=== PATIENT | female | born 1960 | race Caucasian/White ===

== ENCOUNTER 2020-02-17 07:56 | Outpatient (REF) | payer MEDICARE, MEDICAID, SELFPAY | END 2020-02-17 07:57 | disposition home or self-care (01) | LOC: HO.10HDL 07:56 | PROVIDERS: Visit Provider Internal Medicine | DX: Z13.89 Encounter for screening for other disorder (principal) | CPT/HCPCS: 80053; 80061 ==

== ENCOUNTER 2020-02-24 07:48 | Outpatient (REF) | payer MEDICARE, MEDICAID, SELFPAY ==
[2020-02-24 10:48] LABS: Alanine Aminotransferase 18 U/L (0-31); Albumin Level 4.5 g/dL (3.5-5.0); Alkaline Phosphatase 62 U/L (39-117); Anion Gap 16 (12-20); Aspartate Amino Transferase 13 U/L (5-31); Bilirubin Total 0.9 mg/dL (0.0-1.0); Blood Urea Nitrogen 22 mg/dL (9-16); Calcium 9.7 mg/dL (8.4-10.2); Carbon Dioxide 29 mmol/L (22-29); Chloride 93 mmol/L (96-108); Cholesterol 182 mg/dL; Estimated Glomerular Filt Rate > 60; Glucose Fasting 152 mg/dL (60-99); HDL Cholesterol 48 mg/dL; LDL Cholesterol Calculated 90 mg/dl; Potassium 4.7 mmol/l (3.3-5.1); Sodium 133 mmol/L (135-145); Total Protein 7.3 g/dL (6.5-8.0); Triglycerides 224 mg/dL
== END 2020-02-24 07:49 | disposition home or self-care (01) ==
LOC: HO.10HDL 07:48
PROVIDERS: Visit Provider Internal Medicine
DX: E78.00 Pure hypercholesterolemia, unspecified (principal); E11.9 Type 2 diabetes mellitus without complications
CPT/HCPCS: 80053; 80061

== ENCOUNTER 2020-06-10 07:41 | Outpatient (REF) | payer MEDICARE, MEDICAID, SELFPAY ==
[2020-06-10 10:50] LABS: Estimated Average Glucose 217 mg/dL; Hemoglobin A1c % 9.2 %
[2020-06-10 11:14] LABS: Alanine Aminotransferase 19 U/L (0-31); Albumin Level 4.4 g/dL (3.5-5.0); Alkaline Phosphatase 59 U/L (39-117); Anion Gap 16 (12-20); Aspartate Amino Transferase 12 U/L (5-31); Bilirubin Total 0.5 mg/dL (0.0-1.0); Blood Urea Nitrogen 24 mg/dL (9-16); Calcium 9.8 mg/dL (8.4-10.2); Carbon Dioxide 29 mmol/L (22-29); Chloride 98 mmol/L (96-108); Cholesterol 171 mg/dL; Estimated Glomerular Filt Rate > 60; Glucose Fasting 148 mg/dL (60-99); HDL Cholesterol 45 mg/dL; LDL Cholesterol Calculated 85 mg/dl; Potassium 5.1 mmol/L (3.3-5.1); Sodium 138 mmol/L (135-145); Total Protein 7.2 g/dL (6.5-8.0); Triglycerides 207 mg/dL
[2020-06-10 11:17] LABS: Creatinine Urine 99.98 mg/dL
== END 2020-06-10 07:42 | disposition home or self-care (01) ==
LOC: HO.10HDL 07:41
PROVIDERS: Visit Provider Internal Medicine
DX: E11.29 Type 2 diabetes mellitus with other diabetic kidney complication (principal); E78.5 Hyperlipidemia, unspecified; R80.9 Proteinuria, unspecified
CPT/HCPCS: 36415; 80053; 80061; 82043; 83036

== ENCOUNTER 2020-11-23 07:42 | Outpatient (REF) | payer MEDICARE, MEDICAID, SELFPAY ==
[2020-11-23 08:55] LABS: Alanine Aminotransferase 21 U/L (0-31); Albumin Level 4.4 g/dL (3.5-5.0); Alkaline Phosphatase 55 U/L (39-117); Anion Gap 18 (12-20); Aspartate Amino Transferase 21 U/L (5-31); Bilirubin Total 0.4 mg/dL (0.0-1.0); Blood Urea Nitrogen 17 mg/dL (9-16); Carbon Dioxide 23 mmol/L (22-29); Chloride 96 mmol/L (96-108); Cholesterol 192 mg/dL; Estimated Glomerular Filt Rate > 60; Glucose Fasting 237 mg/dL (60-99); HDL Cholesterol 47 mg/dL; LDL Cholesterol Calculated 94 mg/dl; Potassium 5.3 mmol/L (3.3-5.1); Sodium 132 mmol/L (135-145); Total Protein 7.4 g/dL (6.5-8.0); Triglycerides 259 mg/dL
[2020-11-23 08:57] LABS: Valproate 26.9 mcg/mL (50.0-100.0)
[2020-11-23 10:18] LABS: Microalbum/Creatinine Ratio Ur 53.1 ug/mg cr
[2020-11-27 13:36] LABS: Vitamin D 25-OH, D2 16 ng/mL; Vitamin D 25-OH, D3 12 ng/mL; Vitamin D 25-OH, Total 28 ng/mL (30-100)
== END 2020-11-23 07:43 | disposition home or self-care (01) ==
LOC: HO.LAB 07:42
PROVIDERS: PCP Internal Medicine; Visit Provider Internal Medicine
DX: E78.5 Hyperlipidemia, unspecified (principal); F79 Unspecified intellectual disabilities; I10 Essential (primary) hypertension; E11.9 Type 2 diabetes mellitus without complications; E55.9 Vitamin D deficiency, unspecified
CPT/HCPCS: 36415; 80053; 80061; 80164; 82043; 82306

== ENCOUNTER → 2020-11-25 07:48 | Outpatient (BNVA) | payer MEDICARE, MEDICAID, SELFPAY | PROVIDERS: PCP Internal Medicine; Visit Provider Nurse Practitioner Gerontology | DX: E11.65 Type 2 diabetes mellitus with hyperglycemia (principal); E11.29 Type 2 diabetes mellitus with other diabetic kidney complication; R80.9 Proteinuria, unspecified; E78.5 Hyperlipidemia, unspecified; I10 Essential (primary) hypertension | CPT/HCPCS: 82947; 99212 ==

== ENCOUNTER → 2020-12-30 08:50 | Outpatient (BNVA) | payer MEDICARE, MEDICAID, SELFPAY | PROVIDERS: PCP Internal Medicine; Visit Provider Dietitian, Registered | DX: E11.29 Type 2 diabetes mellitus with other diabetic kidney complication (principal) | CPT/HCPCS: 97802 ==

== ENCOUNTER → 2021-02-13 08:41 | Outpatient (BNVA) | payer MEDICARE, MEDICAID, SELFPAY | PROVIDERS: PCP Internal Medicine; Visit Provider Dietitian, Registered | DX: E11.29 Type 2 diabetes mellitus with other diabetic kidney complication (principal) | CPT/HCPCS: 97803 ==

== ENCOUNTER → 2021-04-10 07:31 | Outpatient (BNVA) | payer MEDICARE, MEDICAID, SELFPAY | PROVIDERS: PCP Internal Medicine; Visit Provider Nurse Practitioner Gerontology | DX: E11.65 Type 2 diabetes mellitus with hyperglycemia (principal); E11.29 Type 2 diabetes mellitus with other diabetic kidney complication; E78.5 Hyperlipidemia, unspecified; E66.01 Morbid (severe) obesity due to excess calories; R80.9 Proteinuria, unspecified; I10 Essential (primary) hypertension; Z68.36 Body mass index [BMI] 36.0-36.9, adult | CPT/HCPCS: 82947; 99212 ==

== ENCOUNTER 2021-05-24 07:48 | Outpatient (REF) | payer MEDICARE, MEDICAID, SELFPAY ==
[2021-05-24 10:43] LABS: MANUAL DIFF FLAG NO
[2021-05-24 10:48] LABS: Basophils Absolute Auto 0.1 X10*3/uL (0.0-0.2); Basophils Percent Auto 0.9 % (0-2); Eosinophils Absolute Auto 0.1 X10*3/uL (0.0-0.4); Eosinophils Percent Auto 1.9 % (0-4); Hematocrit 36.2 % (37.0-47.0); Hemoglobin 11.6 g/dl (12.0-16.0); Imm Gran Abs Auto 0.02 X10*3/uL (0.00-0.03); Imm Gran Pct Auto 0.4 % (0.0-0.4); Lymphocytes Absolute Auto 1.4 X10*3/uL (1.2-4.9); Lymphocytes Percent Auto 26.2 % (20-40); Mean Corpuscular Hemoglobin 28.9 pg (27.0-33.0); Mean Corpuscular Volume 90.3 fL (80.0-98.0); Mean Platelet Volume 9.1 fL (9.4-12.3); Monocytes Absolute Auto 0.5 X10*3/uL (0.1-1.2); Monocytes Percent Auto 9.5 % (2-11); Neutrophils Absolute Auto 3.3 x10*3/uL (2.0-8.3); Neutrophils Percent Auto 61.1 % (45-73); Platelet Count 227 X10*3/uL (160-400); Red Blood Count 4.01 X10*6/uL (4.20-5.50); Red Cell Distribution Width 13.1 % (11.0-16.0); White Blood Count 5.4 X10*3/uL (4.8-10.8)
[2021-05-24 11:00] LABS: Estimated Average Glucose 186 mg/dL; Hemoglobin A1c % 8.1 %
[2021-05-24 11:09] LABS: Alanine Aminotransferase 11 U/L (0-31); Albumin Level 4.3 g/dL (3.5-5.0); Alkaline Phosphatase 54 U/L (39-117); Anion Gap 14 (12-20); Aspartate Amino Transferase 10 U/L (5-31); Bilirubin Total 0.4 mg/dL (0.0-1.0); Blood Urea Nitrogen 20 mg/dL (9-16); Calcium 10.4 mg/dL (8.4-10.2); Carbon Dioxide 28 mmol/L (22-29); Chloride 96 mmol/L (96-108); Cholesterol 154 mg/dL; Estimated Glomerular Filt Rate > 60; Glucose Fasting 137 mg/dL (60-99); HDL Cholesterol 45 mg/dL; LDL Cholesterol Calculated 81 mg/dl; Potassium 4.4 mmol/L (3.3-5.1); Sodium 134 mmol/L (135-145); Total Protein 7.1 g/dL (6.5-8.0); Triglycerides 140 mg/dL
[2021-05-24 11:12] LABS: Valproate 37.8 mcg/mL (50.0-100.0)
[2021-05-24 11:30] LABS: Creatinine Urine 66.67 mg/dL; Microalbum/Creatinine Ratio Ur 64.4 ug/mg cr
[2021-05-29 14:22] LABS: Vitamin D 25-OH, D2 13 ng/mL; Vitamin D 25-OH, D3 9 ng/mL; Vitamin D 25-OH, Total 22 ng/mL (30-100)
== END 2021-05-24 07:49 | disposition home or self-care (01) ==
LOC: HO.10HDL 07:48
PROVIDERS: Visit Provider Internal Medicine
DX: E55.9 Vitamin D deficiency, unspecified (principal); E83.52 Hypercalcemia; G30.0 Alzheimer's disease with early onset; F02.81 Dementia in other diseases classified elsewhere, unspecified severity, with behavioral disturbance; E78.5 Hyperlipidemia, unspecified; E11.40 Type 2 diabetes mellitus with diabetic neuropathy, unspecified; E11.29 Type 2 diabetes mellitus with other diabetic kidney complication
CPT/HCPCS: 36415; 80053; 80061; 80164; 82043; 82306; 83036; 85025

== ENCOUNTER → 2021-07-12 07:20 | Outpatient (BNVA) | payer MEDICARE, MEDICAID, SELFPAY | PROVIDERS: PCP Internal Medicine; Visit Provider Nurse Practitioner Gerontology | DX: E11.65 Type 2 diabetes mellitus with hyperglycemia (principal); E11.29 Type 2 diabetes mellitus with other diabetic kidney complication; R80.9 Proteinuria, unspecified; E78.5 Hyperlipidemia, unspecified; E66.01 Morbid (severe) obesity due to excess calories; E55.9 Vitamin D deficiency, unspecified; I10 Essential (primary) hypertension; Z68.37 Body mass index [BMI] 37.0-37.9, adult; Z79.84 Long term (current) use of oral hypoglycemic drugs | CPT/HCPCS: 82947; 99212 ==

== ENCOUNTER → 2021-10-18 08:38 | Outpatient (BNVA) | payer MEDICARE, MEDICAID, SELFPAY | PROVIDERS: PCP Internal Medicine; Visit Provider Nurse Practitioner Gerontology | DX: E11.65 Type 2 diabetes mellitus with hyperglycemia (principal); E11.29 Type 2 diabetes mellitus with other diabetic kidney complication; E78.5 Hyperlipidemia, unspecified; R80.9 Proteinuria, unspecified; I10 Essential (primary) hypertension; E55.9 Vitamin D deficiency, unspecified; E66.01 Morbid (severe) obesity due to excess calories; Z68.37 Body mass index [BMI] 37.0-37.9, adult | CPT/HCPCS: 82947; 99212 ==

== ENCOUNTER 2022-02-12 08:33 | Outpatient (REF) | payer MEDICARE, MEDICAID, SELFPAY ==
[2022-02-12 11:12] LABS: Valproate 18.3 mcg/mL (50.0-100.0)
[2022-02-12 11:14] LABS: Alanine Aminotransferase 12 U/L (0-31); Albumin Level 4.2 g/dL (3.5-5.0); Alkaline Phosphatase 65 U/L (39-117); Anion Gap 18 (12-20); Aspartate Amino Transferase 10 U/L (5-31); Bilirubin Total 0.6 mg/dL (0.0-1.0); Blood Urea Nitrogen 21 mg/dL (9-16); Calcium 10.1 mg/dL (8.4-10.2); Carbon Dioxide 27 mmol/L (22-29); Chloride 97 mmol/L (96-108); Cholesterol 196 mg/dL; Estimated Glomerular Filt Rate > 60; Glucose Random 194 mg/dL (60-115); HDL Cholesterol 52 mg/dL; LDL Cholesterol Calculated 107 mg/dl; Potassium 5.2 mmol/L (3.3-5.1); Sodium 137 mmol/L (135-145); Total Protein 6.9 g/dL (6.5-8.0); Triglycerides 189 mg/dL
[2022-02-12 11:25] LABS: TSH reflex Free T4 2.76 uIU/mL (0.32-4.0); Vitamin D 25-OH Total 32.8 ng/mL (>30)
== END 2022-02-12 08:34 | disposition home or self-care (01) ==
LOC: HO.10HDL 08:33
PROVIDERS: Visit Provider Nurse Practitioner Family
DX: Z13.29 Encounter for screening for other suspected endocrine disorder (principal); E11.29 Type 2 diabetes mellitus with other diabetic kidney complication; E78.5 Hyperlipidemia, unspecified; E55.9 Vitamin D deficiency, unspecified; F39 Unspecified mood [affective] disorder; G30.0 Alzheimer's disease with early onset; Z79.899 Other long term (current) drug therapy
CPT/HCPCS: 36415; 80053; 80061; 80164; 82306; 84443

== ENCOUNTER 2022-09-06 11:06 | Outpatient (REF) | payer MEDICARE, MEDICAID, SELFPAY ==
[2022-09-06 11:27] LABS: MANUAL DIFF FLAG NO
[2022-09-06 12:35] LABS: Basophils Absolute Auto 0.1 X10*3/uL (0.0-0.2); Basophils Percent Auto 0.9 % (0-2); Eosinophils Absolute Auto 0.1 X10*3/uL (0.0-0.4); Eosinophils Percent Auto 1.1 % (0-4); Hematocrit 36.4 % (37.0-47.0); Hemoglobin 11.7 g/dl (12.0-16.0); Imm Gran Abs Auto 0.03 X10*3/uL (0.00-0.03); Imm Gran Pct Auto 0.4 % (0.0-0.4); Lymphocytes Absolute Auto 1.5 X10*3/uL (1.2-4.9); Lymphocytes Percent Auto 21.8 % (20-40); Mean Corpuscular HGB Conc 32.1 g/dl (31.0-35.0); Mean Corpuscular Hemoglobin 28.1 pg (27.0-33.0); Mean Corpuscular Volume 87.3 fL (80.0-98.0); Mean Platelet Volume 9.9 fL (9.4-12.3); Monocytes Absolute Auto 0.5 X10*3/uL (0.1-1.2); Monocytes Percent Auto 6.9 % (2-11); Neutrophils Absolute Auto 4.8 x10*3/uL (2.0-8.3); Neutrophils Percent Auto 68.9 % (45-73); Platelet Count 303 X10*3/uL (160-400); Red Blood Count 4.17 X10*6/uL (4.20-5.50); Red Cell Distribution Width 13.6 % (11.0-16.0)
== END 2022-09-06 11:07 | disposition home or self-care (01) ==
LOC: HO.LAB 11:06
PROVIDERS: Nurse Practitioner Family; PCP Internal Medicine; Visit Provider Internal Medicine
DX: R19.7 Diarrhea, unspecified (principal)
CPT/HCPCS: 36415; 85025

== ENCOUNTER 2022-09-13 11:07 | Outpatient (REF) | payer MEDICARE, MEDICAID, SELFPAY ==
[2022-09-13 13:09] LABS: CDiff Gene PCR NEGATIVE (Negative)
[2022-09-13 14:44] LABS: Leukocytes Stool Qualitative NEGATIVE (NEGATIVE)
== END 2022-09-13 11:08 | disposition home or self-care (01) ==
LOC: HO.LNP 11:07
PROVIDERS: Visit Provider Nurse Practitioner Family
DX: R19.7 Diarrhea, unspecified (principal)
CPT/HCPCS: 87177; 87209; 87493; 89055

== ENCOUNTER 2022-12-05 13:13 | Outpatient (AMB) | payer MEDICARE, MEDICAID, SELFPAY ==
[2022-12-05 13:16] VITALS: BP 102/72; PULSE 80; BMI 33.3
--- NOTE | 2022-12-05 13:16 | A.OFFVIS_ITS ---
Intake Vital Signs 12/05/22 13:16 Height 5 ft 2 in Weight 182 lb BMI 33.3 BP 102/72 Blood Pressure Location Lt brachial Position Sitting Pulse 80 Pulse Source Pulse Oximeter Intake Visit Reasons: DM2 Intake Note: New patient to Dr. Leblanc present today for Type 2 Diabetes Mellitus. 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 Patient was last seen by. Monika Donis NP on 10/18/21 Patient is mentally challenged and declines to have her blood glucose tested therefore moderate blood glucose control without any hypoglycemia is appropriate. She also refuses any injections, eye exams and foot exams. Past medical history: Dm2, HTN, HLD, mentally challenged Micro and macrovascular complications: none known Diabetes medications: pioglitazone 45, metformin 1000mg BID, Rybelus 14 mg Symptoms reported: denies numbness, tingling, cramping in lower extremities Hypoglycemia: unknown Hyperglycemia: + urinary frequency, + nocturia, + polydypsia Blood glucose monitoring: logbook shows checking pOC once in AM and are in mid to high 100s on average Diet: compulsive eater Drinks throughout day: water Exercise: limited Personalization Specialist - CDE education: no Senior Center Manager: no, refuses to go Dental exam: recently Ophthalmology evaluation: needs to make appt Laboratory Tests 05/24/21 05/24/21 05/24/21 06:30 07:55 07:55 Creatinine 0.71 Estimated GFR > 60 Hgb A1c (Clinic) Triglycerides 140 Cholesterol 154 LDL Cholesterol, C alc 81 HDL Cholesterol 45 25-OH Vitamin D To golden 22 L Microalb/Creat Rat io 64.4 09/29/21 09:34 Creatinine Estimated GFR Hgb A1c (Clinic) 7.2 H Triglycerides Cholesterol LDL Cholesterol, C alc HDL Cholesterol 25-OH Vitamin D To golden Microalb/Creat Rat io [facility] Medical History Abnormal behavior Class 2 obesity with body mass index (BMI) of 37.0 to 37.9 in adult Diabetes mellitus Diabetes type 2, uncontrolled Dyslipidemia 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 Essential hypertension GERD (gastroesophageal reflux disease) Hypercalcemia Memory loss Mentally challenged Microalbuminuria Mood disorder Obesity due to excess calories Proteinuria Type 2 diabetes mellitus with other diabetic kidney complication Urinary incontinence Surgical History History of hysterectomy Family History Father CVD (cardiovascular disease) Mother Hypertension Brother Healthy adult Social History Housing: House Alcohol intake: never Patient Tobacco Use Status: Never used Tobacco e-Cigarette/Vaping Use: Never Used Second Hand Smoke Exposure: No service: No Current occupational status: disabled Cognitive needs: Yes Hearing needs: No Vision needs: No Physical Exam Vital Signs: Last Vital Signs Pulse 80 12/05/22 13:16 BP 102/72 12/05/22 13:16 Absence of Cushingoid features. Absence of acromegalic features. Neck exam reveals nl size thyroid about 15 gms. No thyroid nodules palpable. No carotid bruits present. Lungs CTA. Heart S1 S2, Reg R/R. No M/R/ G. Skin exam reveals absence of vitiligo or acanthosis nigricans. Abdominal exam reveals Soft NT/ND with NA BS. No organomegaly present. Neck Other: . Extrem Other: Visual exam of foot performed. No ulcerations or open lesions. No onchomycosis, no callouses.Pulses 2 + distally . sensation of vibration cannot be tested in this patient Results AMB Hemoglobin A1c AMB Hemoglobin A1c 8.1 % Last Edit by Yanelis Cabrera on 12/05/22 13:39 Assessment & Plan Assessment & Plan (1) Diabetes mellitus: Code(s): E11.9 - Type 2 diabetes mellitus without complications Qualifiers: Diabetes mellitus complication detail: with microalbuminuria Diabetes mellitus complication status: with kidney complications Diabetes mellitus intermediate card tender insulin use: without intermediate card tender use Diabetes mellitus type: type 2 Qualified Code(s): E11.29 - Type 2 diabetes mellitus with other diabetic kidney complication; R80.9 - Proteinuria, unspecified Plan: This 62-year-old white female with history of type 2 diabetes being treated with Actos 45 mg, pioglitazone and G LP 1 with poor glycemic control and known microvascular complications namely microalbumin. Plan is to have the facility checked the patient's point care before meals and bedtime. Would also like to initiate Lantus 14 units before bedtime. However, director at facility states she needs to discuss this with patient's family prior to initiation of either increased fingersticks or insulin. If family is not willing to move forward with any other treatment, there is no reason for further endocrine follow ups at this point. We also talked about potential initiation of the sensor which may be particularly difficult in the facility in which she lives. Orders: Orders Basic Metabolic Panel Today E11.9 - Type 2 diabetes mellitus without complications Lipid Panel Today E11.9 - Type 2 diabetes mellitus without complications Microalbumin, Random (w Creat) Today E11.9 - Type 2 diabetes mellitus without complications AMB Hemoglobin A1c Today E11.65 - Type 2 diabetes mellitus with hyperglycemia Referrals Diabetes Education Referral E11.9 - Type 2 diabetes mellitus without complications Nutrition/Dietitian Referral E11.9 - Type 2 diabetes mellitus without complications Quality Reporting (2019) Adult ([facility] 138/06/20/68) Smoking risk assessment performed?: Yes Patient Tobacco Use Status: Never used Tobacco Coding Level of Care Code Est Pt Level 4 (06741) Diagnoses Diabetes mellitus E11.29; R80.9 Diabetes mellitus complication detail: with microalbuminuria Diabetes mellitus complication status: with kidney complications Diabetes mellitus penitentiary insulin use: without intermediate card tender use Diabetes mellitus type: type 2
[2022-12-05 13:36] LABS: Glucose, Whole Blood 263 mg/dL (60-115)
== END 2022-12-05 14:30 | disposition home or self-care (01) ==
PROVIDERS: PCP Internal Medicine; Visit Provider Internal Medicine Endocrinology, Diabetes & Metabolism
DX: E11.29 Type 2 diabetes mellitus with other diabetic kidney complication (principal); R80.9 Proteinuria, unspecified; E11.65 Type 2 diabetes mellitus with hyperglycemia
CPT/HCPCS: 99214

== ENCOUNTER → 2022-12-05 13:13 | Outpatient (BNVA) | payer MEDICARE, MEDICAID, SELFPAY | PROVIDERS: Visit Provider Internal Medicine Endocrinology, Diabetes & Metabolism | DX: E11.29 Type 2 diabetes mellitus with other diabetic kidney complication (principal); R80.9 Proteinuria, unspecified | CPT/HCPCS: 82947; 83036; 99212 ==

== ENCOUNTER 2023-01-01 01:58 | Emergency (ER) | payer MEDICARE, MEDICAID, SELFPAY ==
--- NOTE | ~2023-01-01 | CT_ITS ---
EXAMINATION: CT HEAD WITHOUT CONTRAST CT CERVICAL SPINE WITHOUT CONTRAST CLINICAL INFORMATION: Injury. Fall. Pain. COMPARISON: None available. TECHNIQUE: Contiguous axial imaging was performed through the head and cervical spine without intravenous administration of contrast. Sagittal and coronal reformatted images also obtained This CT examination was performed using dose optimization techniques as appropriate, variously including the following: *Automated exposure control *Adjustment of mA and/or kV according to patient size (this includes techniques or standardized protocols for targeted exams where dose is matched to indication/reason for exam; i.e. extremities or head) *Use of iterative reconstruction technique DLP: 1564 mGy-cm FINDINGS: The lateral, third and the fourth ventricles are normally outlined. The cortical sulci and basal cisterns are normally outlined as well. There is no acute territorial defect, hemorrhage or midline shift. The extra-axial spaces are unremarkable. Calvarium: Intact. Maxillofacial sinuses and mastoids: Clear as visualized. Cervical spine: The alignment is normal. There is [id number] C6-C7 disc degenerative change spine with loss of disc space, endplate change and C6-C7 posterior osteophytes with mild spinal canal narrowing. The remaining disc spaces are maintained. There is no significant neuroforaminal narrowing. There is no fracture. The soft tissues are unremarkable. The visualized upper lung carrasco are clear. CT/CT cervical spine wo IV con IMPRESSION: 1. No acute intracranial abnormality. 2. [id number]-adpbfshk C6-C7 disc degenerative change. 3. No fracture.
--- NOTE | ~2023-01-01 | CT_ITS ---
EXAMINATION: CT HEAD WITHOUT CONTRAST CT CERVICAL SPINE WITHOUT CONTRAST CLINICAL INFORMATION: Injury. Fall. Pain. COMPARISON: None available. TECHNIQUE: Contiguous axial imaging was performed through the head and cervical spine without intravenous administration of contrast. Sagittal and coronal reformatted images also obtained This CT examination was performed using dose optimization techniques as appropriate, variously including the following: *Automated exposure control *Adjustment of mA and/or kV according to patient size (this includes techniques or standardized protocols for targeted exams where dose is matched to indication/reason for exam; i.e. extremities or head) *Use of iterative reconstruction technique DLP: 1564 mGy-cm FINDINGS: The lateral, third and the fourth ventricles are normally outlined. The cortical sulci and basal cisterns are normally outlined as well. There is no acute territorial defect, hemorrhage or midline shift. The extra-axial spaces are unremarkable. Calvarium: Intact. Maxillofacial sinuses and mastoids: Clear as visualized. Cervical spine: The alignment is normal. There is llhf-mi-befpixuj C6-C7 disc degenerative change spine with loss of disc space, endplate change and C6-C7 posterior osteophytes with mild spinal canal narrowing. The remaining disc spaces are maintained. There is no significant neuroforaminal narrowing. There is no fracture. The soft tissues are unremarkable. The visualized upper lung carrasco are clear. CT/CT head/brain wo IV con IMPRESSION: 1. No acute intracranial abnormality. 2. Voij-bv-aemhxcks C6-C7 disc degenerative change. 3. No fracture.
--- NOTE | ~2023-01-01 | XR_ITS ---
EXAMINATION: XR KNEE, LEFT CLINICAL INFORMATION: Fall. Pain. COMPARISON: None available. TECHNIQUE: Four views of the left knee. FINDINGS: The bone mineralization is normal. The joint spaces are maintained. No fracture. There is no joint effusion. The soft tissues are unremarkable. XR/XR knee LT 3V IMPRESSION: No significant abnormality identified.
[2023-01-01 02:10] VITALS: BP 162/80; BP 173/88; PULSE 79; PULSE 80; RESP 13; TEMP 36.9; O2SAT 95; O2SAT 96; BMI 28.4
--- NOTE | 2023-01-01 02:17 | ED.FALL ---
HPI - Fall General Chief Complaint: Fall Stated Complaint: left knee, neck and head pain after fall Time Seen by Provider: 01/01/23 02:04 Source: other Mode of arrival: EMS History of Present Illness HPI Narrative: This is a 62-year-old female with cognitive delays [facility] from [facility] for [facility] fall, not on anticoagulation and has pain to the left knee/back and head. Related Data Home Medications Medication Instructions Recorded Confirmed lorazepam 1 mg tablet (Ativan) 1 mg PO BID PRN 09/06/22 10/18/22 trazodone 50 mg tablet 25 mg PO DAILY 12/05/22 Previous Rx's Medication Instructions Recorded metformin 1,000 mg tablet 1,000 mg PO BID 90 days #180 tabs 02/21/22 omeprazole 20 mg capsule,delayed 20 mg PO DAILY 90 days #90 caps 07/30/22 release fluoxetine 20 mg capsule 20 mg PO DAILY #90 caps 08/09/22 blood-glucose meter (FreeStyle #1 ea 09/06/22 Lite Meter kit) lancets 28 gauge (FreeStyle #100 ea 09/06/22 Lancets) loperamide 2 mg tablet (Imodium 2 mg PO BID PRN loose stool #30 09/06/22 A-D) tabs adult overnight diapers #120 ea 09/13/22 walker #1 ea 09/13/22 aspirin 81 mg tablet,delayed 81 mg PO DAILY #90 tabs 10/05/22 release (Adult Aspirin Regimen) cholecalciferol (vitamin D3) 50 50 mcg PO DAILY #30 caps 10/05/22 mcg (2,000 unit) capsule semaglutide 14 mg tablet (Rybelsus) 14 mg PO DAILY 90 days #90 tabs 10/05/22 blood sugar diagnostic (FreeStyle #100 ea 10/10/22 Lite Strips) blood sugar diagnostic (OneTouch #100 ea 10/11/22 Ultra Test strips) blood-glucose meter (OneTouch #1 ea 10/11/22 Ultra2 Meter) lancets 30 gauge (OneTouch #100 ea 10/11/22 UltraSoft 2 Lancet) blood sugar diagnostic (Prodigy No #50 ea 10/18/22 Coding strips) blood-glucose meter (Prodigy #1 ea 10/18/22 Autocode Meter kit) lancets 28 gauge (Safety Lancets) #100 ea 10/18/22 adult diapers briefs #240 ea 11/13/22 ezetimibe 10 mg tablet 10 mg PO DAILY 90 days #90 tabs 11/28/22 carboxymethylcellulose sodium 1 % 1 drp ophthalmic (eye) BID 10 days 12/03/22 eye drops (Artificial Tears #15 mL (carboxymethylcellulose)) blood sugar diagnostic (SageCloudigy No #100 ea 12/11/22 Coding strips) blood-glucose meter (Prodigy #1 ea 12/11/22 Autocode Blood Glucose Monitoring System) lancets 28 gauge (Orbital Traction Lancets) #100 ea 12/11/22 lancing device (Gland Pharm[employer] Lancing #1 ea 12/11/22 Device) atorvastatin 80 mg tablet 80 mg PO BEDTIME 90 days #90 tabs 12/26/22 lisinopril 10 mg tablet 10 mg PO DAILY 90 days #90 tabs 12/26/22 pioglitazone 45 mg tablet 45 mg PO DAILY 90 days #90 tabs 12/26/22 melatonin 10 mg capsule 20 mg PO BEDTIME sleep 90 days 12/29/22 #180 caps Allergies Allergy/AdvReac Type Severity Reaction Status Date / Time No Known Allergies Allergy Unknown Verified 12/05/22 13:24 Review of Systems Review of Systems: Pertinent positives and negatives as stated in HPI [facility] Past Medical History Source: nursing notes reviewed Medical History Abnormal behavior Class 2 obesity with body mass index (BMI) of 37.0 to 37.9 in adult Diabetes mellitus Diabetes type 2, uncontrolled Dyslipidemia 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 Essential hypertension GERD (gastroesophageal reflux disease) Hypercalcemia Memory loss Mentally challenged Microalbuminuria Mood disorder Obesity due to excess calories Proteinuria Type 2 diabetes mellitus with other diabetic kidney complication Urinary incontinence Surgical History History of hysterectomy Family History Family History Father CVD (cardiovascular disease) Mother Hypertension Brother Healthy adult Social History Social History Housing: House Alcohol intake: never Patient Tobacco Use Status: Never used Tobacco e-Cigarette/Vaping Use: Never Used Second Hand Smoke Exposure: No Advance Directives: No Advance Directives Information Provided: Yes service: No Current occupational status: disabled Cognitive needs: Yes Hearing needs: No Vision needs: No Physical Exam Vital Signs: Vital Signs: Last Vital Signs Temp 98.4 F 01/01/23 02:10 Pulse 79 01/01/23 02:10 Resp 13 01/01/23 02:10 BP 173/88 H 01/01/23 02:10 Pulse Ox 96 01/01/23 02:10 O2 Del Method Room Air 01/01/23 02:10 BMI result Body Mass Index 28.4 VITAL SIGNS: Reviewed. GENERAL: Well developed, well nourished, in no acute distress. HEAD: Normocephalic/atraumatic EYES: PERRLA, EOMI EARS: Ext canals without abnormality NOSE: Nares patent bilateral OROPHARYNX: no oral lesions noted, posterior pharynx clear NECK: C-collar in place, no midline cervical spine tenderness to palpation or step-offs LUNGS: Normal breath sounds. No adventitious sounds or accessory muscle use. SpO2<96> CARDIOVASCULAR: Regular rate and rhythm without noted murmurs ABDOMEN: Soft, non-tender, non-distended with bowel sounds. MUSCULOSKELETAL: No tenderness, deformities, or effusions noted on gross inspection. EXTREMITIES: No cyanosis, clubbing or edema. SKIN: Inspection of the skin reveals no rashes NEUROLOGIC: Alert and oriented x 2. Strength and sensation to light touch were grossly intact x 4. Medications Administered Discontinued Medications Generic Name Dose Route Start Last Admin Trade Name Freq PRN Reason Stop Dose Admin Acetaminophen 975 mg 01/01/23 02:04 01/01/23 02:22 Acetaminophen 325 Mg Tablet PO 01/01/23 02:05 975 mg ONCE ONE Administration Medical Decision Making Medical Decision Making [facility] Narrative: This is a 62-year-old female with history and clinical presentation most consistent with mild mechanical fall and I reviewed the imaging studies which shows a left knee x-ray that does not demonstrate any fracture or dislocation otherwise my interpretation is in agreement with radiology's impression. CT scan of the head negative for intracranial hemorrhage and otherwise my interpretation is in agreement with radiology's impression. CT scan of the cervical spine without evidence of fracture or subluxation and otherwise my interpretation is in agreement with radiology's impression. C-collar was removed. All results and findings discussed with the patient and the group home supervisor at bedside and she is discharged. Lab Data Labs: Lab Results 01/01/23 Range/Units 02:18 POC Glucose 142 H (60-115) mg/dL Independent Interpretation I performed an independent interpretation of an: EKG Interpretation: Normal sinus rhythm, HR-80, RBBB, no STEMI, MD/QTC are within normal limits. Radiology Impression Discussion of test interpretation with radiology: I have reviewed the radiologist's reading. Radiologist Impression: Please see the discussion above Discharge Plan Discharge Clinical Impression: Fall Patient Disposition: Xfer Other Instructions: Fall Prevention for Older Adults (ED) Additional Instructions: 1. Resume all home medications as prescribed. 2. All scans and x-rays are negative. Return to the ER for any worsening symptoms. Prescriptions: No Action omeprazole 20 mg capsule,delayed release(DR/EC) 20 mg PO DAILY 90 Days Qty: 90 3RF fluoxetine 20 mg capsule 20 mg PO DAILY Qty: 90 1RF (DME) adult overnight diapers See Rx Instructions .Route .MEDSUPPLY Qty: 120 0RF Rx Instructions: As directed (DME[place] [facility] [place] .Route Qty: 1 0RF Rx Instructions: As directed Rybelsus 14 mg tablet 14 mg PO DAILY 90 Days Qty: 90 3RF cholecalciferol (vitamin D3) 50 mcg (2,000 unit) capsule 50 mcg PO DAILY Qty: 30 11RF aspirin [Adult Aspirin Regimen] 81 mg tablet,delayed release (DR/EC) 81 mg PO DAILY Qty: 90 1RF (DME) FreeStyle Lite Strips Strip See Rx Instructions .MEDSUPPLY Qty: 100 2RF Rx Instructions: 2 x day (DME) blood-glucose meter [OneTouch Ultra2 Meter] [facility] [place]ructions .Route Qty: 1 0RF Rx Instructions: As directed (DME) OneTouch Ultra Test Strip See Rx Instructions .Route Qty: 100 2RF Rx Instructions: Use 1 test strip once a day (DME) lancets [OneTouch UltraSoft 2 Lancet] 30 gauge [facility] [place] See Rx Instructions .Route Qty: 100 2RF Rx Instructions: Use 1 lancet once a day (DME) adult diapers briefs X-large See Rx Instructions .Route .MEDSUPPLY Qty: 240 11RF Rx Instructions: Use 8 briefs per day ezetimibe 10 mg tablet 10 mg PO DAILY 90 Days Qty: 90 3RF Artificial Tears (cmc) 1 % drops 1 drp ophthalmic (eye) BID 10 Days Qty: 15 1RF (DME) blood-glucose meter [Prodigy Autocode Monitor Syst] Misc See Rx Instructions .Route Qty: 1 0RF Rx Instructions: As directed tests 4 X/day due to poor glycemic control (DME) lancets [Prodigy Lancets] 28 gauge misc See Rx Instructions .Route Qty: 100 4RF Rx Instructions: s directed tests 4 X/day due to poor glycemic control (DME) Prodigy No Coding Strip See Rx Instructions .Route Qty: 100 5RF Rx Instructions: s directed tests 4 X/day due to poor glycemic control (DME) lancing device [Prodigy Lancing Device] Misc See Rx Instructions .Route Qty: 1 5RF Rx Instructions: s directed tests 4 X/day due to poor glycemic control atorvastatin 80 mg tablet 80 mg PO BEDTIME 90 Days Qty: 90 1RF lisinopril 10 mg tablet 10 mg PO DAILY 90 Days Qty: 90 1RF pioglitazone 45 mg tablet 45 mg PO DAILY 90 Days Qty: 90 1RF melatonin 10 mg capsule 20 mg PO BEDTIME 90 Days Qty: 180 1RF metformin 1,000 mg tablet 1,000 mg PO BID 90 Days Qty: 180 3RF lorazepam [Ativan] 1 mg tablet 1 mg PO BID PRN loperamide [Imodium A-D] 2 mg tablet 2 mg PO BID PRN (Reason: loose stool) Qty: 30 0RF (DME) lancets [FreeStyle Lancets] 28 gauge misc See Rx Instructions .MEDSUPPLY Qty: 100 2RF Rx Instructions: 2 x day (DME) blood-glucose meter [FreeStyle Lite Meter] Kit See Rx Instructions .MEDSUPPLY Qty: 1 0RF Rx Instructions: 2 x day (DME) blood-glucose meter [Prodigy Autocode Meter] Kit See Rx Instructions .Route Qty: 1 0RF Rx Instructions: As directed (DME) Prodigy No Coding Strip See Rx Instructions .Route Qty: 50 11RF Rx Instructions: Use 1 test strip once a day (DME) lancets [Safety Lancets] 28 gauge misc See Rx Instructions .Route Qty: 100 6RF Rx Instructions: Use 1 lancet twice a day trazodone 50 mg tablet 25 mg PO DAILY Referrals: Hannah Rowley MD [Primary Care Provider] -
[2023-01-01 02:22] LABS: Glucose, Whole Blood 142 mg/dL (60-115)
[2023-01-01] MEDS: Acetaminophen 325 MG TABLET 975 MG PO (02:22)
--- NOTE | 2023-01-01 09:51 | ECG_ITS ---
Test Reason : FALL Blood Pressure : / mmHG Vent. Rate : 080 BPM Atrial Rate : 080 BPM P-R Int : 158 ms QRS Dur : 152 ms QT Int : 396 ms P-R-T Axes : 033 -39 026 degrees QTc Int : 456 ms Normal sinus rhythm Left axis deviation Right bundle branch block Minimal voltage criteria for LVH, may be normal variant ( R in aVL ) Abnormal ECG No previous ECGs available Referred By: Sade Reyna Electronically Signed By:OC MARIEE
== END 2023-01-01 06:15 | disposition home or self-care (01) ==
PROVIDERS: Emergency Provider Student in an Organized Health Care Education/Training Program; PCP Internal Medicine
DX: S89.92XA Unspecified injury of left lower leg, initial encounter (principal); S16.1XXA Strain of muscle, fascia and tendon at neck level, initial encounter; M54.50 Low back pain, unspecified; R51.9 Headache, unspecified; M54.2 Cervicalgia; M25.562 Pain in left knee; R07.89 Other chest pain; W01.0XXA Fall on same level from slipping, tripping and stumbling without subsequent striking against object, initial encounter; Y93.9 Activity, unspecified; Y92.9 Unspecified place or not applicable; Y99.9 Unspecified external cause status
CPT/HCPCS: 70450; 72125; 73562; 82947; 93005; 99284

== ENCOUNTER 2023-01-08 09:54 | Outpatient (AMB) | payer MEDICARE, MEDICAID, SELFPAY ==
--- NOTE | 2023-01-08 10:34 | A.OFFVIS_ITS ---
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 Grading Required: No Accompanied by: Other Relationship Allergies No Known Allergies Allergy (Unknown, Verified 12/05/22 13:24) HPI Comprehensive Diabetes Asmnt Most Recent Diabetes Results: Cholesterol 196 mg/dL 02/12/22 HDL Cholesterol 52 mg/dL 02/12/22 Triglycerides 189 mg/dL 02/12/22 Creatinine 0.70 mg/dL (0.5-1.4) 02/12/22 Blood Urea Nitrogen 21 mg/dL (9-16) H 02/12/22 Sodium 137 mmol/L (135-145) 02/12/22 Potassium 5.2 mmol/L (3.3-5.1) H 02/12/22 Chloride 97 mmol/L (96-108) 02/12/22 Carbon Dioxide 27 mmol/L (22-29) 02/12/22 Calcium 10.1 mg/dL (8.4-10.2) 02/12/22 AST 10 U/L (5-31) 02/12/22 ALT 12 U/L (0-31) 02/12/22 Total Protein 6.9 g/dL (6.5-8.0) 02/12/22 Albumin 4.2 g/dL (3.5-5.0) 02/12/22 [facility] Medical History Abnormal behavior Class 2 obesity with body mass index (BMI) of 37.0 to 37.9 in adult Diabetes mellitus Diabetes type 2, uncontrolled Dyslipidemia 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 Essential hypertension GERD (gastroesophageal reflux disease) Hypercalcemia Memory loss Mentally challenged Microalbuminuria Mood disorder Obesity due to excess calories Proteinuria Type 2 diabetes mellitus with other diabetic kidney complication Urinary incontinence Surgical History History of hysterectomy Family History Father CVD (cardiovascular disease) Mother Hypertension Brother Healthy adult Social History Housing: House Alcohol intake: never Patient Tobacco Use Status: Never used Tobacco e-Cigarette/Vaping Use: Never Used Second Hand Smoke Exposure: No service: No Current occupational status: disabled Cognitive needs: Yes Hearing needs: No Vision needs: No Assessment & Plan Assessment & Plan (1) Type 2 diabetes mellitus with other diabetic kidney complication: Code(s): E11.29 - Type 2 diabetes mellitus with other diabetic kidney complication Plan: Learning objectives: The patient was provided with verbal and written education on the following topics as outlined below. The patient met all learning objectives and was able to verbalize understanding and provide teach back of education topics discussed . The patient was provided with the opportunity to ask questions and all questions were answered. Patient Assessment Assess patient education level/literacy/barriers Patient questions/concerns, patient's nurse outreach case manager did not bring glucose log to today's visit Patient is currently taking Rebelsus 14 mg Metformin 1000 mg b.i.d. Pioglitazone 45 mg daily pioglitazone pioglitazone Patient lives in correction, where meals are prepared by staff Patient is afraid of needles and staff and family are concerned regarding initiation basal insulin [facility] staff has been testing glucose 4 times daily Patient's family discussed using CGM but is concerned that patient will not tolerate wearing sensor on her arm Brief overview of Diabetes Management Monitoring blood sugar Following a meal plan Regular exercise Maintaining a healthy weight Taking medication as needed Members of the care team (PCP, RN, MA, RD, CDE, teller manager) Blood glucose monitoring When/how often to test Target blood sugar ranges Introduction to Nutrition Importance of healthy diet in managing DM Diet is personalized to individual preference Review patient?s regular diet/food preferences Who prepares meals/does food shopping/ Dining out?/ Barriers? How diet effects glucose Eating 3 balanced meals a day with small, healthy snacks between meals Review food groups Carbohydrates: What is a carbohydrate/Which food/food groups are considered carbohydrates Effect of carbohydrates on blood glucose Portion sizes Reading food labels Basic carb counting (if applicable per nursing assessment) Plate method Meal planning Recommendations: Follow plate method, consistent carbs and read nutritional labels. Educational Materials: The patient was provided with the following written educational materials: Planning Healthy Meals Handout given to nurse outreach case manager Patient Response to instructions: Comprehension of Instructions: Fair Readiness to make changes: Contemplation How confident they feel about making changes: Positive Patient Instructions: Include regular daily activity. ADA recommends 30 minutes of exercise 5 days a week. Weight loss talk to PCP or International Freight Forwarder before starting new plan. Test blood sugar as directed; Fasting and 2hpp largest meal. Watch trends in results. Utilize results and to assess how food, physical activity and medications affect blood sugar results. Bring glucometer or CGM to next visit. Be knowledgeable about diabetes medication, its action, side effects, efficacy, toxicity, prescribed dosage, appropriate timing and frequency of administration, effect of missed and delayed doses and instructions for storage, travel and safety. Coding Level of Care Code Est Pt Level 1 (54542) Diagnoses Type 2 diabetes mellitus with other diabetic kidney complication E11.29
== END 2023-01-08 10:40 | disposition home or self-care (01) ==
PROVIDERS: PCP Internal Medicine; Visit Provider Registered Nurse Diabetes Educator
DX: E11.29 Type 2 diabetes mellitus with other diabetic kidney complication (principal)

== ENCOUNTER → 2023-01-08 09:54 | Outpatient (BNVA) | payer MEDICARE, MEDICAID, SELFPAY | PROVIDERS: PCP Internal Medicine; Visit Provider Registered Nurse Diabetes Educator | DX: E11.29 Type 2 diabetes mellitus with other diabetic kidney complication (principal) | CPT/HCPCS: 99211 ==

== ENCOUNTER 2023-01-09 06:16 | Emergency (ER) | payer MEDICARE, MEDICAID, SELFPAY ==
--- NOTE | ~2023-01-09 | CT_ITS ---
EXAMINATION: CT brain and CT cervical spine without contrast. CLINICAL INDICATIONS: Confusion. COMPARISON: CT brain and CT cervical spine 01/01/2023. TECHNIQUE: 5 mm thin axial and reformatted 3 mm thin sagittal and coronal images of brain were obtained. Subsequently axial 3 mm thin and reformatted 2 mm thin sagittal and coronal images of cervical spine were obtained. DLP [id number]. This CT examination was performed using dose optimization technique as appropriate, variously including the following: Automated exposure control Adjustment of MA and/or KV according to patient size(this includes techniques or standardized protocols for targeted exams where dose is matched to indication/reason for exam; extremities or head. Use of iterative reconstruction techniques. FINDINGS: Brain: There is no acute intra-axial, extra-axial bleed, masses or midline shift. There is no acute infarction in evolution. There is no edema.. The huang to white matter differentiation is maintained. The lateral ventricles are symmetrical in size and configuration without enlargement. Bone windows reveal no calvarial abnormality. There is no scalp soft tissue abnormality. Bilateral paranasal sinuses and mastoid air cells are well-aerated. There is moderate debris in the external auditory canal Cervical spine: There is mild straightening of cervical lordosis. The vertebral heights and alignment is normal. There is loss of C6-C7 disc height with ventral and posterior spondylosis. Rest of the disc heights are normal. The craniovertebral junction and the C1-C2 alignment is normal. The prevertebral and paravertebral soft tissues are normal. The airway appears widely patent. The prevertebral and paravertebral soft tissues are normal. The lung apices are clear CT/CT cervical spine wo IV con IMPRESSION: 1. No acute intracranial process seen. 2. There is no acute fracture, dislocation or subluxation seen in cervical spine. There are degenerative disc changes with ventral and posterior spondylosis C6-C7 disc level. No acute fracture, dislocation or subluxation seen.
--- NOTE | ~2023-01-09 | XR_ITS ---
EXAMINATION: XR CHEST 9:02 AM CLINICAL INFORMATION: Cough COMPARISON: None available. TECHNIQUE: Frontal view of the chest was obtained. FINDINGS: Portable frontal radiograph of the chest shows the lungs are clear. There are no pleural effusions. The cardiomediastinal silhouette is nonenlarged. XR/XR chest 1V IMPRESSION: No acute disease
[2023-01-09 06:33] VITALS: BP 141/78; BP 162/88; PULSE 88; RESP 16; TEMP 37.1; O2SAT 96; BMI 35.8
--- NOTE | 2023-01-09 07:06 | ECG_ITS ---
Test Reason : fall Blood Pressure : / mmHG Vent. Rate : 091 BPM Atrial Rate : 091 BPM P-R Int : 168 ms QRS Dur : 144 ms QT Int : 388 ms P-R-T Axes : 069 -50 054 degrees QTc Int : 477 ms Normal sinus rhythm Right bundle branch block Left anterior fascicular block Bifascicular block Abnormal ECG When compared with ECG of 01-JAN-2023 02:11, No significant change was found Referred By: Fatemeh Fowler Electronically Signed By:OC MARIEE
--- NOTE | 2023-01-09 07:08 | ED_ITS ---
HPI - General Adult General Chief complaint: Fall Stated complaint: fall Time Seen by Provider: 01/09/23 06:34 Source: patient and RN notes reviewed Mode of arrival: ambulatory Limitations: no limitations History of Present Illness HPI narrative: This is a 62-year-old female, with a past medical history of developmental disability, diabetes type 2, hypertension, hyperlipidemia, GERD, constipation, OCD, CVA 2014, bladder incontinence, presenting to the emergency department via EMS, accompanied by residential living staff member, for evaluation of fall which occurred at approximately 5:45 a.m. this morning. Staff member reports that throughout the night last night patient was walking between her room in her bathroom, more than usual. Staff member reports that she heard the patient screaming help and 1-2 minutes later, the staff member found patient on the ground face down. Staff members unsure what caused her to fall. Patient was responsive but required EMS to help her pick her up. Staff member reports that patient was able to ambulate at the scene and was complaining of a headache. Staff member reports that patient has been more lethargic since this fall. Staff member also reports over the last several days patient has had increased urination and a cough. Staff member reports that patient appears to be more confused since the fall. MD complaint: ? Syncope Onset (ago): hour(s) Radiation: non-radiation Relieving factors: none Exacerbating factors: none Associated symptoms: denies other symptoms Treatments prior to arrival: none Related Data Home Medications Medication Instructions Recorded Confirmed lorazepam 1 mg tablet (Ativan) 1 mg PO BID PRN 09/06/22 10/18/22 trazodone 50 mg tablet 25 mg PO DAILY 12/05/22 Previous Rx's Medication Instructions Recorded metformin 1,000 mg tablet 1,000 mg PO BID 90 days #180 tabs 02/21/22 omeprazole 20 mg capsule,delayed 20 mg PO DAILY 90 days #90 caps 07/30/22 release fluoxetine 20 mg capsule 20 mg PO DAILY #90 caps 08/09/22 blood-glucose meter (FreeStyle #1 ea 09/06/22 Lite Meter kit) lancets 28 gauge (FreeStyle #100 ea 09/06/22 Lancets) loperamide 2 mg tablet (Imodium 2 mg PO BID PRN loose stool #30 09/06/22 A-D) tabs adult overnight diapers #120 ea 09/13/22 walker #1 ea 09/13/22 aspirin 81 mg tablet,delayed 81 mg PO DAILY #90 tabs 10/05/22 release (Adult Aspirin Regimen) cholecalciferol (vitamin D3) 50 50 mcg PO DAILY #30 caps 10/05/22 mcg (2,000 unit) capsule semaglutide 14 mg tablet (Rybelsus) 14 mg PO DAILY 90 days #90 tabs 10/05/22 blood sugar diagnostic (FreeStyle #100 ea 10/10/22 Lite Strips) blood sugar diagnostic (OneTouch #100 ea 10/11/22 Ultra Test strips) blood-glucose meter (OneTouch #1 ea 10/11/22 Ultra2 Meter) lancets 30 gauge (OneTouch #100 ea 10/11/22 UltraSoft 2 Lancet) blood sugar diagnostic (Prodigy No #50 ea 10/18/22 Coding strips) blood-glucose meter (Prodigy #1 ea 10/18/22 Autocode Meter kit) lancets 28 gauge (Safety Lancets) #100 ea 10/18/22 adult diapers briefs #240 ea 11/13/22 ezetimibe 10 mg tablet 10 mg PO DAILY 90 days #90 tabs 11/28/22 carboxymethylcellulose sodium 1 % 1 drp ophthalmic (eye) BID 10 days 12/03/22 eye drops (Artificial Tears #15 mL (carboxymethylcellulose)) blood sugar diagnostic (Prodigy No #100 ea 12/11/22 Coding strips) blood-glucose meter (Prodigy #1 ea 12/11/22 Autocode Blood Glucose Monitoring System) lancets 28 gauge (Prodigy Lancets) #100 ea 12/11/22 lancing device (Prodigy Lancing #1 ea 12/11/22 Device) atorvastatin 80 mg tablet 80 mg PO BEDTIME 90 days #90 tabs 12/26/22 lisinopril 10 mg tablet 10 mg PO DAILY 90 days #90 tabs 12/26/22 pioglitazone 45 mg tablet 45 mg PO DAILY 90 days #90 tabs 12/26/22 melatonin 10 mg capsule 20 mg (2 x 10 mg) PO BEDTIME sleep 12/29/22 90 days #180 caps Allergies Allergy/AdvReac Type Severity Reaction Status Date / Time No Known Allergies Allergy Unknown Verified 12/05/22 13:24 Review of Systems 2 Review of Systems: Yes all other systems are reviewed and are negative Constitutional: Constitutional: Reports as per HPI [facility] Past Medical History Medical History Abnormal behavior Class 2 obesity with body mass index (BMI) of 37.0 to 37.9 in adult Diabetes mellitus Diabetes type 2, uncontrolled Dyslipidemia 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 Essential hypertension GERD (gastroesophageal reflux disease) Hypercalcemia Memory loss Mentally challenged Microalbuminuria Mood disorder Obesity due to excess calories Proteinuria Type 2 diabetes mellitus with other diabetic kidney complication Urinary incontinence Surgical History History of hysterectomy Family History Family History Father CVD (cardiovascular disease) Mother Hypertension Brother Healthy adult Social History Social History Housing: House Alcohol intake: never Patient Tobacco Use Status: Never used Tobacco Smoked in Last 30 Days: No e-Cigarette/Vaping Use: Never Used Second Hand Smoke Exposure: No Use of substances other than those prescribed or required for medical reasons: No Advance Directives: No Advance Directives Information Provided: Yes Patient : No service: No Current occupational status: disabled Cognitive needs: Yes Hearing needs: No Vision needs: No Physical Exam ED Vital Signs: Vital Signs - 24 hr 01/09/23 06:33 01/09/23 10:25 01/09/23 12:44 Temperature 98.8 F 98.1 F Pulse Rate 88 73 71 Respiratory Rate 16 16 16 Blood Pressure 141/78 H 172/90 H 156/73 H Pulse Oximetry 96 98 98 Oxygen Delivery Method Room Air Room Air Room Air 01/09/23 14:24 Temperature 98.6 F Pulse Rate 85 Respiratory Rate 18 Blood Pressure 166/75 H Pulse Oximetry 98 Oxygen Delivery Method Room Air BMI result Body Mass Index 35.8 Const General: cooperative and tired appearing Limitations: behavioral limitations HENMT Head: Yes normal to inspection, Yes normocephalic and Yes atraumatic Ears: hearing grossly normal bilaterally General nose exam: Normal external nose present Face and sinus: Yes normal facial exam Mouth: Normal oral and palatal mucosa present, oropharynx normal and moist mucous membranes Throat: Yes posterior oropharynx normal Eyes General: appearance normal, both eyes and all related structures Eyelids: Yes eyelids normal Conjunctivae: conjunctivae normal Sclerae: sclerae normal Pupils: Equal, round and reactive pupils present EOM: EOMs intact bilaterally Neck Neck: Yes normal visual inspection, Yes full ROM and Yes no lymphadenopathy Lymphatic: no lymphadenopathy noted Chest Chest palpation & inspection: normal inspection of the chest Resp Effort & Inspection: normal respiratory effort and able to speak in complete sentences Auscultation: clear to auscultation bilaterally, no crackles, no rales, no rhonchi and no wheezes Cardio Rate: regular rate Rhythm: regular rhythm Heart sounds: S1 normal heart sound present and S2 normal heart sound present GI Inspection: Yes normal to inspection Skin General skin exam: no rashes or lesions noted Trauma: no lacerations or abrasions Wounds: no wounds Neuro General: moves all extremities Cranial nerves: Yes Equal, round and reactive pupils present Extrem General: Yes normal to inspection Right upper extremity: normal to inspection Left upper extremity: normal to inspection Right lower extremity: normal to inspection Left lower extremity: normal to inspection Course Reevaluation(s) Reevaluation #1: CT head revealing no acute findings. CT cervical spine with degenerative changes. Chest x-ray was reviewed without any findings of consolidation or pneumonia. Negative covid. Labs nondiagnostic. Time: 13:33 Reevaluation #2: Second troponin without delta change. Physical therapy came and evaluated patient, recommends walker, does not need additional level of care. Pt appears more alert, responsive, occasionally speaks. Discussed workup with care executive team leader at bedside, patient stable for discharge. Time: 14:18 Medical Decision Making Medical Decision Making MDM Narrative: 62-year-old female, with a past medical history of developmental disability, diabetes type 2, hypertension, hyperlipidemia, GERD, constipation, OCD, CVA 2014, bladder incontinence, presenting to the emergency department via EMS, accompanied by residential living staff member, for evaluation of fall which occurred at approximately 5:45 a.m. this morning. Patient is nonverbal and is unable to report current review systems and what happened during the fall. 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 Also reporting over the last several days patient has had a cough and urinary frequency. On arrival, blood pressure 141/78. Patient is actively coughing during the exam, patient moving upper and lower extremities, unable to follow commands. Plan: Labs, EKG, COVID, UA, CT head and neck, chest x-ray Differential Diagnosis Differential Diagnoses: The differential diagnosis associated with the presentation includes ICH, CVA, arrhythmia, ACS, dehydration, electrolyte abnormality, pneumonia, UTI Admission/Observation Consideration of admission/observation: Escalation of care including admission/observation considered Patient would have been admitted to the hospital had her work up had any findings where hospital admission was appropriate and her clinical presentation warranted hospital admission. Lab Data MDM Lab Attestation statement: I reviewed the patient's lab results. EXAMINATION: CT ABDOMEN AND PELVIS WITHOUT CONTRAST CLINICAL INFORMATION: Left flank pain COMPARISON: None available. TECHNIQUE: Multidetector volumetric imaging was performed from the superior aspect of the liver through the pubic symphysis. Sagittal and coronal reformatted images were obtained on the technologist's workstation. This CT examination was performed using dose optimization techniques as appropriate, variously including the following: *Automated exposure control *Adjustment of mA and/or kV according to patient size (this includes techniques or standardized protocols for targeted exams where dose is matched to indication/reason for exam; i.e. extremities or head) *Use of iterative reconstruction technique DLP: 346 mGy-cm FINDINGS: LUNG BASES: The visualized lung bases are unremarkable. LIVER, GALLBLADDER, AND BILIARY TREE: The liver is normal in size, shape, and attenuation. No focal hepatic lesion or biliary ductal dilatation is present. The gallbladder is unremarkable with no evidence of radiopaque gallstones, gallbladder wall thickening, or obvious pericholecystic inflammatory changes. PANCREAS: Unremarkable. SPLEEN: Unremarkable. ADRENAL GLANDS: Unremarkable. KIDNEYS AND URETERS: The kidneys are normal in size, shape, and attenuation. No hydronephrosis, hydroureter, or calculi seen. No perinephric stranding. BLADDER: Unremarkable. GASTROINTESTINAL TRACT: The small and large bowel are unremarkable. The appendix is unremarkable. ABDOMINAL WALL: No significant hernia is appreciated. LYMPH NODES: Normal. VASCULAR: Unremarkable. PELVIC VISCERA: Unremarkable. A trace amount of fluid in the cul-de-sac is presumably physiologic. OSSEOUS STRUCTURES: Unremarkable. CT/CT abdomen pelvis wo IV con IMPRESSION: Unremarkable noncontrast CT the abdomen and pelvis. Fleischner guidelines were followed. Dictated By: Brice Del Rio MD 01/09/23 07:25 01/09/23 07:25 Labs: Lab Results 01/09/23 01/09/23 01/09/23 Range/Units 07:25 07:25 07:25 WBC 6.4 6.6 (4.8-10.8) X10*3/uL RBC 3.59 L 3.54 L (4.20-5.50) X10*6/uL Hgb 9.9 L (12.0-16.0) g/dl Hct (37.0-47.0) % MCV (80.0-98.0) fL MCH (27.0-33.0) pg MCHC (31.0-35.0) g/dl RDW (11.0-16.0) % Plt Count (160-400) X10*3/uL MPV (9.4-12.3) fL Immature Gran % (Auto) (0.0-0.4) % Neut % (Auto) (45-73) % Lymph % (Auto) (20-40) % [place] % (Auto) (2-11) % Eos % (Auto) (0-4) % Baso % (Auto) (0-2) % Lymph # (Auto) (1.2-4.9) X10*3/uL [place] # (Auto) (0.1-1.2) X10*3/uL Eos # (Auto) (0.0-0.4) X10*3/uL Baso # (Auto) (0.0-0.2) X10*3/uL Abs Immat Gran (auto) (0.00-0.03) X10*3/uL Absolute Neuts (auto) (2.0-8.3) x10*3/uL Absolute Nucleated RBC (0.0-0.012) X10*3/uL Nucleated RBC % (auto) (0.0-0.2) /100WBC Sodium (135-145) mmol/L Potassium (3.3-5.1) mmol/L Chloride (96-108) mmol/L Carbon Dioxide (22-29) mmol/L Anion Gap (12-20) BUN (9-16) mg/dL Creatinine (0.5-1.4) mg/dL Estim Creat Clear Calc Estimated GFR Random Glucose (60-115) mg/dL Lactic Acid (0.5-2.0) mmol/L Calcium (8.4-10.2) mg/dL Magnesium (1.6-2.6) mg/dL Total Bilirubin (0.0-1.0) mg/dL Direct Bilirubin (0.0-0.5) mg/dL AST (5-31) U/L ALT (0-31) U/L Alkaline Phosphatase (39-117) U/L Troponin I High Sens (<3.5-17.0) ng/L Total Protein (6.5-8.0) g/dL Albumin (3.5-5.0) g/dL Urine Color Urine Appearance Urine pH (5.0-9.0) Ur Specific [place] (1.005-1.025) Urine Protein (Neg-Trace) mg/dL Urine Glucose (UA) (Negative) mg/dL Urine Ketones (Negative) mg/dL Urine Blood (Negative) Urine Nitrite (Negative) Ur Leukocyte Esterase (Negative) Influenza Type A (PCR) (Negative) Influenza Type B (PCR) (Negative) RSV RNA Qual (PCR) (Negative) SARS-CoV-2 RNA (RT-PCR) (Negative) 01/09/23 01/09/23 01/09/23 Range/Units 07:25 07:25 07:25 WBC (4.8-10.8) X10*3/uL RBC (4.20-5.50) X10*6/uL Hgb 9.7 L (12.0-16.0) g/dl Hct 30.6 L 30.6 L (37.0-47.0) % MCV 85.2 86.4 (80.0-98.0) fL MCH 27.6 (27.0-33.0) pg MCHC (31.0-35.0) g/dl RDW (11.0-16.0) % Plt Count (160-400) X10*3/uL MPV (9.4-12.3) fL Immature Gran % (Auto) (0.0-0.4) % Neut % (Auto) (45-73) % Lymph % (Auto) (20-40) % [place] % (Auto) (2-11) % Eos % (Auto) (0-4) % Baso % (Auto) (0-2) % Lymph # (Auto) (1.2-4.9) X10*3/uL [place] # (Auto) (0.1-1.2) X10*3/uL Eos # (Auto) (0.0-0.4) X10*3/uL Baso # (Auto) (0.0-0.2) X10*3/uL Abs Immat Gran (auto) (0.00-0.03) X10*3/uL Absolute Neuts (auto) (2.0-8.3) x10*3/uL Absolute Nucleated RBC (0.0-0.012) X10*3/uL Nucleated RBC % (auto) (0.0-0.2) /100WBC Sodium (135-145) mmol/L Potassium (3.3-5.1) mmol/L Chloride (96-108) mmol/L Carbon Dioxide (22-29) mmol/L Anion Gap (12-20) BUN (9-16) mg/dL Creatinine (0.5-1.4) mg/dL Estim Creat Clear Calc Estimated GFR Random Glucose (60-115) mg/dL Lactic Acid (0.5-2.0) mmol/L Calcium (8.4-10.2) mg/dL Magnesium (1.6-2.6) mg/dL Total Bilirubin (0.0-1.0) mg/dL Direct Bilirubin (0.0-0.5) mg/dL AST (5-31) U/L ALT (0-31) U/L Alkaline Phosphatase (39-117) U/L Troponin I High Sens (<3.5-17.0) ng/L Total Protein (6.5-8.0) g/dL Albumin (3.5-5.0) g/dL Urine Color Urine Appearance Urine pH (5.0-9.0) Ur Specific [place] (1.005-1.025) Urine Protein (Neg-Trace) mg/dL Urine Glucose (UA) (Negative) mg/dL Urine Ketones (Negative) mg/dL Urine Blood (Negative) Urine Nitrite (Negative) Ur Leukocyte Esterase (Negative) Influenza Type A (PCR) (Negative) Influenza Type B (PCR) (Negative) RSV RNA Qual (PCR) (Negative) SARS-CoV-2 RNA (RT-PCR) (Negative) 01/09/23 01/09/23 01/09/23 Range/Units 07:25 07:25 07:25 WBC (4.8-10.8) X10*3/uL RBC (4.20-5.50) X10*6/uL Hgb (12.0-16.0) g/dl Hct (37.0-47.0) % MCV (80.0-98.0) fL MCH 27.4 (27.0-33.0) pg MCHC 32.4 31.7 (31.0-35.0) g/dl RDW 14.6 14.6 (11.0-16.0) % Plt Count 193 D (160-400) X10*3/uL MPV (9.4-12.3) fL Immature Gran % (Auto) (0.0-0.4) % Neut % (Auto) (45-73) % Lymph % (Auto) (20-40) % [place] % (Auto) (2-11) % Eos % (Auto) (0-4) % Baso % (Auto) (0-2) % Lymph # (Auto) (1.2-4.9) X10*3/uL [place] # (Auto) (0.1-1.2) X10*3/uL Eos # (Auto) (0.0-0.4) X10*3/uL Baso # (Auto) (0.0-0.2) X10*3/uL Abs Immat Gran (auto) (0.00-0.03) X10*3/uL Absolute Neuts (auto) (2.0-8.3) x10*3/uL Absolute Nucleated RBC (0.0-0.012) X10*3/uL Nucleated RBC % (auto) (0.0-0.2) /100WBC Sodium (135-145) mmol/L Potassium (3.3-5.1) mmol/L Chloride (96-108) mmol/L Carbon Dioxide (22-29) mmol/L Anion Gap (12-20) BUN (9-16) mg/dL Creatinine (0.5-1.4) mg/dL Estim Creat Clear Calc Estimated GFR Random Glucose (60-115) mg/dL Lactic Acid (0.5-2.0) mmol/L Calcium (8.4-10.2) mg/dL Magnesium (1.6-2.6) mg/dL Total Bilirubin (0.0-1.0) mg/dL Direct Bilirubin (0.0-0.5) mg/dL AST (5-31) U/L ALT (0-31) U/L Alkaline Phosphatase (39-117) U/L Troponin I High Sens (<3.5-17.0) ng/L Total Protein (6.5-8.0) g/dL Albumin (3.5-5.0) g/dL Urine Color Urine Appearance Urine pH (5.0-9.0) Ur Specific [place] (1.005-1.025) Urine Protein (Neg-Trace) mg/dL Urine Glucose (UA) (Negative) mg/dL Urine Ketones (Negative) mg/dL Urine Blood (Negative) Urine Nitrite (Negative) Ur Leukocyte Esterase (Negative) Influenza Type A (PCR) (Negative) Influenza Type B (PCR) (Negative) RSV RNA Qual (PCR) (Negative) SARS-CoV-2 RNA (RT-PCR) (Negative) 01/09/23 01/09/23 01/09/23 Range/Units 07:25 07:25 07:25 WBC (4.8-10.8) X10*3/uL RBC (4.20-5.50) X10*6/uL Hgb (12.0-16.0) g/dl Hct (37.0-47.0) % MCV (80.0-98.0) fL MCH (27.0-33.0) pg MCHC (31.0-35.0) g/dl RDW (11.0-16.0) % Plt Count 212 (160-400) X10*3/uL MPV 9.1 L 9.2 L (9.4-12.3) fL Immature Gran % (Auto) 0.3 (0.0-0.4) % Neut % (Auto) 72.7 (45-73) % Lymph % (Auto) 17.5 L (20-40) % [place] % (Auto) 7.8 (2-11) % Eos % (Auto) 1.1 (0-4) % Baso % (Auto) 0.6 (0-2) % Lymph # (Auto) 1.2 (1.2-4.9) X10*3/uL [place] # (Auto) 0.5 (0.1-1.2) X10*3/uL Eos # (Auto) 0.1 (0.0-0.4) X10*3/uL Baso # (Auto) 0.0 (0.0-0.2) X10*3/uL Abs Immat Gran (auto) 0.02 (0.00-0.03) X10*3/uL Absolute Neuts (auto) 4.8 (2.0-8.3) x10*3/uL Absolute Nucleated RBC 0.000 0.000 (0.0-0.012) X10*3/uL Nucleated RBC % (auto) 0.0 (0.0-0.2) /100WBC Sodium (135-145) mmol/L Potassium (3.3-5.1) mmol/L Chloride (96-108) mmol/L Carbon Dioxide (22-29) mmol/L Anion Gap (12-20) BUN (9-16) mg/dL Creatinine (0.5-1.4) mg/dL Estim Creat Clear Calc Estimated GFR Random Glucose (60-115) mg/dL Lactic Acid (0.5-2.0) mmol/L Calcium (8.4-10.2) mg/dL Magnesium (1.6-2.6) mg/dL Total Bilirubin (0.0-1.0) mg/dL Direct Bilirubin (0.0-0.5) mg/dL AST (5-31) U/L ALT (0-31) U/L Alkaline Phosphatase (39-117) U/L Troponin I High Sens (<3.5-17.0) ng/L Total Protein (6.5-8.0) g/dL Albumin (3.5-5.0) g/dL Urine Color Urine Appearance Urine pH (5.0-9.0) Ur Specific [place] (1.005-1.025) Urine Protein (Neg-Trace) mg/dL Urine Glucose (UA) (Negative) mg/dL Urine Ketones (Negative) mg/dL Urine Blood (Negative) Urine Nitrite (Negative) Ur Leukocyte Esterase (Negative) Influenza Type A (PCR) (Negative) Influenza Type B (PCR) (Negative) RSV RNA Qual (PCR) (Negative) SARS-CoV-2 RNA (RT-PCR) (Negative) 01/09/23 01/09/23 01/09/23 Range/Units 07:25 07:25 07:25 WBC (4.8-10.8) X10*3/uL RBC (4.20-5.50) X10*6/uL Hgb (12.0-16.0) g/dl Hct (37.0-47.0) % MCV (80.0-98.0) fL MCH (27.0-33.0) pg MCHC (31.0-35.0) g/dl RDW (11.0-16.0) % Plt Count (160-400) X10*3/uL MPV (9.4-12.3) fL Immature Gran % (Auto) (0.0-0.4) % Neut % (Auto) (45-73) % Lymph % (Auto) (20-40) % [place] % (Auto) (2-11) % Eos % (Auto) (0-4) % Baso % (Auto) (0-2) % Lymph # (Auto) (1.2-4.9) X10*3/uL [place] # (Auto) (0.1-1.2) X10*3/uL Eos # (Auto) (0.0-0.4) X10*3/uL Baso # (Auto) (0.0-0.2) X10*3/uL Abs Immat Gran (auto) (0.00-0.03) X10*3/uL Absolute Neuts (auto) (2.0-8.3) x10*3/uL Absolute Nucleated RBC (0.0-0.012) X10*3/uL Nucleated RBC % (auto) 0.0 (0.0-0.2) /100WBC Sodium 140 140 (135-145) mmol/L Potassium 3.9 D 3.9 (3.3-5.1) mmol/L Chloride 105 (96-108) mmol/L Carbon Dioxide (22-29) mmol/L Anion Gap (12-20) BUN (9-16) mg/dL Creatinine (0.5-1.4) mg/dL Estim Creat Clear Calc Estimated GFR Random Glucose (60-115) mg/dL Lactic Acid (0.5-2.0) mmol/L Calcium (8.4-10.2) mg/dL Magnesium (1.6-2.6) mg/dL Total Bilirubin (0.0-1.0) mg/dL Direct Bilirubin (0.0-0.5) mg/dL AST (5-31) U/L ALT (0-31) U/L Alkaline Phosphatase (39-117) U/L Troponin I High Sens (<3.5-17.0) ng/L Total Protein (6.5-8.0) g/dL Albumin (3.5-5.0) g/dL Urine Color Urine Appearance Urine pH (5.0-9.0) Ur Specific [place] (1.005-1.025) Urine Protein (Neg-Trace) mg/dL Urine Glucose (UA) (Negative) mg/dL Urine Ketones (Negative) mg/dL Urine Blood (Negative) Urine Nitrite (Negative) Ur Leukocyte Esterase (Negative) Influenza Type A (PCR) (Negative) Influenza Type B (PCR) (Negative) RSV RNA Qual (PCR) (Negative) SARS-CoV-2 RNA (RT-PCR) (Negative) 01/09/23 01/09/23 01/09/23 Range/Units 07:25 07:25 07:25 WBC (4.8-10.8) X10*3/uL RBC (4.20-5.50) X10*6/uL Hgb (12.0-16.0) g/dl Hct (37.0-47.0) % MCV (80.0-98.0) fL MCH (27.0-33.0) pg MCHC (31.0-35.0) g/dl RDW (11.0-16.0) % Plt Count (160-400) X10*3/uL MPV (9.4-12.3) fL Immature Gran % (Auto) (0.0-0.4) % Neut % (Auto) (45-73) % Lymph % (Auto) (20-40) % [place] % (Auto) (2-11) % Eos % (Auto) (0-4) % Baso % (Auto) (0-2) % Lymph # (Auto) (1.2-4.9) X10*3/uL [place] # (Auto) (0.1-1.2) X10*3/uL Eos # (Auto) (0.0-0.4) X10*3/uL Baso # (Auto) (0.0-0.2) X10*3/uL Abs Immat Gran (auto) (0.00-0.03) X10*3/uL Absolute Neuts (auto) (2.0-8.3) x10*3/uL Absolute Nucleated RBC (0.0-0.012) X10*3/uL Nucleated RBC % (auto) (0.0-0.2) /100WBC Sodium (135-145) mmol/L Potassium (3.3-5.1) mmol/L Chloride 104 (96-108) mmol/L Carbon Dioxide 28 28 (22-29) mmol/L Anion Gap 11 L 12 (12-20) BUN 17 H (9-16) mg/dL Creatinine (0.5-1.4) mg/dL Estim Creat Clear Calc Estimated GFR Random Glucose (60-115) mg/dL Lactic Acid (0.5-2.0) mmol/L Calcium (8.4-10.2) mg/dL Magnesium (1.6-2.6) mg/dL Total Bilirubin (0.0-1.0) mg/dL Direct Bilirubin (0.0-0.5) mg/dL AST (5-31) U/L ALT (0-31) U/L Alkaline Phosphatase (39-117) U/L Troponin I High Sens (<3.5-17.0) ng/L Total Protein (6.5-8.0) g/dL Albumin (3.5-5.0) g/dL Urine Color Urine Appearance Urine pH (5.0-9.0) Ur Specific [place] (1.005-1.025) Urine Protein (Neg-Trace) mg/dL Urine Glucose (UA) (Negative) mg/dL Urine Ketones (Negative) mg/dL Urine Blood (Negative) Urine Nitrite (Negative) Ur Leukocyte Esterase (Negative) Influenza Type A (PCR) (Negative) Influenza Type B (PCR) (Negative) RSV RNA Qual (PCR) (Negative) SARS-CoV-2 RNA (RT-PCR) (Negative) 01/09/23 01/09/23 01/09/23 Range/Units 07:25 07:25 07:25 WBC (4.8-10.8) X10*3/uL RBC (4.20-5.50) X10*6/uL Hgb (12.0-16.0) g/dl Hct (37.0-47.0) % MCV (80.0-98.0) fL MCH (27.0-33.0) pg MCHC (31.0-35.0) g/dl RDW (11.0-16.0) % Plt Count (160-400) X10*3/uL MPV (9.4-12.3) fL Immature Gran % (Auto) (0.0-0.4) % Neut % (Auto) (45-73) % Lymph % (Auto) (20-40) % [place] % (Auto) (2-11) % Eos % (Auto) (0-4) % Baso % (Auto) (0-2) % Lymph # (Auto) (1.2-4.9) X10*3/uL [place] # (Auto) (0.1-1.2) X10*3/uL Eos # (Auto) (0.0-0.4) X10*3/uL Baso # (Auto) (0.0-0.2) X10*3/uL Abs Immat Gran (auto) (0.00-0.03) X10*3/uL Absolute Neuts (auto) (2.0-8.3) x10*3/uL Absolute Nucleated RBC (0.0-0.012) X10*3/uL Nucleated RBC % (auto) (0.0-0.2) /100WBC Sodium (135-145) mmol/L Potassium (3.3-5.1) mmol/L Chloride (96-108) mmol/L Carbon Dioxide (22-29) mmol/L Anion Gap (12-20) BUN 17 H (9-16) mg/dL Creatinine 0.87 0.88 (0.5-1.4) mg/dL Estim Creat Clear Calc 79.4 78.5 Estimated GFR > 60 Random Glucose (60-115) mg/dL Lactic Acid (0.5-2.0) mmol/L Calcium (8.4-10.2) mg/dL Magnesium (1.6-2.6) mg/dL Total Bilirubin (0.0-1.0) mg/dL Direct Bilirubin (0.0-0.5) mg/dL AST (5-31) U/L ALT (0-31) U/L Alkaline Phosphatase (39-117) U/L Troponin I High Sens (<3.5-17.0) ng/L Total Protein (6.5-8.0) g/dL Albumin (3.5-5.0) g/dL Urine Color Urine Appearance Urine pH (5.0-9.0) Ur Specific [place] (1.005-1.025) Urine Protein (Neg-Trace) mg/dL Urine Glucose (UA) (Negative) mg/dL Urine Ketones (Negative) mg/dL Urine Blood (Negative) Urine Nitrite (Negative) Ur Leukocyte Esterase (Negative) Influenza Type A (PCR) (Negative) Influenza Type B (PCR) (Negative) RSV RNA Qual (PCR) (Negative) SARS-CoV-2 RNA (RT-PCR) (Negative) 01/09/23 01/09/23 01/09/23 Range/Units 07:25 07:25 07:25 WBC (4.8-10.8) X10*3/uL RBC (4.20-5.50) X10*6/uL Hgb (12.0-16.0) g/dl Hct (37.0-47.0) % MCV (80.0-98.0) fL MCH (27.0-33.0) pg MCHC (31.0-35.0) g/dl RDW (11.0-16.0) % Plt Count (160-400) X10*3/uL MPV (9.4-12.3) fL Immature Gran % (Auto) (0.0-0.4) % Neut % (Auto) (45-73) % Lymph % (Auto) (20-40) % [place] % (Auto) (2-11) % Eos % (Auto) (0-4) % Baso % (Auto) (0-2) % Lymph # (Auto) (1.2-4.9) X10*3/uL [place] # (Auto) (0.1-1.2) X10*3/uL Eos # (Auto) (0.0-0.4) X10*3/uL Baso # (Auto) (0.0-0.2) X10*3/uL Abs Immat Gran (auto) (0.00-0.03) X10*3/uL Absolute Neuts (auto) (2.0-8.3) x10*3/uL Absolute Nucleated RBC (0.0-0.012) X10*3/uL Nucleated RBC % (auto) (0.0-0.2) /100WBC Sodium (135-145) mmol/L Potassium (3.3-5.1) mmol/L Chloride (96-108) mmol/L Carbon Dioxide (22-29) mmol/L Anion Gap (12-20) BUN (9-16) mg/dL Creatinine (0.5-1.4) mg/dL Estim Creat Clear Calc Estimated GFR > 60 Random Glucose 158 H 157 H (60-115) mg/dL Lactic Acid 1.1 (0.5-2.0) mmol/L Calcium 10.4 H 10.4 H (8.4-10.2) mg/dL Magnesium 1.5 L (1.6-2.6) mg/dL Total Bilirubin 1.0 (0.0-1.0) mg/dL Direct Bilirubin (0.0-0.5) mg/dL AST (5-31) U/L ALT (0-31) U/L Alkaline Phosphatase (39-117) U/L Troponin I High Sens (<3.5-17.0) ng/L Total Protein (6.5-8.0) g/dL Albumin (3.5-5.0) g/dL Urine Color Urine Appearance Urine pH (5.0-9.0) Ur Specific [place] (1.005-1.025) Urine Protein (Neg-Trace) mg/dL Urine Glucose (UA) (Negative) mg/dL Urine Ketones (Negative) mg/dL Urine Blood (Negative) Urine Nitrite (Negative) Ur Leukocyte Esterase (Negative) Influenza Type A (PCR) (Negative) Influenza Type B (PCR) (Negative) RSV RNA Qual (PCR) (Negative) SARS-CoV-2 RNA (RT-PCR) (Negative) 01/09/23 01/09/23 01/09/23 Range/Units 07:25 07:25 07:25 WBC (4.8-10.8) X10*3/uL RBC (4.20-5.50) X10*6/uL Hgb (12.0-16.0) g/dl Hct (37.0-47.0) % MCV (80.0-98.0) fL MCH (27.0-33.0) pg MCHC (31.0-35.0) g/dl RDW (11.0-16.0) % Plt Count (160-400) X10*3/uL MPV (9.4-12.3) fL Immature Gran % (Auto) (0.0-0.4) % Neut % (Auto) (45-73) % Lymph % (Auto) (20-40) % [place] % (Auto) (2-11) % Eos % (Auto) (0-4) % Baso % (Auto) (0-2) % Lymph # (Auto) (1.2-4.9) X10*3/uL [place] # (Auto) (0.1-1.2) X10*3/uL Eos # (Auto) (0.0-0.4) X10*3/uL Baso # (Auto) (0.0-0.2) X10*3/uL Abs Immat Gran (auto) (0.00-0.03) X10*3/uL Absolute Neuts (auto) (2.0-8.3) x10*3/uL Absolute Nucleated RBC (0.0-0.012) X10*3/uL Nucleated RBC % (auto) (0.0-0.2) /100WBC Sodium (135-145) mmol/L Potassium (3.3-5.1) mmol/L Chloride (96-108) mmol/L Carbon Dioxide (22-29) mmol/L Anion Gap (12-20) BUN (9-16) mg/dL Creatinine (0.5-1.4) mg/dL Estim Creat Clear Calc Estimated GFR Random Glucose (60-115) mg/dL Lactic Acid (0.5-2.0) mmol/L Calcium (8.4-10.2) mg/dL Magnesium (1.6-2.6) mg/dL Total Bilirubin 1.0 (0.0-1.0) mg/dL Direct Bilirubin 0.4 (0.0-0.5) mg/dL AST 14 15 (5-31) U/L ALT 12 13 (0-31) U/L Alkaline Phosphatase 38 L (39-117) U/L Troponin I High Sens (<3.5-17.0) ng/L Total Protein (6.5-8.0) g/dL Albumin (3.5-5.0) g/dL Urine Color Urine Appearance Urine pH (5.0-9.0) Ur Specific [place] (1.005-1.025) Urine Protein (Neg-Trace) mg/dL Urine Glucose (UA) (Negative) mg/dL Urine Ketones (Negative) mg/dL Urine Blood (Negative) Urine Nitrite (Negative) Ur Leukocyte Esterase (Negative) Influenza Type A (PCR) (Negative) Influenza Type B (PCR) (Negative) RSV RNA Qual (PCR) (Negative) SARS-CoV-2 RNA (RT-PCR) (Negative) 01/09/23 01/09/23 01/09/23 Range/Units 07:25 07:25 07:25 WBC (4.8-10.8) X10*3/uL RBC (4.20-5.50) X10*6/uL Hgb (12.0-16.0) g/dl Hct (37.0-47.0) % MCV (80.0-98.0) fL MCH (27.0-33.0) pg MCHC (31.0-35.0) g/dl RDW (11.0-16.0) % Plt Count (160-400) X10*3/uL MPV (9.4-12.3) fL Immature Gran % (Auto) (0.0-0.4) % Neut % (Auto) (45-73) % Lymph % (Auto) (20-40) % [place] % (Auto) (2-11) % Eos % (Auto) (0-4) % Baso % (Auto) (0-2) % Lymph # (Auto) (1.2-4.9) X10*3/uL [place] # (Auto) (0.1-1.2) X10*3/uL Eos # (Auto) (0.0-0.4) X10*3/uL Baso # (Auto) (0.0-0.2) X10*3/uL Abs Immat Gran (auto) (0.00-0.03) X10*3/uL Absolute Neuts (auto) (2.0-8.3) x10*3/uL Absolute Nucleated RBC (0.0-0.012) X10*3/uL Nucleated RBC % (auto) (0.0-0.2) /100WBC Sodium (135-145) mmol/L Potassium (3.3-5.1) mmol/L Chloride (96-108) mmol/L Carbon Dioxide (22-29) mmol/L Anion Gap (12-20) BUN (9-16) mg/dL Creatinine (0.5-1.4) mg/dL Estim Creat Clear Calc Estimated GFR Random Glucose (60-115) mg/dL Lactic Acid (0.5-2.0) mmol/L Calcium (8.4-10.2) mg/dL Magnesium (1.6-2.6) mg/dL Total Bilirubin (0.0-1.0) mg/dL Direct Bilirubin (0.0-0.5) mg/dL AST (5-31) U/L ALT (0-31) U/L Alkaline Phosphatase 40 (39-117) U/L Troponin I High Sens 4.3 (<3.5-17.0) ng/L Total Protein 6.7 6.6 (6.5-8.0) g/dL Albumin 4.1 4.1 (3.5-5.0) g/dL Urine Color Urine Appearance Urine pH (5.0-9.0) Ur Specific [place] (1.005-1.025) Urine Protein (Neg-Trace) mg/dL Urine Glucose (UA) (Negative) mg/dL Urine Ketones (Negative) mg/dL Urine Blood (Negative) Urine Nitrite (Negative) Ur Leukocyte Esterase (Negative) Influenza Type A (PCR) (Negative) Influenza Type B (PCR) (Negative) RSV RNA Qual (PCR) (Negative) SARS-CoV-2 RNA (RT-PCR) (Negative) 01/09/23 01/09/23 Range/Units 07:51 12:44 WBC (4.8-10.8) X10*3/uL RBC (4.20-5.50) X10*6/uL Hgb (12.0-16.0) g/dl Hct (37.0-47.0) % MCV (80.0-98.0) fL MCH (27.0-33.0) pg MCHC (31.0-35.0) g/dl RDW (11.0-16.0) % Plt Count (160-400) X10*3/uL MPV (9.4-12.3) fL Immature Gran % (Auto) (0.0-0.4) % Neut % (Auto) (45-73) % Lymph % (Auto) (20-40) % [place] % (Auto) (2-11) % Eos % (Auto) (0-4) % Baso % (Auto) (0-2) % Lymph # (Auto) (1.2-4.9) X10*3/uL [place] # (Auto) (0.1-1.2) X10*3/uL Eos # (Auto) (0.0-0.4) X10*3/uL Baso # (Auto) (0.0-0.2) X10*3/uL Abs Immat Gran (auto) (0.00-0.03) X10*3/uL Absolute Neuts (auto) (2.0-8.3) x10*3/uL Absolute Nucleated RBC (0.0-0.012) X10*3/uL Nucleated RBC % (auto) (0.0-0.2) /100WBC Sodium (135-145) mmol/L Potassium (3.3-5.1) mmol/L Chloride (96-108) mmol/L Carbon Dioxide (22-29) mmol/L Anion Gap (12-20) BUN (9-16) mg/dL Creatinine (0.5-1.4) mg/dL Estim Creat Clear Calc Estimated GFR Random Glucose (60-115) mg/dL Lactic Acid (0.5-2.0) mmol/L Calcium (8.4-10.2) mg/dL Magnesium (1.6-2.6) mg/dL Total Bilirubin (0.0-1.0) mg/dL Direct Bilirubin (0.0-0.5) mg/dL AST (5-31) U/L ALT (0-31) U/L Alkaline Phosphatase (39-117) U/L Troponin I High Sens 4.0 (<3.5-17.0) ng/L Total Protein (6.5-8.0) g/dL Albumin (3.5-5.0) g/dL Urine Color Yellow Urine Appearance Turbid Urine pH 5.5 (5.0-9.0) Ur Specific [place] 1.015 (1.005-1.025) Urine Protein Negative (Neg-Trace) mg/dL Urine Glucose (UA) Negative (Negative) mg/dL Urine Ketones Negative (Negative) mg/dL Urine Blood Negative (Negative) Urine Nitrite Negative (Negative) Ur Leukocyte Esterase Negative (Negative) Influenza Type A (PCR) NEGATIVE (Negative) Influenza Type B (PCR) NEGATIVE (Negative) RSV RNA Qual (PCR) NEGATIVE (Negative) SARS-CoV-2 RNA (RT-PCR) NEGATIVE (Negative) Independent Interpretation I performed an independent interpretation of an: EKG Interpretation: EKG normal sinus rhythm at a ventricular rate of 91 beats per minute, SC interval 168, QRS duration 144. QTC 477, right bundle branch block present, seen on previous EKG performed January 01, 2023. Radiology Impression Discussion of test interpretation with radiology: I have reviewed the radiologist's reading. External Record Review External record reviewed: Inpatient record, Office record, Outpatient record, Prior outpatient labs, Prior outpatient radiology, Primary care record and Outside ED record Patient was seen last week for fall. Discharge Plan Discharge Clinical Impression: Fall Qualifiers: Encounter type: initial encounter Qualified Code(s): W19.XXXA - Unspecified fall, initial encounter Patient Disposition: er [facility] Instructions: Fall Prevention for Older Adults (ED), Fall Prevention (ED) Additional Instructions: It is unclear what caused patient to fall however her workup today was reassuring. Perla's head CT and neck CT did not show any new findings. She tested negative for COVID, RSV and flu. Her labs are reassuring today. She does not have a urinary tract infection. Please utilize recommendations from physical therapy, they recommend using a walker. Please keep a close eye on patient, and observe for any changes in her behavior, complaints of chest pain or shortness of breath. Any new or worsening symptoms, she can return for re-evaluation. Prescriptions: No Action omeprazole 20 mg capsule,delayed release(DR/EC) 20 mg PO DAILY 90 Days Qty: 90 3RF fluoxetine 20 mg capsule 20 mg PO DAILY Qty: 90 1RF (DME) adult overnight diapers See Rx Instructions .Route .MEDSUPPLY Qty: 120 0RF Rx Instructions: As directed (DME) walker Misc See Rx Instructions .Route Qty: 1 0RF Rx Instructions: As directed Rybelsus 14 mg tablet 14 mg PO DAILY 90 Days Qty: 90 3RF cholecalciferol (vitamin D3) 50 mcg (2,000 unit) capsule 50 mcg PO DAILY Qty: 30 11RF aspirin [Adult Aspirin Regimen] 81 mg tablet,delayed release (DR/EC) 81 mg PO DAILY Qty: 90 1RF (DME) FreeStyle Lite Strips Strip See Rx Instructions .MEDSUPPLY Qty: 100 2RF Rx Instructions: 2 x day (DME) blood-glucose meter [OneTouch Ultra2 Meter] [facility] [place] See Rx Instructions .Route Qty: 1 0RF Rx Instructions: As directed (DME) OneTouch Ultra Test Strip See Rx Instructions .Route Qty: 100 2RF Rx Instructions: Use 1 test strip once a day (DME) lancets [[facility]Touch UltraSoft 2 Lancet] [facility] See Rx Instructions .Route Qty: 100 2RF Rx Instructions: Use 1 lancet once a day (DME) adult diapers briefs X-large See Rx Instructions .Route .MEDSUPPLY Qty: 240 11RF Rx Instructions: Use 8 briefs per day ezetimibe 10 mg tablet 10 mg PO DAILY 90 Days Qty: 90 3RF Artificial Tears (cmc) 1 % drops 1 drp ophthalmic (eye) BID 10 Days Qty: 15 1RF (DME) blood-glucose meter [Prodigy Autocode Monitor Syst] [facility] [place] See Rx Instructions .Route Qty: 1 0RF Rx Instructions: As directed tests 4 X/day due to poor glycemic control (DME) lancets [Prodigy Lancets] 28 gauge misc See Rx Instructions .Route Qty: 100 4RF Rx Instructions: s directed tests 4 X/day due to poor glycemic control (DME) Prodigy No Coding Strip See Rx Instructions .Route Qty: 100 5RF Rx Instructions: s directed tests 4 X/day due to poor glycemic control (DME) lancing device [Prodigy Lancing Device] Misc See Rx Instructions .Route Qty: 1 5RF Rx Instructions: s directed tests 4 X/day due to poor glycemic control atorvastatin 80 mg tablet 80 mg PO BEDTIME 90 Days Qty: 90 1RF lisinopril 10 mg tablet 10 mg PO DAILY 90 Days Qty: 90 1RF pioglitazone 45 mg tablet 45 mg PO DAILY 90 Days Qty: 90 1RF melatonin 10 mg capsule 20 mg PO BEDTIME 90 Days Qty: 180 1RF metformin 1,000 mg tablet 1,000 mg PO BID 90 Days Qty: 180 3RF lorazepam [Ativan] 1 mg tablet 1 mg PO BID PRN loperamide [Imodium A-D] 2 mg tablet 2 mg PO BID PRN (Reason: loose stool) Qty: 30 0RF (DME) lancets [FreeStyle Lancets] 28 gauge misc See Rx Instructions .MEDSUPPLY Qty: 100 2RF Rx Instructions: 2 x day (DME) blood-glucose meter [FreeStyle Lite Meter] Kit See Rx Instructions .MEDSUPPLY Qty: 1 0RF Rx Instructions: 2 x day (DME) blood-glucose meter [Prodigy Autocode Meter] Kit See Rx Instructions .Route Qty: 1 0RF Rx Instructions: As directed (DME) Prodigy No Coding Strip See Rx Instructions .Route Qty: 50 11RF Rx Instructions: Use 1 test strip once a day (DME) lancets [Safety Lancets] 28 gauge misc See Rx Instructions .Route Qty: 100 6RF Rx Instructions: Use 1 lancet twice a day trazodone 50 mg tablet 25 mg PO DAILY Interventions: ED Discharge Assessment Last Done: 01/09/23 14:36 Discharge Date/Time: 01/09/23 14:37
[2023-01-09 07:34] LABS: MANUAL DIFF FLAG NO
[2023-01-09 07:35] LABS: Basophils Percent Auto 0.6 % (0-2); Eosinophils Absolute Auto 0.1 X10*3/uL (0.0-0.4); Eosinophils Percent Auto 1.1 % (0-4); Hematocrit 30.6 % (37.0-47.0); Hemoglobin 9.7 g/dl (12.0-16.0); Hemoglobin 9.9 g/dl (12.0-16.0); Imm Gran Abs Auto 0.02 X10*3/uL (0.00-0.03); Imm Gran Pct Auto 0.3 % (0.0-0.4); Lymphocytes Absolute Auto 1.2 X10*3/uL (1.2-4.9); Lymphocytes Percent Auto 17.5 % (20-40); Mean Corpuscular HGB Conc 31.7 g/dl (31.0-35.0); Mean Corpuscular HGB Conc 32.4 g/dl (31.0-35.0); Mean Corpuscular Hemoglobin 27.4 pg (27.0-33.0); Mean Corpuscular Hemoglobin 27.6 pg (27.0-33.0); Mean Corpuscular Volume 85.2 fL (80.0-98.0); Mean Corpuscular Volume 86.4 fL (80.0-98.0); Mean Platelet Volume 9.1 fL (9.4-12.3); Mean Platelet Volume 9.2 fL (9.4-12.3); Monocytes Absolute Auto 0.5 X10*3/uL (0.1-1.2); Monocytes Percent Auto 7.8 % (2-11); Neutrophils Absolute Auto 4.8 x10*3/uL (2.0-8.3); Neutrophils Percent Auto 72.7 % (45-73); Platelet Count 193 X10*3/uL (160-400); Platelet Count 212 X10*3/uL (160-400); Red Blood Count 3.54 X10*6/uL (4.20-5.50); Red Blood Count 3.59 X10*6/uL (4.20-5.50); Red Cell Distribution Width 14.6 % (11.0-16.0); White Blood Count 6.4 X10*3/uL (4.8-10.8); White Blood Count 6.6 X10*3/uL (4.8-10.8)
[2023-01-09 07:46] LABS: Lactic Acid 1.1 mmol/L (0.5-2.0)
[2023-01-09 07:52] LABS: Alanine Aminotransferase 12 U/L (0-31); Alanine Aminotransferase 13 U/L (0-31); Albumin Level 4.1 g/dL (3.5-5.0); Alkaline Phosphatase 38 U/L (39-117); Alkaline Phosphatase 40 U/L (39-117); Anion Gap 11 (12-20); Anion Gap 12 (12-20); Aspartate Amino Transferase 14 U/L (5-31); Aspartate Amino Transferase 15 U/L (5-31); Bilirubin Direct 0.4 mg/dL (0.0-0.5); Blood Urea Nitrogen 17 mg/dL (9-16); Calcium 10.4 mg/dL (8.4-10.2); Carbon Dioxide 28 mmol/L (22-29); Chloride 104 mmol/L (96-108); Chloride 105 mmol/L (96-108); Creatinine Clr Calc Pharmacy 78.5; Creatinine Clr Calc Pharmacy 79.4; Estimated Glomerular Filt Rate > 60; Glucose Random 157 mg/dL (60-115); Glucose Random 158 mg/dL (60-115); Magnesium 1.5 mg/dL (1.6-2.6); Potassium 3.9 mmol/L (3.3-5.1); Sodium 140 mmol/L (135-145); Total Protein 6.6 g/dL (6.5-8.0); Total Protein 6.7 g/dL (6.5-8.0)
--- NOTE | 2023-01-09 07:53 | PC.NURSE ---
Blood cultures drawn x 2, all labs sent, resp panel sent, UA collected via straight cath.
[2023-01-09 07:59] LABS: Troponin-I High Sensitivity 4.3 ng/L (<3.5-17.0)
[2023-01-09 08:06] LABS: Appearance Urine Turbid; Color Urine Yellow; Glucose Urine UA Negative (Negative); Leukocyte Esterase Urine Negative (Negative); Nitrite Urine Negative (Negative); PH 5.5 (5.0-9.0); Specific Gravity - Urine 1.015 (1.005-1.025); Urine Blood Negative (Negative); Urine Ketones Negative (Negative); Urine Protein Negative (Neg-Trace)
[2023-01-09 09:50] LABS: Influenza A PCR NEGATIVE (Negative); Influenza B PCR NEGATIVE (Negative); Resp Syncy Virus RNA Qual PCR NEGATIVE (Negative); SARS COV2 PCR INHOUSE NEGATIVE (Negative)
[2023-01-09 10:25] VITALS: BP 172/90; PULSE 73; RESP 16; TEMP 36.7; O2SAT 98
--- NOTE | 2023-01-09 11:49 | MHC.EDTECH ---
Per patients caregiver patient refuses having labs drawn. Stacey Minaya
--- NOTE | 2023-01-09 11:54 | PC.NURSE ---
Pt ambulatory around unit with PT with walker
[2023-01-09 12:44] VITALS: BP 156/73; PULSE 71; RESP 16; O2SAT 98
[2023-01-09 14:24] VITALS: BP 166/75; PULSE 85; RESP 18; TEMP 37; O2SAT 98
--- NOTE | 2023-01-09 15:23 | MHC.CM.ED ---
Received case management consult from Fatemeh CERDA. [facility] Physical therapy eval completed. No services are recommended. Patient [facility]'d back to jail before being seen by case management.
== END 2023-01-09 14:37 | disposition skilled nursing facility (03) ==
PROVIDERS: Physician Assistant Medical; Emergency Provider Emergency Medicine Emergency Medical Services; PCP Internal Medicine
DX: S09.90XA Unspecified injury of head, initial encounter (principal); R35.0 Frequency of micturition; R05.9 Cough, unspecified; R26.81 Unsteadiness on feet; M54.2 Cervicalgia; R51.9 Headache, unspecified; R07.89 Other chest pain; W01.10XA Fall on same level from slipping, tripping and stumbling with subsequent striking against unspecified object, initial encounter; Y93.9 Activity, unspecified; Y92.9 Unspecified place or not applicable; Y99.9 Unspecified external cause status; I10 Essential (primary) hypertension; R10.2 Pelvic and perineal pain; Z20.822 Contact with and (suspected) exposure to COVID-19; Z20.828 Contact with and (suspected) exposure to other viral communicable diseases; Z79.899 Other long term (current) drug therapy
CPT/HCPCS: 0241U; 70450; 71045; 72125; 80048; 80053; 80076; 81003; 83605; 83735; 84484; 85025; 85027; 87040; 93005; 97162; 99285

== ENCOUNTER 2023-01-19 11:40 | Outpatient (AMB) | payer MEDICARE, MEDICAID, SELFPAY ==
[2023-01-19 13:09] VITALS: BP 140/80; PULSE 80; TEMP 37.1; O2SAT 96
--- NOTE | 2023-01-19 13:09 | MHC.OFFWIV ---
Intake Vital Signs 01/19/23 13:09 Height 5 ft 5 in BP 140/80 H Blood Pressure Location Rt brachial Position Sitting Pulse 80 Pulse Source Pulse Oximeter Temp 98.8 F Temp Source Temporal Artery Scan Pulse Oximetry (%) 96 Intake Visit Reasons: EST/cough Intake Note: pt is here for c/o cough, congestion, runny nose patient was negative for covid/rv/flu Patient Tobacco Use Status: Never used Tobacco Allergies No Known Allergies Allergy (Unknown, Verified 01/19/23 13:10) Do you need a note to return to daycare/school/sports/work: Yes HPI EST/cough HPI Details Patient is a 62-year-old cognitively challenged female who comes to the walk-in clinic with staff member from her residential home, who reports that the patient has had a persistent cough since she was released from the hospital after an apparent fall. she has history of early-onset dementia, as well as type 2 uncontrolled diabetes, and other comorbidities. She is not able to report symptoms for herself, but a staff member had returned from vacation to find that she was still coughing. She did have a chest x-ray done while she was seen for a fall recently. No apparent fever or chills, no apparent vomiting or diarrhea. History limited. 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 Obesity due to excess calories Class 2 obesity with body mass index (BMI) of 37.0 to 37.9 in adult Mood disorder Memory loss Abnormal behavior Proteinuria Type 2 diabetes mellitus with other diabetic kidney complication Diabetes type 2, uncontrolled Urinary incontinence Microalbuminuria GERD (gastroesophageal reflux disease) Dyslipidemia Essential hypertension Mentally challenged Diabetes mellitus Surgical History History of hysterectomy Family History Father CVD (cardiovascular disease) Mother Hypertension Brother Healthy adult Social History Housing: House Alcohol intake: never Patient Tobacco Use Status: Never used Tobacco e-Cigarette/Vaping Use: Never Used Second Hand Smoke Exposure: No service: No Current occupational status: disabled Cognitive needs: Yes Hearing needs: No Vision needs: No Review of Systems Const Unobtainable due to mental status Physical Exam Vital Signs: Last Vital Signs Temp 98.8 F 01/19/23 13:09 Pulse 80 01/19/23 13:09 BP 140/80 H 01/19/23 13:09 Pulse Ox 96 01/19/23 13:09 Const General: cooperative ( overall, but it was difficult for her), comfortable, no acute distress, alert, awake, Physically active and well groomed; No in distress, diaphoretic, ill appearing, intoxicated appearing, poor hygiene or tired appearing Nutritional Appearance: overweight Orientation/consciousness: Other orientation findings Limitations: altered mental status HEENT Head: Yes normal to inspection, Yes normocephalic and Yes atraumatic Face and sinus: Yes normal facial exam, Yes sinuses nontender and Yes face symmetric Mouth: Normal oral and palatal mucosa present, lip normal and tongue normal Throat: Yes posterior oropharynx normal, No peritonsillar mass, No postnasal drainage, No uvular edema and No cobblestoning Eyes General: appearance normal, both eyes and all related structures Resp Effort & Inspection: normal respiratory effort, able to speak in complete sentences, no audible wheezes, no grunting, not labored, no nasal flaring, no retractions and symmetric chest movement Auscultation: clear to auscultation bilaterally, no crackles, no rales, no rhonchi, no wheezes, lung sounds not diminished and No rub present Cardio Rate: regular rate Rhythm: regular rhythm Skin Other: Good color, warm and dry Psych Appearance: well kempt Mental Status: mental status grossly abnormal Speech and movement: Slurred speech present Affect: Anxious affect present Attitude: Guarded attititude/behavior present Insight: Poor insight present (Psych) Judgement: Poor judgement present (Psych) Assessment & Plan Assessment & Plan (1) Cough: Code(s): R05.9 - Cough, unspecified Plan Patient is a 62-year-old cognitively challenged female who comes to the walk-in clinic with staff member from her residential home, reporting that the patient has had a persistent cough since she was seen at the hospital after an apparent fall. Two view chest x-ray today was difficult to obtain due to patient's partial compliance, however it looked unremarkable for acute cardiopulmonary issues. Due to patient's unreliability reporting symptoms however, and to persistent cough, I did start her on antibiotic regimen along with a trial of Citlaly Caballero. I wrote down the information needed by the staff member, and they will give her her medication and monitor her. They know to report if she develops a fever, or cough worsens, or she develops other symptoms. Orders: Orders XR chest 2V Today R05.9 - Cough, unspecified Medications: New azithromycin take 500 mg today (day 1), then 250 mg for 4 days (days 2-5) PO 6 tabs 0RF benzonatate 200 mg PO BID-TID PRN 20 caps 0RF cough Coding Level of Care Code Est Pt Level 4 (76572) Diagnoses Cough R05.9
== END 2023-01-19 14:54 | disposition home or self-care (01) ==
PROVIDERS: PCP Internal Medicine; Visit Provider Physician Assistant Medical
DX: R05.9 Cough, unspecified (principal)
CPT/HCPCS: 99214

== ENCOUNTER 2023-01-19 14:21 | Outpatient (REF) | payer MEDICARE, MEDICAID, SELFPAY ==
--- NOTE | ~2023-01-19 | XR_ITS ---
EXAMINATION: XR CHEST CLINICAL INFORMATION: Cough COMPARISON: Chest x-ray January 09, 2023 TECHNIQUE: 2 views of the chest were obtained. FINDINGS: Cardiac silhouette is normal in size. Atherosclerotic disease of the aortic arch. Lungs are well aerated. There is no lobar consolidation. No pleural effusion or pneumothorax. Mild degenerative changes of the spine. XR/XR chest 2V IMPRESSION: No acute pulmonary pathology.
== END 2023-01-19 14:22 | disposition home or self-care (01) ==
LOC: HO.HMGCX 14:21
PROVIDERS: PCP Internal Medicine; Visit Provider Physician Assistant Medical
DX: R05.9 Cough, unspecified (principal)
CPT/HCPCS: 71046

== ENCOUNTER 2023-01-23 10:34 | Outpatient (AMB) | payer MEDICARE, MEDICAID, SELFPAY ==
[2023-01-23 10:49] VITALS: BMI 28.3
--- NOTE | 2023-01-23 10:49 | A.OFFVIS_ITS ---
Intake VS Expanded 01/23/23 10:49 01/28/23 09:03 Height 5 ft 5 in 5 ft 5 in Weight 170 lb 3.15 oz 170 lb BMI 28.3 28.3 Intake Visit Reasons: DM/LVM Allergies lactose Adverse Reaction (Severe, Verified 01/28/23 09:10) Diarrhea HPI Nutrition Presentation Details Pt presents for MNT for T2DM. Pt resides in [facility] and presents with staff member Pt does not participate in conversation. Pt has hx of early onset Alzheimer's dementia with behavioral disturbance. Per staff Pt is lactose intolerant. Staff reports Pt has good appetite Typical meal B: Sand (eggs/ham) on wheat bread and coffee or almond milk L: chicken and fries, milk almond and fruit cup D: mashed potato chicken , green beans, juice snack: fruit, crackers with peanut butter beverages: water, juice , diet juices, coffee physical activity: sedentary EOTH/SMOKING denies SMT-Yhrukvq-Ig.Jeor Equation Height 5 ft 5 in Weight 170 lb Resting Metabolic Rate 1346.01 Calculated Activity Level Sedentary Calories Needed to Maintain Weight 1615.21 Diagnosis Nutrition problem #1 food nutri know defi As related to (etiology) #1 diagnosis As evidenced by (sign/symptom) #2 elevated HgbA1c (8.1% on 11/2022) Most Recent Diabetes Results: Microalb/Creat Ratio 21.6 ug/mg cr (<30) 01/24/23 Cholesterol 96 mg/dL (<200) 01/24/23 HDL Cholesterol 45 mg/dL (>40) 01/24/23 Triglycerides 62 mg/dL (<150) 01/24/23 Creatinine 0.78 mg/dL (0.5-1.4) 01/24/23 Blood Urea Nitrogen 13 mg/dL (9-16) 01/24/23 Sodium 141 mmol/L (135-145) 01/24/23 Potassium 3.8 mmol/L (3.3-5.1) 01/24/23 Chloride 105 mmol/L (96-108) 01/24/23 Carbon Dioxide 24 mmol/L (22-29) 01/24/23 Calcium 10.3 mg/dL (8.4-10.2) H 01/24/23 AST 14 U/L (5-31) 01/09/23 ALT 12 U/L (0-31) 01/09/23 Total Protein 6.7 g/dL (6.5-8.0) 01/09/23 Albumin 4.1 g/dL (3.5-5.0) 01/09/23 [facility] Medical History Hypercalcemia 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 Obesity due to excess calories Class 2 obesity with body mass index (BMI) of 37.0 to 37.9 in adult Mood disorder Memory loss Abnormal behavior Proteinuria Type 2 diabetes mellitus with other diabetic kidney complication Diabetes type 2, uncontrolled Urinary incontinence Microalbuminuria GERD (gastroesophageal reflux disease) Dyslipidemia Essential hypertension Mentally challenged Diabetes mellitus Surgical History History of hysterectomy Family History Father CVD (cardiovascular disease) Mother Hypertension Brother Healthy adult Social History Housing: House Alcohol intake: never Patient Tobacco Use Status: Never used Tobacco e-Cigarette/Vaping Use: Never Used Second Hand Smoke Exposure: No service: No Current occupational status: disabled Cognitive needs: Yes Hearing needs: No Vision needs: No Assessment & Plan Assessment & Plan (1) Diabetes type 2, uncontrolled: Code(s): E11.65 - Type 2 diabetes mellitus with hyperglycemia Plan: wt 85 kg Est kcal needs as per MSJ: 1600 (40% carb, 30% protein/fat) Est fluid needs as per 30 ml/d: 2600 Est prot per day as per 1 g/kg bw: 85 Recommend fiber intake : 8-10 g per day and gradually increase to 25-28 g per day for women and 35-38 g for men or as tolerated Recommend sodium intake per day : less than 2000 mg Educated Home staff on the following : ( R = reviewed V = verbalizes understanding N/R = needs review N/A = not applicable * Food sources of carbohydrate, adequate serving sizes and its role in various health conditions: R * Differences between complex carbohydrates a simple carbohydrates, role of fiber in diet: R * Differences between types of fats and role in diet (mono on saturated fat fatty acids, saturated fatty acids, trans fats): R * Food sources of sodium in salt and healthy modifications for heart health in kidney health: R * Vitamins and minerals: R focusing on iron rich foods * Healthy plate method concept: R V * Physical activity: Benefits a precaution: R * Hypoglycemia protocol (rule of 15): NR * Dietary prevention of Hyperglycemia: R Patient Instructions: Recommend adding 1-2 oz of protein at meal time, following healthy plate method Include iron rich foods on a daily basis in your diet example Beef at least twice a week with spinach and vegetables , beans soup 2-3 times a week See list of iron rich foods Coding Level of Care Code Nutr Indiv Intake (49338) Diagnoses Diabetes type 2, uncontrolled E11.65 Time Spent (min) 30
[2023-01-28 09:03] VITALS: BMI 28.3
== END 2023-01-23 11:24 | disposition home or self-care (01) ==
PROVIDERS: PCP Internal Medicine; Visit Provider Dietitian, Registered
DX: E11.65 Type 2 diabetes mellitus with hyperglycemia (principal)

== ENCOUNTER → 2023-01-23 10:34 | Outpatient (BNVA) | payer MEDICARE, MEDICAID, SELFPAY | PROVIDERS: PCP Internal Medicine; Visit Provider Dietitian, Registered | DX: E11.65 Type 2 diabetes mellitus with hyperglycemia (principal) | CPT/HCPCS: 97802 ==

== ENCOUNTER 2023-01-24 08:40 | Outpatient (REF) | payer MEDICARE, MEDICAID, SELFPAY ==
[2023-01-24 11:13] LABS: Creatinine Urine 92.45 mg/dL; Microalbum/Creatinine Ratio Ur 21.6 ug/mg cr (<30)
[2023-01-24 11:28] LABS: Anion Gap 16 (12-20); Blood Urea Nitrogen 13 mg/dL (9-16); Calcium 10.3 mg/dL (8.4-10.2); Carbon Dioxide 24 mmol/L (22-29); Chloride 105 mmol/L (96-108); Cholesterol 96 mg/dL (<200); Estimated Glomerular Filt Rate > 60; Glucose Random 135 mg/dL (60-115); HDL Cholesterol 45 mg/dL (>40); LDL Cholesterol Calculated 39 mg/dL (<100); Potassium 3.8 mmol/L (3.3-5.1); Sodium 141 mmol/L (135-145); Triglycerides 62 mg/dL (<150)
[2023-01-26 22:03] LABS: TS Negative Control Passed; TS Panel A 0; TS Panel B 0; TS Positive Control Passed; TSpotTB Negative (Negative)
== END 2023-01-24 08:41 | disposition home or self-care (01) ==
LOC: HO.LAB 08:40
PROVIDERS: PCP Internal Medicine; Referring Provider Internal Medicine Endocrinology, Diabetes & Metabolism; Visit Provider Internal Medicine
DX: Z11.1 Encounter for screening for respiratory tuberculosis (principal); E11.9 Type 2 diabetes mellitus without complications
CPT/HCPCS: 36415; 80048; 80061; 82043; 82570; 86481

== ENCOUNTER 2023-02-26 16:26 | Outpatient (AMB) | payer MEDICARE, MEDICAID, SELFPAY ==
--- NOTE | 2023-02-26 16:28 | MHC.PC.OV ---
Vital Signs 02/26/23 16:29 Height 5 ft 5 in Weight 168 lb BMI 28.0 BP 130/82 Blood Pressure Location Lt brachial Position Sitting Intake Visit Reasons: PE Intake Note: Patient here for a physical exam Hotel Desk Clerk Required: No Accompanied by: Staff Allergies lactose Adverse Reaction (Severe, Verified 02/26/23 16:42) Diarrhea Medication List - Last Reconciled 02/26/23 by Hannah Stacy MD [adult diapers briefs Use 8 briefs per day] [adult overnight diapers As directed] aspirin (Adult Aspirin Regimen) 81 mg PO DAILY atorvastatin 80 mg PO BEDTIME 90 days blood sugar diagnostic (FreeStyle Lite Strips) 2 x day blood sugar diagnostic (OneTouch Ultra Test strips) Use 1 test strip once a day blood sugar diagnostic (Prodigy No Coding strips) Use 1 test strip once a day blood sugar diagnostic (Prodigy No Coding strips) s directed tests 4 X/day due to poor glycemic control blood-glucose meter (FreeStyle Lite Meter kit) 2 x day blood-glucose meter (OneTouch Ultra2 Meter) As directed blood-glucose meter (Prodigy Autocode Meter kit) As directed blood-glucose meter (Electronic [place]y Autocode Blood Glucose Monitoring System) As directed tests 4 X/day due to poor glycemic control carboxymethylcellulose sodium 1% (Artificial Tears (carboxymethylcellulose)) 1 drp ophthalmic (eye) BID 10 days cholecalciferol (vitamin D3) 50 mcg PO DAILY ezetimibe 10 mg PO DAILY 90 days fluoxetine 20 mg PO DAILY lancets (FreeStyle Lancets) 2 x day lancets (OneTouch UltraSoft 2 Lancet) Use 1 lancet once a day lancets (Safety Lancets) Use 1 lancet twice a day lancets (Prodigy Lancets) s directed tests 4 X/day due to poor glycemic control lancing device (Prodigy Lancing Device) s directed tests 4 X/day due to poor glycemic control lisinopril 10 mg PO DAILY 90 days loperamide (Imodium A-D) 2 mg PO BID PRN lorazepam (Ativan) 1 mg PO BID PRN melatonin 20 mg (2 x 10 mg) PO BEDTIME 90 days metformin 1,000 mg PO BID 90 days omeprazole 20 mg PO DAILY 90 days pioglitazone 45 mg PO DAILY 90 days risperidone 1 mg PO BEDTIME semaglutide (Rybelsus) 14 mg PO DAILY 90 days trazodone 25 mg PO DAILY walker As directed Tobacco use date assessed: 09/06/22 Dental Screening Dental Screen Date: 02/26/23 Did you have a dental visit in the last 12 months?: No Did you have a dental problem in the last 6 months where you did not have access to dental care?: No Was dental information given to patient?: Patient has dentist HPI HPI Comments History of Present Illness Details This is a 62-year-old female with diabetes mellitus type 2 that comes accompanied by staff member and manager statistical of her staff home for her physical exam. A1c within goal. LDL within goal. Last diabetic eye exam was over a year ago. No need for Pap smear due to hysterectomy for benign reasons. Has never had a colonoscopy and has anemia and this is why she will be referred to screen for colon cancer. Declines mammogram. Patient walks with a walker for gait stability. She is not cooperative today and is mentally challenged therefore cannot follow simple commands. 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 Obesity due to excess calories Class 2 obesity with body mass index (BMI) of 37.0 to 37.9 in adult Mood disorder Memory loss Abnormal behavior Proteinuria Type 2 diabetes mellitus with other diabetic kidney complication Diabetes type 2, uncontrolled Urinary incontinence Microalbuminuria GERD (gastroesophageal reflux disease) Dyslipidemia Essential hypertension Mentally challenged Diabetes mellitus Surgical History History of hysterectomy Family History Father CVD (cardiovascular disease) Mother Hypertension Brother Healthy adult Social History Housing: House Alcohol intake: never Patient Tobacco Use Status: Never used Tobacco e-Cigarette/Vaping Use: Never Used Second Hand Smoke Exposure: No service: No Current occupational status: disabled Cognitive needs: Yes Hearing needs: No Vision needs: No Questionnaire Thrive Questionnaire Date Thrive assessed: 10/18/22 TEX-7 AMB Questionnaire TEX-7 Date TEX - 7 assessed: 10/18/22 Source: Developed by Drs. Zaki LPenelope Morelos, Brendan Vasquez and colleagues, with an educational sintia from [employer]. Review of Systems Const All systems reviewed & are unremarkable except as noted in HPI and below Eyes Reports no additional complaints, Denies change in vision and Denies other visual disturbances Card Denies chest pain at rest, Denies chest pain with activity, Denies edema, Denies irregular heart rhythm, Denies claudication, Denies dyspnea, Denies dyspnea on exertion, Denies orthopnea, Denies paroxysmal nocturnal dyspnea and Denies slow heart rate Resp Denies cough, Denies dyspnea and Denies dyspnea on exertion GI Denies abdominal pain, Denies change in bowel habits, Denies excessive flatus, Denies nausea and Denies vomiting Denies urinary incontinence, Denies urinary hesitancy and Denies urinary urgency Musc Denies abnormal gait, Denies atrophy, Denies deformity and Denies limited range of motion Skin/Breast Denies bleeding lesions, Denies changing lesions and Denies rash Neuro Denies abnormal gait and Denies lack of coordination Physical exam (Primary Care) Vital Signs: Last Vital Signs BP 130/82 02/26/23 16:29 BMI result Body Mass Index 28.0 Tobacco/Smoking Status: Tobacco use Status Tobacco use date assessed 09/06/22 02/26/23 16:29 Patient Tobacco Use Status Never used Tobacco 02/26/23 16:29 e-Cigarette/Vaping Use Never Used 02/26/23 16:29 Thrive Assessment: Date of Thrive Assessment Date Thrive assessed 10/18/22 02/26/23 16:29 Const Limitations: ambulation with walker Eyes General: appearance normal, both eyes and all related structures Eyelids: Yes eyelids normal Conjunctivae: conjunctivae normal Neck Neck: Yes normal visual inspection and Yes supple Resp Effort & Inspection: normal respiratory effort Auscultation: clear to auscultation bilaterally Cardio Jugular venous distension: no JVD Rate: regular rate Rhythm: regular rhythm Heart sounds: S1 normal heart sound present and S2 normal heart sound present GI Inspection: Yes normal to inspection Palpation (GI): Soft to palpation and nontender Auscultation: normal bowel sounds Skin General skin exam: no rashes or lesions noted Extrem General: Yes full ROM Office Procedures Flu Questionnaire Does the patient have a severe egg allergy?: No Does the patient have severe life threatening allergies?: No Does the patient have a fever or illness today?: No Has the patient ever had Guillain-Vado Syndrome?: No Has the patient ever had any past reaction to a flu shot?: No Immunizations flu vacc [id number] 6mos up(PF) 60 mcg(15 mcgx4)/0.5 mL IM syringe Performing Provider: Hannah Stacy MD Performing Location: [facility] Administered by: DEAN Coleman on 02/26/23 17:33 Dose Route Admin Location Dispensed Lot Number Expiration Date NDC Recruitment Coordinator 0.5 mL IM Left Deltoid 0.5 mL [id number] 10/27/23 [id number] eMeter VIS Given Date VIS Provided VIS Publication Date 02/26/23 Single Vaccine 20 Eligibility Eligibility Date Funding Source Not [facility] Eligible 02/26/23 Private Assessment and Plan Assessment & Plan (1) Physical exam: Code(s): Z00.00 - Encounter for general adult medical examination without abnormal findings Plan: Repeat in a year. (2) Diabetes mellitus: Code(s): E11.9 - Type 2 diabetes mellitus without complications Qualifiers: Diabetes mellitus complication detail: with microalbuminuria Diabetes mellitus complication status: with kidney complications Diabetes mellitus terminal operations manager insulin use: without terminal operations manager use Diabetes mellitus type: type 2 Qualified Code(s): E11.29 - Type 2 diabetes mellitus with other diabetic kidney complication; R80.9 - Proteinuria, unspecified Plan: Continue rybelsus, metformin and Actos. A1c goal is equal or less than 7%. Orders: Orders Influenza [id number] Immunization Today Z23 - Encounter for immunization Referrals Gastroenterology Referral D64.9 - Anemia, unspecified, Z12.11 - Encounter for screening for malignant neoplasm of colon Ophthalmology Referral E11.9 - Type 2 diabetes mellitus without complications Medications: Discontinued loperamide (Imodium A-D) Discontinued Reason: Patient Completed Course 2 mg PO BID PRN 30 tabs 0RF loose stool R19.7 - Diarrhea, unspecified ezetimibe Discontinued Reason: Patient Completed Course 10 mg PO DAILY 90 days 90 tabs 3RF Coding Level of Care Code Est Pt Prev Care 40-64y(41062) Diagnoses Physical exam Z00.00 Type 2 diabetes mellitus with microalbuminuria, without long-term current use of insulin E11.29; R80.9 Diabetes mellitus complication detail: with microalbuminuria Diabetes mellitus complication status: with kidney complications Diabetes mellitus care home insulin use: without terminal operations manager use Diabetes mellitus type: type 2 Time Spent (min) 33
[2023-02-26 16:29] VITALS: BP 130/82; BMI 28.0
== END 2023-02-26 17:24 | disposition home or self-care (01) ==
PROVIDERS: PCP Internal Medicine; Visit Provider Internal Medicine
DX: Z00.00 Encounter for general adult medical examination without abnormal findings (principal); E11.29 Type 2 diabetes mellitus with other diabetic kidney complication; R80.9 Proteinuria, unspecified; Z23 Encounter for immunization; F79 Unspecified intellectual disabilities
CPT/HCPCS: 90471; 90686; 99396

== ENCOUNTER 2023-03-11 10:09 | Outpatient (AMB) | payer MEDICARE, MEDICAID, SELFPAY ==
--- NOTE | 2023-03-11 10:36 | A.OFFVIS_ITS ---
Intake Intake Visit Reasons: DM-UNABLE TO LV Vice President Regulatory Required: No Accompanied by: Other Relationship Allergies lactose Adverse Reaction (Severe, Verified 02/26/23 16:42) Diarrhea HPI Comprehensive Diabetes Asmnt Most Recent Diabetes Results: Hemoglobin A1c 8.5 % 01/28/18 Microalb/Creat Ratio 21.6 ug/mg cr (<30) 01/24/23 Cholesterol 96 mg/dL (<200) 01/24/23 HDL Cholesterol 45 mg/dL (>40) 01/24/23 Triglycerides 62 mg/dL (<150) 01/24/23 Creatinine 0.78 mg/dL (0.5-1.4) 01/24/23 Blood Urea Nitrogen 13 mg/dL (9-16) 01/24/23 Sodium 141 mmol/L (135-145) 01/24/23 Potassium 3.8 mmol/L (3.3-5.1) 01/24/23 Chloride 105 mmol/L (96-108) 01/24/23 Carbon Dioxide 24 mmol/L (22-29) 01/24/23 Calcium 10.3 mg/dL (8.4-10.2) H 01/24/23 AST 14 U/L (5-31) 01/09/23 ALT 12 U/L (0-31) 01/09/23 Total Protein 6.7 g/dL (6.5-8.0) 01/09/23 Albumin 4.1 g/dL (3.5-5.0) 01/09/23 [facility] Medical History Hypercalcemia 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 Obesity due to excess calories Class 2 obesity with body mass index (BMI) of 37.0 to 37.9 in adult Mood disorder Memory loss Abnormal behavior Proteinuria Type 2 diabetes mellitus with other diabetic kidney complication Diabetes type 2, uncontrolled Urinary incontinence Microalbuminuria GERD (gastroesophageal reflux disease) Dyslipidemia Essential hypertension Mentally challenged Diabetes mellitus Surgical History History of hysterectomy Family History Father CVD (cardiovascular disease) Mother Hypertension Brother Healthy adult Social History Housing: House Alcohol intake: never Patient Tobacco Use Status: Never used Tobacco e-Cigarette/Vaping Use: Never Used Second Hand Smoke Exposure: No service: No Current occupational status: disabled Cognitive needs: Yes Hearing needs: No Vision needs: No Assessment & Plan Assessment & Plan (1) Class 2 obesity with body mass index (BMI) of 37.0 to 37.9 in adult: Code(s): E66.9 - Obesity, unspecified; Z68.37 - Body mass index [BMI] 37.0-37.9, adult Plan: Learning objectives: The patient was provided with verbal and written education on the following topics as outlined below. Assess patient education level/literacy/barriers, patient has significant developmental delays challenges. Lives in group, meals are prepared by staff Staff is currently checking glucose 4 times daily, patient will need appointment with Dr. Leblanc for next A1c Fasting glucose range 142 to 185 mg/dL Before lunch 116 to 155 mg/dL Pre supper 113 tp 183 mg/dL Bedtime 89-233 mg/dL Overall glucose levels are stable No reports of hypoglycemia Patient is currently taking Rebelsus 14 mg Metformin 1000 mg b.i.d. Pioglitazone 45 mg daily Topics covered in today?s session included: Medications (If applicable) ? Name of medication? Dosing/administration instructions? Mechanism of action? Potential side effects? Potential adverse reaction and appropriate treatment? Review onset, peak, duration Hypoglycemia and Hyperglycemia ? Signs and symptoms? Causes? Treatment? Preventing hypoglycemia? When to seek medical attention ?Blood glucose targets and how you feel when your blood glucose is in and out of your target ranges. ?Monitoring and knowing your A1C. ?What can make blood glucose go up and down and preventing high and low blood glucose. ?Review of blood sugar targets in expected goal range and outside of expected goal range. ?Problem solving and preventing hyper/hypoglycemia. ?Sick day management of diabetes. ?Using blood sugar results in decision making process in managing diabetes. ?Patient was receptive to information provided and participated in the discussion. Asked?appropriate questions and demonstrated good understanding of the topics discussed.? ? Patient Instructions: Patient does not need to return to Diabetes Education, unless Dr. Leblanc feels it is necessary Recommended to staff to ask Dr. Leblanc if patient's A1c is stable to reduce blood sugars from 4 fingersticks a day to 2 fingersticks today, due to patient's objections to multiple fingersticks today Coding Level of Care Code Est Pt Level 1 (09063) Diagnoses Class 2 obesity with body mass index (BMI) of 37.0 to 37.9 in adult E66.9; Z68.37
== END 2023-03-11 11:15 | disposition home or self-care (01) ==
PROVIDERS: PCP Internal Medicine; Visit Provider Registered Nurse Diabetes Educator
DX: E66.9 Obesity, unspecified (principal); Z68.37 Body mass index [BMI] 37.0-37.9, adult

== ENCOUNTER → 2023-03-11 10:09 | Outpatient (BNVA) | payer MEDICARE, MEDICAID, SELFPAY | PROVIDERS: PCP Internal Medicine; Visit Provider Registered Nurse Diabetes Educator | DX: E66.9 Obesity, unspecified (principal); Z68.37 Body mass index [BMI] 37.0-37.9, adult | CPT/HCPCS: 99211 ==

== ENCOUNTER 2023-03-13 11:01 | Outpatient (AMB) | payer MEDICARE, MEDICAID, SELFPAY ==
[2023-03-13 11:27] VITALS: BMI 28.0
--- NOTE | 2023-03-13 11:27 | A.OFFVIS_ITS ---
Intake VS Expanded 03/13/23 11:27 Height 5 ft 5 in Weight 168 lb 3.403 oz BMI 28.0 Intake Visit Reasons: DM Allergies lactose Adverse Reaction (Severe, Verified 02/26/23 16:42) Diarrhea HPI Nutrition Presentation Details Pt presents for MNT follow up for T2DM. Pt resides in alf and presents with staff members Pt does not participate in conversation. Pt has hx of early onset Alzheimer's dementia with behavioral disturbance. Per staff Pt is lactose intolerant. Staff reports Pt has good appetite Staff has questions regarding meal planning following healthy plate method. Most Recent Diabetes Results: Microalb/Creat Ratio 21.6 ug/mg cr (<30) 01/24/23 Cholesterol 96 mg/dL (<200) 01/24/23 HDL Cholesterol 45 mg/dL (>40) 01/24/23 Triglycerides 62 mg/dL (<150) 01/24/23 Creatinine 0.78 mg/dL (0.5-1.4) 01/24/23 Blood Urea Nitrogen 13 mg/dL (9-16) 01/24/23 Sodium 141 mmol/L (135-145) 01/24/23 Potassium 3.8 mmol/L (3.3-5.1) 01/24/23 Chloride 105 mmol/L (96-108) 01/24/23 Carbon Dioxide 24 mmol/L (22-29) 01/24/23 Calcium 10.3 mg/dL (8.4-10.2) H 01/24/23 AST 14 U/L (5-31) 01/09/23 ALT 12 U/L (0-31) 01/09/23 Total Protein 6.7 g/dL (6.5-8.0) 01/09/23 Albumin 4.1 g/dL (3.5-5.0) 01/09/23 [facility] Medical History Hypercalcemia 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 Obesity due to excess calories Class 2 obesity with body mass index (BMI) of 37.0 to 37.9 in adult Mood disorder Memory loss Abnormal behavior Proteinuria Type 2 diabetes mellitus with other diabetic kidney complication Diabetes type 2, uncontrolled Urinary incontinence Microalbuminuria GERD (gastroesophageal reflux disease) Dyslipidemia Essential hypertension Mentally challenged Diabetes mellitus Surgical History History of hysterectomy Family History Father CVD (cardiovascular disease) Mother Hypertension Brother Healthy adult Housing: House Alcohol intake: never Patient Tobacco Use Status: Never used Tobacco e-Cigarette/Vaping Use: Never Used Second Hand Smoke Exposure: No service: No Current occupational status: disabled Cognitive needs: Yes Hearing needs: No Vision needs: No Assessment & Plan Assessment & Plan (1) Diabetes type 2, uncontrolled: Code(s): E11.65 - Type 2 diabetes mellitus with hyperglycemia Plan: wt: 76 kg (02/2023) Est kcal needs as per MSJ: 1600 (40% carb, 30% protein/fat) Est fluid needs as per 30 ml/d: 2600 Est prot per day as per 1 g/kg bw: 85 Recommend fiber intake : 8-10 g per day and gradually increase to 25-28 g per day for women and 35-38 g for men or as tolerated Recommend sodium intake per day : less than 2000 mg Educated Home staff on the following : ( R = reviewed V = verbalizes understanding N/R = needs review N/A = not applicable * Food sources of carbohydrate, adequate serving sizes and its role in various health conditions: R,V * Differences between complex carbohydrates a simple carbohydrates, role of fiber in diet: R * Differences between types of fats and role in diet (mono on saturated fat fatty acids, saturated fatty acids, trans fats): R * Food sources of sodium in salt and healthy modifications for heart health in kidney health: R * Vitamins and minerals: R , V * Healthy plate method concept: R V * Physical activity: Benefits a precaution: R * Dietary prevention of Hyperglycemia: R,V Patient Instructions: Continue following healthy plate method, include a variety of vegetables in the diet Coding Level of Care Code Nutr Indiv Subseq (89305) Diagnoses Diabetes type 2, uncontrolled E11.65 Time Spent (min) 30
== END 2023-03-13 12:19 | disposition home or self-care (01) ==
PROVIDERS: PCP Internal Medicine; Visit Provider Dietitian, Registered
DX: E11.65 Type 2 diabetes mellitus with hyperglycemia (principal)

== ENCOUNTER → 2023-03-13 11:01 | Outpatient (BNVA) | payer MEDICARE, MEDICAID, SELFPAY | PROVIDERS: PCP Internal Medicine; Visit Provider Dietitian, Registered | DX: E11.65 Type 2 diabetes mellitus with hyperglycemia (principal) | CPT/HCPCS: 97803 ==

== ENCOUNTER 2023-04-25 11:53 | Emergency (ER) | payer MEDICARE, MEDICAID, SELFPAY ==
--- NOTE | ~2023-04-25 | CT_ITS ---
EXAMINATION: CT HEAD WITHOUT CONTRAST CT CERVICAL SPINE WITHOUT CONTRAST CLINICAL INFORMATION: Head and neck trauma. COMPARISON: CT head and cervical spine from 01/09/2023. TECHNIQUE: Contiguous axial imaging was performed from the skull base to vertex without intravenous administration of contrast. Contiguous axial imaging was performed from the upper chest through the skull base without intravenous administration of contrast. Coronal and sagittal reformats were obtained at the acquisition workstation. This CT examination was performed using dose optimization techniques as appropriate, variously including the following: *Automated exposure control. *Adjustment of mA and/or kV according to patient size (this includes techniques or standardized protocols for targeted exams where dose is matched to indication/reason for exam; i.e. extremities or head). *Use of iterative reconstruction technique. DLP: 1881 mGy-cm FINDINGS: Head: There is no evidence of acute intracranial hemorrhage or edematous territorial infarction. [place]-white matter differentiation is preserved. A few foci of hypoattenuation in the periventricular and deep white matter are consistent with mild microangiopathy. Persistent cavum septum pellucidum. Proportional prominence of the ventricles and sulcal spaces without evidence of obstructive hydrocephalus. No abnormal mass effect or midline shift. No extra-axial fluid collections. Calcific atherosclerotic disease of the intracranial internal carotid and vertebral arteries. No hyperdense vessel sign. No acute soft tissue or osseous abnormalities. Mild mucosal thickening of the paranasal sinuses. Mild rightward nasal septal deviation. The mastoid air cells and middle ear cavities are clear. Cervical Spine: The atlantooccipital and atlantoaxial articulations remain well aligned. Straightening of the normal cervical lordosis. Otherwise, there is anatomic alignment of the vertebral bodies and posterior elements. No evidence of acute fracture or subluxation. The vertebral body heights are maintained. Moderate degenerative disc disease at C6-C7. Mild degenerative disc disease at all additional levels. Facet and uncovertebral joint arthropathy leads to mild osseous encroachment on the neural foramina at C6-C7. There is no prevertebral soft tissue swelling. The thyroid gland and remaining cervical soft tissues are within normal limits. The lung apices demonstrate no abnormalities. CT/CT cervical spine wo IV con IMPRESSION: 1. No evidence of acute intracranial hemorrhage or edematous territorial infarction. Mild underlying microangiopathy and generalized cerebral volume loss. 2. No evidence of acute fracture or traumatic subluxation of the cervical spine. Mild to moderate multilevel degenerative spondyloarthropathy of the cervical spine.
--- NOTE | ~2023-04-25 | XR_ITS ---
EXAMINATION: XR CHEST CLINICAL INFORMATION: Weakness COMPARISON: Chest x-ray December 2022 TECHNIQUE: Frontal view of the chest was obtained. FINDINGS: Calcification of the dorsal aorta unchanged. No acute significant abnormality is noted involving the heart, lungs, mediastinum, bony thorax or soft tissues. some calcification the region of the left superior rotator cuff unchanged compatible with calcific tendinosis or calcific tendinitis. XR/XR chest 1V IMPRESSION: No acute disease.
--- NOTE | 2023-04-25 12:00 | ECG_ITS ---
Test Reason : WEAKNESS Blood Pressure : / mmHG Vent. Rate : 065 BPM Atrial Rate : 065 BPM P-R Int : 166 ms QRS Dur : 158 ms QT Int : 424 ms P-R-T Axes : 042 -19 016 degrees QTc Int : 440 ms Normal sinus rhythm Right bundle branch block Abnormal ECG When compared with ECG of 09-JAN-2023 08:07, T wave inversion now evident in Inferior leads Referred By: Leanne Vivas Electronically Signed By:VICTORINA SOTOMAYOR
[2023-04-25 12:04] VITALS: BP 145/71; BP 153/81; PULSE 72; PULSE 82; RESP 16; TEMP 36.6; O2SAT 95; O2SAT 96; BMI 29.5
--- NOTE | 2023-04-25 12:11 | ED.FALL ---
HPI - Fall General Chief Complaint: Fall Stated Complaint: UNWIT FALL,-LOC,-OBV INJURY FROM ADULT DAY CARE Time Seen by Provider: 04/25/23 11:57 Source: patient Mode of arrival: EMS Limitations: other (dementia) History of Present Illness HPI Narrative: 63 yo female with PMH of dementia, mood disorder, anemia, DM, GERD, HTN, HLD, developmentally delayed, not on blood thinners here with c/o not seeming herself today but got up and was unwitnessed fall at day program. Reportedly staff turned their heads and patient was on the floor it was brief. No LOC. She has no complaints has no pain in extremities at this time. She states nothing much other than no blood draws. MD complaint: fall Onset (ago): minute(s) Fall from: standing Fall witnessed: no Place fall occurred: other (day program) Loss of consciousness: none Prolonged down time: no Symptoms prior to fall: none Context: other (EMS is not sure if she was using her walker) Location of injury: other (denies) Associated symptoms (after fall): denies Related Data Home Medications Medication Instructions Recorded Confirmed lorazepam 1 mg tablet (Ativan) 1 mg PO BID PRN 09/06/22 02/26/23 trazodone 50 mg tablet 25 mg PO DAILY 12/05/22 02/26/23 risperidone 1 mg tablet 1 mg PO BEDTIME 01/19/23 02/26/23 Previous Rx's Medication Instructions Recorded omeprazole 20 mg capsule,delayed 20 mg PO DAILY 90 days #90 caps 07/30/22 release fluoxetine 20 mg capsule 20 mg PO DAILY #90 caps 08/09/22 blood-glucose meter (FreeStyle #1 ea 09/06/22 Lite Meter kit) lancets 28 gauge (FreeStyle #100 ea 09/06/22 Lancets) adult overnight diapers #120 ea 09/13/22 cholecalciferol (vitamin D3) 50 50 mcg PO DAILY #30 caps 10/05/22 mcg (2,000 unit) capsule semaglutide 14 mg tablet (Rybelsus) 14 mg PO DAILY 90 days #90 tabs 10/05/22 blood sugar diagnostic (FreeStyle #100 ea 10/10/22 Lite Strips) blood sugar diagnostic (OneTouch #100 ea 10/11/22 Ultra Test strips) blood-glucose meter (OneTouch #1 ea 10/11/22 Ultra2 Meter) lancets 30 gauge (OneTouch #100 ea 10/11/22 UltraSoft 2 Lancet) blood sugar diagnostic (Prodigy No #50 ea 10/18/22 Coding strips) blood-glucose meter (Prodigy #1 ea 10/18/22 Autocode Meter kit) lancets 28 gauge (Safety Lancets) #100 ea 10/18/22 carboxymethylcellulose sodium 1 % 1 drp ophthalmic (eye) BID 10 days 12/03/22 eye drops (Artificial Tears #15 mL (carboxymethylcellulose)) blood sugar diagnostic (Prodigy No #100 ea 12/11/22 Coding strips) blood-glucose meter (Prodigy #1 ea 12/11/22 Autocode Blood Glucose Monitoring System) lancets 28 gauge (Prodigy Lancets) #100 ea 12/11/22 lancing device (Prodigy Lancing #1 ea 12/11/22 Device) atorvastatin 80 mg tablet 80 mg PO BEDTIME 90 days #90 tabs 12/26/22 lisinopril 10 mg tablet 10 mg PO DAILY 90 days #90 tabs 12/26/22 pioglitazone 45 mg tablet 45 mg PO DAILY 90 days #90 tabs 12/26/22 melatonin 10 mg capsule 20 mg (2 x 10 mg) PO BEDTIME sleep 12/29/22 90 days #180 caps aspirin 81 mg tablet,delayed 81 mg PO DAILY #90 tabs 02/20/23 release (Adult Aspirin Regimen) metformin 1,000 mg tablet 1,000 mg PO BID 90 days #180 tabs 02/20/23 walker #1 ea 03/12/23 adult diapers briefs #240 ea 04/10/23 cefuroxime axetil 250 mg tablet 250 mg PO BID 7 days #13 tabs 04/25/23 Allergies Allergy/AdvReac Type Severity Reaction Status Date / Time lactose AdvReac Severe Diarrhea Verified 02/26/23 16:42 Review of Systems Review of Systems: ROS unable to be obtained due to dementia PMFSH Past Medical History Attestation statement: The following information was validated with the patient. 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 Obesity due to excess calories Class 2 obesity with body mass index (BMI) of 37.0 to 37.9 in adult Mood disorder Memory loss Abnormal behavior Proteinuria Type 2 diabetes mellitus with other diabetic kidney complication Diabetes type 2, uncontrolled Urinary incontinence Microalbuminuria GERD (gastroesophageal reflux disease) Dyslipidemia Essential hypertension Mentally challenged Diabetes mellitus Surgical History History of hysterectomy Family History Family History Father CVD (cardiovascular disease) Mother Hypertension Brother Healthy adult Social History Social History Housing: House Alcohol intake: never Patient Tobacco Use Status: Never used Tobacco e-Cigarette/Vaping Use: Never Used Second Hand Smoke Exposure: No Advance Directives: No Advance Directives Information Provided: Yes service: No Current occupational status: disabled Cognitive needs: Yes Hearing needs: No Vision needs: No Physical Exam Vital Signs: Vital Signs: Last Vital Signs Temp 97.7 F 04/25/23 13:40 Pulse 68 04/25/23 13:40 Resp 16 04/25/23 13:40 BP 149/69 H 04/25/23 13:40 Pulse Ox 97 04/25/23 13:40 O2 Del Method Room Air 04/25/23 13:40 BMI result Body Mass Index 29.5 Appearance: Alert. mostly non verbal states no blood draws and she is upset we might be taking her shoes. No acute distress. Eyes: Pupils equal, round and reactive to light. ENT: Pharynx normal. atraumatic Neck: Normal inspection. Neck supple. CVS: Normal heart rate and rhythm. Pulses normal. Respiratory: No respiratory distress. Breath sounds normal. Abdomen: Soft and nontender. Skin: Skin warm and dry. pale skin color. Normal skin turgor. Extremities: No lower extremity edema. No calf ttp Neuro: some words, follows commands. no focal deficits. No motor deficit. No sensory deficit. Medications Administered Discontinued Medications Generic Name Dose Route Start Last Admin Trade Name Freq PRN Reason Stop Dose Admin Magnesium Sulfate 2 gm in 50 mls @ 25 mls/hr 04/25/23 13:18 04/25/23 15:11 Magnesium Sulfate/H2o IV 04/25/23 15:17 25 mls/hr ONCE ONE Administration Medical Decision Making Medical Decision Making MDM Narrative: 63 yo female with PMH of dementia, mood disorder, anemia, DM, GERD, HTN, HLD, developmentally delayed, not on blood thinners here with fall after standing up no LOC no reported trauma will obtain basic labs, EKG, CT head and cspine cannot clear - staff is here states does have a history of falls in the past she is at her baseline currently Differential Diagnosis Differential Diagnoses: The differential diagnosis associated with the presentation includes trauma, anemia, dehydration Admission/Observation Consideration of admission/observation: Escalation of care including admission/observation considered + acute UTI but no signs of sepsis at baseline start on abx repleted magnesium can be managed as outpatient Lab Data [facility] Lab Attestation statement: I reviewed the patient's lab results. 04/25/23 12:58 04/25/23 12:58 Labs: Lab Results 04/25/23 04/25/23 Range/Units 12:58 15:03 WBC 5.5 (4.8-10.8) X10*3/uL RBC 3.50 L (4.20-5.50) X10*6/uL Hgb 9.7 L (12.0-16.0) g/dl Hct 30.6 L (37.0-47.0) % MCV 87.4 (80.0-98.0) fL MCH 27.7 (27.0-33.0) pg MCHC 31.7 (31.0-35.0) g/dl RDW 15.8 (11.0-16.0) % Plt Count 181 (160-400) X10*3/uL MPV 9.1 L (9.4-12.3) fL Immature Gran % (Auto) 0.4 (0.0-0.4) % Neut % (Auto) 67.4 (45-73) % Lymph % (Auto) 21.6 (20-40) % [place] % (Auto) 9.6 (2-11) % Eos % (Auto) 0.5 (0-4) % Baso % (Auto) 0.5 (0-2) % Lymph # (Auto) 1.2 (1.2-4.9) X10*3/uL [place] # (Auto) 0.5 (0.1-1.2) X10*3/uL Eos # (Auto) 0.0 (0.0-0.4) X10*3/uL Baso # (Auto) 0.0 (0.0-0.2) X10*3/uL Abs Immat Gran (auto) 0.02 (0.00-0.03) X10*3/uL Absolute Neuts (auto) 3.7 (2.0-8.3) x10*3/uL Absolute Nucleated RBC 0.000 (0.0-0.012) X10*3/uL Nucleated RBC % (auto) 0.0 (0.0-0.2) /100WBC Sodium 140 (135-145) mmol/L Potassium 3.8 (3.3-5.1) mmol/L Chloride 103 (96-108) mmol/L Carbon Dioxide 28 (22-29) mmol/L Anion Gap 13 (12-20) BUN 17 H (9-16) mg/dL Creatinine 0.78 (0.5-1.4) mg/dL Estim Creat Clear Calc 70.9 Estimated GFR > 60 Random Glucose 103 (60-115) mg/dL Calcium 9.6 D (8.4-10.2) mg/dL Magnesium 1.3 L* (1.6-2.6) mg/dL Total Bilirubin 0.9 (0.0-1.0) mg/dL Direct Bilirubin 0.3 (0.0-0.5) mg/dL AST 10 (5-31) U/L ALT 8 (0-31) U/L Alkaline Phosphatase 40 (39-117) U/L Troponin I High Sens 4.4 (<3.5-17.0) ng/L Total Protein 6.3 L (6.5-8.0) g/dL Albumin 3.7 (3.5-5.0) g/dL Urine Color Yellow Urine Appearance Turbid Urine pH 6.5 (5.0-9.0) Ur Specific [place] 1.020 (1.005-1.025) Urine Protein 100 (2+) H (Neg-Trace) mg/dL Urine Glucose (UA) Negative (Negative) mg/dL Urine Ketones Negative (Negative) mg/dL Urine Blood Negative (Negative) Urine Nitrite Negative (Negative) Ur Leukocyte Esterase Large (3+) H (Negative) Urine RBC 3-5 H (0-2) /HPF Urine WBC >50 H (0-5) /HPF Ur Squamous Epith Cells 0-2 (0-2) /HPF Urine Bacteria 4+ (None Seen) Hyaline Casts 0-2 (0-2) /LPF Independent Interpretation I performed an independent interpretation of an: EKG and CT Scan Interpretation: Rate: 65 Rhythm: NSR [place]: left Normal P waves. Normal KACI. RBBB ST T wave : no BRETT, inverted t wave III, qTC: normal prior studies: unchanged from priors The study has been interpreted contemporaneously by me. . Radiology Impression Discussion of test interpretation with radiology: I have reviewed the radiologist's reading. Independent Historian Clinical information obtained from an independent historian. History obtained from or confirmed by: EMS and Other External Record Review External record reviewed: Inpatient record Prescription Management I considered prescription management with: Antibiotic Discharge Plan Discharge Clinical Impression: Hypomagnesemia, Acute UTI Fall Qualifiers: Encounter type: initial encounter Qualified Code(s): W19.XXXA - Unspecified fall, initial encounter Patient Disposition: Home, Self-Care Instructions: Urinary Tract Infection in Women (ED), Hypomagnesemia (ED), Fall Prevention (ED) Additional Instructions: normal CT scan of head and neck, repleted magnesium, otherwise labs at baseline, return for worsening confusion, pain, fevers, vomiting or any other concerns. On a cephalosporin?antibiotic, softer bowel movements are to be expected. Call your provider if you move your bowels more than 4 times a day, your bowel movements are almost all liquid, or you get a rash.?? Prescriptions: New cefuroxime axetil 250 mg tablet 250 mg PO BID 7 Days Qty: 13 0RF No Action omeprazole 20 mg capsule,delayed release(DR/EC) 20 mg PO DAILY 90 Days Qty: 90 3RF fluoxetine 20 mg capsule 20 mg PO DAILY Qty: 90 1RF (DME) adult overnight diapers See Rx Instructions .Route .MEDSUPPLY Qty: 120 0RF Rx Instructions: As directed Rybelsus 14 mg tablet 14 mg PO DAILY 90 Days Qty: 90 3RF cholecalciferol (vitamin D3) 50 mcg (2,000 unit) capsule 50 mcg PO DAILY Qty: 30 11RF (DME) FreeStyle Lite Strips Strip See Rx Instructions .MEDSUPPLY Qty: 100 2RF Rx Instructions: 2 x day (DME) blood-glucose meter [OneTouch Ultra2 Meter] Misc See Rx Instructions .Route Qty: 1 0RF Rx Instructions: As directed (DME) OneTouch Ultra Test Strip See Rx Instructions .Route Qty: 100 2RF Rx Instructions: Use 1 test strip once a day (DME) lancets [OneTouch UltraSoft 2 Lancet] 30 gauge misc See Rx Instructions .Route Qty: 100 2RF Rx Instructions: Use 1 lancet once a day Artificial Tears (cmc) 1 % drops 1 drp ophthalmic (eye) BID 10 Days Qty: 15 1RF (DME) blood-glucose meter [Prodigy Autocode Monitor Syst] Misc See Rx Instructions .Route Qty: 1 0RF Rx Instructions: As directed tests 4 X/day due to poor glycemic control (DME) lancets [Prodigy Lancets] 28 gauge misc See Rx Instructions .Route Qty: 100 4RF Rx Instructions: s directed tests 4 X/day due to poor glycemic control (DME) Prodigy No Coding Strip See Rx Instructions .Route Qty: 100 5RF Rx Instructions: s directed tests 4 X/day due to poor glycemic control (DME) lancing device [Prodigy Lancing Device] Misc See Rx Instructions .Route Qty: 1 5RF Rx Instructions: s directed tests 4 X/day due to poor glycemic control atorvastatin 80 mg tablet 80 mg PO BEDTIME 90 Days Qty: 90 1RF lisinopril 10 mg tablet 10 mg PO DAILY 90 Days Qty: 90 1RF pioglitazone 45 mg tablet 45 mg PO DAILY 90 Days Qty: 90 1RF melatonin 10 mg capsule 20 mg PO BEDTIME 90 Days Qty: 180 1RF aspirin [Adult Aspirin Regimen] 81 mg tablet,delayed release (DR/EC) 81 mg PO DAILY Qty: 90 1RF metformin 1,000 mg tablet 1,000 mg PO BID 90 Days Qty: 180 3RF (DME) walker Misc See Rx Instructions .Route Qty: 1 0RF Rx Instructions: As directed (DME) adult diapers briefs X-large See Rx Instructions .Route .MEDSUPPLY Qty: 240 11RF Rx Instructions: Use 8 briefs per day lorazepam [Ativan] 1 mg tablet 1 mg PO BID PRN (DME) lancets [FreeStyle Lancets] 28 gauge misc See Rx Instructions .MEDSUPPLY Qty: 100 2RF Rx Instructions: 2 x day (DME) blood-glucose meter [FreeStyle Lite Meter] Kit See Rx Instructions .MEDSUPPLY Qty: 1 0RF Rx Instructions: 2 x day (DME) blood-glucose meter [Prodigy Autocode Meter] Kit See Rx Instructions .Route Qty: 1 0RF Rx Instructions: As directed (DME) Prodigy No Coding Strip See Rx Instructions .Route Qty: 50 11RF Rx Instructions: Use 1 test strip once a day (DME) lancets [Safety Lancets] 28 gauge misc See Rx Instructions .Route Qty: 100 6RF Rx Instructions: Use 1 lancet twice a day risperidone 1 mg tablet 1 mg PO BEDTIME trazodone 50 mg tablet 25 mg PO DAILY
--- NOTE | 2023-04-25 12:12 | PC.NURSE ---
pt comes from adult day care for unwitnessed fall while trying to get out of wheelchair. pt not on thinners, ASA only. no head strike. no loc. no injuries. pt is not complaining of pain. per EMS, pt is at baseline mentation. pt able to follow some commands, appears slightly lethargic. pt did not arrive in c-collar as pt refused. per EMS, pt will scream with interventions. pt does not respond to verbal stimuli. stated to t/w no blood . MD Leanne aware.
[2023-04-25 13:02] LABS: MANUAL DIFF FLAG NO
[2023-04-25 13:04] LABS: Basophils Percent Auto 0.5 % (0-2); Eosinophils Percent Auto 0.5 % (0-4); Hematocrit 30.6 % (37.0-47.0); Hemoglobin 9.7 g/dl (12.0-16.0); Imm Gran Abs Auto 0.02 X10*3/uL (0.00-0.03); Imm Gran Pct Auto 0.4 % (0.0-0.4); Lymphocytes Absolute Auto 1.2 X10*3/uL (1.2-4.9); Lymphocytes Percent Auto 21.6 % (20-40); Mean Corpuscular HGB Conc 31.7 g/dl (31.0-35.0); Mean Corpuscular Hemoglobin 27.7 pg (27.0-33.0); Mean Corpuscular Volume 87.4 fL (80.0-98.0); Mean Platelet Volume 9.1 fL (9.4-12.3); Monocytes Absolute Auto 0.5 X10*3/uL (0.1-1.2); Monocytes Percent Auto 9.6 % (2-11); Neutrophils Absolute Auto 3.7 x10*3/uL (2.0-8.3); Neutrophils Percent Auto 67.4 % (45-73); Platelet Count 181 X10*3/uL (160-400); Red Cell Distribution Width 15.8 % (11.0-16.0); White Blood Count 5.5 X10*3/uL (4.8-10.8)
[2023-04-25 13:19] LABS: Alanine Aminotransferase 8 U/L (0-31); Albumin Level 3.7 g/dL (3.5-5.0); Alkaline Phosphatase 40 U/L (39-117); Anion Gap 13 (12-20); Aspartate Amino Transferase 10 U/L (5-31); Bilirubin Direct 0.3 mg/dL (0.0-0.5); Bilirubin Total 0.9 mg/dL (0.0-1.0); Blood Urea Nitrogen 17 mg/dL (9-16); Calcium 9.6 mg/dL (8.4-10.2); Carbon Dioxide 28 mmol/L (22-29); Chloride 103 mmol/L (96-108); Creatinine Clr Calc Pharmacy 70.9; Estimated Glomerular Filt Rate > 60; Glucose Random 103 mg/dL (60-115); Magnesium 1.3 mg/dL (1.6-2.6); Potassium 3.8 mmol/L (3.3-5.1); Sodium 140 mmol/L (135-145); Total Protein 6.3 g/dL (6.5-8.0)
[2023-04-25 13:24] LABS: Troponin-I High Sensitivity 4.4 ng/L (<3.5-17.0)
[2023-04-25 13:40] VITALS: BP 149/69; PULSE 68; RESP 16; TEMP 36.5; O2SAT 97
--- NOTE | 2023-04-25 15:05 | PC.NURSE ---
22G IV placed to RAC. pt ambulated to bathroom with 1 assist and the walker. UA collected and sent to lab. pt back to bed watching move with director of group sales.
[2023-04-25] MEDS: Magnesium Sulfate/H2O 2 GM/50 ML PIGGYBACK IV (15:11)
[2023-04-25 15:15] LABS: Appearance Urine Turbid; Color Urine Yellow; Glucose Urine UA Negative (Negative); Leukocyte Esterase Urine Large (3+) (Negative); Nitrite Urine Negative (Negative); PH 6.5 (5.0-9.0); UMIC TRIGGER UACC YES; Urine Blood Negative (Negative); Urine Ketones Negative (Negative); Urine Protein 100 (2+) mg/dL (Neg-Trace)
[2023-04-25 15:19] LABS: Bacteria Urine 4+ (None Seen); Hyaline Casts Urine 0-2 /LPF (0-2); Squamous Epithelial Cell Urine 0-2 /HPF (0-2); UACC Culture Trigger YES; WBC Urine >50 /HPF (0-5)
[2023-04-25] MEDS: cefuroxime axetiL 250 MG TABLET PO (16:08)
== END 2023-04-25 16:16 | disposition home or self-care (01) ==
PROVIDERS: Emergency Provider Emergency Medicine; PCP Internal Medicine
DX: S09.90XA Unspecified injury of head, initial encounter (principal); N39.0 Urinary tract infection, site not specified; E83.42 Hypomagnesemia; R51.9 Headache, unspecified; R07.89 Other chest pain; M54.2 Cervicalgia; W01.10XA Fall on same level from slipping, tripping and stumbling with subsequent striking against unspecified object, initial encounter; Y93.9 Activity, unspecified; Y92.9 Unspecified place or not applicable; Y99.9 Unspecified external cause status; Z79.899 Other long term (current) drug therapy
CPT/HCPCS: 36415; 70450; 71045; 72125; 80048; 80076; 81001; 83735; 84484; 85025; 87086; 87088; 87186; 93005; 96374; 99284; J3475

== ENCOUNTER → 2023-04-25 12:00 | Outpatient (BNV) | payer MEDICARE, MEDICAID, SELFPAY | PROVIDERS: Emergency Provider Emergency Medicine; PCP Internal Medicine; Visit Provider Internal Medicine | DX: R94.31 Abnormal electrocardiogram [ECG] [EKG] (principal) | CPT/HCPCS: 93010 ==

== ENCOUNTER 2023-06-26 16:22 | Outpatient (AMB) | payer MEDICARE, MEDICAID, SELFPAY ==
[2023-06-26 16:29] VITALS: BMI 27.1
--- NOTE | 2023-06-26 16:29 | A.OFFPC_ITS ---
Vital Signs 06/26/23 16:29 Height 5 ft 2 in Weight 148 lb BMI 27.1 Comment unable to get BP due to patient yelling Intake Visit Reasons: dm Intake Note: Patient here for a follow up DM, declined in ambulation, weakness, trouble walking ? 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 Accompanied by: staff Allergies lactose Adverse Reaction (Severe, Verified 06/26/23 16:57) Diarrhea Medication List - Last Reconciled 06/26/23 by Hannah Stacy MD [adult diapers briefs Use 8 briefs per day] [adult overnight diapers As directed] aspirin (Adult Aspirin Regimen) 81 mg PO DAILY atorvastatin 80 mg PO BEDTIME 90 days blood sugar diagnostic (FreeStyle Lite Strips) 2 x day blood sugar diagnostic (OneTouch Ultra Test strips) Use 1 test strip once a day blood sugar diagnostic (Prodigy No Coding strips) Use 1 test strip once a day blood sugar diagnostic (FreeStyle Lite Strips) As directed test once day blood sugar diagnostic (Prodigy No Coding strips) s directed tests 4 X/day due to poor glycemic control blood-glucose meter (OneTouch Ultra2 Meter) As directed blood-glucose meter (Prodigy Autocode Meter kit) As directed blood-glucose meter (ProdLumiatay Autocode Blood Glucose Monitoring System) As directed tests 4 X/day due to poor glycemic control blood-glucose meter (FreeStyle Lite Meter kit) 2 x day cholecalciferol (vitamin D3) 50 mcg PO DAILY clonazepam 1 mg PO DAILY PRN cream base no.228 (bulk) (Atrevis Hydrogel cream) 1 appl miscellaneous .once a day 30 days fluoxetine 20 mg PO DAILY lancets (FreeStyle Lancets) 2 x day lancets (OneTouch UltraSoft 2 Lancet) Use 1 lancet once a day lancets (Safety Lancets) Use 1 lancet twice a day lancets (Prodigy Lancets) s directed tests 4 X/day due to poor glycemic control lancing device (Prodigy Lancing Device) s directed tests 4 X/day due to poor glycemic control lisinopril 10 mg PO DAILY 90 days metformin 1,000 mg PO BID 90 days omeprazole 20 mg PO DAILY 90 days pioglitazone 45 mg PO DAILY 90 days risperidone 0.5 mg PO BID semaglutide (Rybelsus) 14 mg PO DAILY 90 days trazodone 25 mg PO DAILY walker As directed white petrolatum 41% (Aquaphor Healing) 1 appl topical DAILY PRN 2 weeks Tobacco use date assessed: 09/06/22 HPI HPI Comments History of Present Illness Details This is a 63-year-old female with diabetes mellitus type 2, hypertension, dyslipidemia and Alzheimer's disease with behavioral disturbance that comes today accompanied by 2 staff members were she lives for follow-up on her conditions. Walks with a walker for gait stability and now is forgetting how to walk and will benefit from a wheelchair. They do have a gait belt to hold her and avoid falling. Her A1cs within goal. Blood pressure stable. Lipid panel will be order and her LDL goal should be less than 70. Her dementia has progressively getting worse for the last 2 months and she has been yelling and forgetting how to eat and walk. She is completely incontinent now and needs diaper. She does have developmental delay since childhood. Will be referred to Neurology again. Psychiatry does see her for mood disorder. Due dysphagia barium swallow will be ordered by the alf. Also pills need to be crush. Staff members wanted Ensure due to decrease in appetite but I told her that she is on rybelsus which decreased appetite intentionally to control blood sugar and decrease weight. She is still overweight with a BMI of 27.1. [facility] Medical History (Updated 06/26/23 @ 19:13 by Hannah Stacy MD) Hypercalcemia 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 Obesity due to excess calories Class 2 obesity with body mass index (BMI) of 37.0 to 37.9 in adult Mood disorder Memory loss Abnormal behavior Proteinuria Type 2 diabetes mellitus with other diabetic kidney complication Diabetes type 2, uncontrolled Urinary incontinence Microalbuminuria GERD (gastroesophageal reflux disease) Dyslipidemia Essential hypertension Mentally challenged Diabetes mellitus Surgical History History of hysterectomy Family History Father CVD (cardiovascular disease) Mother Hypertension Brother Healthy adult Social History Housing: House Alcohol intake: never Patient Tobacco Use Status: Never used Tobacco e-Cigarette/Vaping Use: Never Used Second Hand Smoke Exposure: No service: No Current occupational status: disabled Cognitive needs: Yes Hearing needs: No Vision needs: No Questionnaire PHQ-9 Over the last 2 weeks, how often have you been bothered by any of the following problems? 1. Little interest or pleasure in doing things: not at all 2. Feeling down, depressed, or hopeless: not at all 3. Trouble falling or staying asleep, or sleeping too much: not at all 4. Feeling tired or having little energy: nearly every day 5. Poor appetite or overeating: nearly every day 6. Feeling bad about yourself - or that you are a failure or have let yourself or your family down: not at all 7. Trouble concentrating on things, such as reading the newspaper or watching television: not at all 8. Moving or speaking so slowly that other people could have noticed. Or the opposite - being so fidgety or restless that you have been moving around a lot more than usual: not at all 9. Thoughts that you would be better off or of hurting yourself in some way: not at all Total score: 6 Depression Screening Interpretation: Positive Depression Screening Follow-up: Existing condition, In treatment and Community Mental Health Worker F/U Depression Screening Done: Yes 43387 - PHQ-9 Billing: Yes Source: Developed by Drs. Zaki Saucedo, Penelope Vegas, Brendan Vasquez and colleagues, with an educational sintia from [employer]. Thrive Questionnaire Date Thrive assessed: 06/26/23 I am a: Parent/Caregiver What is your living situation today?: I have a steady place to live Within the past 12 months, did the food you bought not last and you didn't have the money to get more?: Never true Within the past 12 months, did you worry whether your food would run out before you got money to buy more?: Never true Do you have trouble paying for medicines?: No Do you have trouble getting transportation to medical appointments?: No Do you have trouble paying your heating and electricity bill?: No Do you have trouble taking care of your child, family member or friend?: No Do you have trouble with day-to-day activities such as bathing, preparing meals, shopping, managing finances, etc.?: No Are you currently unemployed and looking for a job?: No Are you interested in more education?: No Please select the resources that you would like help with: None Currently or been in a relationship where the following occur: no concerns reported THRIVE Score: 0 AUDIT C Alcohol Use Questionnaire (AUDIT-C) 1. How often do you have a drink containing alcohol?: Never Total Score: 0 TEX-7 AMB Questionnaire TEX-7 Date TEX - 7 assessed: 06/26/23 Feeling nervous, anxious, or on edge: 0 = Not at all Not being able to stop or control worryin = Not at all Worrying too much about different things: 0 = Not at all Trouble relaxin = Not at all Being so restless that it is hard to sit still: 0 = Not at all Becoming easily annoyed or irritable: 0 = Not at all Feeling afraid as if something awful might happen: 0 = Not at all Total TEX-7 score (0-4 normal; 5-9 mild; 10-14 moderate; 15-21 severe): 0 Source: Developed by Drs. Zaki Saucedo, Penelope Vegas, Brendan Vasquez and colleagues, with an educational sintia from [employer]. TEX-7 Assessment Billing TEX-7 Assessment Tool: TEX-7 Assessment 40523 Review of Systems Const All systems reviewed & are unremarkable except as noted in HPI and below Eyes Reports no additional complaints, Denies change in vision and Denies other visual disturbances Card Denies chest pain at rest, Denies chest pain with activity, Denies edema, Denies irregular heart rhythm, Denies claudication, Denies dyspnea, Denies dyspnea on exertion, Denies orthopnea, Denies paroxysmal nocturnal dyspnea and Denies slow heart rate Resp Denies cough, Denies dyspnea and Denies dyspnea on exertion GI Denies abdominal pain, Denies change in bowel habits, Denies excessive flatus, Denies nausea and Denies vomiting Denies urinary incontinence, Denies urinary hesitancy and Denies urinary urgency Musc Reports abnormal gait, Denies atrophy, Denies deformity and Denies limited range of motion Skin/Breast Denies bleeding lesions, Denies changing lesions and Denies rash Neuro Reports abnormal gait, Denies behavioral changes and Denies lack of coordination Psych Denies behavioral changes Physical exam (Primary Care) BMI result Body Mass Index 27.1 Tobacco/Smoking Status: Tobacco use Status Tobacco use date assessed 09/06/22 06/26/23 16:40 Patient Tobacco Use Status Never used Tobacco 06/26/23 16:40 e-Cigarette/Vaping Use Never Used 06/26/23 16:40 Depression Screening Interpretation: Positive Depression Screening Follow-up: Existing condition, In treatment and Community Mental Health Worker F/U Thrive Assessment: Date of Thrive Assessment Date Thrive assessed 06/26/23 06/26/23 16:45 Currently or been in a relationship where the following occur: no concerns reported Const Limitations: ambulation with walker Eyes General: appearance normal, both eyes and all related structures Eyelids: Yes eyelids normal Conjunctivae: conjunctivae normal Neck Neck: Yes normal visual inspection and Yes supple Resp Effort & Inspection: normal respiratory effort Auscultation: clear to auscultation bilaterally Extrem General: Yes full ROM Results AMB Hemoglobin A1c AMB Hemoglobin A1c 6.3 % Last Edit by DEAN Coleman on 06/26/23 16:5 0 Results Reviewed Results Reviewed: Laboratory Last Values Hgb A1c (Clinic) 6.3 % (4.0-6.0) H 06/26/23 16:46 Assessment and Plan Assessment & Plan (1) Diabetes mellitus: Code(s): E11.9 - Type 2 diabetes mellitus without complications Qualifiers: Diabetes mellitus type: type 2 Diabetes mellitus senior care insulin use: without moth exterminator use Diabetes mellitus complication status: with kidney complications Diabetes mellitus complication detail: with microalbuminuria Qualified Code(s): E11.29 - Type 2 diabetes mellitus with other diabetic kidney complication; R80.9 - Proteinuria, unspecified Plan: Continue metformin, Actos and refill so. A1c goal is equal or less than 7%. (2) Essential hypertension: Code(s): I10 - Essential (primary) hypertension Plan: Continue lisinopril. Blood pressure goal is equal or less than 130/80. (3) Dyslipidemia: Code(s): E78.5 - Hyperlipidemia, unspecified Plan: Continue statins. LDL goal is less than 70. (4) 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: Code(s): G30.0 - Alzheimer's disease with early onset; F02.81 - Dementia in other diseases classified elsewhere, unspecified severity, with behavioral disturbance Plan: Referred to neurology. Continue social support. Orders: Orders Lipid Panel 4 Months E78.5 - Hyperlipidemia, unspecified Microalbumin, Random (w Creat) 4 Months E11.9 - Type 2 diabetes mellitus without complications Complete Blood Count Auto Diff 4 Months D64.9 - Anemia, unspecified AMB Hemoglobin A1c Today E11.65 - Type 2 diabetes mellitus with hyperglycemia IRON PROFILE 4 Months D64.9 - Anemia, unspecified Comprehensive [place]. Panel Fast 4 Months E11.9 - Type 2 diabetes mellitus without complications Referrals Neurology Referral F02.81 - Dementia in other diseases classified elsewhere, unspecified severity, with behavioral disturbance, G30.0 - Alzheimer's disease with early onset Medications: New [wheelchair] As directed 1 ea 0RF F02.81 - Dementia in other diseases classified elsewhere, unspecified severity, with behavioral disturbance, G30.0 - Alzheimer's disease with early onset, R26.89 - Other abnormalities of gait and mobility Changed From aspirin (Adult Aspirin Regimen) 81 mg PO DAILY 90 tabs 1RF To aspirin (Adult Aspirin Regimen) crushed mixed with food 81 mg PO DAILY 90 days 90 tabs 1RF From semaglutide (Rybelsus) 14 mg PO DAILY 90 days 90 tabs 3RF E11.29 - Type 2 diabetes mellitus with other diabetic kidney complication To semaglutide (Rybelsus) crush and mix with food 14 mg PO DAILY 90 days 90 tabs 3RF E11.29 - Type 2 diabetes mellitus with other diabetic kidney complication From atorvastatin 80 mg PO BEDTIME 90 days 90 tabs 1RF E78.5 - Hyperlipidemia, unspecified To atorvastatin crushed and mix with food 80 mg PO BEDTIME 90 days 90 tabs 1RF E78.5 - Hyperlipidemia, unspecified From lisinopril 10 mg PO DAILY 90 days 90 tabs 1RF I10 - Essential (primary) hypertension To lisinopril crush and mix with food 10 mg PO DAILY 90 days 90 tabs 1RF I10 - Essential (primary) hypertension From metformin 1,000 mg PO BID 90 days 180 tabs 3RF E11.29 - Type 2 diabetes mellitus with other diabetic kidney complication, R80.9 - Proteinuria, unspecified To metformin crush and mix with food 1,000 mg PO BID 90 days 180 tabs 3RF E11.29 - Type 2 diabetes mellitus with other diabetic kidney complication, R80.9 - Proteinuria, unspecified From pioglitazone 45 mg PO DAILY 90 days 90 tabs 1RF E11.29 - Type 2 diabetes mellitus with other diabetic kidney complication, R80.9 - Proteinuria, unspecified To pioglitazone crush and mix with food 45 mg PO DAILY 90 days 90 tabs 1RF E11.29 - Type 2 diabetes mellitus with other diabetic kidney complication, R80.9 - Proteinuria, unspecified Discontinued cholecalciferol (vitamin D3) Discontinued Reason: No Longer Medically Relevant 50 mcg PO DAILY 30 caps 11RF omeprazole Discontinued Reason: Patient Completed Course 20 mg PO DAILY 90 days 90 caps 3RF Coding Level of Care Code Est Pt Level 4 (02496) Diagnoses Type 2 diabetes mellitus with microalbuminuria, without long-term current use of insulin E11.29; R80.9 Diabetes mellitus type: type 2 Diabetes mellitus moth exterminator insulin use: without senior care use Diabetes mellitus complication status: with kidney complications Diabetes mellitus complication detail: with microalbuminuria Essential hypertension I10 Dyslipidemia E78.5 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 G30.0; F02.81 Additional Codes TEX-7 Assessment Billing - TEX-7 Assessment Tool: TEX-7 Assessment 50351 ([id number]) Time Spent (min) 23
== END 2023-06-26 17:22 | disposition home or self-care (01) ==
PROVIDERS: PCP Internal Medicine; Visit Provider Internal Medicine
DX: E11.29 Type 2 diabetes mellitus with other diabetic kidney complication (principal); G30.0 Alzheimer's disease with early onset; F02.818 Dementia in other diseases classified elsewhere, unspecified severity, with other behavioral disturbance; E11.65 Type 2 diabetes mellitus with hyperglycemia; R80.9 Proteinuria, unspecified; I10 Essential (primary) hypertension; E78.5 Hyperlipidemia, unspecified
CPT/HCPCS: 83036; 99214

== ENCOUNTER 2023-06-27 12:38 | Emergency (ER) | payer MEDICARE, MEDICAID, SELFPAY ==
--- NOTE | ~2023-06-27 | XR_ITS ---
EXAMINATION: XR CHEST CLINICAL INFORMATION: Influenza positive. Low oxygenation saturation. COMPARISON: Chest radiograph dated 04/25/2023. TECHNIQUE: Frontal view of the chest was obtained. FINDINGS: The trachea is in normal anatomic position. Heart size is normal. There are dense calcifications of the aortic arch. There is no consolidation within either lung. There is no pleural effusion or pneumothorax. There is no acute osseous abnormality. There is left-sided calcific tendinosis or calcific tendinitis. XR/XR chest 1V IMPRESSION: No acute cardiopulmonary disease. Stable appearance of the heart and lungs.
[2023-06-27 12:57] VITALS: BP 154/68; BP 162/90; PULSE 70; PULSE 72; RESP 22; TEMP 36.7; O2SAT 99; BMI 24.4
--- NOTE | 2023-06-27 13:03 | PC.NURSE ---
patient awake/alert, nonverbal at baseline, c-collar intact-however not well fitting and pt continues to move causing it to displace, staff from residential at bedside, call gregoria sotelo, will continue to monitor
--- NOTE | 2023-06-27 13:41 | PC.NURSE ---
xr performed, provider in room
--- NOTE | 2023-06-27 13:46 | ED.GENADULT ---
HPI - General Adult General Chief complaint: Fall Stated complaint: UNWIT FALL FROM [facility] PER EMS Time Seen by Provider: 06/27/23 13:05 History of Present Illness HPI narrative: The patient is a 63-year-old woman with a history of significant dementia who lives at a intermediate because of her dementia. Apparently she has been at the intermediate for about 2 or 3 months. Prior to that she had been living with her family. I think with her mother. According to staff member who is with her the patient is chronically unable to express herself in any meaningful way. Apparently the patient chronically screams and cries and is nonverbal at baseline. Apparently the patient fell at the intermediate today. The staff member with the patient describes the patient falling gradually to the floor. The patient did not hit her head. It was not clear if the patient was injured. Nevertheless the patient was sent to the emergency room for evaluation of this fall. There is no report of any antecedent illness such as fever or vomiting or other new symptoms. The staff member does note that the patient was recently found to have hemorrhoid. Related Data Home Medications Medication Instructions Recorded Confirmed trazodone 50 mg tablet 25 mg PO DAILY 12/05/22 06/26/23 clonazepam 1 mg tablet 1 mg PO DAILY PRN 06/26/23 06/26/23 risperidone 1 mg tablet 0.5 mg PO BID 06/26/23 06/26/23 Previous Rx's Medication Instructions Recorded fluoxetine 20 mg capsule 20 mg PO DAILY #90 caps 08/09/22 lancets 28 gauge (FreeStyle #100 ea 09/06/22 Lancets) adult overnight diapers #120 ea 09/13/22 blood sugar diagnostic (FreeStyle #100 ea 10/10/22 Lite Strips) blood sugar diagnostic (OneTouch #100 ea 10/11/22 Ultra Test strips) blood-glucose meter (OneTouch #1 ea 10/11/22 Ultra2 Meter) lancets 30 gauge (OneTouch #100 ea 10/11/22 UltraSoft 2 Lancet) blood sugar diagnostic (Prodigy No #50 ea 10/18/22 Coding strips) blood-glucose meter (Prodigy #1 ea 10/18/22 Autocode Meter kit) lancets 28 gauge (Safety Lancets) #100 ea 10/18/22 lancing device (Prodigy Lancing #1 ea 12/11/22 Device) walker #1 ea 03/12/23 lancets 28 gauge (Prodigy Lancets) #100 ea 05/22/23 blood sugar diagnostic (FreeStyle #50 ea 05/30/23 Lite Strips) blood-glucose meter (FreeStyle #1 ea 05/30/23 Lite Meter kit) blood-glucose meter (Prodigy #1 ea 06/07/23 Autocode Blood Glucose Monitoring System) adult diapers briefs #240 ea 06/11/23 blood sugar diagnostic (Prodigy No #100 ea 06/14/23 Coding strips) cream base no.228 (bulk) (Atrevis 1 appl miscellaneous .once a day 06/21/23 Hydrogel cream) 30 days #1 g white petrolatum 41 % topical 1 appl topical DAILY PRN dry skin 06/25/23 ointment (Aquaphor Healing) 2 weeks #20 grams aspirin 81 mg tablet,delayed 81 mg PO DAILY 90 days #90 tabs 06/26/23 release (Adult Aspirin Regimen) atorvastatin 80 mg tablet 80 mg PO BEDTIME 90 days #90 tabs 06/26/23 lisinopril 10 mg tablet 10 mg PO DAILY 90 days #90 tabs 06/26/23 metformin 1,000 mg tablet 1,000 mg PO BID 90 days #180 tabs 06/26/23 pioglitazone 45 mg tablet 45 mg PO DAILY 90 days #90 tabs 06/26/23 semaglutide 14 mg tablet (Rybelsus) 14 mg PO DAILY 90 days #90 tabs 06/26/23 wheelchair #1 ea 06/26/23 Allergies Allergy/AdvReac Type Severity Reaction Status Date / Time lactose AdvReac Severe Diarrhea Verified 06/26/23 16:57 Review of Systems Review of Systems: Yes Unobtainable due to mental status PMFSH Past Medical History Medical History Hypercalcemia 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 Obesity due to excess calories Class 2 obesity with body mass index (BMI) of 37.0 to 37.9 in adult Mood disorder Memory loss Abnormal behavior Proteinuria Type 2 diabetes mellitus with other diabetic kidney complication Diabetes type 2, uncontrolled Urinary incontinence Microalbuminuria GERD (gastroesophageal reflux disease) Dyslipidemia Essential hypertension Mentally challenged Diabetes mellitus Surgical History History of hysterectomy Family History Family History Father CVD (cardiovascular disease) Mother Hypertension Brother Healthy adult Social History Social History Housing: House Alcohol intake: never Patient Tobacco Use Status: Never used Tobacco e-Cigarette/Vaping Use: Never Used Second Hand Smoke Exposure: No Advance Directives: No Advance Directives Information Provided: No Patient : No service: No Current occupational status: disabled Cognitive needs: Yes Hearing needs: No Vision needs: No Physical Exam ED Vital Signs: Vital Signs - 24 hr 06/27/23 12:57 Temperature 98.1 F Pulse Rate 72 Respiratory Rate 22 H Blood Pressure 154/68 H Pulse Oximetry 99 Oxygen Delivery Method Room Air BMI result Body Mass Index 24.4 Const Other: The patient is a chronically ill-appearing 63-year-old. She had a cervical collar applied in the pre-hospital setting. Despite this she was moving her head a lot and did not seem to have any discomfort when moving her head. Her heart rate was in the 60s. She intermittently screams but did not seem in distress. No obvious signs of injury. HENMT Other: No signs of trauma to the head or the face. Mucous membranes are moist. Eyes Other: Pupils are round equal, extraocular movements seem intact, no signs of injury to the eyes. The eyes are unremarkable. Neck Other: No appreciable C-spine tenderness although the patient's the dementia complicates her exam. She is moving her head easily without apparent discomfort. Chest Other: No chest wall tenderness, crepitus, or signs of injury. Resp Other: Lungs are clear bilaterally. Cardio Other: The patient has a regular rate and rhythm. There is a 3/6 systolic murmur. GI Other: The abdomen is soft and not apparently tender. Other: The patient has a small hemorrhoid on the right side of indeterminate age. Back/Spine/Pelvis Other: No obvious focal vertebral tenderness in the back. Skin Other: No lacerations or obvious acute bruising. Neuro Other: The patient is awake but nonverbal. She intermittently screams apropos of nothing. Her face seems symmetrical. Eye movements seem intact. pupils are equal. The patient seems to have symmetrical tone in her extremities. She was able to walk with a walker although she did so quite stiffly. Extrem Other: No obvious deformities. No obvious signs of injury. The patients extremity exam is difficult because she frequently scream and it was difficult to say whether this was because of pain with limb motion or simply because she was screaming. However ultimately she was able to move both of her legs and her arms well enough to get out of the stretcher with the assistance and then use a walker with what her staff member describes as her baseline gait. Medical Decision Making Medical Decision Making [facility] Narrative: The patient is a 63-year-old woman with a history of dementia lives at a intermediate who had a fall at the intermediate today. The staff member indicates that the fall was slow and did not seem to be associated with any obvious injury at that time. There was no head injury. The patient was sent here for evaluation of the fall. The patient's exam is complicated by her dementia and her frequent screaming. However I do not feel there is any obvious sign of injury. I was also asked to examine the patient's rectum as the intermediate was concerned that she had recently been found to have a hemorrhoid. She may have a very small hemorrhoid but no actionable hemorrhoid. I think she may return to her intermediate with her normal regimen. Discharge Plan Discharge Clinical Impression: Fall, Dementia Patient Disposition: er [facility] Transfer Details: Returning to intermediate Additional Instructions: There does not seem to be any evidence of any significant injury. Vital signs are stable. Heart rate is normal. There was no indication for x-rays or other studies. She may have a mild hemorrhoid but there is no indication for any intervention. Please have her follow up with her regular provider. Return to the emergency room if worse. Prescriptions: No Action fluoxetine 20 mg capsule 20 mg PO DAILY Qty: 90 1RF (DME) adult overnight diapers See Rx Instructions .Route .MEDSUPPLY Qty: 120 0RF Rx Instructions: As directed (DME) FreeStyle Lite Strips Strip See Rx Instructions .MEDSUPPLY Qty: 100 2RF Rx Instructions: 2 x day (DME) blood-glucose meter [OneTouch Ultra2 Meter] [facility] [place] See Rx Instructions .Route Qty: 1 0RF Rx Instructions: As directed (DME) OneTouch Ultra Test Strip See Rx Instructions .Route Qty: 100 2RF Rx Instructions: Use 1 test strip once a day (DME) lancets [OneTouch UltraSoft 2 Lancet] 30 gauge misc See Rx Instructions .Route Qty: 100 2RF Rx Instructions: Use 1 lancet once a day (DME) lancing device [Prodigy Lancing Device] Misc See Rx Instructions .Route Qty: 1 5RF Rx Instructions: s directed tests 4 X/day due to poor glycemic control (DME) walker Misc See Rx Instructions .Route Qty: 1 0RF Rx Instructions: As directed (DME) lancets [Prodigy Lancets] 28 gauge misc See Rx Instructions .Route Qty: 100 4RF Rx Instructions: s directed tests 4 X/day due to poor glycemic control (DME) FreeStyle Lite Strips Strip See Rx Instructions .Route Qty: 50 4RF Rx Instructions: As directed test once day (DME) blood-glucose meter [FreeStyle Lite Meter] Kit See Rx Instructions .MEDSUPPLY Qty: 1 0RF Rx Instructions: 2 x day (DME) blood-glucose meter [Prodigy Autocode Monitor Syst] Mis See Rx Instructions .Route Qty: 1 0RF Rx Instructions: As directed tests 4 X/day due to poor glycemic control (DME) adult diapers briefs X-large See Rx Instructions .Route .MEDSUPPLY Qty: 240 11RF Rx Instructions: Use 8 briefs per day (DME) Prodigy No Coding Strip See Rx Instructions .Route Qty: 100 5RF Rx Instructions: s directed tests 4 X/day due to poor glycemic control Atrevis Hydrogel Cream 1 appl miscellaneous .once a day 30 Days Qty: 1 1RF Aquaphor Healing 41 % ointment 1 appl topical DAILY PRN (Reason: dry skin) 14 Days Qty: 20 2RF clonazepam 1 mg tablet 1 mg PO DAILY PRN (DME) wheelchair See Rx Instructions .Route .MEDSUPPLY Qty: 1 0RF Rx Instructions: As directed aspirin [Adult Aspirin Regimen] 81 mg tablet,delayed release (DR/EC) 81 mg PO DAILY 90 Days Qty: 90 1RF Rx Instructions: crushed mixed with food atorvastatin 80 mg tablet 80 mg PO BEDTIME 90 Days Qty: 90 1RF Rx Instructions: crushed and mix with food lisinopril 10 mg tablet 10 mg PO DAILY 90 Days Qty: 90 1RF Rx Instructions: crush and mix with food metformin 1,000 mg tablet 1,000 mg PO BID 90 Days Qty: 180 3RF Rx Instructions: crush and mix with food pioglitazone 45 mg tablet 45 mg PO DAILY 90 Days Qty: 90 1RF Rx Instructions: crush and mix with food Rybelsus 14 mg tablet 14 mg PO DAILY 90 Days Qty: 90 3RF Rx Instructions: crush and mix with food (DME) lancets [FreeStyle Lancets] 28 gauge misc See Rx Instructions .MEDSUPPLY Qty: 100 2RF Rx Instructions: 2 x day (DME) blood-glucose meter [Prodigy Autocode Meter] Kit See Rx Instructions .Route Qty: 1 0RF Rx Instructions: As directed (DME) Prodigy No Coding Strip See Rx Instructions .Route Qty: 50 11RF Rx Instructions: Use 1 test strip once a day (DME) lancets [Safety Lancets] 28 gauge misc See Rx Instructions .Route Qty: 100 6RF Rx Instructions: Use 1 lancet twice a day risperidone 1 mg tablet 0.5 mg PO BID trazodone 50 mg tablet 25 mg PO DAILY Referrals: Hannah Rowley MD [Primary Care Provider] - (Fall, dementia) Interventions: ED Discharge Assessment Last Done: 06/27/23 14:43 Discharge Date/Time: 06/27/23 14:44
== END 2023-06-27 14:44 ==
PROVIDERS: Emergency Provider Emergency Medicine; PCP Internal Medicine
DX: S09.90XA Unspecified injury of head, initial encounter (principal); S29.9XXA Unspecified injury of thorax, initial encounter; R06.02 Shortness of breath; W01.10XA Fall on same level from slipping, tripping and stumbling with subsequent striking against unspecified object, initial encounter; Y93.9 Activity, unspecified; Y92.9 Unspecified place or not applicable; Y99.8 Other external cause status; Z79.899 Other long term (current) drug therapy
CPT/HCPCS: 71045; 99283

== ENCOUNTER 2023-07-04 13:12 | Outpatient (AMB) | payer MEDICARE, MEDICAID, SELFPAY ==
--- NOTE | 2023-07-04 13:13 | A.OFFVIS_ITS ---
Intake Vital Signs 07/04/23 13:39 Height 5 ft 5 in BP 102/68 Blood Pressure Location Lt brachial Position Sitting Pulse 102 H Pulse Source Pulse Oximeter Intake Visit Reasons: DM-lvm Intake Note: Patient presents today to follow up on D2MT. Last Diabetic Eye exam: unknown Last Podiatry Visit:06/2023 Random Glucose: 141 mg/dl HgA1c: 6.3% 06/26/23 Telecommunications Line Mechanic Required: No Accompanied by: care home staff Allergies lactose Adverse Reaction (Severe, Verified 07/04/23 13:48) Diarrhea Medication List - Last Reconciled 07/04/23 by Zaki Leblanc MD [adult diapers briefs Use 8 briefs per day] [adult overnight diapers As directed] aspirin (Adult Aspirin Regimen) 81 mg PO DAILY 90 days atorvastatin 80 mg PO BEDTIME 90 days blood sugar diagnostic (FreeStyle Lite Strips) 2 x day blood sugar diagnostic (OneTouch Ultra Test strips) Use 1 test strip once a day blood sugar diagnostic (Prodigy No Coding strips) Use 1 test strip once a day blood sugar diagnostic (FreeStyle Lite Strips) As directed test once day blood sugar diagnostic (Prodigy No Coding strips) s directed tests 4 X/day due to poor glycemic control blood-glucose meter (OneTouch Ultra2 Meter) As directed blood-glucose meter ([employer]y Autocode Meter kit) As directed blood-glucose meter ([employer] Autocode Blood Glucose Monitoring System) As directed tests 4 X/day due to poor glycemic control blood-glucose meter (FreeStyle Lite Meter kit) 2 x day clonazepam 1 mg PO DAILY PRN clonazepam (Klonopin) 1 mg PO DAILY cream base no.228 (bulk) (Atrevis Hydrogel cream) 1 appl miscellaneous .once a day 30 days fluoxetine 20 mg PO DAILY lancets (FreeStyle Lancets) 2 x day lancets (OneTouch UltraSoft 2 Lancet) Use 1 lancet once a day lancets (Safety Lancets) Use 1 lancet twice a day lancets (Prodigy Lancets) s directed tests 4 X/day due to poor glycemic control lancing device (Prodigy Lancing Device) s directed tests 4 X/day due to poor glycemic control lisinopril 10 mg PO DAILY 90 days metformin 1,000 mg PO BID 90 days pioglitazone 45 mg PO DAILY 90 days risperidone 0.5 mg PO BID semaglutide (Rybelsus) 14 mg PO DAILY 90 days trazodone 25 mg PO DAILY walker As directed [wheelchair As directed] white petrolatum 41% (Aquaphor Healing) 1 appl topical DAILY PRN 2 weeks HPI HPI Comments History of Present Illness Details Patient is 63-year-old female with DM type 2 diagnosed in 2013 who presents for management of diabetes. Patient is mentally challenged and declines to have her blood glucose tested therefore moderate blood glucose control without any hypoglycemia is appropriate. She also refuses any injections, eye exams and foot exams. 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 And Training Specialist - CDE education: no Mammography Technician: no, refuses to go Dental exam: recently Ophthalmology evaluation: needs to make appt Laboratory Tests 05/24/21 05/24/21 05/24/21 06:30 07:55 07:55 Creatinine 0.71 Estimated GFR > 60 Hgb A1c (Clinic) Triglycerides 140 Cholesterol 154 LDL Cholesterol, C alc 81 HDL Cholesterol 45 25-OH Vitamin D To golden 22 L Microalb/Creat Rat io 64.4 09/29/21 09:34 Creatinine Estimated GFR Hgb A1c (Clinic) 7.2 H Triglycerides Cholesterol LDL Cholesterol, C alc HDL Cholesterol 25-OH Vitamin D To golden Microalb/Creat Rat io PFSH Medical History Hypercalcemia 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 Obesity due to excess calories Class 2 obesity with body mass index (BMI) of 37.0 to 37.9 in adult Mood disorder Memory loss Abnormal behavior Proteinuria Type 2 diabetes mellitus with other diabetic kidney complication Diabetes type 2, uncontrolled Urinary incontinence Microalbuminuria GERD (gastroesophageal reflux disease) Dyslipidemia Essential hypertension Mentally challenged Diabetes mellitus Surgical History History of hysterectomy Family History Father CVD (cardiovascular disease) Mother Hypertension Brother Healthy adult Social History Housing: House Alcohol intake: never Patient Tobacco Use Status: Never used Tobacco e-Cigarette/Vaping Use: Never Used Second Hand Smoke Exposure: No service: No Current occupational status: disabled Cognitive needs: Yes Hearing needs: No Vision needs: No Physical Exam Absence of Cushingoid features. Absence of acromegalic features. Neck exam reveals nl size thyroid about 15 gms. No thyroid nodules palpable. No carotid bruits present. Lungs CTA. Heart S1 S2, Reg R/R. No M/R/ G. Skin exam reveals absence of vitiligo or acanthosis nigricans. Abdominal exam reveals Soft NT/ND with NA BS. No organomegaly present. Neck Other: . Extrem Other: Visual exam of foot performed. No ulcerations or open lesions. No onchomycosis, no callouses.Pulses 2 + distally . sensation of vibration cannot be tested in this patient Assessment & Plan Assessment & Plan (1) Diabetes mellitus: Code(s): E11.9 - Type 2 diabetes mellitus without complications Qualifiers: Diabetes mellitus type: type 2 Diabetes mellitus senior care insulin use: without senior care use Diabetes mellitus complication status: with kidney complications Diabetes mellitus complication detail: with microalbuminuria Qualified Code(s): E11.29 - Type 2 diabetes mellitus with other diabetic kidney complication; R80.9 - Proteinuria, unspecified Plan: This 62-year-old white female with history of type 2 diabetes being treated with Actos 45 mg, pioglitazone and oral G LP 1 with excellent improved glycemic control and known microvascular complications namely microalbumin. Plan is to continue the current management. This point, patient returned to the care of her primary care provider and returned back to endocrinology should her HbA1c deteriorate Quality Reporting (2019) Adult ([facility] 138/06/20/68) Smoking risk assessment performed?: Yes Patient Tobacco Use Status: Never used Tobacco Coding Level of Care Code Est Pt Level 4 (56080) Diagnoses Type 2 diabetes mellitus with microalbuminuria, without long-term current use of insulin E11.29; R80.9 Diabetes mellitus type: type 2 Diabetes mellitus senior care insulin use: without joint terminal attack controller use Diabetes mellitus complication status: with kidney complications Diabetes mellitus complication detail: with microalbuminuria
[2023-07-04 13:39] VITALS: BP 102/68; PULSE 102
[2023-07-04 13:49] LABS: Glucose, Whole Blood 141 mg/dL (60-115)
== END 2023-07-04 13:55 | disposition home or self-care (01) ==
PROVIDERS: PCP Internal Medicine; Visit Provider Internal Medicine Endocrinology, Diabetes & Metabolism
DX: E11.29 Type 2 diabetes mellitus with other diabetic kidney complication (principal); R80.9 Proteinuria, unspecified
CPT/HCPCS: 99214

== ENCOUNTER → 2023-07-04 13:12 | Outpatient (BNVA) | payer MEDICARE, MEDICAID, SELFPAY | PROVIDERS: PCP Internal Medicine; Visit Provider Internal Medicine Endocrinology, Diabetes & Metabolism | DX: E11.29 Type 2 diabetes mellitus with other diabetic kidney complication (principal); R80.9 Proteinuria, unspecified; Z79.84 Long term (current) use of oral hypoglycemic drugs | CPT/HCPCS: 82947; 99212 ==

== ENCOUNTER 2023-10-08 11:11 | Outpatient (AMB) | payer MEDICARE, MEDICAID, SELFPAY ==
--- NOTE | 2023-10-08 11:17 | MHC.OFFVIS ---
Vital Signs 10/08/23 11:18 Height 5 ft 5 in BP 150/90 H Blood Pressure Location Lt brachial Position Sitting Respiration 17 Pulse 70 Pulse Source Pulse Oximeter Pulse Oximetry (%) 97 Oxygen Delivery Method Room Air Intake Visit Reasons: INP: Alzheimers disease/Dementia - Confirmed Intake Note: Pt presents tot he office for new pt evaluation for dementia. Materials Inspector Required: No Allergies lactose Adverse Reaction (Severe, Verified 10/08/23 11:18) Diarrhea Medication List - Last Reconciled 10/08/23 by Alexa Leblanc MD [adult diapers briefs Use 8 briefs per day] [adult overnight diapers As directed] aspirin (Adult Aspirin Regimen) 81 mg PO DAILY 90 days atorvastatin 80 mg PO BEDTIME 90 days blood sugar diagnostic (FreeStyle Lite Strips) 2 x day blood sugar diagnostic (OneTouch Ultra Test strips) Use 1 test strip once a day blood sugar diagnostic (Prodigy No Coding strips) Use 1 test strip once a day blood sugar diagnostic (FreeStyle Lite Strips) As directed test once day blood sugar diagnostic (Prodigy No Coding strips) s directed tests 4 X/day due to poor glycemic control blood-glucose meter (OneTouch Ultra2 Meter) As directed blood-glucose meter (ProdChina-8y Autocode Meter kit) As directed blood-glucose meter (Safend Autocode Blood Glucose Monitoring System) As directed tests 4 X/day due to poor glycemic control blood-glucose meter (FreeStyle Lite Meter kit) 2 x day brexpiprazole (Rexulti) 0.5 mg PO BID clonazepam 1 mg PO DAILY PRN clonazepam (Klonopin) 1 mg PO DAILY cream base no.228 (bulk) (Atrevis Hydrogel cream) 1 appl miscellaneous .once a day 30 days donepezil 5 mg PO DAILY fluoxetine 20 mg PO DAILY lancets (FreeStyle Lancets) 2 x day lancets (OneTouch UltraSoft 2 Lancet) Use 1 lancet once a day lancets (Safety Lancets) Use 1 lancet twice a day lancets (Prodigy Lancets) s directed tests 4 X/day due to poor glycemic control lancing device (Prodigy Lancing Device) s directed tests 4 X/day due to poor glycemic control lisinopril 10 mg PO DAILY 90 days metformin 1,000 mg PO BID 90 days pioglitazone 45 mg PO DAILY 90 days semaglutide (Rybelsus) 14 mg PO DAILY 90 days trazodone 25 mg PO DAILY walker As directed [wheelchair As directed] white petrolatum 41% (Aquaphor Healing) 1 appl topical DAILY PRN 2 weeks HPI Comments Details: 63y/o female with advanced dementia, developmental delay comes for management of behavior issues. she is currently at [facility] - a residential Home . Her multimedia programmer David accompanied her today . She came to residential home form her own house - she was taken care by her mother but when her mother fell sick she was transferred . she can follow simple commands sometimes, she needs help with all her ADLs. she can walk but sometimes refuses to walk. she can speak normally when she wants to. she also becomes anxious to get out of the house and does not like appointments. Her main concerns today are her screaming . she is also physically aggressive towards staff, throws stuff at the staff etc. Her sleep is erratic and she can be awake all night Her mother and brother have a combined guardianship . Mariah - was d/savanna recently - as the family complained that she was drooling she is still drooling [facility] Medical History Hypercalcemia 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 Obesity due to excess calories Class 2 obesity with body mass index (BMI) of 37.0 to 37.9 in adult Mood disorder Memory loss Abnormal behavior Proteinuria Type 2 diabetes mellitus with other diabetic kidney complication Diabetes type 2, uncontrolled Urinary incontinence Microalbuminuria GERD (gastroesophageal reflux disease) Dyslipidemia Essential hypertension Mentally challenged Diabetes mellitus Surgical History History of hysterectomy Family History Father CVD (cardiovascular disease) Mother Hypertension Brother Healthy adult Social History Housing: House Alcohol intake: never Patient Tobacco Use Status: Never used Tobacco e-Cigarette/Vaping Use: Never Used Second Hand Smoke Exposure: No service: No Current occupational status: disabled Cognitive needs: Yes Hearing needs: No Vision needs: No Physical Exam Const General: anxious Nutritional Appearance: average body habitus Limitations: wheelchair Neuro Other: Makes eye contact Moves all extremities follows simple commands Unable to do reflexes patient screams and yells and wants to leave the exam room Quality Reporting (2019) Adult ([facility] 13806/20/68) Smoking risk assessment performed?: Yes Patient Tobacco Use Status: Never used Tobacco Assessment & Plan Assessment & Plan (1) 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: Code(s): G30.0 - Alzheimer's disease with early onset; F02.81 - Dementia in other diseases classified elsewhere, unspecified severity, with behavioral disturbance Category: Medical (2) Abnormal behavior: Comment: screaming . aggressive behavior towards staff Code(s): R46.89 - Other symptoms and signs involving appearance and behavior Category: Medical Plan Suggested to increase donepezil 10mg qd Increase clonazepam 0.5mg bid to tid - can increase to increase to 1mg at bedtime to promote sleep F/u psychiatry for further management Start melatonin 5-10 mg qhs Coding Level of Care Code New Pt Level 4 (95180) Diagnoses 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 G30.0; F02.81 Abnormal behavior R46.89
[2023-10-08 11:18] VITALS: BP 150/90; PULSE 70; RESP 17; O2SAT 97
== END 2023-10-08 11:54 | disposition home or self-care (01) ==
PROVIDERS: PCP Internal Medicine; Visit Provider Psychiatry & Neurology Neurology
DX: G30.0 Alzheimer's disease with early onset (principal); F02.C11 Dementia in other diseases classified elsewhere, severe, with agitation
CPT/HCPCS: 99204

== ENCOUNTER → 2023-10-08 11:11 | Outpatient (BNVA) | payer MEDICARE, MEDICAID, SELFPAY | PROVIDERS: PCP Internal Medicine; Visit Provider Psychiatry & Neurology Neurology | DX: G30.0 Alzheimer's disease with early onset (principal); F02.818 Dementia in other diseases classified elsewhere, unspecified severity, with other behavioral disturbance | CPT/HCPCS: 99202 ==

== ENCOUNTER 2023-10-21 10:43 | Emergency (ER) | payer MEDICARE, MEDICAID, SELFPAY ==
--- NOTE | ~2023-10-21 | XR_ITS ---
EXAMINATION: XR RIBS, BILATERAL CLINICAL INFORMATION: Chocked on food. COMPARISON: Most recent chest radiographs dated 06/27/2023. TECHNIQUE: PA view the chest as well as 3 views of the bilateral ribs. FINDINGS: Lungs are clear. No consolidation, pneumothorax, or pleural effusion. The cardiomediastinal silhouette and pulmonary vasculature are normal. No radiopaque foreign body. Osseous structures are unremarkable. Ribs are intact. No fractures are identified. XR/XR ribs BI min 4V w CXR1V IMPRESSION: 1. No radiopaque foreign body. 2. No acute cardiopulmonary findings.
[2023-10-21 10:52] VITALS: BP 138/67; PULSE 101; RESP 20; TEMP 36.7; O2SAT 100; BMI 35.8
--- NOTE | 2023-10-21 11:35 | ED_ITS ---
HPI - General Adult General Chief complaint: General Medical Stated complaint: Choked this morning needs check up Time Seen by Provider: 10/21/23 11:27 Source: patient, family and old records reviewed Mode of arrival: wheelchair Limitations: other (developmental delay) History of Present Illness ED Provider: CECIL HPI narrative: 63 yo female with developmental delay, DM, HTN, HLD, GERD, constipation, OCD, CVA lives in adult home was being fed pancakes this AM and choked no cyanosis this AM but her slater apprentice notes 2 weeks ago similar episode on cookie and she did turn blue that time. She has had swallow study that was normal. She was brought in today as protocol post heimleich maneuver. complaint: choking episode Onset (ago): hour(s) (1) Location: mouth Radiation: non-radiation Severity: moderate Relieving factors: other (heimleich) Exacerbating factors: none Associated symptoms: denies other symptoms Treatments prior to arrival: other Related Data Home Medications ?Medication ?Instructions ?Recorded ?Confirmed trazodone 50 mg tablet 25 mg PO DAILY 12/05/22 10/08/23 clonazepam 1 mg tablet 1 mg PO DAILY PRN 06/26/23 10/08/23 clonazepam 1 mg tablet (Klonopin) 1 mg PO DAILY 07/04/23 10/08/23 brexpiprazole 0.5 mg tablet 0.5 mg PO BID 10/08/23 10/08/23 (Rexulti) donepezil 5 mg tablet 5 mg PO DAILY 10/08/23 10/08/23 Previous Rx's ?Medication ?Instructions ?Recorded fluoxetine 20 mg capsule 20 mg PO DAILY #90 caps 08/09/22 lancets 28 gauge (FreeStyle #100 ea 09/06/22 Lancets) adult overnight diapers #120 ea 09/13/22 blood sugar diagnostic (FreeStyle #100 ea 10/10/22 Lite Strips) blood sugar diagnostic (OneTouch #100 ea 10/11/22 Ultra Test strips) blood-glucose meter (OneTouch #1 ea 10/11/22 Ultra2 Meter) lancets 30 gauge (OneTouch #100 ea 10/11/22 UltraSoft 2 Lancet) blood sugar diagnostic (Prodigy No #50 ea 10/18/22 Coding strips) blood-glucose meter (Prodigy #1 ea 10/18/22 Autocode Meter kit) lancets 28 gauge (Safety Lancets) #100 ea 10/18/22 lancing device (Prodigy Lancing #1 ea 12/11/22 Device) walker #1 ea 03/12/23 lancets 28 gauge (Prodigy Lancets) #100 ea 05/22/23 blood sugar diagnostic (FreeStyle #50 ea 05/30/23 Lite Strips) blood-glucose meter (FreeStyle #1 ea 05/30/23 Lite Meter kit) blood-glucose meter (Prodigy #1 ea 06/07/23 Autocode Blood Glucose Monitoring System) adult diapers briefs #240 ea 06/11/23 blood sugar diagnostic (Prodigy No #100 ea 06/14/23 Coding strips) cream base no.228 (bulk) (Atrevis 1 appl miscellaneous .once a day 06/21/23 Hydrogel cream) 30 days #1 g atorvastatin 80 mg tablet 80 mg PO BEDTIME 90 days #90 tabs 06/26/23 lisinopril 10 mg tablet 10 mg PO DAILY 90 days #90 tabs 06/26/23 metformin 1,000 mg tablet 1,000 mg PO BID 90 days #180 tabs 06/26/23 pioglitazone 45 mg tablet 45 mg PO DAILY 90 days #90 tabs 06/26/23 semaglutide 14 mg tablet (Rybelsus) 14 mg PO DAILY 90 days #90 tabs 06/26/23 wheelchair #1 ea 06/26/23 white petrolatum 41 % topical 1 appl topical DAILY PRN DRY SKIN 07/02/23 ointment (Aquaphor Healing) TO LUMBAR SPINE 2 weeks #20 grams aspirin 81 mg tablet,delayed 81 mg PO DAILY 90 days #90 tabs 09/30/23 release (Adult Aspirin Regimen) Allergies Allergy/AdvReac Type Severity Reaction Status Date / Time lactose AdvReac Severe Diarrhea Verified 10/21/23 10:57 Review of Systems Review of Systems: ROS unable to be obtained due to developmental delay PMFSH Past Medical History Attestation statement: The following information was validated with the patient. 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 Obesity due to excess calories Class 2 obesity with body mass index (BMI) of 37.0 to 37.9 in adult Mood disorder Memory loss Abnormal behavior Proteinuria Type 2 diabetes mellitus with other diabetic kidney complication Diabetes type 2, uncontrolled Urinary incontinence Microalbuminuria GERD (gastroesophageal reflux disease) Dyslipidemia Essential hypertension Mentally challenged Diabetes mellitus Surgical History History of hysterectomy Family History Family History Father CVD (cardiovascular disease) Mother Hypertension Brother Healthy adult Social History Social History Housing: House Alcohol intake: never Patient Tobacco Use Status: Never used Tobacco e-Cigarette/Vaping Use: Never Used Second Hand Smoke Exposure: No Advance Directives: No Advance Directives Information Provided: Yes Do you have a plan to hurt others: No Plan service: No Current occupational status: disabled Cognitive needs: Yes Hearing needs: No Vision needs: No Physical Exam ED Vital Signs: Vital Signs - 24 hr 10/21/23 10:52 Temperature 98.1 F Pulse Rate 101 H Respiratory Rate 20 Blood Pressure 138/67 Pulse Oximetry 100 Oxygen Delivery Method Room Air BMI result Body Mass Index 35.8 Appearance: Alert. Oriented X3. No acute distress. Eyes: Pupils equal, round and reactive to light. ENT: Pharynx normal. Neck: Normal inspection. Neck supple. CVS: Normal heart rate and rhythm. Pulses normal. Respiratory: No respiratory distress. Breath sounds normal. Chest: no contusion no deformity noted Abdomen: Soft and nontender. Skin: Skin warm and dry. Normal skin color. Normal skin turgor. Extremities: No lower extremity edema. No calf ttp Neuro: Oriented X 3. No motor deficit. No sensory deficit. Medical Decision Making Medical Decision Making MDM Narrative: 63 yo female with developmental delay, DM, HTN, HLD, GERD, constipation, OCD, CVA lives in adult home s/p choking episode and received heimleich maneuver at this time sent in for protocol by adult home - no hypoxia no obvious trauma will obtain CXR. Differential Diagnosis Differential Diagnoses: The differential diagnosis associated with the presentation includes dysphagia, choking episode Independent Interpretation I performed an independent interpretation of an: Plain X-Ray (normal ) Radiology Impression Discussion of test interpretation with radiology: I have reviewed the radiologist's reading. Independent Historian Clinical information obtained from an independent historian. History obtained from or confirmed by: Other External Record Review External record reviewed: Outpatient record Discharge Plan Discharge Clinical Impression: Choking episode Patient Disposition: Home, Self-Care Instructions: Performing the Heimlich Maneuver (ED) Additional Instructions: follow up with her doctor for outpatient swallowing study and dysphagia work up offer small chopped up foods return for fevers, difficulty breathing or any other concerns. COMPARISON: Most recent chest radiographs dated 06/27/2023. TECHNIQUE: PA view the chest as well as 3 views of the bilateral ribs. FINDINGS: Lungs are clear. No consolidation, pneumothorax, or pleural effusion. The cardiomediastinal silhouette and pulmonary vasculature are normal. No radiopaque foreign body. Osseous structures are unremarkable. Ribs are intact. No fractures are identified. XR/XR ribs BI min 4V w CXR1V IMPRESSION: 1. No radiopaque foreign body. 2. No acute cardiopulmonary findings. Prescriptions: No Action fluoxetine 20 mg capsule 20 mg PO DAILY Qty: 90 1RF (DME) adult overnight diapers See Rx Instructions .Route .MEDSUPPLY Qty: 120 0RF Rx Instructions: As directed (DME) FreeStyle Lite Strips Strip See Rx Instructions .MEDSUPPLY Qty: 100 2RF Rx Instructions: 2 x day (DME) blood-glucose meter [OneTouch Ultra2 Meter] Mis See Rx Instructions .Route Qty: 1 0RF Rx Instructions: As directed (DME) OneTouch Ultra Test Strip See Rx Instructions .Route Qty: 100 2RF Rx Instructions: Use 1 test strip once a day (DME) lancets [OneTouch UltraSoft 2 Lancet] 30 gauge misc See Rx Instructions .Route Qty: 100 2RF Rx Instructions: Use 1 lancet once a day (DME) lancing device [Prodigy Lancing Device] Misc See Rx Instructions .Route Qty: 1 5RF Rx Instructions: s directed tests 4 X/day due to poor glycemic control (DME) walker Misc See Rx Instructions .Route Qty: 1 0RF Rx Instructions: As directed (DME) lancets [Prodigy Lancets] 28 gauge misc See Rx Instructions .Route Qty: 100 4RF Rx Instructions: s directed tests 4 X/day due to poor glycemic control (DME) FreeStyle Lite Strips Strip See Rx Instructions .Route Qty: 50 4RF Rx Instructions: As directed test once day (DME) blood-glucose meter [FreeStyle Lite Meter] Kit See Rx Instructions .MEDSUPPLY Qty: 1 0RF Rx Instructions: 2 x day (DME) blood-glucose meter [Prodigy Autocode Monitor Syst] Misc See Rx Instructions .Route Qty: 1 0RF Rx Instructions: As directed tests 4 X/day due to poor glycemic control (DME) adult diapers briefs X-large See Rx Instructions .Route .MEDSUPPLY Qty: 240 11RF Rx Instructions: Use 8 briefs per day (DME) Prodigy No Coding Strip See Rx Instructions .Route Qty: 100 5RF Rx Instructions: s directed tests 4 X/day due to poor glycemic control Atrevis Hydrogel Cream 1 appl miscellaneous .once a day 30 Days Qty: 1 1RF Aquaphor Healing 41 % ointment 1 appl topical DAILY PRN (Reason: DRY SKIN TO LUMBAR SPINE) 14 Days Qty: 20 2RF aspirin [Adult Aspirin Regimen] 81 mg tablet,delayed release (DR/EC) 81 mg PO DAILY 90 Days Qty: 90 1RF Rx Instructions: crushed mixed with food clonazepam 1 mg tablet 1 mg PO DAILY PRN (DME) wheelchair See Rx Instructions .Route .MEDSUPPLY Qty: 1 0RF Rx Instructions: As directed atorvastatin 80 mg tablet 80 mg PO BEDTIME 90 Days Qty: 90 1RF Rx Instructions: crushed and mix with food lisinopril 10 mg tablet 10 mg PO DAILY 90 Days Qty: 90 1RF Rx Instructions: crush and mix with food metformin 1,000 mg tablet 1,000 mg PO BID 90 Days Qty: 180 3RF Rx Instructions: crush and mix with food pioglitazone 45 mg tablet 45 mg PO DAILY 90 Days Qty: 90 1RF Rx Instructions: crush and mix with food Rybelsus 14 mg tablet 14 mg PO DAILY 90 Days Qty: 90 3RF Rx Instructions: crush and mix with food (DME) lancets [FreeStyle Lancets] 28 gauge misc See Rx Instructions .MEDSUPPLY Qty: 100 2RF Rx Instructions: 2 x day (DME) blood-glucose meter [Prodigy Autocode Meter] Kit See Rx Instructions .Route Qty: 1 0RF Rx Instructions: As directed (DME) Prodigy No Coding Strip See Rx Instructions .Route Qty: 50 11RF Rx Instructions: Use 1 test strip once a day (DME) lancets [Safety Lancets] 28 gauge misc See Rx Instructions .Route Qty: 100 6RF Rx Instructions: Use 1 lancet twice a day trazodone 50 mg tablet 25 mg PO DAILY clonazepam [Klonopin] 1 mg tablet 1 mg PO DAILY Rexulti 0.5 mg tablet 0.5 mg PO BID donepezil 5 mg tablet 5 mg PO DAILY Print Language: Estonian
[2023-10-21 12:44] VITALS: BP 138/67; PULSE 101; RESP 20; TEMP 36.7; O2SAT 100
--- NOTE | 2023-10-21 12:44 | PC.NURSE ---
cxr performed, pt developmentally delayed and is at her baseline per [facility] staff member
== END 2023-10-21 12:48 | disposition home or self-care (01) ==
PROVIDERS: Emergency Provider Emergency Medicine; PCP Internal Medicine
DX: R07.81 Pleurodynia (principal); R09.89 Other specified symptoms and signs involving the circulatory and respiratory systems; Z79.899 Other long term (current) drug therapy
CPT/HCPCS: 71111; 99283

== ENCOUNTER 2023-10-24 16:25 | Outpatient (AMB) | payer MEDICARE, MEDICAID, SELFPAY ==
[2023-10-24 16:34] VITALS: BP 136/72; BMI 22.7
--- NOTE | 2023-10-24 16:34 | A.OFFPC_ITS ---
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 Accompanied by: staff Allergies lactose Adverse Reaction (Severe, Verified 10/24/23 16:48) Diarrhea Medication List - Last Reconciled 10/24/23 by Hannah Stacy MD [adult diapers briefs Use 8 briefs per day] [adult overnight diapers As directed] aspirin (Adult Aspirin Regimen) 81 mg PO DAILY 90 days atorvastatin 80 mg PO BEDTIME 90 days blood sugar diagnostic (FreeStyle Lite Strips) 2 x day blood sugar diagnostic (OneTouch Ultra Test strips) Use 1 test strip once a day blood sugar diagnostic (Prodigy No Coding strips) Use 1 test strip once a day blood sugar diagnostic (FreeStyle Lite Strips) As directed test once day blood sugar diagnostic (Prodigy No Coding strips) s directed tests 4 X/day due to poor glycemic control blood-glucose meter (OneTouch Ultra2 Meter) As directed blood-glucose meter (Prodigy Autocode Meter kit) As directed blood-glucose meter (ProdLulu*s Fashion Loungey Autocode Blood Glucose Monitoring System) As directed tests 4 X/day due to poor glycemic control blood-glucose meter (FreeStyle Lite Meter kit) 2 x day brexpiprazole (Rexulti) 0.5 mg PO BID clonazepam 1 mg PO TID PRN cream base no.228 (bulk) (Atrevis Hydrogel cream) 1 appl miscellaneous .once a day 30 days donepezil 23 mg PO BEDTIME fluoxetine 20 mg PO DAILY lancets (FreeStyle Lancets) 2 x day lancets (OneTouch UltraSoft 2 Lancet) Use 1 lancet once a day lancets (Safety Lancets) Use 1 lancet twice a day lancets (Prodigy Lancets) s directed tests 4 X/day due to poor glycemic control lancing device (Prodigy Lancing Device) s directed tests 4 X/day due to poor glycemic control lisinopril 10 mg PO DAILY 90 days metformin 1,000 mg PO BID 90 days pioglitazone 45 mg PO DAILY 90 days semaglutide (Rybelsus) 14 mg PO DAILY 90 days trazodone 75 mg PO BEDTIME walker As directed [wheelchair As directed] white petrolatum 41% (Aquaphor Healing) 1 appl topical DAILY PRN 2 weeks Tobacco use date assessed: 10/24/23 Dental Screening Dental Screen Date: 10/24/23 Did you have a dental visit in the last 12 months?: Yes Did you have a dental problem in the last 6 months where you did not have access to dental care?: No Was dental information given to patient?: Patient has dentist HPI HPI Comments History of Present Illness Details This is a 63-year-old female with diabetes mellitus type 2, hypertension, hyperlipidemia, Alzheimer's dementia and mood disorder that comes today accompanied by staff member from her half-way for follow-up on her conditions. She is mentally challenged. A1c within goal. Blood pressure stable. Lipid panel will be order and her LDL goal should be less than 70. Has Alzheimer's dementia follow by Neurology which recently increase donepezil to 23 mg. Has a mood disorder follow by Psychiatry which has been well controlled with benzodiazepines 3 times a day as needed. Walks with a walker for gait stability. She had an episode of choking requiring Heimlich maneuver and this is why I will order a barium swallow. [facility], LAT[facility] Medical History (Updated 10/24/23 @ 16:46 by Hannah Stacy MD) Hypercalcemia 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 Obesity due to excess calories Class 2 obesity with body mass index (BMI) of 37.0 to 37.9 in adult Mood disorder Memory loss Abnormal behavior Proteinuria Type 2 diabetes mellitus with other diabetic kidney complication Diabetes type 2, uncontrolled Urinary incontinence Microalbuminuria GERD (gastroesophageal reflux disease) Dyslipidemia Essential hypertension Mentally challenged Diabetes mellitus Surgical History History of hysterectomy Family History Father CVD (cardiovascular disease) Mother Hypertension Brother Healthy adult Social History Housing: House Alcohol intake: never Patient Tobacco Use Status: Never used Tobacco e-Cigarette/Vaping Use: Never Used Second Hand Smoke Exposure: No service: No Current occupational status: disabled Cognitive needs: Yes Hearing needs: No Vision needs: No Questionnaire Thrive Questionnaire Date Thrive assessed: 06/26/23 TEX-7 AMB Questionnaire TEX-7 Date TEX - 7 assessed: 06/26/23 Source: Developed by Drs. Zaki Saucedo, Penelope Vegas, Brendan Vasquez and colleagues, with an educational sintia from [employer]. Review of Systems Const All systems reviewed & are unremarkable except as noted in HPI and below Card Denies chest pain at rest, Denies chest pain with activity, Denies edema, Denies irregular heart rhythm, Denies claudication, Denies dyspnea, Denies dyspnea on exertion, Denies orthopnea, Denies paroxysmal nocturnal dyspnea and Denies slow heart rate Resp Denies cough, Denies dyspnea and Denies dyspnea on exertion Physical exam (Primary Care) Vital Signs: Last Vital Signs BP 136/72 10/24/23 16:34 BMI result Body Mass Index 22.7 Tobacco/Smoking Status: Tobacco use Status Tobacco use date assessed 10/24/23 10/24/23 16:45 Patient Tobacco Use Status Never used Tobacco 10/24/23 16:45 e-Cigarette/Vaping Use Never Used 10/24/23 16:45 Thrive Assessment: Date of Thrive Assessment Date Thrive assessed 06/26/23 10/24/23 16:45 Const Limitations: ambulation with walker Resp Effort & Inspection: normal respiratory effort Auscultation: clear to auscultation bilaterally Cardio Jugular venous distension: no JVD Rate: regular rate Rhythm: regular rhythm Heart sounds: S1 normal heart sound present and S2 normal heart sound present Results AMB Hemoglobin A1c AMB Hemoglobin A1c 6.3 % Last Edit by DEAN Coleman on 10/24/23 18:0 3 Results Reviewed Results Reviewed: Laboratory Last Values Hgb A1c (Clinic) 6.3 % (4.0-6.0) H 10/24/23 16:33 Assessment and Plan Assessment & Plan (1) 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: Code(s): G30.0 - Alzheimer's disease with early onset; F02.81 - Dementia in other diseases classified elsewhere, unspecified severity, with behavioral disturbance Plan: Continue donepezil. Follow-up with Neurology. (2) Mood disorder: Code(s): F39 - Unspecified mood [affective] disorder Plan: Follow-up with psychiatry. (3) Type 2 diabetes mellitus with other diabetic kidney complication: Code(s): E11.29 - Type 2 diabetes mellitus with other diabetic kidney complication Plan: Continue metformin, Actos and reveals. A1c goal is equal or less than 7%. (4) Essential hypertension: Code(s): I10 - Essential (primary) hypertension Plan: Continue lisinopril. Blood pressure goal is equal or less than 130/80. (5) Dyslipidemia: Code(s): E78.5 - Hyperlipidemia, unspecified Plan: Continue statins. Repeat lipid panel. LDL goal is less than 70. (6) Difficulty swallowing: Code(s): R13.10 - Dysphagia, unspecified Plan: Barium swallow ordered. Orders: Orders AMB Hemoglobin A1c 10/24/23 E11.65 - Type 2 diabetes mellitus with hyperglycemia [place] barium swallow 10/24/23 R13.10 - Dysphagia, unspecified Lipid Panel 10/24/23 E78.5 - Hyperlipidemia, unspecified Complete Blood Count Auto Diff 10/24/23 D64.9 - Anemia, unspecified IRON PROFILE 10/24/23 D64.9 - Anemia, unspecified Comprehensive [place]. Panel Fast 10/24/23 E11.29 - Type 2 diabetes mellitus with other diabetic kidney complication Magnesium 10/24/23 E83.42 - Hypomagnesemia Coding Level of Care Code Est Pt Level 4 (75574) Complex EM visit Add On G2211 Diagnoses 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 G30.0; F02.81 Mood disorder F39 Type 2 diabetes mellitus with other diabetic kidney complication E11.29 Essential hypertension I10 Dyslipidemia E78.5 Difficulty swallowing R13.10 Time Spent (min) 25
== END 2023-10-24 17:02 | disposition home or self-care (01) ==
PROVIDERS: PCP Internal Medicine; Visit Provider Internal Medicine
DX: E11.65 Type 2 diabetes mellitus with hyperglycemia (principal)
CPT/HCPCS: 83036; 99214; G2211

== ENCOUNTER 2023-11-24 10:33 | Emergency (ER) | payer MEDICARE, MEDICAID, SELFPAY ==
--- NOTE | ~2023-11-24 | CT_ITS ---
EXAM: Noncontrast CT scan of the head and cervical spine. INDICATION: Head and neck trauma COMPARISON: CT head/cervical spine April 25, 2023 TECHNIQUE: Axial slices were obtained from skull base to vertex and displayed. This was followed by helical, multislice, multidetector axial images from the occiput to the upper thorax. Coronal and sagittal reformats of the cervical spine in addition to coronal reformats of the head were obtained at the technologist workstation. Today's examination is significantly limited secondary to motion artifact. DLP: 1300 mGy-cm FINDINGS: HEAD: There is no evidence of acute intracranial hemorrhage or territorial infarction. No abnormal mass effect or midline shift is appreciated. Keenan-white differentiation is well preserved. No extra-axial fluid collections. The ventricular system and cortical sulci are prominent, consistent with volume loss. There are areas of low density in the periventricular and subcortical white matter, most consistent with sequelae of microvascular ischemic change. The osseous structures and soft tissues are normal. There are calcifications of the cavernous internal carotid arteries. The visualized paranasal sinuses and mastoid air cells are well aerated. SPINE: The cervical spine is visualized in its entirety. Alignment is within normal limits. Normal C1/2 articulation. Cervical vertebral body heights are maintained. There is moderate narrowing of the C6/7 disc space height. Small osteophytes are scattered throughout the mid and lower cervical spine. Visualized lung apices are well aerated. CT/CT cervical spine wo IV con IMPRESSION: 1. Today's examination is significantly limited secondary to motion artifact. 2. No acute intracranial pathology. 3. No fractures or dislocations of the cervical spine. 4. Mild degenerative changes of the cervical spine, most prominent at C6/7.
[2023-11-24 10:37] VITALS: BP 111/79; BP 126/72; PULSE 50; PULSE 66; RESP 18; TEMP 36; O2SAT 100; O2SAT 98; BMI 23.9
--- NOTE | 2023-11-24 10:49 | PC.NURSE ---
placed FATEMEH camera on pt for fall risk status
[2023-11-24 11:15] VITALS: BP 157/63; PULSE 50; RESP 16; O2SAT 100
--- NOTE | 2023-11-24 11:22 | ED_ITS ---
HPI - Fall General Chief Complaint: Fall Stated Complaint: FALL +HS +CCOLLAR LONG TERM Time Seen by Provider: 11/24/23 11:04 Source: patient and old records reviewed Mode of arrival: ambulatory Limitations: other (intellectual disability) History of Present Illness ED Provider: CECIL AGGARWAL Narrative: 63 yo female with PMH of anemia, hypothyroidism, dementia, mood disorder, DM, GERD, HTN, HLD, intellectually disability here with c/o slipping forward and falling out of her chair while hitting head on electric baseboard at intermediate. Patient did not have LOC. Staff saw it it was mechanical in nature. She was helped right up and is at baseline currently. complaint: fall Onset (ago): hour(s) (1) Fall from: chair Fall witnessed: yes, by living facility staff Place fall occurred: home Loss of consciousness: none Prolonged down time: no Symptoms prior to fall: none Context: tripped/slipped Location of injury: head Severity: mild Associated symptoms (after fall): denies Related Data Home Medications ?Medication ?Instructions ?Recorded ?Confirmed brexpiprazole 0.5 mg tablet 0.5 mg PO BID 10/08/23 10/24/23 (Rexulti) clonazepam 1 mg tablet 1 mg PO TID PRN 10/24/23 10/24/23 donepezil 23 mg tablet 23 mg PO BEDTIME 10/24/23 10/24/23 trazodone 150 mg tablet 75 mg PO BEDTIME 10/24/23 10/24/23 Previous Rx's ?Medication ?Instructions ?Recorded fluoxetine 20 mg capsule 20 mg PO DAILY #90 caps 08/09/22 lancets 28 gauge (FreeStyle #100 ea 09/06/22 Lancets) adult overnight diapers #120 ea 09/13/22 blood sugar diagnostic (FreeStyle #100 ea 10/10/22 Lite Strips) blood sugar diagnostic (OneTouch #100 ea 10/11/22 Ultra Test strips) blood-glucose meter (OneTouch #1 ea 10/11/22 Ultra2 Meter) lancets 30 gauge (OneTouch #100 ea 10/11/22 UltraSoft 2 Lancet) blood sugar diagnostic (Prodigy No #50 ea 10/18/22 Coding strips) blood-glucose meter (Prodigy #1 ea 10/18/22 Autocode Meter kit) lancets 28 gauge (Safety Lancets) #100 ea 10/18/22 lancing device (Prodigy Lancing #1 ea 12/11/22 Device) walker #1 ea 03/12/23 blood sugar diagnostic (FreeStyle #50 ea 05/30/23 Lite Strips) blood-glucose meter (FreeStyle #1 ea 05/30/23 Lite Meter kit) blood-glucose meter (Prodigy #1 ea 06/07/23 Autocode Blood Glucose Monitoring System) adult diapers briefs #240 ea 06/11/23 cream base no.228 (bulk) (Atrevis 1 appl miscellaneous .once a day 06/21/23 Hydrogel cream) 30 days #1 g atorvastatin 80 mg tablet 80 mg PO BEDTIME 90 days #90 tabs 06/26/23 lisinopril 10 mg tablet 10 mg PO DAILY 90 days #90 tabs 06/26/23 metformin 1,000 mg tablet 1,000 mg PO BID 90 days #180 tabs 06/26/23 pioglitazone 45 mg tablet 45 mg PO DAILY 90 days #90 tabs 06/26/23 semaglutide 14 mg tablet (Rybelsus) 14 mg PO DAILY 90 days #90 tabs 06/26/23 wheelchair #1 ea 06/26/23 white petrolatum 41 % topical 1 appl topical DAILY PRN DRY SKIN 07/02/23 ointment (Aquaphor Healing) TO LUMBAR SPINE 2 weeks #20 grams aspirin 81 mg tablet,delayed 81 mg PO DAILY 90 days #90 tabs 09/30/23 release (Adult Aspirin Regimen) blood sugar diagnostic (Prodigy No #100 ea 10/30/23 Coding strips) lancets 28 gauge (Prodigy Lancets) #100 ea 11/15/23 Allergies Allergy/AdvReac Type Severity Reaction Status Date / Time lactose AdvReac Severe Diarrhea Verified 11/24/23 10:40 Review of Systems Review of Systems: ROS unable to be obtained due to cognitive disability PMFSH Past Medical History Attestation statement: The following information was validated with the patient. 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 Obesity due to excess calories Class 2 obesity with body mass index (BMI) of 37.0 to 37.9 in adult Mood disorder Memory loss Abnormal behavior Proteinuria Type 2 diabetes mellitus with other diabetic kidney complication Diabetes type 2, uncontrolled Urinary incontinence Microalbuminuria GERD (gastroesophageal reflux disease) Dyslipidemia Essential hypertension Mentally challenged Diabetes mellitus Surgical History History of hysterectomy Family History Family History Father CVD (cardiovascular disease) Mother Hypertension Brother Healthy adult Social History Social History Housing: House Unable to assess alcohol history related to: Unknown Alcohol intake: never Patient Tobacco Use Status: Never used Tobacco Smoked in Last 30 Days: No e-Cigarette/Vaping Use: Never Used Second Hand Smoke Exposure: No Use of substances other than those prescribed or required for medical reasons: Unknown Advance Directives: No Do you have a plan to hurt others: No Plan Patient : No service: No Current occupational status: disabled Cognitive needs: Yes Hearing needs: No Vision needs: No Physical Exam Vital Signs: Vital Signs: Last Vital Signs Temp 96.8 F 11/24/23 10:37 Pulse 56 11/24/23 13:43 Resp 16 11/24/23 13:43 BP 150/77 H 11/24/23 13:43 Pulse Ox 99 11/24/23 13:43 O2 Del Method Room Air 11/24/23 13:43 BMI result Body Mass Index 23.9 Appearance: Alert. at baseline intermittently yells out. No acute distress. Eyes: Pupils equal, round and reactive to light. ENT: Pharynx normal. atraumatic old bruise to forehead Neck: Normal inspection. Neck supple. CVS: Normal heart rate and rhythm. Pulses normal. Respiratory: No respiratory distress. Breath sounds normal. Abdomen: Soft and nontender. Skin: Skin warm and dry. Normal skin color. Normal skin turgor. Extremities: No lower extremity edema. does not yell out or grimace with movements of her upper or lower ext Neuro: Oriented X 3. No motor deficit. No sensory deficit. Course Course Course Narrative: negative workup stable for DC Medications Administered Discontinued Medications Generic Name Dose Route Start Last Admin Trade Name Freq PRN Reason Stop Dose Admin Clonazepam 1 mg 11/24/23 11:05 11/24/23 11:25 Clonazepam 1 Mg Tablet PO 11/24/23 11:06 1 mg ONCE ONE Administration Medical Decision Making Medical Decision Making MDM Narrative: 63 yo female with PMH of anemia, hypothyroidism, dementia, mood disorder, DM, GERD, HTN, HLD, intellectually disability here with c/o mechanical fall and slip out of chair at this time will give her usual clonazepam and CT head/cspine - no other injuries noted Differential Diagnosis Differential Diagnoses: The differential diagnosis associated with the presentation includes fall, injury to head or neck Admission/Observation Consideration of admission/observation: Escalation of care including admission/observation considered at baseline can be managed at intermediate Independent Interpretation I performed an independent interpretation of an: CT Scan (no trauma) Radiology Impression Discussion of test interpretation with radiology: I have reviewed the radiologist's reading. Independent Historian Clinical information obtained from an independent historian. History obtained from or confirmed by: EMS External Record Review External record reviewed: Inpatient record Discharge Plan Discharge Clinical Impression: Head trauma Patient Disposition: Home, Self-Care Instructions: Head Injury (ED) Additional Instructions: return for worsening symptoms, confusion, vomiting, difficulty waking up or any other concerns. continue all home medications. resume all home medications CT/CT cervical spine wo IV con IMPRESSION: 1. Today's examination is significantly limited secondary to motion artifact. 2. No acute intracranial pathology. 3. No fractures or dislocations of the cervical spine. 4. Mild degenerative changes of the cervical spine, most prominent at C6/7. Prescriptions: No Action fluoxetine 20 mg capsule 20 mg PO DAILY Qty: 90 1RF (DME) adult overnight diapers See Rx Instructions .Route .MEDSUPPLY Qty: 120 0RF Rx Instructions: As directed (DME) FreeStyle Lite Strips Strip See Rx Instructions .MEDSUPPLY Qty: 100 2RF Rx Instructions: 2 x day (DME) blood-glucose meter [OneTouch Ultra2 Meter] Misc See Rx Instructions .Route Qty: 1 0RF Rx Instructions: As directed (DME) OneTouch Ultra Test Strip See Rx Instructions .Route Qty: 100 2RF Rx Instructions: Use 1 test strip once a day (DME) lancets [OneTouch UltraSoft 2 Lancet] 30 gauge misc See Rx Instructions .Route Qty: 100 2RF Rx Instructions: Use 1 lancet once a day (DME) lancing device [Prodigy Lancing Device] [facility] [place]ructions .Route Qty: 1 5RF Rx Instructions: s directed tests 4 X/day due to poor glycemic control (DME) walker Misc See Rx Instructions .Route Qty: 1 0RF Rx Instructions: As directed (DME) FreeStyle Lite Strips Strip See Rx Instructions .Route Qty: 50 4RF Rx Instructions: As directed test once day (DME) blood-glucose meter [FreeStyle Lite Meter] Kit See Rx Instructions .MEDSUPPLY Qty: 1 0RF Rx Instructions: 2 x day (DME) blood-glucose meter [Prodigy Autocode Monitor Syst] Mis See Rx Instructions .Route Qty: 1 0RF Rx Instructions: As directed tests 4 X/day due to poor glycemic control (DME) adult diapers briefs X-large See Rx Instructions .Route .MEDSUPPLY Qty: 240 11RF Rx Instructions: Use 8 briefs per day Atrevis Hydrogel Cream 1 appl miscellaneous .once a day 30 Days Qty: 1 1RF Aquaphor Healing 41 % ointment 1 appl topical DAILY PRN (Reason: DRY SKIN TO LUMBAR SPINE) 14 Days Qty: 20 2RF aspirin [Adult Aspirin Regimen] 81 mg tablet,delayed release (DR/EC) 81 mg PO DAILY 90 Days Qty: 90 1RF Rx Instructions: crushed mixed with food (DME) Prodigy No Coding Strip See Rx Instructions .Route Qty: 100 5RF Rx Instructions: s directed tests 4 X/day due to poor glycemic control (DME) lancets [Prodigy Lancets] [address] [facility] See Rx Instructions .Route Qty: 100 4RF Rx Instructions: s directed tests 4 X/day due to poor glycemic control (DME) wheelchair See Rx Instructions .Route .MEDSUPPLY Qty: 1 0RF Rx Instructions: As directed atorvastatin 80 mg tablet 80 mg PO BEDTIME 90 Days Qty: 90 1RF Rx Instructions: crushed and mix with food lisinopril 10 mg tablet 10 mg PO DAILY 90 Days Qty: 90 1RF Rx Instructions: crush and mix with food metformin 1,000 mg tablet 1,000 mg PO BID 90 Days Qty: 180 3RF Rx Instructions: crush and mix with food pioglitazone 45 mg tablet 45 mg PO DAILY 90 Days Qty: 90 1RF Rx Instructions: crush and mix with food Rybelsus 14 mg tablet 14 mg PO DAILY 90 Days Qty: 90 3RF Rx Instructions: crush and mix with food clonazepam 1 mg tablet 1 mg PO TID PRN (DME) lancets [FreeStyle Lancets] 28 gauge misc See Rx Instructions .MEDSUPPLY Qty: 100 2RF Rx Instructions: 2 x day (DME) blood-glucose meter [Prodigy Autocode Meter] Kit See Rx Instructions .Route Qty: 1 0RF Rx Instructions: As directed (DME) Prodigy No Coding Strip See Rx Instructions .Route Qty: 50 11RF Rx Instructions: Use 1 test strip once a day (DME) lancets [Safety Lancets] 28 gauge misc See Rx Instructions .Route Qty: 100 6RF Rx Instructions: Use 1 lancet twice a day donepezil 23 mg tablet 23 mg PO BEDTIME trazodone 150 mg tablet 75 mg PO BEDTIME Rexulti 0.5 mg tablet 0.5 mg PO BID Print Language: Estonian
[2023-11-24] MEDS: clonazePAM 1 MG TABLET PO (11:25)
[2023-11-24 13:43] VITALS: BP 150/77; PULSE 56; RESP 16; O2SAT 99
[2023-11-24 14:26] VITALS: BP 150/77; PULSE 56; RESP 16; TEMP 36; O2SAT 99
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
== END 2023-11-24 15:49 | disposition home or self-care (01) ==
PROVIDERS: Emergency Provider Emergency Medicine; PCP Internal Medicine
DX: S09.90XA Unspecified injury of head, initial encounter (principal); R51.9 Headache, unspecified; M54.2 Cervicalgia; X58.XXXA Exposure to other specified factors, initial encounter; W07.XXXA Fall from chair, initial encounter; Y93.89 Activity, other specified; Y92.098 Other place in other non-institutional residence as the place of occurrence of the external cause; Y99.8 Other external cause status; Z79.899 Other long term (current) drug therapy
CPT/HCPCS: 70450; 72125; 99284

== ENCOUNTER 2024-01-16 10:28 | Outpatient (REF) | payer MEDICARE, MEDICAID, SELFPAY | END 2024-01-16 10:29 | disposition home or self-care (01) | LOC: HO.SH 10:28 | PROVIDERS: Visit Provider Internal Medicine | DX: Z01.118 Encounter for examination of ears and hearing with other abnormal findings (principal); H93.293 Other abnormal auditory perceptions, bilateral | CPT/HCPCS: 92579 ==

== ENCOUNTER 2024-01-28 09:53 | Outpatient (AMB) | payer MEDICARE, MEDICAID, SELFPAY ==
--- NOTE | 2024-01-28 10:11 | AM.OFFVISNUR ---
Intake Visit Reasons: flu shot Allergies lactose Adverse Reaction (Severe, Verified 11/24/23 10:40) Diarrhea Office Procedures Flu Questionnaire Does the patient have a severe egg allergy?: No Does the patient have severe life threatening allergies?: No Does the patient have a fever or illness today?: No Has the patient ever had Guillain-Rosewood Syndrome?: No Has the patient ever had any past reaction to a flu shot?: No Assessment & Plan Assessment & Plan Orders: Orders Influenza [id number] Immunization Today Z23 - Encounter for immunization Medications: New Fluarix Triv [id number] (PF) (flu vacc md2519-35 6mos up(PF)) 0.5 mL IM ONCE 0.5 mL 0RF NS Z23 - Encounter for immunization
== END 2024-01-28 10:13 | disposition home or self-care (01) ==
PROVIDERS: PCP Internal Medicine; Visit Provider Internal Medicine
DX: Z23 Encounter for immunization (principal)

== ENCOUNTER → 2024-01-28 09:53 | Outpatient (BNVA) | payer MEDICARE, MEDICAID, SELFPAY | PROVIDERS: PCP Internal Medicine; Visit Provider Internal Medicine | DX: Z23 Encounter for immunization (principal) | CPT/HCPCS: 90471; 90656 ==

== ENCOUNTER 2024-03-17 13:32 | Emergency (ER) | payer MEDICARE, MEDICAID, SELFPAY ==
--- NOTE | ~2024-03-17 | XR_ITS ---
EXAMINATION: XR CHEST CLINICAL INFORMATION: fall COMPARISON: Chest radiograph dated June 27, 2023. TECHNIQUE: Frontal view of the chest was obtained. FINDINGS: The heart is normal in size. There is calcific atherosclerotic disease of the aorta. The lungs are clear. The pleural spaces appear clear. No pneumothorax. No acute osseous abnormality. XR/XR chest 1V IMPRESSION: No acute cardiopulmonary disease. Electronically signed by: Abraham Whitt DO 03/17/2024 06:47 PM EST
--- NOTE | ~2024-03-17 | XR_ITS ---
EXAMINATION: XR PELVIS CLINICAL INFORMATION: fall COMPARISON: None available. TECHNIQUE: AP view of the pelvis. FINDINGS: There is no displaced pelvic fracture. The sacroiliac joints are intact. The symphysis pubis is intact. Both hip joints are maintained. There are degenerative changes of the visualized lower lumbar spine. There is abundant stool throughout the colon and rectum. XR/XR pelvis 1-2V IMPRESSION: No fracture or dislocation. Electronically signed by: Abraham Whitt DO 03/17/2024 06:43 PM EST
--- NOTE | ~2024-03-17 | CT_ITS ---
EXAMINATION: CT CERVICAL SPINE WITHOUT CONTRAST CLINICAL INFORMATION: Neck pain COMPARISON: Prior CT cervical spine 11/16/2023 TECHNIQUE: Thin section axial imaging with sagittal and coronal reformats. This CT examination was performed using dose optimization techniques as appropriate, variously including the following: *Automated exposure control *Adjustment of mA and/or kV according to patient size (this includes techniques or standardized protocols for targeted exams where dose is matched to indication/reason for exam; i.e. extremities or head) *Use of iterative reconstruction technique DLP: 266 mGy-cm FINDINGS: There is degenerative change observed at C6-7 with posterior spurring noted but no significant encroachment on the spinal canal. Coarse anterior osteophytes are seen at this level. No fracture or destructive lesion. The prevertebral soft tissues are normal. CT/CT cervical spine wo IV con IMPRESSION: Degenerative change noted. No acute findings. No fracture. Fleischner guidelines were followed. Electronically signed by: Romeo Harris MD 03/17/2024 05:17 PM KEN[facility]
--- NOTE | ~2024-03-17 | CT_ITS ---
EXAMINATION: CT HEAD WITHOUT CONTRAST CLINICAL INFORMATION: Head trauma. COMPARISON: CT head dated November 24, 2023. TECHNIQUE: Contiguous axial imaging was performed from the skull base to vertex without intravenous administration of contrast. This CT examination was performed using dose optimization techniques as appropriate, variously including the following: *Automated exposure control *Adjustment of mA and/or kV according to patient size (this includes techniques or standardized protocols for targeted exams where dose is matched to indication/reason for exam; i.e. extremities or head) *Use of iterative reconstruction technique DLP: 729 mGy-cm FINDINGS: There is no acute intracranial hemorrhage. There is no evidence of acute/subacute cerebral or cerebellar infarction. There is no mass effect or midline shift. No extra-axial fluid collection. The ventricles are normal in size. The orbits are symmetric and within normal limits. The calvarium is intact. The visualized paranasal sinuses are clear. Mastoid air cells are clear. CT/CT head/brain wo IV con IMPRESSION: No acute intracranial pathology. Electronically signed by: Abraham Whitt DO 03/17/2024 05:27 PM EST
[2024-03-17 14:29] VITALS: BP 95/40; BP 97/41; PULSE 56; PULSE 68; RESP 14; TEMP 36.6; O2SAT 100; O2SAT 99; BMI 24.1
--- NOTE | 2024-03-17 14:52 | ECG_ITS ---
Test Reason : FALL Blood Pressure : / mmHG Vent. Rate : 056 BPM Atrial Rate : 056 BPM P-R Int : 166 ms QRS Dur : 158 ms QT Int : 430 ms P-R-T Axes : 054 -28 023 degrees QTc Int : 414 ms Sinus bradycardia with Premature atrial complexes Right bundle branch block Abnormal ECG When compared with ECG of 25-APR-2023 12:34, Premature atrial complexes are now Present Referred By: Leanne Vivas Electronically Signed By:FIOR PATTERSON MD
--- NOTE | 2024-03-17 14:59 | ED_ITS ---
HPI - Fall General Chief Complaint: Fall Stated Complaint: FALL,UNWIT,?LOC,FACIAL BRUISING Time Seen by Provider: 03/17/24 14:21 Source: EMS and other (caregiver) Mode of arrival: EMS Limitations: altered mental status History of Present Illness ED Provider: CECIL AGGARWAL Narrative: 64 yo female with PMH of falls, hypothyroidism, anemia, mood disorder, GERD, HTN, HLD, developmentally delayed here with c/o fall out of shower chair it was tipped to the side and she was yelling out. Staff heard it and got to her quick she was awake no LOC and was at her baseline. She has abrasion to R face. No other obvious injuries she is not on thinners MD complaint: fall Onset (ago): minute(s) ([employer]) Fall from: chair Fall witnessed: no Place fall occurred: home Loss of consciousness: none Prolonged down time: no Symptoms prior to fall: none Context: tripped/slipped Location of injury: head and face Severity: mild Associated symptoms (after fall): denies Related Data Home Medications ?Medication ?Instructions ?Recorded ?Confirmed brexpiprazole 0.5 mg tablet 0.5 mg PO BID 10/08/23 10/24/23 (Rexulti) clonazepam 1 mg tablet 1 mg PO TID PRN 10/24/23 10/24/23 donepezil 23 mg tablet 23 mg PO BEDTIME 10/24/23 10/24/23 trazodone 150 mg tablet 75 mg PO BEDTIME 10/24/23 10/24/23 Previous Rx's ?Medication ?Instructions ?Recorded fluoxetine 20 mg capsule 20 mg PO DAILY #90 caps 08/09/22 lancets 28 gauge (FreeStyle #100 ea 09/06/22 Lancets) adult overnight diapers #120 ea 09/13/22 blood sugar diagnostic (FreeStyle #100 ea 10/10/22 Lite Strips) blood sugar diagnostic (OneTouch #100 ea 10/11/22 Ultra Test strips) blood-glucose meter (OneTouch #1 ea 10/11/22 Ultra2 Meter) lancets 30 gauge (OneTouch #100 ea 10/11/22 UltraSoft 2 Lancet) blood sugar diagnostic (Prodigy No #50 ea 10/18/22 Coding strips) blood-glucose meter (Prodigy #1 ea 10/18/22 Autocode Meter kit) lancets 28 gauge (Safety Lancets) #100 ea 10/18/22 lancing device (Prodigy Lancing #1 ea 12/11/22 Device) walker #1 ea 03/12/23 blood sugar diagnostic (FreeStyle #50 ea 05/30/23 Lite Strips) blood-glucose meter (FreeStyle #1 ea 05/30/23 Lite Meter kit) blood-glucose meter (Prodigy #1 ea 06/07/23 Autocode Blood Glucose Monitoring System) adult diapers briefs #240 ea 06/11/23 cream base no.228 (bulk) (Atrevis 1 appl miscellaneous .once a day 06/21/23 Hydrogel cream) 30 days #1 g metformin 1,000 mg tablet 1,000 mg PO BID 90 days #180 tabs 06/26/23 semaglutide 14 mg tablet (Rybelsus) 14 mg PO DAILY 90 days #90 tabs 06/26/23 wheelchair #1 ea 06/26/23 white petrolatum 41 % topical 1 appl topical DAILY PRN DRY SKIN 07/02/23 ointment (Aquaphor Healing) TO LUMBAR SPINE 2 weeks #20 grams melatonin ER 10 mg-pyridoxine HCl 2 tab PO BEDTIME 28 days #56 tabs 12/05/23 (B6) 10 mg tab, immed-extend release Shower Chair #1 12/19/23 hospital bed #1 12/19/23 recliner lift chair #1 ea 12/19/23 wipes #300 ea 12/19/23 atorvastatin 80 mg tablet 80 mg PO BEDTIME 90 days #90 tabs 12/25/23 lisinopril 10 mg tablet 10 mg PO DAILY 90 days #90 tabs 12/25/23 pioglitazone 45 mg tablet 45 mg PO DAILY 90 days #90 tabs 12/25/23 blood sugar diagnostic (Prodigy No #100 ea 01/01/24 Coding strips) lancets 28 gauge (Prodigy Lancets) #100 ea 01/01/24 dextromethorphan-guaifenesin 5 10 ml PO Q6H cough 15 days #500 mL 01/28/24 mg-100 mg/5 mL oral liquid (Robitussin Cough-Chest Congestion DM) aspirin 81 mg tablet,delayed 81 mg PO DAILY 90 days #90 tabs 02/19/24 release (Adult Aspirin Regimen) acetaminophen 500 mg/15 mL oral 500 mg (15 mL) PO BID pain 30 days 03/04/24 liquid #474 mL Allergies Allergy/AdvReac Type Severity Reaction Status Date / Time risperidone [From Risperdal] Allergy Agitated Verified 03/17/24 14:33 lactose AdvReac Severe Diarrhea Verified 11/24/23 10:40 Review of Systems 2 Review of Systems: ROS unable to be obtained due to developmental delay [facility] Past Medical History Attestation statement: The following information was validated with the patient. 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 Obesity due to excess calories Class 2 obesity with body mass index (BMI) of 37.0 to 37.9 in adult Mood disorder Memory loss Abnormal behavior Proteinuria Type 2 diabetes mellitus with other diabetic kidney complication Diabetes type 2, uncontrolled Urinary incontinence Microalbuminuria GERD (gastroesophageal reflux disease) Dyslipidemia Essential hypertension Mentally challenged Diabetes mellitus Surgical History History of hysterectomy Family History Family History Father CVD (cardiovascular disease) Mother Hypertension Brother Healthy adult Social History Social History Housing: House Unable to assess alcohol history related to: Unknown Alcohol intake: never Patient Tobacco Use Status: Never used Tobacco Smoked in Last 30 Days: No e-Cigarette/Vaping Use: Never Used Second Hand Smoke Exposure: No Use of substances other than those prescribed or required for medical reasons: No Advance Directives: No Advance Directives Information Provided: Yes Do you have a plan to hurt others: No Plan Patient : No service: No Current occupational status: disabled Cognitive needs: Yes Hearing needs: No Vision needs: No Physical Exam 2 Vital Signs: Vital Signs: Last Vital Signs Temp 97.8 F 03/17/24 14:29 Pulse 68 03/17/24 14:29 Resp 14 03/17/24 14:29 BP 97/41 L 03/17/24 14:29 Pulse Ox 99 03/17/24 14:29 O2 Del Method Room Air 03/17/24 14:29 BMI result Body Mass Index 24.1 Appearance: Alert. at baseline No acute distress. Eyes: Pupils equal, round and reactive to light. ENT: Pharynx normal. abrasion to R zygoma no crepitus felt mild swelling Neck: Normal inspection. Neck supple. collar in place CVS: Normal heart rate and rhythm. Pulses normal. Chest: no obvious deformity Respiratory: No respiratory distress. Breath sounds normal. Abdomen: Soft and nontender. Skin: Skin warm and dry. Normal skin color. Normal skin turgor. Extremities: No lower extremity edema. does not yell or grimace with ROM of UE or LE Neuro: not speaking which is baseline per staff will intermittently yell out. No motor deficit. No sensory deficit. Course Course Course Narrative: signed out to Dr. Pires pending workup Medical Decision Making Medical Decision Making MDM Narrative: 64 yo female with PMH of falls, hypothyroidism, anemia, mood disorder, GERD, HTN, HLD, developmentally delayed not on thinners here with c/o fall out of shower chair it was unwitnessed but staff heard - no LOC and helped right away at this time she has no complaints but is not a good historian - labs, CXR, pelv xray, EKG, CT head/cpsine gentle fluids. Suspect slip and fall has hx of same Differential Diagnosis Differential Diagnoses: The differential diagnosis associated with the presentation includes injury, fall, anemia, dehydration Admission/Observation Consideration of admission/observation: Escalation of care including admission/observation considered Lab Data [facility] Lab Attestation statement: I reviewed the patient's lab results. 03/17/24 15:32 03/17/24 15:32 Labs: Lab Results 03/17/24 Range/Units 15:32 WBC 5.4 (4.8-10.8) X10*3/uL RBC 2.92 L (4.20-5.50) X10*6/uL Hgb 8.6 L (12.0-16.0) g/dl Hct 26.4 L (37.0-47.0) % MCV 90.4 (80.0-98.0) fL MCH 29.5 (27.0-33.0) pg MCHC 32.6 (31.0-35.0) g/dl RDW 17.7 H (11.0-16.0) % Plt Count 187 (160-400) X10*3/uL MPV 8.6 L (9.4-12.3) fL Immature Gran % (Auto) 0.2 (0.0-0.4) % Neut % (Auto) 72.3 (45-73) % Lymph % (Auto) 17.4 L (20-40) % Crosby % (Auto) 8.8 (2-11) % Eos % (Auto) 0.7 (0-4) % Baso % (Auto) 0.6 (0-2) % Lymph # (Auto) 0.9 L (1.2-4.9) X10*3/uL Crosby # (Auto) 0.5 (0.1-1.2) X10*3/uL Eos # (Auto) 0.0 (0.0-0.4) X10*3/uL Baso # (Auto) 0.0 (0.0-0.2) X10*3/uL Abs Immat Gran (auto) 0.01 (0.00-0.03) X10*3/uL Absolute Neuts (auto) 3.9 (2.0-8.3) x10*3/uL Absolute Nucleated RBC 0.000 (0.0-0.012) X10*3/uL Nucleated RBC % (auto) 0.0 (0.0-0.2) /100WBC Independent Interpretation I performed an independent interpretation of an: EKG, Plain X-Ray and CT Scan Interpretation: Rate: 56 Rhythm: sinus bradycardia [place]: left Normal P waves. Normal KACI. RBBB ST T wave : inverted t wave V1, no BRETT qTC: 414 prior studies: no acute ischemia The study has been interpreted contemporaneously by me. . Independent Historian Clinical information obtained from an independent historian. History obtained from or confirmed by: EMS and Other External Record Review External record reviewed: Outpatient record Discharge Plan Discharge Clinical Impression: Contusion of face Qualifiers: Encounter type: initial encounter Qualified Code(s): S00.83XA - Contusion of other part of head, initial encounter Patient Disposition: Still a Patient Prescriptions: No Action fluoxetine 20 mg capsule 20 mg PO DAILY Qty: 90 1RF (DME) adult overnight diapers See Rx Instructions .Route .MEDSUPPLY Qty: 120 0RF Rx Instructions: As directed (DME) FreeStyle Lite Strips Strip See Rx Instructions .MEDSUPPLY Qty: 100 2RF Rx Instructions: 2 x day (DME) blood-glucose meter [OneTouch Ultra2 Meter] Misc See Rx Instructions .Route Qty: 1 0RF Rx Instructions: As directed (DME) OneTouch Ultra Test Strip See Rx Instructions .Route Qty: 100 2RF Rx Instructions: Use 1 test strip once a day (DME) lancets [OneTouch UltraSoft 2 Lancet] 30 gauge misc See Rx Instructions .Route Qty: 100 2RF Rx Instructions: Use 1 lancet once a day (DME) lancing device [Prodigy Lancing Device] Misc See Rx Instructions .Route Qty: 1 5RF Rx Instructions: s directed tests 4 X/day due to poor glycemic control (DME) walker Misc See Rx Instructions .Route Qty: 1 0RF Rx Instructions: As directed (DME) FreeStyle Lite Strips Strip See Rx Instructions .Route Qty: 50 4RF Rx Instructions: As directed test once day (DME) blood-glucose meter [FreeStyle Lite Meter] Kit See Rx Instructions .MEDSUPPLY Qty: 1 0RF Rx Instructions: 2 x day (DME) blood-glucose meter [Prodigy Autocode Monitor Syst] Mis See Rx Instructions .Route Qty: 1 0RF Rx Instructions: As directed tests 4 X/day due to poor glycemic control (DME) adult diapers briefs X-large See Rx Instructions .Route .MEDSUPPLY Qty: 240 11RF Rx Instructions: Use 8 briefs per day Atrevis Hydrogel Cream 1 appl miscellaneous .once a day 30 Days Qty: 1 1RF Aquaphor Healing 41 % ointment 1 appl topical DAILY PRN (Reason: DRY SKIN TO LUMBAR SPINE) 14 Days Qty: 20 2RF melatonin-pyridoxine HCl (B6) 10-10 mg tablet, IR and ER, biphasic 2 tab PO BEDTIME 28 Days Qty: 56 11RF (DME) wipes See Rx Instructions .Route .MEDSUPPLY Qty: 300 11RF Rx Instructions: As directed (DME) hospital bed Kit See Rx Instructions .Route Qty: 1 0RF Rx Instructions: As directed (DME) recliner lift chair See Rx Instructions .Route .MEDSUPPLY Qty: 1 0RF Rx Instructions: As directed (DME) Shower Chair Misc See Rx Instructions .Route Qty: 1 0RF Rx Instructions: As directed lisinopril 10 mg tablet 10 mg PO DAILY 90 Days Qty: 90 0RF Rx Instructions: crush and mix with food atorvastatin 80 mg tablet 80 mg PO BEDTIME 90 Days Qty: 90 0RF Rx Instructions: crushed and mix with food pioglitazone 45 mg tablet 45 mg PO DAILY 90 Days Qty: 90 0RF Rx Instructions: crush and mix with food (DME) Prodigy No Coding Strip See Rx Instructions .Route Qty: 100 5RF Rx Instructions: s directed tests 4 X/day due to poor glycemic control (DME) lancets [Prodigy Lancets] 28 gauge misc See Rx Instructions .Route Qty: 100 4RF Rx Instructions: s directed tests 4 X/day due to poor glycemic control aspirin [Adult Aspirin Regimen] 81 mg tablet,delayed release (DR/EC) 81 mg PO DAILY 90 Days Qty: 90 0RF Rx Instructions: crushed mixed with food acetaminophen 500 mg/15 mL liquid 500 mg PO BID 30 Days Qty: 474 1RF Rx Instructions: 500 mg of acetaminophen twice daily for body aches or pains. (DME) wheelchair See Rx Instructions .Route .MEDSUPPLY Qty: 1 0RF Rx Instructions: As directed metformin 1,000 mg tablet 1,000 mg PO BID 90 Days Qty: 180 3RF Rx Instructions: crush and mix with food Rybelsus 14 mg tablet 14 mg PO DAILY 90 Days Qty: 90 3RF Rx Instructions: crush and mix with food clonazepam 1 mg tablet 1 mg PO TID PRN (DME) lancets [FreeStyle Lancets] 28 gauge misc See Rx Instructions .MEDSUPPLY Qty: 100 2RF Rx Instructions: 2 x day (DME) blood-glucose meter [Prodigy Autocode Meter] Kit See Rx Instructions .Route Qty: 1 0RF Rx Instructions: As directed (DME) Prodigy No Coding Strip See Rx Instructions .Route Qty: 50 11RF Rx Instructions: Use 1 test strip once a day (DME) lancets [Safety Lancets] 28 gauge misc See Rx Instructions .Route Qty: 100 6RF Rx Instructions: Use 1 lancet twice a day donepezil 23 mg tablet 23 mg PO BEDTIME trazodone 150 mg tablet 75 mg PO BEDTIME Rexulti 0.5 mg tablet 0.5 mg PO BID dextromethorphan-guaifenesin [Robitussin Cough-Chest Andre DM] 5-100 mg/5 mL liquid 10 ml PO Q6H 15 Days Qty: 500 0RF Rx Instructions: Not to exceed 4 doses/24 hrs. Call PCP if symptoms last for more than 3 days. Print Language: Luxembourgish
[2024-03-17 15:39] LABS: MANUAL DIFF FLAG NO
[2024-03-17 15:42] LABS: Basophils Percent Auto 0.6 % (0-2); Eosinophils Percent Auto 0.7 % (0-4); Hematocrit 26.4 % (37.0-47.0); Hemoglobin 8.6 g/dl (12.0-16.0); Imm Gran Abs Auto 0.01 X10*3/uL (0.00-0.03); Imm Gran Pct Auto 0.2 % (0.0-0.4); Lymphocytes Absolute Auto 0.9 X10*3/uL (1.2-4.9); Lymphocytes Percent Auto 17.4 % (20-40); Mean Corpuscular HGB Conc 32.6 g/dl (31.0-35.0); Mean Corpuscular Hemoglobin 29.5 pg (27.0-33.0); Mean Corpuscular Volume 90.4 fL (80.0-98.0); Mean Platelet Volume 8.6 fL (9.4-12.3); Monocytes Absolute Auto 0.5 X10*3/uL (0.1-1.2); Monocytes Percent Auto 8.8 % (2-11); Neutrophils Absolute Auto 3.9 x10*3/uL (2.0-8.3); Neutrophils Percent Auto 72.3 % (45-73); Platelet Count 187 X10*3/uL (160-400); Red Blood Count 2.92 X10*6/uL (4.20-5.50); Red Cell Distribution Width 17.7 % (11.0-16.0); White Blood Count 5.4 X10*3/uL (4.8-10.8)
[2024-03-17 16:00] VITALS: BP 141/82; PULSE 56; RESP 11; TEMP 36.7; O2SAT 98
[2024-03-17 16:04] LABS: Lactic Acid 1.4 mmol/L (0.5-2.0)
[2024-03-17 16:06] LABS: Alanine Aminotransferase 17 U/L (0-31); Albumin Level 3.3 g/dL (3.5-5.0); Anion Gap 10 (12-20); Aspartate Amino Transferase 19 U/L (5-31); Bilirubin Direct 0.3 mg/dL (0.0-0.5); Bilirubin Total 0.8 mg/dL (0.0-1.0); Blood Urea Nitrogen 11 mg/dL (9-16); Calcium 9.9 mg/dL (8.4-10.2); Carbon Dioxide 27 mmol/L (22-29); Chloride 105 mmol/L (96-108); Creatinine Clr Calc Pharmacy 75.1; Estimated Glomerular Filt Rate > 60; Glucose Random 125 mg/dL (60-115); Magnesium 1.6 mg/dL (1.6-2.6); Potassium 4.2 mmol/L (3.3-5.1); Sodium 138 mmol/L (135-145); Total Protein 5.9 g/dL (6.5-8.0)
[2024-03-17 16:07] LABS: Lipase 22 U/L (8-78)
[2024-03-17 16:12] LABS: Troponin-I High Sensitivity 2.7 ng/L (<3.5-17.0)
[2024-03-17 16:16] LABS: Glucose, Whole Blood 96 mg/dL (60-115)
[2024-03-17 16:32] LABS: Hematocrit 26.9 % (37.0-47.0); Hemoglobin 8.7 g/dl (12.0-16.0); Mean Corpuscular HGB Conc 32.3 g/dl (31.0-35.0); Mean Corpuscular Hemoglobin 28.9 pg (27.0-33.0); Mean Corpuscular Volume 89.4 fL (80.0-98.0); Mean Platelet Volume 8.7 fL (9.4-12.3); Platelet Count 194 X10*3/uL (160-400); Red Blood Count 3.01 X10*6/uL (4.20-5.50); Red Cell Distribution Width 17.7 % (11.0-16.0); White Blood Count 5.8 X10*3/uL (4.8-10.8)
[2024-03-17 16:33] LABS: Influenza A PCR NEGATIVE (Negative); Influenza B PCR NEGATIVE (Negative); Resp Syncy Virus RNA Qual PCR NEGATIVE (Negative); SARS COV2 PCR INHOUSE NEGATIVE (Negative)
[2024-03-17] MEDS: 0.9 % Sodium Chloride 1,000 ML 999 ML IV (16:33)
[2024-03-17 16:42] LABS: Appearance Urine Clear; Color Urine Yellow; Glucose Urine UA Negative (Negative); Leukocyte Esterase Urine Negative (Negative); Nitrite Urine Negative (Negative); PH 5.5 (5.0-9.0); Specific Gravity - Urine 1.015 (1.005-1.025); Urine Blood Negative (Negative); Urine Ketones Trace mg/dL (Negative); Urine Protein Negative (Neg-Trace)
[2024-03-17 16:57] LABS: Alkaline Phosphatase 62 U/L (39-117)
[2024-03-17 18:09] VITALS: BP 165/74; PULSE 54; RESP 14; TEMP 36.9; O2SAT 96
[2024-03-17 19:32] LABS: Glucose, Whole Blood 96 mg/dL (60-115)
[2024-03-17 19:49] VITALS: BP 165/60; PULSE 57; RESP 12; TEMP 36.8; O2SAT 99
[2024-03-18 03:10] VITALS: BP 165/60; PULSE 57; RESP 12; TEMP 36.8; O2SAT 99
== END 2024-03-17 21:45 | disposition home or self-care (01) ==
PROVIDERS: Emergency Provider Emergency Medicine; PCP Internal Medicine
DX: S00.83XA Contusion of other part of head, initial encounter (principal); S00.81XA Abrasion of other part of head, initial encounter; W07.XXXA Fall from chair, initial encounter; Z91.81 History of falling; Y93.E1 Activity, personal bathing and showering; Y92.012 Bathroom of single-family (private) house as the place of occurrence of the external cause; Y99.9 Unspecified external cause status
CPT/HCPCS: 0241U; 36415; 70450; 71045; 72125; 72170; 80048; 80076; 81003; 82550; 82947; 83605; 83690; 83735; 84484; 85025; 85027; 93005; 99285

== ENCOUNTER → 2024-03-17 14:52 | Outpatient (BNV) | payer MEDICARE, MEDICAID, SELFPAY | PROVIDERS: Emergency Provider Emergency Medicine; PCP Internal Medicine; Visit Provider Internal Medicine Cardiovascular Disease | DX: I49.1 Atrial premature depolarization (principal) | CPT/HCPCS: 93010 ==

== ENCOUNTER 2024-03-18 21:20 | Inpatient (IN) | payer MEDICARE, MEDICAID, SELFPAY ==
--- NOTE | ~2024-03-18 | MR_ITS ---
EXAMINATION: MR BRAIN WITHOUT CONTRAST CLINICAL INFORMATION: ? CVA COMPARISON: None available. TECHNIQUE: MRI of the brain was obtained using routine sequences without contrast. FINDINGS: No acute intracranial hemorrhage or infarct. Scattered and confluent periventricular and deep white matter T2/FLAIR hyperintensities, nonspecific however commonly seen with small vessel ischemic disease. Diffuse prominence of the sulci with associated mild ex vacuo dilation of the ventricles compatible with global cerebral atrophy. No midline shift or hydrocephalus. No acute extra-axial fluid collections. The osseous structures are unremarkable. The pituitary gland, pineal gland and remaining midline structures are unremarkable. No orbital pathology. Mild mucosal thickening of the ethmoid sinuses. Left mastoid effusion. MR/MR head/brain wo con IMPRESSION: 1. No acute intracranial abnormalities. 2. Chronic microangiopathy and global cerebral atrophy. Electronically signed by: Nancy Sumner MD 03/19/2024 03:26 PM [facility]
--- NOTE | ~2024-03-18 | CT_ITS ---
EXAMINATION: CT HEAD WITHOUT CONTRAST CLINICAL INFORMATION: Unresponsive. [Case paralysis. COMPARISON: CT head from 03/17/2024. TECHNIQUE: Contiguous axial imaging was performed from the skull base to vertex without intravenous administration of contrast. This CT examination was performed using dose optimization techniques as appropriate, variously including the following: *Automated exposure control. *Adjustment of mA and/or kV according to patient size (this includes techniques or standardized protocols for targeted exams where dose is matched to indication/reason for exam; i.e. extremities or head). *Use of iterative reconstruction technique. DLP: 657 mGy-cm FINDINGS: There is no evidence of acute intracranial hemorrhage or edematous territorial infarction. Keenan-white matter differentiation is preserved. A few foci of hypoattenuation in the periventricular and deep white matter are consistent with mild microangiopathy. The ventricles are normal in morphology and size. No evidence for obstructive hydrocephalus. No abnormal mass effect or midline shift. No extra-axial fluid collections. No acute soft tissue or osseous abnormalities. Mild mucosal thickening of the paranasal sinuses. The mastoid air cells and middle ear cavities are clear. Moderate degenerative arthropathy of the left temporomandibular joint. CT/CT head for STROKE IMPRESSION: 1. No evidence of acute intracranial hemorrhage or edematous territorial infarction. 2. Mild underlying microangiopathy. Electronically signed by: Abel Werner DO 03/18/2024 09:55 PM EST
--- NOTE | ~2024-03-18 | CT_ITS ---
EXAMINATION: CT ANGIOGRAM HEAD CT ANGIOGRAM NECK CLINICAL INFORMATION: Unresponsive. Left gaze paralysis. COMPARISON: CT head from 03/18/2024. TECHNIQUE: Initial noncontrast marketing copywriter imaging of the head and neck was performed. Comparison is made with noncontrast head CT from earlier today. Test bolus sequences followed by intravenous administration 70 mL of Omnipaque 350. Helical imaging was performed in the axial plane from the aortic arch to the skull vertex. Delayed postcontrast imaging of the head was also performed. The data was processed at the molecular technologist's workstation for generation of MIP sequences. Angled MIPs and volume rendered reformatted images were also generated at an offline 3D workstation. Stenoses are assessed in accordance with NASCET criteria unless otherwise indicated. This CT examination was performed using dose optimization techniques as appropriate, variously including the following: *Automated exposure control. *Adjustment of mA and/or kV according to patient size (this includes techniques or standardized protocols for targeted exams where dose is matched to indication/reason for exam; i.e. extremities or head). *Use of iterative reconstruction technique. DLP: 1404 mGy-cm FINDINGS: CT Head: There is no evidence of acute intracranial hemorrhage or edematous territorial infarction. Chronic lacunar infarct of the right lentiform nucleus. No new loss of huang-white matter differentiation. A few foci of hypoattenuation in the periventricular and deep white matter are consistent with mild microangiopathy. Proportional prominence of the ventricles and sulcal spaces without evidence of obstructive hydrocephalus. No abnormal mass effect or midline shift. No extra-axial fluid collections. No pathologic intra-axial enhancement or regional oligemia. No acute soft tissue or osseous abnormalities. Mild mucosal thickening of the paranasal sinuses. The mastoid air cells and middle ear cavities are clear. Mild degenerative arthropathy of the temporomandibular joints. CT Neck: The thyroid gland and remaining cervical soft tissues are within normal limits. Advanced degenerative disc disease at C6-C7. Mild to moderate degenerative disc disease at all additional levels. Moderate degenerative arthropathy of the atlantodental articulation. CT Upper Chest: The visualized lung apices and upper mediastinum are within normal limits. Neck CTA: Aortic Arch: Normal contour and caliber with moderate calcific atherosclerotic disease. Classic 3 vessel branching pattern of the aortic arch. Great Vessel Origins: Irregular calcific atherosclerotic disease causes high-grade stenosis of the proximal left subclavian artery. No significant stenosis of the branch origins. Right Common Carotid Artery: No focal stenosis or occlusion. Cervical Right Internal Carotid Artery: Calcific atherosclerotic disease of the carotid bulb and proximal internal carotid artery causing less than 50% stenosis. Left Common Carotid Artery: No focal stenosis or occlusion. Cervical Left Internal Carotid Artery: Calcific atherosclerotic disease of the carotid bulb and proximal internal carotid artery causing less than 50% stenosis. Cervical Right Vertebral Artery: Co-dominant. No focal stenosis or occlusion. Cervical Left Vertebral Artery: Co-dominant. No focal stenosis or occlusion. Brain CTA: Intracranial Internal Carotid Arteries: Calcific atherosclerotic disease of the intracranial internal carotid arteries without occlusion. Moderate stenosis of the paraophthalmic segment of the right ICA. Right Anterior Cerebral Artery: Normal A1 segment. Normal opacification of the distal ANTHONY segments. Left Anterior Cerebral Artery: Normal A1 segment. Normal opacification of the distal ANTHONY segments. Anterior Communicating Artery: Normal. Right Middle Cerebral Artery: Irregular stenosis of the entire M1 segment without occlusion. Maintained but decreased opacification M2 and distal branches appear diminished compared to the contralateral side. Left Middle Cerebral Artery: Focal severe stenosis of the distal M1 segment without occlusion. Normal arborization of the distal segments. Right Vertebral Artery: Normal V4 segment. Normal opacification of the proximal segments of the posterior inferior cerebellar artery. Left Vertebral Artery: Occlusion of the mid V4 segment. Normal opacification of the proximal segments of the posterior inferior cerebellar artery. Basilar Artery: The vertebrobasilar system is hypoplastic in the setting of origins of the bilateral posterior cerebral arteries. Otherwise, normal without focal stenosis or occlusion. Normal appearance of the proximal superior cerebellar arteries. Right Posterior Cerebral Artery: The P1 segment is diminutive. origin of the SENIOR TECHNICAL SUPPORT ENGINEER with robust opacification of the posterior communicating artery. Normal opacification of the distal SENIOR TECHNICAL SUPPORT ENGINEER segments. Left Posterior Cerebral Artery: The P1 segment is diminutive. origin of the SENIOR TECHNICAL SUPPORT ENGINEER with robust opacification of the posterior communicating artery. Moderate irregular narrowing of the posterior commuting artery. Normal opacification of the distal SENIOR TECHNICAL SUPPORT ENGINEER segments. Normal opacification of the superior sagittal, straight, transverse, and sigmoid sinuses. CT/CT angio head neck STROKE IMPRESSION: 1. No evidence of acute intracranial hemorrhage or edematous territorial infarction. Mild underlying microangiopathy and generalized cerebral volume loss. Chronic lacunar infarct of the right lentiform nucleus. 2. CTA of the head and neck without proximal occlusion. 3. High-grade atherosclerotic stenosis of the proximal left subclavian artery. 4. High-grade irregular stenosis of the entire M1 segment of the right MCA. Focal severe stenosis of the distal M1 segment of the left MCA. Maintained but decreased opacification of the M2 and distal branches of the right MCA compared to the contralateral side. 5. 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 This critical result was discussed with Dr. Spain at 23:15 on 03/18/2024 and it was ascertained that the content and urgency of the report was understood at the time of direct communication. Electronically signed by: Abel Werner DO 03/18/2024 11:25 PM [facility]
--- NOTE | 2024-03-18 21:24 | ECG_ITS ---
Test Reason : STROKE PROTOCOL Blood Pressure : / mmHG Vent. Rate : 055 BPM Atrial Rate : 055 BPM P-R Int : 178 ms QRS Dur : 158 ms QT Int : 436 ms P-R-T Axes : 059 -16 026 degrees QTc Int : 417 ms Sinus bradycardia Right bundle branch block Abnormal ECG When compared with ECG of 17-MAR-2024 15:12, Premature atrial complexes are no longer Present Referred By: Rohit Spain Electronically Signed By:FIOR PATTERSON MD
[2024-03-18 21:29] LABS: Prothrombin Time Whole Bld POC 13.3 sec (11.1-13.5); ~PT, ~INR - Anti Coag Clinic 1.1 (0.9-1.1)
--- NOTE | 2024-03-18 21:33 | ED.SEIZURE ---
HPI - Seizure General Chief Complaint: Stroke Stated Complaint: Stroke alert, favoring L side, fall w/ HS Time Seen by Provider: 03/18/24 21:23 Source: EMS Mode of arrival: EMS Limitations: altered mental status History of Present Illness ED Provider: Dr. Rohit Spain HPI Narrative: 63 yo female with past medical history of anemia, hypothyroidism, dementia, mood disorder, DM, GERD, HTN, HLD, intellectually disability who was brought to emergency department by ambulance for evaluation of seizure, altered mental status, right gaze paralysis and 1 episode of vomiting in the ambulance EN route to the hospital. Paramedics were told that the patient had a seizure episode. When the paramedics arrived the nursing home was doing CPR and the patient but the patient did have a pulse. Paramedics noted that the patient has right gaze paralysis and was unresponsive. EN route to the hospitalist she had 1 episode emesis. I evaluated the patient for possible acute stroke. Patient was unresponsive to verbal or painful stimuli. She does have a right gaze paralysis and does not withdraw to pain. Patient's clothes were covered with a large amount of pink vomit. Patient was seen in the emergency department yesterday in the emergency department for evaluation of a fall out of her shower chair that tipped over on its side. This was unwitnessed but the staff did hear her yelling out and were quick to respond. She had no loss of consciousness. Patient had a CT scan of her head and cervical spine which was negative. She also had an x-ray of her pelvis which revealed no acute fracture. She had laboratory evaluation yesterday which did reveal a normocytic anemia with an H&H of 8.7 and 26.9 compared to an H&H of 9.7 and 30.6 on 04/25/2023. CMP was unremarkable. Urinalysis was negative. COVID-19, RSV and flu were negative. The program director group work came to the emergency department and gave me more information. The patient was in her reclining chair that she usually sleeps in. Staff noted that her legs were shaking and that she became unresponsive. They state that she turned purple. She was taken out of the chair and placed on the floor and they did do CPR until paramedics arrived. Related Data Home Medications ?Medication ?Instructions ?Recorded ?Confirmed donepezil 23 mg tablet 23 mg PO BEDTIME 10/24/23 03/19/24 trazodone 150 mg tablet 75 mg PO BEDTIME 10/24/23 03/19/24 aspirin 81 mg chewable tablet 1 tab PO DAILY 03/19/24 03/19/24 brexpiprazole 0.5 mg tablet 0.5 mg PO DAILY 03/19/24 03/19/24 (Rexulti) brexpiprazole 1 mg tablet (Rexulti) 1 mg PO DAILY 03/19/24 03/19/24 clonazepam 0.5 mg tablet 0.5 mg PO BID 03/19/24 03/19/24 clonazepam 1 mg tablet (Klonopin) 1 mg PO DAILY PRN anxiety 03/19/24 03/19/24 guaifenesin 100 mg/5 mL oral liquid 200 mg PO DAILY PRN Cough 03/19/24 03/19/24 semaglutide 14 mg tablet (Rybelsus) 14 mg PO DAILY 03/19/24 03/19/24 Previous Rx's ?Medication ?Instructions ?Recorded fluoxetine 20 mg capsule 20 mg PO DAILY #90 caps 08/09/22 adult overnight diapers #120 ea 09/13/22 blood sugar diagnostic (FreeStyle #100 ea 10/10/22 Lite Strips) lancets 30 gauge (OneTouch #100 ea 10/11/22 UltraSoft 2 Lancet) blood-glucose meter (Gongpingjiaigy #1 ea 10/18/22 Autocode Meter kit) lancets 28 gauge (Safety Lancets) #100 ea 10/18/22 lancing device (Keepcony Lancing #1 ea 12/11/22 Device) walker #1 ea 03/12/23 adult diapers briefs #240 ea 06/11/23 metformin 1,000 mg tablet 1,000 mg PO BID 90 days #180 tabs 06/26/23 wheelchair #1 ea 06/26/23 Shower Chair #1 ea 12/19/23 hospital bed #1 ea 12/19/23 recliner lift chair #1 ea 12/19/23 wipes #300 ea 12/19/23 acetaminophen 500 mg/15 mL oral 500 mg (15 mL) PO BID pain 30 days 03/04/24 liquid #474 mL atorvastatin 80 mg tablet 80 mg PO BEDTIME 90 days #90 tabs 03/18/24 lisinopril 10 mg tablet 10 mg PO DAILY 90 days #90 tabs 03/18/24 pioglitazone 45 mg tablet 45 mg PO DAILY 90 days #90 tabs 03/18/24 Allergies Allergy/AdvReac Type Severity Reaction Status Date / Time risperidone [From Risperdal] Allergy Agitated Verified 03/18/24 22:23 lactose AdvReac Severe Diarrhea Verified 03/18/24 22:23 Review of Systems Review of Systems: Yes unobtainable due to endotracheal tube PMFSH Past Medical History Medical History Hypercalcemia 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 Obesity due to excess calories Class 2 obesity with body mass index (BMI) of 37.0 to 37.9 in adult Mood disorder Memory loss Abnormal behavior Proteinuria Type 2 diabetes mellitus with other diabetic kidney complication Diabetes type 2, uncontrolled Urinary incontinence Microalbuminuria GERD (gastroesophageal reflux disease) Dyslipidemia Essential hypertension Mentally challenged Diabetes mellitus Surgical History History of hysterectomy Family History Family History Father CVD (cardiovascular disease) Mother Hypertension Brother Healthy adult Social History Social History Housing: House Unable to assess alcohol history related to: Unknown Alcohol intake: never Patient Tobacco Use Status: Never used Tobacco Smoked in Last 30 Days: No e-Cigarette/Vaping Use: Never Used Second Hand Smoke Exposure: No Use of substances other than those prescribed or required for medical reasons: No Advance Directives: No Advance Directives Information Provided: No service: No Current occupational status: disabled Cognitive needs: Yes Hearing needs: No Vision needs: No Physical Exam Vital Signs: Vital Signs: Last Vital Signs Temp 98.5 F 03/19/24 11:11 Pulse 45 L 03/19/24 11:11 Resp 13 03/19/24 11:11 BP 181/69 H 03/19/24 11:11 Pulse Ox 98 03/19/24 11:11 O2 Del Method Room Air 03/19/24 11:11 BMI result Body Mass Index 23.4 Vital signs revealed an elevated blood pressure of 174/42 and a low heart rate of 54 otherwise unremarkable Exam: General: Patient was altered but appears awake, the patient has a fixed right gaze paralysis, she does not respond to painful stimuli Head: Normocephalic, abrasion to the right side of her face EENT: PERRL, sclera and conjunctiva were normal Neck no adenopathy Lung: breath sounds symmetric, no wheezing, rales or rhonchi Chest: symmetric movement, nontender Heart: regular rate and rhythm, normal S1, S2 no murmurs or rubs Abdomen: soft, non-tender, nondistended, normal bowel sounds Extremities: no deformities, patient has ecchymosis to her left hip but does not seem to have any pain with log rolling of the hip Neuro: Initially the patient was altered with a right gaze paralysis, she was now awake, blinking her eyes, gaze paralysis has resolved, she was nonverbal at her baseline but he was not following commands NIH stroke scale is difficult to perform since she is nonverbal and does not follow commands at baseline Medications Administered Generic Name Dose Route Start Last Admin Trade Name Freq PRN Reason Stop Dose Admin Enoxaparin Sodium 40 mg 03/19/24 09:00 03/19/24 08:03 Enoxaparin Sodium 40 Mg/0.4 Ml Syringe SUBCUT 40 mg Q24H ANA Administration Levetiracetam 500 mg in 100 mls @ 400 mls/hr 03/19/24 09:00 03/19/24 08:17 Keppra IV Infused Q12H ANA Infusion Dextrose/Sodium Chloride 1,000 mls @ 50 mls/hr 03/19/24 07:30 03/19/24 08:04 D5ns IVCONT 50 mls/hr .Q20H ANA Administration Insulin Human Lispro 0 unit 03/19/24 00:00 03/19/24 11:55 Insulin Lispro 100 Unit/Ml 3 Ml Vial SUBCUT Not Given Q6H ANA Protocol Sodium Chloride 3 ml 03/19/24 08:00 03/19/24 08:02 0.9 % Sodium Chloride Flush 3 Ml Syringe IVFLUSH 3 ml QSHIFT ANA Administration Discontinued Medications Generic Name Dose Route Start Last Admin Trade Name Freq PRN Reason Stop Dose Admin Sodium Chloride 1,000 mls @ 999 mls/hr 03/18/24 21:30 03/19/24 00:07 Ns IV 03/18/24 22:30 Infused .Q1H1M ANA Infusion Levetiracetam 500 mg in 100 mls @ 400 mls/hr 03/18/24 23:56 03/19/24 00:23 Keppra IV 03/19/24 00:10 Infused ONCE ONE Infusion Iohexol 70 ml 03/18/24 21:52 03/18/24 21:53 Iohexol 350 Mg/Ml 100 Ml Infus..Btl IV 03/18/24 21:53 70 ml ONCE ONE Administration Medical Decision Making Medical Decision Making MDM Narrative: 63 yo female with past medical history of anemia, hypothyroidism, dementia, mood disorder, DM, GERD, HTN, HLD, intellectually disability who was brought to emergency department by ambulance for evaluation of seizure, altered mental status, right gaze paralysis and 1 episode of vomiting in the ambulance EN route to the hospital. Patient was in her reclining chair for the night when staff noted that her legs began to shake and she had a purplish discoloration to her face. They took her out of the chair and started CPR when paramedics arrived the patient had a pulse and CPR was stopped. I examined her on the bottle assembler stretcher and the patient did have a right gaze paralysis, she was nonverbal, did not respond to painful stimuli. Vital signs revealed an elevated blood pressure and a low heart rate. Patient is now more awake and according to family and nursing home staff, she was at her nonverbal baseline. Differential diagnosis: ?Includes but is not limited to seizure, stroke, intracranial bleed, electrolyte abnormalities, anemia Course: 23:50 My interpretation patient's laboratory evaluation as follows: WBC was 4600. Normocytic anemia with an H&H of 8.4 and 26.2 which is chronic. Glucose was elevated 158 otherwise CMP was normal. High sensitive troponin I was detectable but not elevated at 4.4. CT scan of the brain revealed no acute process. CT angiogram did reveal several areas of high-grade stenosis in the cerebral arteries. I did discuss this with the radiologist and the radiologist felt that this made the patient susceptible to ischemic events if she had any period of hypotension. the radiologist's opinion was that there were no retrieval clots or IR intervention required. When the patient arrived in the emergency department she was made a stroke activation and I did discuss the patient's presentation with Dr. Glass. He did not think that the patient was a thrombolytics candidate since there was possibility of a seizure and CPR performed. He felth that the presentation was more consistent with seizure. Patient was given Keppra 500 mg IV. I did discuss admission with the covering hospitalist, Dr. Connelly Admission/Observation Consideration of admission/observation: Escalation of care including admission/observation considered (Yes) Consult Healthcare Provider Management of the patient was discussed with: Hospitalist (Dr. Connelly) and Assault Amphibious Vehicle Officer (Neurologist, Dr. Glass) Lab Data MDM Lab Attestation statement: I reviewed the patient's lab results. 03/19/24 05:34 03/19/24 05:34 Labs: Lab Results 03/18/24 03/18/24 03/18/24 Range/Units 21:26 22:07 22:34 WBC 4.6 L (4.8-10.8) X10*3/uL RBC 2.93 L (4.20-5.50) X10*6/uL Hgb 8.4 L (12.0-16.0) g/dl Hct 26.2 L (37.0-47.0) % MCV 89.4 (80.0-98.0) fL MCH 28.7 (27.0-33.0) pg MCHC 32.1 (31.0-35.0) g/dl RDW 17.8 H (11.0-16.0) % Plt Count 164 (160-400) X10*3/uL MPV 8.3 L (9.4-12.3) fL Immature Gran % (Auto) 0.4 (0.0-0.4) % Neut % (Auto) 66.9 (45-73) % Lymph % (Auto) 22.3 (20-40) % [place] % (Auto) 8.8 (2-11) % Eos % (Auto) 0.7 (0-4) % Baso % (Auto) 0.9 (0-2) % Lymph # (Auto) 1.0 L (1.2-4.9) X10*3/uL [place] # (Auto) 0.4 (0.1-1.2) X10*3/uL Eos # (Auto) 0.0 (0.0-0.4) X10*3/uL Baso # (Auto) 0.0 (0.0-0.2) X10*3/uL Abs Immat Gran (auto) 0.02 (0.00-0.03) X10*3/uL Absolute Neuts (auto) 3.1 (2.0-8.3) x10*3/uL Absolute Nucleated RBC 0.000 (0.0-0.012) X10*3/uL Nucleated RBC % (auto) 0.0 (0.0-0.2) /100WBC PT 14.0 H (10.9-12.4) SEC Whole Blood PT 13.3 (11.1-13.5) sec INR 1.2 H (0.9-1.1) Whole Blood INR 1.1 (0.9-1.1) APTT 35.1 (26.0-36.8) SEC Sodium 138 (135-145) mmol/L Potassium 3.9 (3.3-5.1) mmol/L Chloride 103 (96-108) mmol/L Carbon Dioxide 25 (22-29) mmol/L Anion Gap 14 (12-20) BUN 13 (9-16) mg/dL Creatinine 0.63 (0.5-1.4) mg/dL Estim Creat Clear Calc 83.3 Estimated GFR > 60 POC Glucose 147 H (60-115) mg/dL Random Glucose 158 H (60-115) mg/dL Calcium 8.7 D (8.4-10.2) mg/dL Total Bilirubin 0.7 (0.0-1.0) mg/dL Direct Bilirubin 0.2 (0.0-0.5) mg/dL AST 17 (5-31) U/L ALT 16 (0-31) U/L Alkaline Phosphatase 59 (39-117) U/L Troponin I High Sens 4.4 D (<3.5-17.0) ng/L Total Protein 5.7 L (6.5-8.0) g/dL Albumin 3.3 L (3.5-5.0) g/dL Triglycerides 37 (<150) mg/dL Cholesterol 108 (<200) mg/dL LDL Cholesterol, Calc 54 (<100) mg/dL HDL Cholesterol 47 (>40) mg/dL 03/19/24 03/19/24 03/19/24 Range/Units 00:31 05:34 07:09 WBC 4.7 L (4.8-10.8) X10*3/uL RBC 2.84 L (4.20-5.50) X10*6/uL Hgb 8.2 L (12.0-16.0) g/dl Hct 25.1 L (37.0-47.0) % MCV 88.4 (80.0-98.0) fL MCH 28.9 (27.0-33.0) pg MCHC 32.7 (31.0-35.0) g/dl RDW 17.9 H (11.0-16.0) % Plt Count 165 (160-400) X10*3/uL MPV 8.5 L (9.4-12.3) fL Immature Gran % (Auto) 0.4 (0.0-0.4) % Neut % (Auto) 61.9 (45-73) % Lymph % (Auto) 27.4 (20-40) % [place] % (Auto) 9.0 (2-11) % Eos % (Auto) 0.4 (0-4) % Baso % (Auto) 0.9 (0-2) % Lymph # (Auto) 1.3 (1.2-4.9) X10*3/uL [place] # (Auto) 0.4 (0.1-1.2) X10*3/uL Eos # (Auto) 0.0 (0.0-0.4) X10*3/uL Baso # (Auto) 0.0 (0.0-0.2) X10*3/uL Abs Immat Gran (auto) 0.02 (0.00-0.03) X10*3/uL Absolute Neuts (auto) 2.9 (2.0-8.3) x10*3/uL Absolute Nucleated RBC 0.000 (0.0-0.012) X10*3/uL Nucleated RBC % (auto) 0.0 (0.0-0.2) /100WBC PT (10.9-12.4) SEC Whole Blood PT (11.1-13.5) sec INR (0.9-1.1) Whole Blood INR (0.9-1.1) APTT (26.0-36.8) SEC Sodium 139 (135-145) mmol/L Potassium 4.0 (3.3-5.1) mmol/L Chloride 107 (96-108) mmol/L Carbon Dioxide 24 (22-29) mmol/L Anion Gap 12 (12-20) BUN 9 (9-16) mg/dL Creatinine 0.61 (0.5-1.4) mg/dL Estim Creat Clear Calc 86.0 Estimated GFR > 60 POC Glucose 139 H 102 (60-115) mg/dL Random Glucose 123 H (60-115) mg/dL Calcium 9.7 D (8.4-10.2) mg/dL Total Bilirubin (0.0-1.0) mg/dL Direct Bilirubin (0.0-0.5) mg/dL AST (5-31) U/L ALT (0-31) U/L Alkaline Phosphatase (39-117) U/L Troponin I High Sens (<3.5-17.0) ng/L Total Protein (6.5-8.0) g/dL Albumin (3.5-5.0) g/dL Triglycerides (<150) mg/dL Cholesterol (<200) mg/dL LDL Cholesterol, Calc (<100) mg/dL HDL Cholesterol (>40) mg/dL Independent Interpretation I performed an independent interpretation of an: EKG Interpretation: My independent interpretation patient's 12 EKG done at 22 11 hours is as follows: Sinus bradycardia rate 55, normal MI interval, QRS duration was prolonged 158 milliseconds, normal QTC interval, right bundle-branch block, no ST segment elevation, no ST segment depression, no significant T-wave abnormalities, no PACs, no PVCs Radiology Impression Discussion of test interpretation with radiology: I discussed test interpretation with the radiologist and I have reviewed the radiologist's reading. Radiologist Impression: CT head for STROKE IMPRESSION: 1. No evidence of acute intracranial hemorrhage or edematous territorial infarction. 2. Mild underlying microangiopathy. Electronically signed by: Abel Werner DO 03/18/2024 09:55 PM [facility] Dictated By: Martín Werner DO CT angio head neck STROKE IMPRESSION: 1. No evidence of acute intracranial hemorrhage or edematous territorial infarction. Mild underlying microangiopathy and generalized cerebral volume loss. Chronic lacunar infarct of the right lentiform nucleus. 2. CTA of the head and neck without proximal occlusion. 3. High-grade atherosclerotic stenosis of the proximal left subclavian artery. 4. High-grade irregular stenosis of the entire M1 segment of the right MCA. Focal severe stenosis of the distal M1 segment of the left MCA. Maintained but decreased opacification of the M2 and distal branches of the right MCA compared to the contralateral side. 5. 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 This critical result was discussed with Dr. Spain at 23:15 on 03/18/2024 and it was ascertained that the content and urgency of the report was understood at the time of direct communication. Electronically signed by: Abel Werner DO 03/18/2024 11:25 PM Independent Historian Clinical information obtained from an independent historian. History obtained from or confirmed by: Other (Brother, group rooms coordinator) Chronic Conditions Patient?s care impacted by: Diabetes Critical Care Time Critical Care Time Critical Care Time: Yes Total Critical Care Time: 45 Attestation: Critical Care: The patient was critically ill with a high probability of imminent or life threatening deterioration. I spent greater than 30 minutes of discontinuous time evaluating the patient,delivering critical care at the bedside, discussing and evaluating pertinent data with consultants. Critical care time does not include time spent performing separately billable procedures or teaching. Total time spent performing critical care was minutes. Discharge Plan Discharge Clinical Impression: Seizure, Altered mental status Patient Disposition: Admitted As Inpatient
[2024-03-18 21:38] VITALS: BP 181/95; PULSE 67; O2SAT 96
[2024-03-18] MEDS: iohexoL 350 MG/ML 100 ML INFUS..BTL 70 ML IV (21:53)
[2024-03-18 22:10] LABS: MANUAL DIFF FLAG NO
[2024-03-18 22:12] LABS: Basophils Percent Auto 0.9 % (0-2); Eosinophils Percent Auto 0.7 % (0-4); Hematocrit 26.2 % (37.0-47.0); Hemoglobin 8.4 g/dl (12.0-16.0); Imm Gran Abs Auto 0.02 X10*3/uL (0.00-0.03); Imm Gran Pct Auto 0.4 % (0.0-0.4); Lymphocytes Percent Auto 22.3 % (20-40); Mean Corpuscular HGB Conc 32.1 g/dl (31.0-35.0); Mean Corpuscular Hemoglobin 28.7 pg (27.0-33.0); Mean Corpuscular Volume 89.4 fL (80.0-98.0); Mean Platelet Volume 8.3 fL (9.4-12.3); Monocytes Absolute Auto 0.4 X10*3/uL (0.1-1.2); Monocytes Percent Auto 8.8 % (2-11); Neutrophils Absolute Auto 3.1 x10*3/uL (2.0-8.3); Neutrophils Percent Auto 66.9 % (45-73); Platelet Count 164 X10*3/uL (160-400); Red Blood Count 2.93 X10*6/uL (4.20-5.50); Red Cell Distribution Width 17.8 % (11.0-16.0); White Blood Count 4.6 X10*3/uL (4.8-10.8)
[2024-03-18] MEDS: 0.9 % Sodium Chloride 1,000 ML 999 ML IV (22:20)
[2024-03-18 22:21] VITALS: BP 168/69; PULSE 60; RESP 10; TEMP 37; O2SAT 94; BMI 23.4
[2024-03-18 22:25] LABS: INTERNATIONAL NORM RATIO 1.2 (0.9-1.1)
[2024-03-18 22:26] LABS: Alanine Aminotransferase 16 U/L (0-31); Albumin Level 3.3 g/dL (3.5-5.0); Alkaline Phosphatase 59 U/L (39-117); Anion Gap 14 (12-20); Aspartate Amino Transferase 17 U/L (5-31); Bilirubin Direct 0.2 mg/dL (0.0-0.5); Bilirubin Total 0.7 mg/dL (0.0-1.0); Blood Urea Nitrogen 13 mg/dL (9-16); Calcium 8.7 mg/dL (8.4-10.2); Carbon Dioxide 25 mmol/L (22-29); Chloride 103 mmol/L (96-108); Cholesterol 108 mg/dL (<200); Creatinine Clr Calc Pharmacy 83.3; Estimated Glomerular Filt Rate > 60; Glucose Random 158 mg/dL (60-115); HDL Cholesterol 47 mg/dL (>40); LDL Cholesterol Calculated 54 mg/dL (<100); Potassium 3.9 mmol/L (3.3-5.1); Sodium 138 mmol/L (135-145); Total Protein 5.7 g/dL (6.5-8.0); Triglycerides 37 mg/dL (<150)
[2024-03-18 22:28] LABS: Partial Thromboplastin Time 35.1 SEC (26.0-36.8)
[2024-03-18 22:29] LABS: Stroke Lab Use COMPLETE
[2024-03-18 22:33] LABS: Troponin-I High Sensitivity 4.4 ng/L (<3.5-17.0)
--- NOTE | 2024-03-18 22:42 | MHC.EDTECH ---
allevyn patch placed on coccyx bone d/t visible bed sore with open skin. rn made aware
[2024-03-18 22:43] LABS: Glucose, Whole Blood 147 mg/dL (60-115)
[2024-03-18 22:45] VITALS: BP 174/72; PULSE 54; RESP 10; O2SAT 97
--- NOTE | 2024-03-18 23:10 | PC.NURSE ---
PT unable to manage saliva and cough and clear throat. Notified provider and order bedside swallow screen. Background information: Brother and Prison cnc programmer bedside reports that pt had a stroke in 2013. She has been total care for some time, staff feed pt due to her eating too fast. Though she had right sided deficits post stroke, pt had begun to use both arms and even favored her right more as of late. She was also able to speak in small sentences but in the past year they report she has deteriorated and progress more so over the last 4 months in which she only hollers to communicate. PT would call out brothers name or simple worse. Within the past week she stopped saying simple name. Pt also reportedly lost signifcant amount of weight- from 3x to present weight in the last couple of years
[2024-03-19] VITALS (10 sets, daily range): BP systolic 151–183; BP diastolic 60–80; PULSE 45–53; RESP 11–18; TEMP 36.1–37.1; O2SAT 93–99
--- NOTE | 2024-03-19 | EEG_ITS ---
This is a 16-channel EEG with an EKG lead. The patient is reported awake during the tracing. Background EEG rhythm is low to medium amplitude, mixed theta, beta with no obvious asymmetry or paroxysmal tendency. Photic stimulation does not produce any significant abnormality. Hyperventilation is not performed. Cardiac lead does not reveal any significant abnormality. No sharp wave spikes or paroxysmal tendency noted. IMPRESSION: No significant abnormality noted on this EEG. MD SHONNA Fernandes/PER / [id number]
[2024-03-19] MEDS: levETIRAcetam in NaCl (iso-os) 500 MG/100 ML PIGGYBACK 400 MG IV ×3 (00:08→21:11)
--- NOTE | 2024-03-19 00:09 | PM.IMHP ---
History of Present Illness Date of Service: 03/19/24 Chief Complaint: Seizure This is a 64-year-old female with pertinent history of early-onset Alzheimer's dementia with behavioral disturbance, cbf-islkqxd-rggmhnnil diabetes mellitus, mood disorder, intellectual disability, hypertension, mixed hyperlipidemia who was brought to the emergency department for evaluation of a possible seizure and right gaze paralysis. Unable to obtain history from the patient. Patient is minimally verbal at baseline and occasionally answers with 1 word responses. Intermittently follows command. At the time of my evaluation, patient is awake but not responding to verbal stimulus and not following commands. As per EMS, upon arrival halfway was doing CPR but patient had a pulse. Patient was sitting in chair when she was noticed to have jerking movement of extremities. Staff also noted that her face changed color and they began CPR. Right gaze paralysis was noted by EMS and ER provider which was transient. Patient was initially drowsy after the episode. Unable to obtain review of systems. Patient was seen in the ER 1 day prior to presentation when she had a fall in the shower which was unwitnessed. Review of Systems Review of Systems: Yes Unobtainable due to mental condition and Unobtainable due to mental status COUNT INCLUDES THE [facility] Medical History Hypercalcemia 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 Obesity due to excess calories Class 2 obesity with body mass index (BMI) of 37.0 to 37.9 in adult Mood disorder Memory loss Abnormal behavior Proteinuria Type 2 diabetes mellitus with other diabetic kidney complication Diabetes type 2, uncontrolled Urinary incontinence Microalbuminuria GERD (gastroesophageal reflux disease) Dyslipidemia Essential hypertension Mentally challenged Diabetes mellitus Family History Father CVD (cardiovascular disease) Mother Hypertension Brother Healthy adult Surgical History History of hysterectomy Social History Housing: House Unable to assess alcohol history related to: Unknown Alcohol intake: never Patient Tobacco Use Status: Never used Tobacco Smoked in Last 30 Days: No e-Cigarette/Vaping Use: Never Used Second Hand Smoke Exposure: No Use of substances other than those prescribed or required for medical reasons: No Advance Directives: No Advance Directives Information Provided: No service: No Current occupational status: disabled Cognitive needs: Yes Hearing needs: No Vision needs: No Meds Allergies Allergy/AdvReac Type Severity Reaction Status Date / Time risperidone [From Risperdal] Allergy Agitated Verified 03/18/24 22:23 lactose AdvReac Severe Diarrhea Verified 03/18/24 22:23 Active Medications: Current Medications Levetiracetam (Keppra) 500 mg in 100 mls @ 400 mls/hr IV ONCE ONE Stop: 03/19/24 00:10 Last Admin: 03/19/24 00:08 Dose: 400 mls/hr Home Medications ?Medication ?Instructions ?Recorded ?Confirmed ?Last Taken ?Type brexpiprazole 0.5 mg tablet 0.5 mg PO BID 10/08/23 10/24/23 Unknown History (Rexulti) clonazepam 1 mg tablet 1 mg PO TID PRN 10/24/23 10/24/23 Unknown History donepezil 23 mg tablet 23 mg PO BEDTIME 10/24/23 10/24/23 Unknown History trazodone 150 mg tablet 75 mg PO BEDTIME 10/24/23 10/24/23 Unknown History Physical Exam Vital Signs and Narrative: Vital Signs: Last Vital Signs Temp 98.7 F 03/19/24 00:01 Pulse 53 03/19/24 00:01 Resp 16 03/19/24 00:01 BP 166/80 H 03/19/24 00:01 Pulse Ox 95 03/19/24 00:01 O2 Del Method Room Air 03/19/24 00:01 BMI result Body Mass Index 23.4 Middle-aged female lying in bed in no distress Neck supple, no JVD Regular rate and rhythm, S1-S2 heard Regular breath sounds bilaterally, no wheezing or crackles appreciated Abdomen soft nontender, no guarding, no rigidity Patient is awake, but not interactive, non conversational, not following commands, unable to assess orientation Psych: Normal mood No pedal edema Results Labs 03/18/24 22:07 03/18/24 22:07 Labs: Laboratory Results - last 24 hr 03/18/24 03/18/24 03/18/24 21:26 22:07 22:34 MCV 89.4 MCH 28.7 MCHC 32.1 RDW 17.8 H Plt Count 164 MPV 8.3 L Immature Gran % (Auto) 0.4 Neut % (Auto) 66.9 Lymph % (Auto) 22.3 [place] % (Auto) 8.8 Eos % (Auto) 0.7 Baso % (Auto) 0.9 Lymph # (Auto) 1.0 L [place] # (Auto) 0.4 Eos # (Auto) 0.0 Baso # (Auto) 0.0 Abs Immat Gran (auto) 0.02 Absolute Neuts (auto) 3.1 Absolute Nucleated RBC 0.000 Nucleated RBC % (auto) 0.0 PT 14.0 H Whole Blood PT 13.3 INR 1.2 H Whole Blood INR 1.1 APTT 35.1 Anion Gap 14 Estim Creat Clear Calc 83.3 Estimated GFR > 60 POC Glucose 147 H Random Glucose 158 H Calcium 8.7 D Total Bilirubin 0.7 Direct Bilirubin 0.2 AST 17 ALT 16 Alkaline Phosphatase 59 Troponin I High Sens 4.4 D Total Protein 5.7 L Albumin 3.3 L Triglycerides 37 Cholesterol 108 LDL Cholesterol, Calc 54 HDL Cholesterol 47 Imaging Radiologist's Impressions: Impressions Head CT 03/18/24 21:25 IMPRESSION: 1. No evidence of acute intracranial hemorrhage or edematous territorial infarction. 2. Mild underlying microangiopathy. Electronically signed by: Abel Werner DO 03/18/2024 09:55 PM EST Head/Neck CTA 03/18/24 21:34 IMPRESSION: 1. No evidence of acute intracranial hemorrhage or edematous territorial infarction. Mild underlying microangiopathy and generalized cerebral volume loss. Chronic lacunar infarct of the right lentiform nucleus. 2. CTA of the head and neck without proximal occlusion. 3. High-grade atherosclerotic stenosis of the proximal left subclavian artery. 4. High-grade irregular stenosis of the entire M1 segment of the right MCA. Focal severe stenosis of the distal M1 segment of the left MCA. Maintained but decreased opacification of the M2 and distal branches of the right MCA compared to the contralateral side. 5. 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 This critical result was discussed with Dr. Spain at 23:15 on 03/18/2024 and it was ascertained that the content and urgency of the report was understood at the time of direct communication. Electronically signed by: Abel Werner DO 03/18/2024 11:25 PM [facility] Assessment and Plan (1) Seizure: Status: Acute Plan This is a 64-year-old female with pertinent history of early-onset Alzheimer's dementia with behavioral disturbance, koz-unvrbvt-ikmywzdrh diabetes mellitus, mood disorder, intellectual disability, hypertension, mixed hyperlipidemia who was brought to the emergency department for evaluation of a possible seizure and right gaze paralysis. #. Seizure: Will admit patient with seizure precautions. Initiating Keppra. Obtaining EEG and consulting Neurology. #. Right gaze paralysis, transient: Obtaining MRI to rule out acute CVA. Appreciate neurology. Patient is on aspirin and high-intensity statin #. Alzheimer's dementia: Maintain sleep-wake cycle #. Daq-zejjepv-wqapizdxw diabetes mellitus: Initiating Accu-Cheks with sliding scale insulin every 6 hours #. Hypertension/mixed hyperlipidemia: Continue home medications once able to take p.o. Med rec pending DVT prophylaxis: Lovenox Full code. Discussed with brother and group work program director at bedside Quality Stroke Does the patient have a stroke diagnosis?: No VTE Prior VTE?: No VTE Risk Level:: Medical - moderate - high VTE Device Contraindication: Treatment Not Indicated VTE Drug Contraindication: N/A - Med Ordered
[2024-03-19 00:35] LABS: Glucose, Whole Blood 139 mg/dL (60-115)
--- NOTE | 2024-03-19 04:47 | PC.NURSE ---
MD made aware of bp and heart rate, pt is sinus sharon/nsr on monitor. per MD no new orders/interventions at this time. pt is more at baseline per [facility] who is at bedside. pt follows most commands appropriately. at baseline pt is more verbal and hollering per staff d/t not being able to communicate needs, however at this time pt is resting in stretcher not verbal.
[2024-03-19 05:37] LABS: MANUAL DIFF FLAG NO
[2024-03-19 05:38] LABS: Basophils Percent Auto 0.9 % (0-2); Eosinophils Percent Auto 0.4 % (0-4); Hematocrit 25.1 % (37.0-47.0); Hemoglobin 8.2 g/dl (12.0-16.0); Imm Gran Abs Auto 0.02 X10*3/uL (0.00-0.03); Imm Gran Pct Auto 0.4 % (0.0-0.4); Lymphocytes Absolute Auto 1.3 X10*3/uL (1.2-4.9); Lymphocytes Percent Auto 27.4 % (20-40); Mean Corpuscular HGB Conc 32.7 g/dl (31.0-35.0); Mean Corpuscular Hemoglobin 28.9 pg (27.0-33.0); Mean Corpuscular Volume 88.4 fL (80.0-98.0); Mean Platelet Volume 8.5 fL (9.4-12.3); Monocytes Absolute Auto 0.4 X10*3/uL (0.1-1.2); Neutrophils Absolute Auto 2.9 x10*3/uL (2.0-8.3); Neutrophils Percent Auto 61.9 % (45-73); Platelet Count 165 X10*3/uL (160-400); Red Blood Count 2.84 X10*6/uL (4.20-5.50); Red Cell Distribution Width 17.9 % (11.0-16.0); White Blood Count 4.7 X10*3/uL (4.8-10.8)
--- NOTE | 2024-03-19 05:48 | PC.NURSE ---
pt found to be incontinent of urine, bed linen changed and antonella care provided. purewick provided for incontinence. pt now more verbal and staff at bedside said shes at baseline. stage 1 pressure wound noted to coccyx previous dressing removed, cleaned and new pressure foam dressing placed. bp improved. pt repositioned. L. hip looks deformed, staff stated she was seen here for this and hip appeared the same at that time, +pulses, skin wpd. MD made aware. pt appears comfortable at this time. call kinney within reach of staff and pt.
[2024-03-19 05:56] LABS: Anion Gap 12 (12-20); Blood Urea Nitrogen 9 mg/dL (9-16); Calcium 9.7 mg/dL (8.4-10.2); Carbon Dioxide 24 mmol/L (22-29); Chloride 107 mmol/L (96-108); Estimated Glomerular Filt Rate > 60; Glucose Random 123 mg/dL (60-115); Sodium 139 mmol/L (135-145)
[2024-03-19 07:14] LABS: Glucose, Whole Blood 102 mg/dL (60-115)
[2024-03-19] MEDS: 0.9 % Sodium Chloride Flush 3 ML SYRINGE IVFLUSH (08:02)
[2024-03-19] MEDS: Enoxaparin Sodium 40 MG/0.4 ML SYRINGE SUBCUT (08:03)
[2024-03-19] MEDS: Dextrose 5 % and 0.9 % NaCl 1,000 ML 50 ML IVCONT (08:04)
--- NOTE | 2024-03-19 08:12 | PC.NURSE ---
pt sleeping, wakes to verbal stimulus, plater helper intact-sunus sharon, seizure precautions intact/fall precautions intact, rr equal/non labored- lungs clear, upon assessment pts pupils are pinpoint non dilating, staff and brother at bedside states pt is not moving her arms, this nurse attempted to get patient to move arms with mild painful stimulus to get her to withdrawal which pt did not move either arm, she also did not grasp hand of brother when he was at bedside which is not her normal per brother. pts blood sugar has been decreasing due to NPO status, Dr. Swift was notified and pt started on D5NS at 50 ml/hr, keppra started per order as well. pt to have EEG at 930 and MRI form has been completed by staff from the facility. Per Dr. Swift its ok for patient to go for EEG and MRI without the cardiac monitoring. pure wick is intact and draining clear yellow urine, call kinney is within reach/will continue to monitor.
--- NOTE | 2024-03-19 09:48 | PC.NURSE ---
pt to EEG
--- NOTE | 2024-03-19 09:54 | PHA.MEDREC ---
Addendum entered by Marko Claros RPh 03/19/24 10:14: Reviewed by [facility] Original Note: Pharmacy Consult ? Medication Reconciliation Pharmacy has completed the medication reconciliation. Utilized list from [facility] to confirm med list.
--- NOTE | 2024-03-19 11:09 | MHC.SL.SWA ---
Speech Pathologist Impression: Moderate Oral Phase Dysphagia/behavioral issues related to eating/drinking Risk of Aspiration Due to: Reduced Cognition Dysphasia Diet Status: Liquid Consistency and Strategies for Safe Swallow: Liquid Intake Recommendation: Thin Liquid Intake Strategies: Small Sips Solid Food Consistency: Dietary Recommendations: Grnd/Mech Altered (NDD2) Additional Modifications to Solid Foods: Patient can drink with straw but requires close supervision to slow rate. Remove or pinch straw after 1-2 sips, and then return after a pause for swallow. Monitor that patient has swallowed before presenting more food, check for pocketed food. Alternate liquids and solids. Oral Medication Intake: Crushed with Puree Please contact the pharmacy regarding appropriate crushable or liquid drug formulations that are available whenever modified delivery is recommended. Compensatory Strategies and Precautions to be Taken for Safe Swallow: Sitting Upright (90 deg) Liquids from Cup Liquids from Straw Small Bites and Sips Alternate Liquids/Solids Rate of Ingestion Change Oral Check Supervision While Eating and Drinking for Safe Swallow: Total Assistance (1:1) Foods to Avoid: Larger pieces of food, difficult to chew textures. Patient is lactose intolerant. Swallowing Recommended Treatments: Compens. Strategy Educat. Recommendation for Speech: Inpatient Speech Therapy Comment: Patient presents with risk of aspiration or choking secondary to behavioral issues related to eating: Patient if not assisted/directly supervised will eat and drink too rapidly; Patient does not initiate chewing and attempts to swallow bolus whole; Patient is known to pocket food in cheeks. Recommend reported baseline diet of Ground/Mechanical (NDD2, equivalent to minced and moist ), thin liquids, pills crushed in apple sauce. Patient requires one to one feeding and close supervision during meals due to behavioral concerns. Alternate liquids and solids. DEANGELO SY notified of recommendation by secure delia, RN in person. NATURAL REMEDY CONSULTANT will follow up 1-2 X to assure diet texture is tolerated. Frequency/Duration: Date Range for Service Req: Timeline to reassess: Padder Clinican/Clinical Fellow: No Supervisory Statement: I have reviewed and agree with the student/clinical fellow's documentation: N/A Speech Language Pathologist: Karina Cardenas M.A., [facility]-NATURAL REMEDY CONSULTANT
--- NOTE | 2024-03-19 11:23 | P.PNIM_ITS ---
Subjective Subjective Date of Service: 03/19/24 Review of Systems Review of Systems: Yes Unobtainable due to mental status Physical Exam 2 Vital Signs: Vital Signs: Last Vital Signs Temp 98.5 F 03/19/24 11:11 Pulse 45 L 03/19/24 11:11 Resp 13 03/19/24 11:11 BP 181/69 H 03/19/24 11:11 Pulse Ox 98 03/19/24 11:11 O2 Del Method Room Air 03/19/24 11:11 BMI result Body Mass Index 23.4 nonverbal, funcitonal paraplegia, lungs clear Objective Data Active Medications Acetaminophen (Acetaminophen 325 Mg Tablet) 650 mg PO Q6H PRN PRN Reason: Pain, Mild (Pain Scale 1-3), fever or headache Calcium Carbonate (Calcium Carbonate 750 Mg Tab.Chew) 750 mg PO Q4H PRN PRN Reason: Heartburn Enoxaparin Sodium (Enoxaparin Sodium 40 Mg/0.4 Ml Syringe) 40 mg SUBCUT Q24H [facility] Last Admin: 03/19/24 08:03 Dose: 40 mg Documented By: ALICIA Glucose (Glucose Gel 15 Gm Gel..Gram.) 15 gm PO Q15M PRN; Protocol PRN Reason: per Hypoglycemia Standing Ord. Levetiracetam (Keppra) 500 mg in 100 mls @ 400 mls/hr IV Q12H [facility] Last Infusion: 03/19/24 08:17 Dose: Infused Documented By: ALICIA Dextrose (D10) 250 mls @ 750 mls/hr IV Q15M PRN; Protocol PRN Reason: per Hypoglycemia Standing Ord. Dextrose/Sodium Chloride (D5ns) 1,000 mls @ 50 mls/hr IVCONT .Q20H [facility] Last Admin: 03/19/24 08:04 Dose: 50 mls/hr Documented By: ALICIA Insulin Human Lispro (Insulin Lispro 100 Unit/Ml 3 Ml Vial) 0 unit SUBCUT Q6H [facility]; Protocol Last Admin: 03/19/24 05:59 Dose: Not Given Documented By: PRUDENCE Non-Admin Reason: No Insulin Coverage Lorazepam (Lorazepam 2 Mg/Ml Vial) 1 mg IVPUSH ONCE PRN PRN Reason: mri Magnesium Hydroxide (Milk Of Magnesia 30 Ml Oral.Susp) 30 ml PO DAILY PRN PRN Reason: Constipation Melatonin (Melatonin 3 Mg Tablet) 6 mg PO BEDTIME PRN PRN Reason: Insomnia Ondansetron HCl (Ondansetron Hcl 4 Mg/2 Ml Vial) 4 mg IVPUSH Q8H PRN PRN Reason: Nausea and Vomiting Sodium Chloride (0.9 % Sodium Chloride Flush 3 Ml Syringe) 3 ml IVFLUSH QSHIFT [facility] Last Admin: 03/19/24 08:02 Dose: 3 ml Documented By: ALICIA Labs 03/19/24 05:34 03/19/24 05:34 Labs: Laboratory Results - last 24 hr 03/18/24 03/18/24 03/18/24 21:26 22:07 22:34 MCV 89.4 MCH 28.7 MCHC 32.1 RDW 17.8 H Plt Count 164 MPV 8.3 L Immature Gran % (Auto) 0.4 Neut % (Auto) 66.9 Lymph % (Auto) 22.3 [place] % (Auto) 8.8 Eos % (Auto) 0.7 Baso % (Auto) 0.9 Lymph # (Auto) 1.0 L [place] # (Auto) 0.4 Eos # (Auto) 0.0 Baso # (Auto) 0.0 Abs Immat Gran (auto) 0.02 Absolute Neuts (auto) 3.1 Absolute Nucleated RBC 0.000 Nucleated RBC % (auto) 0.0 PT 14.0 H Whole Blood PT 13.3 INR 1.2 H Whole Blood INR 1.1 APTT 35.1 Anion Gap 14 Estim Creat Clear Calc 83.3 Estimated GFR > 60 POC Glucose 147 H Random Glucose 158 H Calcium 8.7 D Total Bilirubin 0.7 Direct Bilirubin 0.2 AST 17 ALT 16 Alkaline Phosphatase 59 Troponin I High Sens 4.4 D Total Protein 5.7 L Albumin 3.3 L Triglycerides 37 Cholesterol 108 LDL Cholesterol, Calc 54 HDL Cholesterol 47 03/19/24 03/19/24 03/19/24 00:31 05:34 07:09 MCV 88.4 MCH 28.9 MCHC 32.7 RDW 17.9 H Plt Count 165 MPV 8.5 L Immature Gran % (Auto) 0.4 Neut % (Auto) 61.9 Lymph % (Auto) 27.4 [place] % (Auto) 9.0 Eos % (Auto) 0.4 Baso % (Auto) 0.9 Lymph # (Auto) 1.3 [place] # (Auto) 0.4 Eos # (Auto) 0.0 Baso # (Auto) 0.0 Abs Immat Gran (auto) 0.02 Absolute Neuts (auto) 2.9 Absolute Nucleated RBC 0.000 Nucleated RBC % (auto) 0.0 PT Whole Blood PT INR Whole Blood INR APTT Anion Gap 12 Estim Creat Clear Calc 86.0 Estimated GFR > 60 POC Glucose 139 H 102 Random Glucose 123 H Calcium 9.7 D Total Bilirubin Direct Bilirubin AST ALT Alkaline Phosphatase Troponin I High Sens Total Protein Albumin Triglycerides Cholesterol LDL Cholesterol, Calc HDL Cholesterol Assessment and Plan (1) Abnormal behavior: Status: Acute Plan 64F PMH advance early onset alzheimers dementia, dm, mood disorder, intellectual delay, htn, hld presented with ams Acute metabolic encephalopathy Rule out seizure, check EEG, continue Keppra, follow up Neurology Rule out CVA, check MRI continue aspirin statin Alzheimer's dementia Continue Aricept Diabetes Insulin sliding scale DVT prophylaxis with Lovenox Full Code reason for continued hospitalization: Working up encephalopathy Quality Stroke Does the patient have a stroke diagnosis?: No VTE Prior VTE?: No VTE Risk Level:: Medical - moderate - high VTE Device Contraindication: Treatment Not Indicated VTE Drug Contraindication: N/A - Med Ordered
[2024-03-19 11:54] LABS: Glucose, Whole Blood 129 mg/dL (60-115)
--- NOTE | 2024-03-19 12:55 | PC.NURSE ---
patients HR decreased to 36 while sleeping, Dr. Swift notifed via tiger text. pt family at bedside, pt is to go to MRI at 1430- family aware, pt has no pain/discomfort. call kinney within reach, will continue to monitor
--- NOTE | 2024-03-19 13:34 | PM.NEUROCN ---
History of Present Illness Data of Consult Service Date: 03/19/24 Primary Care Provider: Hannah Stacy MD HPI Reason for consult: Encephalopathy 64 years old woman with underlying chronic static encephalopathy of unknown etiology but probably related to congenital or etiologies with significant physical and cognitive disability resulting in problem with communication and behavioral symptomatology. 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 This time she was brought to hospital after she was found to be the unresponsive or had fallen of her chair while she was in a restroom. In emergency room there was suggestion of gaze deviation and then she had another episode resulting in gaze deviation and blue discoloration. She did not communicate much in was not communicating when she was in emergency room more than saying 1 word. No obvious convulsion was noted. Head CT did not reveal any obvious acute abnormality an EEG did not reveal any obvious ongoing seizure. Her blood pressure was not low. Review of Systems Review of Systems: Could not be done with her [facility] Past Medical History Medical History Hypercalcemia 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 Obesity due to excess calories Class 2 obesity with body mass index (BMI) of 37.0 to 37.9 in adult Mood disorder Memory loss Abnormal behavior Proteinuria Type 2 diabetes mellitus with other diabetic kidney complication Diabetes type 2, uncontrolled Urinary incontinence Microalbuminuria GERD (gastroesophageal reflux disease) Dyslipidemia Essential hypertension Mentally challenged Diabetes mellitus Family History Family History Father CVD (cardiovascular disease) Mother Hypertension Brother Healthy adult Surgical History Surgical History History of hysterectomy Social History Social History Housing: House Unable to assess alcohol history related to: Unknown Alcohol intake: never Patient Tobacco Use Status: Never used Tobacco Smoked in Last 30 Days: No e-Cigarette/Vaping Use: Never Used Second Hand Smoke Exposure: No Use of substances other than those prescribed or required for medical reasons: No Advance Directives: No Advance Directives Information Provided: No service: No Current occupational status: disabled Cognitive needs: Yes Hearing needs: No Vision needs: No Meds Allergies Allergy/AdvReac Type Severity Reaction Status Date / Time risperidone [From Risperdal] Allergy Agitated Verified 03/18/24 22:23 lactose AdvReac Severe Diarrhea Verified 03/18/24 22:23 Active Medications: Current Medications Acetaminophen (Acetaminophen 325 Mg Tablet) 650 mg PO Q6H PRN PRN Reason: Pain, Mild (Pain Scale 1-3), fever or headache Aspirin (Aspirin 81 Mg Tab.Chew) 81 mg PO DAILY [facility] Atorvastatin Calcium (Atorvastatin Calcium 80 Mg Tablet) 80 mg PO BEDTIME ANA Brexpiprazole (Brexpiprazole 1 Mg Tablet) 1 mg PO DAILY ANA Calcium Carbonate (Calcium Carbonate 750 Mg Tab.Chew) 750 mg PO Q4H PRN PRN Reason: Heartburn Clonazepam (Clonazepam 1 Mg Tablet) 1 mg PO DAILY PRN PRN Reason: anxiety Clonazepam (Clonazepam 0.5 Mg Tablet) 0.5 mg PO BID ANA Donepezil HCl (Donepezil Hcl 10 Mg Tablet) 20 mg PO BEDTIME ANA Donepezil HCl (Donepezil Hcl 5 Mg Tablet) 2.5 mg PO BEDTIME ANA Enoxaparin Sodium (Enoxaparin Sodium 40 Mg/0.4 Ml Syringe) 40 mg SUBCUT Q24H [facility] Last Admin: 03/19/24 08:03 Dose: 40 mg Fluoxetine HCl (Fluoxetine Hcl 20 Mg Capsule) 20 mg PO DAILY [facility] Glucose (Glucose Gel 15 Gm Gel..Gram.) 15 gm PO Q15M PRN; Protocol PRN Reason: per Hypoglycemia Standing Ord. Guaifenesin (Guaifenesin 200 Mg/10 Ml 10 Ml Liquid) 10 ml PO DAILY PRN PRN Reason: Cough Levetiracetam (Keppra) 500 mg in 100 mls @ 400 mls/hr IV Q12H [facility] Last Infusion: 03/19/24 08:17 Dose: Infused Dextrose (D10) 250 mls @ 750 mls/hr IV Q15M PRN; Protocol PRN Reason: per Hypoglycemia Standing Ord. Dextrose/Sodium Chloride (D5ns) 1,000 mls @ 50 mls/hr IVCONT .Q20H [facility] Last Admin: 03/19/24 08:04 Dose: 50 mls/hr Insulin Human Lispro (Insulin Lispro 100 Unit/Ml 3 Ml Vial) 0 unit SUBCUT Q6H [facility]; Protocol Last Admin: 03/19/24 11:55 Dose: Not Given Lisinopril (Lisinopril 10 Mg Tablet) 10 mg PO DAILY ANA; Protocol Lorazepam (Lorazepam 2 Mg/Ml Vial) 1 mg IVPUSH ONCE PRN PRN Reason: mri Magnesium Hydroxide (Milk Of Magnesia 30 Ml Oral.Susp) 30 ml PO DAILY PRN PRN Reason: Constipation Melatonin (Melatonin 3 Mg Tablet) 6 mg PO BEDTIME PRN PRN Reason: Insomnia Ondansetron HCl (Ondansetron Hcl 4 Mg/2 Ml Vial) 4 mg IVPUSH Q8H PRN PRN Reason: Nausea and Vomiting Sodium Chloride (0.9 % Sodium Chloride Flush 3 Ml Syringe) [facility] Last Admin: 03/19/24 08:02 Dose: 3 ml Trazodone HCl (Trazodone Hcl 25 Mg Halftab) 75 mg PO BEDTIME [facility] Home Medications ?Medication ?Instructions ?Recorded ?Confirmed ?Last Taken ?Type donepezil 23 mg tablet 23 mg PO BEDTIME 10/24/23 03/19/24 Unknown History trazodone 150 mg tablet 75 mg PO BEDTIME 10/24/23 03/19/24 Unknown History aspirin 81 mg chewable tablet 1 tab PO DAILY 03/19/24 03/19/24 Unknown History brexpiprazole 0.5 mg tablet 0.5 mg PO DAILY 03/19/24 03/19/24 Unknown History (Rexulti) brexpiprazole 1 mg tablet (Rexulti) 1 mg PO DAILY 03/19/24 03/19/24 Unknown History clonazepam 0.5 mg tablet 0.5 mg PO BID 03/19/24 03/19/24 Unknown History clonazepam 1 mg tablet (Klonopin) 1 mg PO DAILY PRN anxiety 03/19/24 03/19/24 Unknown History guaifenesin 100 mg/5 mL oral liquid 200 mg PO DAILY PRN Cough 03/19/24 03/19/24 Unknown History semaglutide 14 mg tablet (Rybelsus) 14 mg PO DAILY 03/19/24 03/19/24 Unknown History Physical Exam Vital Signs: Vital Signs: Last Vital Signs Temp 98.5 F 03/19/24 11:11 Pulse 45 L 03/19/24 11:11 Resp 13 03/19/24 11:11 BP 181/69 H 03/19/24 11:11 Pulse Ox 98 03/19/24 11:11 O2 Del Method Room Air 03/19/24 11:11 BMI result Body Mass Index 23.4 Neuro: Other: Alert and awake looking around but did not make eye contact like she staring in space. There was no gaze deviation or jerking. Left hemiparesis was noted. Deep tendon reflexes were absent with flexor plantars. Exam was limited. Results Labs 03/19/24 05:34 03/19/24 05:34 Labs: Short CBC 03/18/24 03/19/24 Range/Units 22:07 05:34 WBC 4.6 L 4.7 L (4.8-10.8) X10*3/uL Hgb 8.4 L 8.2 L (12.0-16.0) g/dl Hct 26.2 L 25.1 L (37.0-47.0) % Plt Count 164 165 (160-400) X10*3/uL BMP 03/18/24 03/19/24 22:07 05:34 Sodium 138 139 Potassium 3.9 4.0 Chloride 103 107 Carbon Dioxide 25 24 BUN 13 9 Creatinine 0.63 0.61 Calcium 8.7 D 9.7 D Liver Function 03/18/24 Range/Units 22:07 Total Bilirubin 0.7 (0.0-1.0) mg/dL Direct Bilirubin 0.2 (0.0-0.5) mg/dL AST 17 (5-31) U/L ALT 16 (0-31) U/L Alkaline Phosphatase 59 (39-117) U/L Albumin 3.3 L (3.5-5.0) g/dL Head CT revealed mild microvascular ischemic changes while CTA revealed bilateral M1 stenosis and diminutive vertebrobasilar system. Assessment and Plan (1) Altered mental status: Qualifiers: Altered mental status type: unspecified Qualified Code(s): R41.82 - Altered mental status, unspecified Status: Acute 64 years old woman with significant cognitive and physical disability due to underlying chronic static encephalopathy from congenital/perianal etiologies, had right subcortical infarct resulting in left hemiparesis few years ago, was brought to hospital with sudden change in mental status falling and then had another episode in emergency room apparently both involving gaze deviation. Exam at this time was limited and she did not communicate. Blood pressure was not low and she was not febrile. EEG did not reveal any active epileptic discharges. Seizure disorder is still a possibility but I recommend obtaining an MRI of brain without contrast for better definition. She has significant intracranial atherosclerotic disease putting her at risk for stroke. Treatment with anti-platelet agent, statin and blood pressure control is recommended. Procedures Date of Service Date of Service: 03/19/24
--- NOTE | 2024-03-19 16:01 | MHC.CM.PN ---
IMM 03/19/24 DELIVERED TO PT'S CO-GUARDIAN/BROTHER STEFANI AT BEDSIDE IN ED, STEFANI AND STAFF ARE PRESENT, PT LIVES IN [facility] STAFF REPORTS PT IS FULLY DEPENDENT W/ALL CARE/TRANSFERS, PT DOES TRANSFER TO AT , [facility] REPORTS SHE HAS BEEN DECLINING FOR MONTHS AND HAS LOST HER SPEECH SO MAINLY JUST YELLS OUT A LOT HOWEVER HAS BEEN QUIET ALL DAY AND DID NOT NEED TO BE PRE-MEDICATED FOR MRI. STEFANI REQUESTS REMOVE PT'S MOM/CO-GUARDIAN EMERGENCY CONTACT SHE IS 89YO AND HAS A LOT OF ISSUES HERSELF AND DEFERS TO HIM, STEFANI DOES REPORT THAT HE/PT'S MOM LILO AND HIS BROTHER DEB MAKE ALL DECISIONS TOGETHER AND THEY ARE ALL IN AGREEMENT PT SHOULD BE DNR/DNI HOWEVER HE IS WAITING FOR REYNA TO GIVE HIM THE OKAY TO CHANGE PT'S CODE STATUS. PT'S NAIL WELTER LINDA IS OUT ON LEAVE AND DC SHOULD BE ARRANGED THROUGH NURSE REYNA [phone]/ [phone] PT'S BROTHER DEB PRONOVOST [phone]. HAD RECEIVED CALL FROM CHERELLE DELGADO RN REGARDING PT AND CONCERNED ABOUT CODE STATUS BEING CHANGED PRIOR TO PROPER PROCEDURE, CHERELLE DID EMAIL COPY OF GUARDIANSHIP W/MED TX PLAN ATTACHED WHICH HAS BEEN UPLOADED TO [employer], TASK TO REGISTRATION TO UPDATE CONTACTS. PER CM DIRECTOR PT SHOUDL NOT NEED FORMAL DEFERMENT OF GUARDIANSHIP AND THAT IF BOTH CO-GUARDIANS AGREE CODE STATUS CAN BE CHANGED, P'T BROTHER STEFANI STILL REPORTS HE WILL WAIT FOR REYNA'S OKAY. ANTIC PT WILL LIKELY RETURN TO ONCE MEDICALLY CLEARED.
[2024-03-19 18:04] LABS: Glucose, Whole Blood 130 mg/dL (60-115)
[2024-03-19] MEDS: Donepezil HCl 10 MG TABLET 20 MG PO (22:10)
[2024-03-19] MEDS: Atorvastatin Calcium 80 MG TABLET PO (22:10)
[2024-03-19] MEDS: Donepezil HCl 5 MG TABLET 2.5 MG PO (22:24)
[2024-03-20 00:02] LABS: Glucose, Whole Blood 116 mg/dL (60-115)
[2024-03-20 03:29] VITALS: BP 164/67; PULSE 46; RESP 16; TEMP 36.1; O2SAT 96
[2024-03-20] MEDS: Dextrose 5 % and 0.9 % NaCl 1,000 ML 50 ML IVCONT (06:28)
[2024-03-20 06:33] LABS: Glucose, Whole Blood 136 mg/dL (60-115)
[2024-03-20 07:00] LABS: Anion Gap 10 (12-20); Blood Urea Nitrogen 9 mg/dL (9-16); Calcium 9.6 mg/dL (8.4-10.2); Carbon Dioxide 26 mmol/L (22-29); Chloride 105 mmol/L (96-108); Creatinine Clr Calc Pharmacy 80.8; Estimated Glomerular Filt Rate > 60; Glucose Fasting 137 mg/dL (60-99); Potassium 4.1 mmol/L (3.3-5.1); Sodium 137 mmol/L (135-145)
[2024-03-20 07:07] LABS: Hematocrit 26.2 % (37.0-47.0); Hemoglobin 8.5 g/dl (12.0-16.0); Mean Corpuscular HGB Conc 32.4 g/dl (31.0-35.0); Mean Corpuscular Hemoglobin 28.7 pg (27.0-33.0); Mean Corpuscular Volume 88.5 fL (80.0-98.0); Mean Platelet Volume 8.7 fL (9.4-12.3); Platelet Count 192 X10*3/uL (160-400); Red Blood Count 2.96 X10*6/uL (4.20-5.50); Red Cell Distribution Width 17.9 % (11.0-16.0)
[2024-03-20 07:51] VITALS: BP 150/68; PULSE 54; RESP 18; TEMP 36.4; O2SAT 97
[2024-03-20] MEDS: levETIRAcetam in NaCl (iso-os) 500 MG/100 ML PIGGYBACK 400 MG IV ×2 (09:25→21:30)
[2024-03-20] MEDS: 0.9 % Sodium Chloride Flush 3 ML SYRINGE IVFLUSH ×2 (09:26→17:30)
[2024-03-20] MEDS: Enoxaparin Sodium 40 MG/0.4 ML SYRINGE SUBCUT (09:26)
[2024-03-20] MEDS: lisinopriL 10 MG TABLET PO (09:27)
[2024-03-20] MEDS: Brexpiprazole 1 MG TABLET PO (09:27)
[2024-03-20] MEDS: clonazePAM 0.5 MG TABLET PO ×2 (09:27→21:30)
[2024-03-20] MEDS: FLUoxetine HCl 20 MG CAPSULE PO (09:27)
[2024-03-20] MEDS: Aspirin 81 MG TAB.CHEW PO (09:27)
--- NOTE | 2024-03-20 10:29 | P.PNIM_ITS ---
Subjective Subjective Date of Service: 03/20/24 Review of Systems Review of Systems: Yes Unobtainable due to mental condition Physical Exam 2 Vital Signs: Vital Signs: Last Vital Signs Temp 97.6 F 03/20/24 07:51 Pulse 54 03/20/24 07:51 Resp 18 03/20/24 07:51 BP 150/68 H 03/20/24 07:51 Pulse Ox 97 03/20/24 07:51 O2 Del Method Room Air 03/20/24 07:51 BMI result Body Mass Index 23.4 Much more alert, following simple commands, however not back to baseline normally able to vocalize and answer simple questions with 1 word Objective Data Active Medications Acetaminophen (Acetaminophen 325 Mg Tablet) 650 mg PO Q6H PRN PRN Reason: Pain, Mild (Pain Scale 1-3), fever or headache Aspirin (Aspirin 81 Mg Tab.Chew) 81 mg PO DAILY [facility] Last Admin: 03/20/24 09:27 Dose: 81 mg Documented By: STEPHANIE Atorvastatin Calcium (Atorvastatin Calcium 80 Mg Tablet) 80 mg PO BEDTIME [facility] Last Admin: 03/19/24 22:10 Dose: 80 mg Documented By: DAVID Brexpiprazole (Brexpiprazole 1 Mg Tablet) 1 mg PO DAILY [facility] Last Admin: 03/20/24 09:27 Dose: 1 mg Documented By: STEPHANIE Calcium Carbonate (Calcium Carbonate 750 Mg Tab.Chew) 750 mg PO Q4H PRN PRN Reason: Heartburn Clonazepam (Clonazepam 1 Mg Tablet) 1 mg PO DAILY PRN PRN Reason: anxiety Clonazepam (Clonazepam 0.5 Mg Tablet) 0.5 mg PO BID [facility] Last Admin: 03/20/24 09:27 Dose: 0.5 mg Documented By: STEPHANIE Enoxaparin Sodium (Enoxaparin Sodium 40 Mg/0.4 Ml Syringe) 40 mg SUBCUT Q24H [facility] Last Admin: 03/20/24 09:26 Dose: 40 mg Documented By: STEPHANIE Fluoxetine HCl (Fluoxetine Hcl 20 Mg Capsule) 20 mg PO DAILY [facility] Last Admin: 03/20/24 09:27 Dose: 20 mg Documented By: STEPHANIE Glucose (Glucose Gel 15 Gm Gel..Gram.) 15 gm PO Q15M PRN; Protocol PRN Reason: per Hypoglycemia Standing Ord. Guaifenesin (Guaifenesin 200 Mg/10 Ml 10 Ml Liquid) 10 ml PO DAILY PRN PRN Reason: Cough Levetiracetam (Keppra) 500 mg in 100 mls @ 400 mls/hr IV Q12H [facility] Last Admin: 03/20/24 09:25 Dose: 400 mls/hr Documented By: STEPHANIE Dextrose (D10) 250 mls @ 750 mls/hr IV Q15M PRN; Protocol PRN Reason: per Hypoglycemia Standing Ord. Dextrose/Sodium Chloride (D5ns) 1,000 mls @ 50 mls/hr IVCONT .Q20H [facility] Last Admin: 03/20/24 06:28 Dose: 50 mls/hr Documented By: DAVID Insulin Human Lispro (Insulin Lispro 100 Unit/Ml 3 Ml Vial) 0 unit SUBCUT Q6H [facility]; Protocol Last Admin: 03/20/24 06:33 Dose: Not Given Documented By: DAVID Non-Admin Reason: No Insulin Coverage Lisinopril (Lisinopril 10 Mg Tablet) 10 mg PO DAILY [facility]; Protocol Last Admin: 03/20/24 09:27 Dose: 10 mg Documented By: STEPHANIE Lorazepam (Lorazepam 2 Mg/Ml Vial) 1 mg IVPUSH ONCE PRN PRN Reason: mri Magnesium Hydroxide (Milk Of Magnesia 30 Ml Oral.Susp) 30 ml PO DAILY PRN PRN Reason: Constipation Melatonin (Melatonin 3 Mg Tablet) 6 mg PO BEDTIME PRN PRN Reason: Insomnia Ondansetron HCl (Ondansetron Hcl 4 Mg/2 Ml Vial) 4 mg IVPUSH Q8H PRN PRN Reason: Nausea and Vomiting Sodium Chloride (0.9 % Sodium Chloride Flush 3 Ml Syringe) 3 ml IVFLUSH QSHIFT [facility] Last Admin: 03/20/24 09:26 Dose: 3 ml Documented By: STEPHANIE Trazodone HCl (Trazodone Hcl 25 Mg Halftab) 75 mg PO BEDTIME [facility] Last Admin: 03/19/24 22:29 Dose: Not Given Documented By: DAVID Non-Admin Reason: pt drowsy arousable by name Labs 03/20/24 06:21 03/20/24 06:21 Labs: Laboratory Results - last 24 hr 03/19/24 03/19/24 03/19/24 11:49 17:59 23:58 MCV MCH MCHC RDW Plt Count MPV Absolute Nucleated RBC Nucleated RBC % (auto) Anion Gap Estim Creat Clear Calc Estimated GFR POC Glucose 129 H 130 H 116 H Fasting Glucose Calcium 03/20/24 03/20/24 06:21 06:27 MCV 88.5 MCH 28.7 MCHC 32.4 RDW 17.9 H Plt Count 192 MPV 8.7 L Absolute Nucleated RBC 0.000 Nucleated RBC % (auto) 0.0 Anion Gap 10 L Estim Creat Clear Calc 80.8 Estimated GFR > 60 POC Glucose 136 H Fasting Glucose 137 H Calcium 9.6 Assessment and Plan (1) Abnormal behavior: Status: Acute Plan 64F PMH advance early onset alzheimers dementia, dm, mood disorder, intellectual delay, htn, hld presented with ams Acute metabolic encephalopathy EEG negative for seizure, does not fully rule, continue Keppra MRI negative for acute stroke continue aspirin statin Alzheimer's dementia Will discontinue Aricept due to sinus bradycardia Diabetes Insulin sliding scale DVT prophylaxis with Lovenox Full Code reason for continued hospitalization: Not back to baseline Quality Stroke Does the patient have a stroke diagnosis?: No VTE Prior VTE?: No VTE Risk Level:: Medical - moderate - high VTE Device Contraindication: Treatment Not Indicated VTE Drug Contraindication: N/A - Med Ordered
--- NOTE | 2024-03-20 10:49 | P.CDIM_ITS ---
PROVIDER RESPONSE TEXT: To clarify, the appropriate diagnosis supported by the clinical indicators: Deep Tissue Injury coccyx QUERY TEXT: PHYSICIAN'S DOCUMENTATION REQUEST Date of Query: 03/20/2024 10:39 AM EST Patient Name: Perla Torres Admit Date: 03/19/2024 Dear Reilly Swift MD, A review of the medical record indicates additional documentation may be needed. Please review below and update the documentation accordingly. Clinical Indicators: Wound assessment dated 03/19 - Deep Tissue Injury coccyx Foam dressing applied, patient repositioned q2h Based on the above, could you please provide further information on the wound/injury documented withi n the medical record: Deep Tissue Injury coccyx Other (explain) Clinically unable to determine (explain) Thank you, Faye Barbosa, CCS, CDIS Use of terms such as suspected, likely, concern for, or probable (associated with a specific diagnosi s that is being evaluated, monitored, or treated as if it exists) are acceptable and can be coded in the inpatient se tting, when documented at the time of discharge. Please use your independent medical judgment in providing your response. THIS QUERY IS PART OF THE PERMANENT MEDICAL RECORD
[2024-03-20 11:33] VITALS: BP 178/68; PULSE 45; RESP 12; TEMP 36.6; O2SAT 97
[2024-03-20 11:50] LABS: Glucose, Whole Blood 157 mg/dL (60-115)
[2024-03-20 12:17] VITALS: BMI 23.4
--- NOTE | 2024-03-20 12:21 | MHC.CLN ---
PT WITH INCREASED NUTRITION RISK R/T PRESSURE INJURY DIET RX: 1800DM GRD M/S-APPROPRIATE RECOMMEND ADDING ENSURE MAX BID TO PROMOTE WOUND HEALING SUPP TO PROVIDE 300KCALS, 60G PROTEIN MONITOR PO INTAKE AND ENCOURAGE SUPPLEMENTS
--- NOTE | 2024-03-20 12:41 | MHC.CM.PN ---
Per MD patient is not back to baseline. No discharge planned today. MD plans to have psych review meds. DP return to once medically cleared. Family updated on plan. CM will follow for discharge.
--- NOTE | 2024-03-20 13:56 | MHC.SL.SWA ---
Speech Pathologist Impression: Risk of Aspiration, Oropharyngeal Dysphagia Risk of Aspiration Due to: Reduced Cognition Dysphasia Diet Status: No Change Liquid Consistency and Strategies for Safe Swallow: Liquid Intake Recommendation: Thin Liquid Intake Strategies: Small Sips No Straws Solid Food Consistency: Dietary Recommendations: Grnd/Mech Altered (NDD2) Additional Modifications to Solid Foods: Patient presents with risk of aspiration or choking secondary to behavioral issues related to eating: Patient if not assisted/directly supervised will eat and drink too rapidly; Patient does not initiate chewing and attempts to swallow bolus whole; Patient is known to pocket food in cheeks. Recommend reported baseline diet of Ground/Mechanical (NDD2, equivalent to minced and moist ), thin liquids (monitor for individual sips by administering by spoon, controlled cup, or straw pinch), pills crushed in apple sauce. Patient requires one to one feeding and close supervision during meals due to behavioral concerns. Alternate liquids and solids. NEW AUTOS DELIVERY DRIVER to f/u 1x to monitor tolerance. Oral Medication Intake: Crushed with Puree Please contact the pharmacy regarding appropriate crushable or liquid drug formulations that are available whenever modified delivery is recommended. Compensatory Strategies and Precautions to be Taken for Safe Swallow: Sitting Upright (90 deg) Small Bites and Sips Alternate Liquids/Solids Rate of Ingestion Change Oral Check Avoid Specific Foods Supervision While Eating and Drinking for Safe Swallow: Total Assistance (1:1) Foods to Avoid: Difficult to chew or larger pieces of food. Patient is lactose intolerant Swallowing Recommended Treatments: Compens. Strategy Educat. Recommendation for Speech: 1 f/u Bag Shop Worker Clinican/Clinical Fellow: No Supervisory Statement: I have reviewed and agree with the student/clinical fellow's documentation: N/A Speech Language Pathologist: Yaquelin Gonsalez M.A., [facility]-NEW AUTOS DELIVERY DRIVER
[2024-03-20 15:35] VITALS: BP 150/62; PULSE 45; RESP 16; TEMP 36.4; O2SAT 97
--- NOTE | 2024-03-20 16:04 | P.CNPS_ITS ---
History of Present Illness Date of Service: 03/20/24 Chief Complaint: ?Seizure Reason for Consult: family requesting med review.ams Requesting physician: Reilly Swift Discussed with referring provider: Yes Sources of Information: chart reviewed HPI Narrative: Patient is a 64-year-old female with history of early-onset Alzheimer's dementia with behavioral disturbance, cpt-[id number] diabetes mellitus, mood disorder, intellectual disability, hypertension, mixed hyperlipidemia who was brought to the emergency department for evaluation of a possible seizure and right gaze paralysis. Patient was seen in the ER 1 day prior to presentation when she had a fall in the shower which was unwitnessed. Psychiatric consult placed for: family requesting med review. ams. Pt nonverbal during assessment; looked at T/W when name was called. Per records, patient is minimally verbal at baseline and occasionally answers with 1 word responses. Per nursing, pt stated a few words earlier in the day. Psychiatric medications reviewed. Past Psychiatric History: history of early-onset Alzheimer's dementia with behavioral disturbance, mood disorder, intellectual disability Medical Evaluation Reviewed: Yes [facility] Medical History Hypercalcemia 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 Obesity due to excess calories Class 2 obesity with body mass index (BMI) of 37.0 to 37.9 in adult Mood disorder Memory loss Abnormal behavior Proteinuria Type 2 diabetes mellitus with other diabetic kidney complication Diabetes type 2, uncontrolled Urinary incontinence Microalbuminuria GERD (gastroesophageal reflux disease) Dyslipidemia Essential hypertension Mentally challenged Diabetes mellitus Surgical History History of hysterectomy Diagnostics Vital Signs (24Hr): Vital Signs - 24 hr 03/19/24 16:55 03/19/24 19:03 03/19/24 19:39 Temperature 98.2 F 98.8 F 98 F Pulse Rate 46 L 53 51 Respiratory Rate 11 L 18 12 Blood Pressure 170/69 H 177/79 H 183/63 H Pulse Oximetry 99 97 Oxygen Delivery Method Room Air Room Air Room Air 03/19/24 21:01 03/19/24 21:02 03/19/24 23:58 Temperature 97 F Pulse Rate 46 L Respiratory Rate 12 Blood Pressure 160/70 H 151/66 H Pulse Oximetry 97 93 Oxygen Delivery Method Room Air Room Air 03/20/24 03:29 03/20/24 07:51 03/20/24 11:33 Temperature 97 F 97.6 F 97.8 F Pulse Rate 46 L 54 45 L Respiratory Rate 16 18 12 Blood Pressure 164/67 H 150/68 H 178/68 H Pulse Oximetry 96 97 97 Oxygen Delivery Method Room Air Room Air Room Air 03/20/24 15:35 Temperature 97.5 F Pulse Rate 45 L Respiratory Rate 16 Blood Pressure 150/62 H Pulse Oximetry 97 Oxygen Delivery Method Room Air BMI result Body Mass Index 23.4 Labs 03/20/24 06:21 03/20/24 06:21 Labs: Laboratory Results - last 48 hr 03/18/24 03/18/24 03/18/24 21:26 22:07 22:34 WBC 4.6 L RBC 2.93 L Hgb 8.4 L Hct 26.2 L MCV 89.4 MCH 28.7 MCHC 32.1 RDW 17.8 H Plt Count 164 MPV 8.3 L Immature Gran % (Auto) 0.4 Neut % (Auto) 66.9 Lymph % (Auto) 22.3 [place] % (Auto) 8.8 Eos % (Auto) 0.7 Baso % (Auto) 0.9 Lymph # (Auto) 1.0 L [place] # (Auto) 0.4 Eos # (Auto) 0.0 Baso # (Auto) 0.0 Abs Immat Gran (auto) 0.02 Absolute Neuts (auto) 3.1 Absolute Nucleated RBC 0.000 Nucleated RBC % (auto) 0.0 PT 14.0 H Whole Blood PT 13.3 INR 1.2 H Whole Blood INR 1.1 APTT 35.1 Sodium 138 Potassium 3.9 Chloride 103 Carbon Dioxide 25 Anion Gap 14 BUN 13 Creatinine 0.63 Estim Creat Clear Calc 83.3 Estimated GFR > 60 POC Glucose 147 H Random Glucose 158 H Fasting Glucose Calcium 8.7 D Total Bilirubin 0.7 Direct Bilirubin 0.2 AST 17 ALT 16 Alkaline Phosphatase 59 Troponin I High Sens 4.4 D Total Protein 5.7 L Albumin 3.3 L Triglycerides 37 Cholesterol 108 LDL Cholesterol, Calc 54 HDL Cholesterol 47 03/19/24 03/19/24 03/19/24 00:31 05:34 07:09 WBC 4.7 L RBC 2.84 L Hgb 8.2 L Hct 25.1 L MCV 88.4 MCH 28.9 MCHC 32.7 RDW 17.9 H Plt Count 165 MPV 8.5 L Immature Gran % (Auto) 0.4 Neut % (Auto) 61.9 Lymph % (Auto) 27.4 [place] % (Auto) 9.0 Eos % (Auto) 0.4 Baso % (Auto) 0.9 Lymph # (Auto) 1.3 [place] # (Auto) 0.4 Eos # (Auto) 0.0 Baso # (Auto) 0.0 Abs Immat Gran (auto) 0.02 Absolute Neuts (auto) 2.9 Absolute Nucleated RBC 0.000 Nucleated RBC % (auto) 0.0 PT Whole Blood PT INR Whole Blood INR APTT Sodium 139 Potassium 4.0 Chloride 107 Carbon Dioxide 24 Anion Gap 12 BUN 9 Creatinine 0.61 Estim Creat Clear Calc 86.0 Estimated GFR > 60 POC Glucose 139 H 102 Random Glucose 123 H Fasting Glucose Calcium 9.7 D Total Bilirubin Direct Bilirubin AST ALT Alkaline Phosphatase Troponin I High Sens Total Protein Albumin Triglycerides Cholesterol LDL Cholesterol, Calc HDL Cholesterol 03/19/24 03/19/24 03/19/24 11:49 17:59 23:58 WBC RBC Hgb Hct MCV MCH MCHC RDW Plt Count MPV Immature Gran % (Auto) Neut % (Auto) Lymph % (Auto) [place] % (Auto) Eos % (Auto) Baso % (Auto) Lymph # (Auto) [place] # (Auto) Eos # (Auto) Baso # (Auto) Abs Immat Gran (auto) Absolute Neuts (auto) Absolute Nucleated RBC Nucleated RBC % (auto) PT Whole Blood PT INR Whole Blood INR APTT Sodium Potassium Chloride Carbon Dioxide Anion Gap BUN Creatinine Estim Creat Clear Calc Estimated GFR POC Glucose 129 H 130 H 116 H Random Glucose Fasting Glucose Calcium Total Bilirubin Direct Bilirubin AST ALT Alkaline Phosphatase Troponin I High Sens Total Protein Albumin Triglycerides Cholesterol LDL Cholesterol, Calc HDL Cholesterol 03/20/24 03/20/24 03/20/24 06:21 06:27 11:35 WBC 5.0 RBC 2.96 L Hgb 8.5 L Hct 26.2 L MCV 88.5 MCH 28.7 MCHC 32.4 RDW 17.9 H Plt Count 192 MPV 8.7 L Immature Gran % (Auto) Neut % (Auto) Lymph % (Auto) [place] % (Auto) Eos % (Auto) Baso % (Auto) Lymph # (Auto) [place] # (Auto) Eos # (Auto) Baso # (Auto) Abs Immat Gran (auto) Absolute Neuts (auto) Absolute Nucleated RBC 0.000 Nucleated RBC % (auto) 0.0 PT Whole Blood PT INR Whole Blood INR APTT Sodium 137 Potassium 4.1 Chloride 105 Carbon Dioxide 26 Anion Gap 10 L BUN 9 Creatinine 0.65 Estim Creat Clear Calc 80.8 Estimated GFR > 60 POC Glucose 136 H 157 H Random Glucose Fasting Glucose 137 H Calcium 9.6 Total Bilirubin Direct Bilirubin AST ALT Alkaline Phosphatase Troponin I High Sens Total Protein Albumin Triglycerides Cholesterol LDL Cholesterol, Calc HDL Cholesterol Imaging Radiology Impressions: ITS Impressions Head CT 03/18/24 21:25 IMPRESSION: 1. No evidence of acute intracranial hemorrhage or edematous territorial infarction. 2. Mild underlying microangiopathy. Electronically signed by: Abel Werner DO 03/18/2024 09:55 PM EST RP Head/Neck CTA 03/18/24 21:34 IMPRESSION: 1. No evidence of acute intracranial hemorrhage or edematous territorial infarction. Mild underlying microangiopathy and generalized cerebral volume loss. Chronic lacunar infarct of the right lentiform nucleus. 2. CTA of the head and neck without proximal occlusion. 3. High-grade atherosclerotic stenosis of the proximal left subclavian artery. 4. High-grade irregular stenosis of the entire M1 segment of the right MCA. Focal severe stenosis of the distal M1 segment of the left MCA. Maintained but decreased opacification of the M2 and distal branches of the right MCA compared to the contralateral side. 5. 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 This critical result was discussed with Dr. Spain at 23:15 on 03/18/2024 and it was ascertained that the content and urgency of the report was understood at the time of direct communication. Electronically signed by: Abel Werner DO 03/18/2024 11:25 PM EST RP Brain MRI 03/19/24 14:45 IMPRESSION: 1. No acute intracranial abnormalities. 2. Chronic microangiopathy and global cerebral atrophy. Electronically signed by: Nancy Sumner MD 03/19/2024 03:26 PM [facility] Mental Status Exam Mental Status Exam Patient Appearance: Disheveled Level of Consciousness: Drowsy Speech Pattern: No Speech Medications Medications Current Medications Acetaminophen (Acetaminophen 325 Mg Tablet) 650 mg PO Q6H PRN PRN Reason: Pain, Mild (Pain Scale 1-3), fever or headache Aspirin (Aspirin 81 Mg Tab.Chew) 81 mg PO DAILY [facility] Last Admin: 03/20/24 09:27 Dose: 81 mg Atorvastatin Calcium (Atorvastatin Calcium 80 Mg Tablet) 80 mg PO BEDTIME [facility] Last Admin: 03/19/24 22:10 Dose: 80 mg Brexpiprazole (Brexpiprazole 1 Mg Tablet) 1 mg PO DAILY [facility] Last Admin: 03/20/24 09:27 Dose: 1 mg Calcium Carbonate (Calcium Carbonate 750 Mg Tab.Chew) 750 mg PO Q4H PRN PRN Reason: Heartburn Clonazepam (Clonazepam 1 Mg Tablet) 1 mg PO DAILY PRN PRN Reason: anxiety Clonazepam (Clonazepam 0.5 Mg Tablet) 0.5 mg PO BID [facility] Last Admin: 03/20/24 09:27 Dose: 0.5 mg Enoxaparin Sodium (Enoxaparin Sodium 40 Mg/0.4 Ml Syringe) 40 mg SUBCUT Q24H [facility] Last Admin: 03/20/24 09:26 Dose: 40 mg Fluoxetine HCl (Fluoxetine Hcl 20 Mg Capsule) 20 mg PO DAILY [facility] Last Admin: 03/20/24 09:27 Dose: 20 mg Glucose (Glucose Gel 15 Gm Gel..Gram.) 15 gm PO Q15M PRN; Protocol PRN Reason: per Hypoglycemia Standing Ord. Guaifenesin (Guaifenesin 200 Mg/10 Ml 10 Ml Liquid) 10 ml PO DAILY PRN PRN Reason: Cough Levetiracetam (Keppra) 500 mg in 100 mls @ 400 mls/hr IV Q12H [facility] Last Infusion: 03/20/24 10:52 Dose: Infused Dextrose (D10) 250 mls @ 750 mls/hr IV Q15M PRN; Protocol PRN Reason: per Hypoglycemia Standing Ord. Dextrose/Sodium Chloride (D5ns) 1,000 mls @ 50 mls/hr IVCONT .Q20H [facility] Last Admin: 03/20/24 06:28 Dose: 50 mls/hr Insulin Human Lispro (Insulin Lispro 100 Unit/Ml 3 Ml Vial) 0 unit SUBCUT Q6H [facility]; Protocol Last Admin: 03/20/24 14:25 Dose: Not Given Lisinopril (Lisinopril 10 Mg Tablet) 10 mg PO DAILY [facility]; Protocol Last Admin: 03/20/24 09:27 Dose: 10 mg Lorazepam (Lorazepam 2 Mg/Ml Vial) 1 mg IVPUSH ONCE PRN PRN Reason: mri Magnesium Hydroxide (Milk Of Magnesia 30 Ml Oral.Susp) 30 ml PO DAILY PRN PRN Reason: Constipation Melatonin (Melatonin 3 Mg Tablet) 6 mg PO BEDTIME PRN PRN Reason: Insomnia Ondansetron HCl (Ondansetron Hcl 4 Mg/2 Ml Vial) 4 mg IVPUSH Q8H PRN PRN Reason: Nausea and Vomiting Sodium Chloride (0.9 % Sodium Chloride Flush 3 Ml Syringe) 3 ml IVFLUSH QSHIFT [facility] Last Admin: 03/20/24 09:26 Dose: 3 ml Trazodone HCl (Trazodone Hcl 25 Mg Halftab) 75 mg PO BEDTIME [facility] Last Admin: 03/19/24 22:29 Dose: Not Given Allergies Allergies Allergy/AdvReac Type Severity Reaction Status Date / Time risperidone [From Risperdal] Allergy Agitated Verified 03/18/24 22:23 lactose AdvReac Severe Diarrhea Verified 03/18/24 22:23 Assessment & Plan Assessment & Plan (1) Encounter for medication review: Status: Acute Code(s): Z79.899 - Other jail (current) drug therapy Plan Recommendation: Hold Klonopin d/t bradycardia. Continue other psychiatric medications. Follow up with outpatient psychiatric providers for continued medication review. Total time managing care of this patient today _20___ minutes.
[2024-03-20 17:14] LABS: Glucose, Whole Blood 162 mg/dL (60-115)
[2024-03-20] MEDS: Insulin Lispro 100 UNIT/ML 3 ML VIAL SUBCUT (18:14)
[2024-03-20 20:00] VITALS: BP 166/66; PULSE 43; RESP 12; TEMP 37.6; O2SAT 96
[2024-03-20 20:53] LABS: Glucose, Whole Blood 120 mg/dL (60-115)
[2024-03-20] MEDS: traZODone HCL 25 MG HALFTAB 75 MG PO (21:30)
[2024-03-20] MEDS: Atorvastatin Calcium 80 MG TABLET PO (21:30)
[2024-03-21] VITALS (7 sets, daily range): BP systolic 120–168; BP diastolic 52–78; PULSE 45–64; RESP 16–20; TEMP 36.3–37.1; O2SAT 94–97
[2024-03-21 00:32] LABS: Glucose, Whole Blood 133 mg/dL (60-115)
[2024-03-21] MEDS: Dextrose 5 % and 0.9 % NaCl 1,000 ML 50 ML IVCONT (03:57)
[2024-03-21 05:55] LABS: Glucose, Whole Blood 130 mg/dL (60-115)
[2024-03-21 07:54] LABS: Glucose, Whole Blood 130 mg/dL (60-115)
[2024-03-21] MEDS: levETIRAcetam in NaCl (iso-os) 500 MG/100 ML PIGGYBACK 400 MG IV ×2 (08:23→20:05)
[2024-03-21] MEDS: Enoxaparin Sodium 40 MG/0.4 ML SYRINGE SUBCUT (08:27)
[2024-03-21] MEDS: 0.9 % Sodium Chloride Flush 3 ML SYRINGE IVFLUSH ×3 (08:28→22:13)
[2024-03-21] MEDS: clonazePAM 0.5 MG TABLET PO (08:28)
[2024-03-21] MEDS: FLUoxetine HCl 20 MG CAPSULE PO (08:28)
[2024-03-21] MEDS: Brexpiprazole 1 MG TABLET PO (08:28)
[2024-03-21] MEDS: Aspirin 81 MG TAB.CHEW PO (08:28)
[2024-03-21] MEDS: lisinopriL 10 MG TABLET PO (08:28)
--- NOTE | 2024-03-21 09:41 | HO.PM.IMPN ---
Subjective Subjective Date of Service: 03/21/24 Review of Systems Review of Systems: Yes Unobtainable due to mental status Physical Exam Vital Signs: Vital Signs: Last Vital Signs Temp 98.1 F 03/21/24 08:00 Pulse 47 L 03/21/24 08:00 Resp 16 03/21/24 08:00 BP 159/71 H 03/21/24 08:00 Pulse Ox 97 03/21/24 08:00 O2 Del Method Room Air 03/21/24 08:00 BMI result Body Mass Index 23.4 continues to be more alert, following simple instructions, less verbal than baseline, though halfway staff reporting some words Objective Data Active Medications Acetaminophen (Acetaminophen 325 Mg Tablet) 650 mg PO Q6H PRN PRN Reason: Pain, Mild (Pain Scale 1-3), fever or headache Aspirin (Aspirin 81 Mg Tab.Chew) 81 mg PO DAILY [facility] Last Admin: 03/21/24 08:28 Dose: 81 mg Documented By: EMMA Atorvastatin Calcium (Atorvastatin Calcium 80 Mg Tablet) 80 mg PO BEDTIME [facility] Last Admin: 03/20/24 21:30 Dose: 80 mg Documented By: OUSMANE Brexpiprazole (Brexpiprazole 1 Mg Tablet) 1 mg PO DAILY [facility] Last Admin: 03/21/24 08:28 Dose: 1 mg Documented By: EMMA Calcium Carbonate (Calcium Carbonate 750 Mg Tab.Chew) 750 mg PO Q4H PRN PRN Reason: Heartburn Clonazepam (Clonazepam 1 Mg Tablet) 1 mg PO DAILY PRN PRN Reason: anxiety Clonazepam (Clonazepam 0.5 Mg Tablet) 0.5 mg PO BID [facility] Last Admin: 03/21/24 08:28 Dose: 0.5 mg Documented By: EMMA Enoxaparin Sodium (Enoxaparin Sodium 40 Mg/0.4 Ml Syringe) 40 mg SUBCUT Q24H [facility] Last Admin: 03/21/24 08:27 Dose: 40 mg Documented By: EMMA Fluoxetine HCl (Fluoxetine Hcl 20 Mg Capsule) 20 mg PO DAILY [facility] Last Admin: 03/21/24 08:28 Dose: 20 mg Documented By: EMMA Glucose (Glucose Gel 15 Gm Gel..Gram.) 15 gm PO Q15M PRN; Protocol PRN Reason: per Hypoglycemia Standing Ord. Guaifenesin (Guaifenesin 200 Mg/10 Ml 10 Ml Liquid) 10 ml PO DAILY PRN PRN Reason: Cough Levetiracetam (Keppra) 500 mg in 100 mls @ 400 mls/hr IV Q12H [facility] Last Infusion: 03/21/24 08:39 Dose: Infused Documented By: EMMA Dextrose (D10) 250 mls @ 750 mls/hr IV Q15M PRN; Protocol PRN Reason: per Hypoglycemia Standing Ord. Insulin Human Lispro (Insulin Lispro 100 Unit/Ml 3 Ml Vial) 0 unit SUBCUT Q6H [facility]; Protocol Last Admin: 03/21/24 06:00 Dose: Not Given Documented By: OUSMANE Non-Admin Reason: No Insulin Coverage Lisinopril (Lisinopril 10 Mg Tablet) 10 mg PO DAILY [facility]; Protocol Last Admin: 03/21/24 08:28 Dose: 10 mg Documented By: EMMA Lorazepam (Lorazepam 2 Mg/Ml Vial) 1 mg IVPUSH ONCE PRN PRN Reason: mri Magnesium Hydroxide (Milk Of Magnesia 30 Ml Oral.Susp) 30 ml PO DAILY PRN PRN Reason: Constipation Melatonin (Melatonin 3 Mg Tablet) 6 mg PO BEDTIME PRN PRN Reason: Insomnia Ondansetron HCl (Ondansetron Hcl 4 Mg/2 Ml Vial) 4 mg IVPUSH Q8H PRN PRN Reason: Nausea and Vomiting Sodium Chloride (0.9 % Sodium Chloride Flush 3 Ml Syringe) 3 ml IVFLUSH QSHIFT [facility] Last Admin: 03/21/24 08:28 Dose: 3 ml Documented By: EMMA Trazodone HCl (Trazodone Hcl 25 Mg Halftab) 75 mg PO BEDTIME [facility] Last Admin: 03/20/24 21:30 Dose: 75 mg Documented By: OUSMANE Labs 03/20/24 06:21 03/20/24 06:21 Labs: Laboratory Results - last 24 hr 03/20/24 03/20/24 03/20/24 11:35 17:10 20:48 POC Glucose 157 H 162 H 120 H 03/21/24 03/21/24 03/21/24 00:25 05:48 07:41 POC Glucose 133 H 130 H 130 H Assessment and Plan (1) Abnormal behavior: Status: Acute Plan 64F PMH advance early onset alzheimers dementia, dm, mood disorder, intellectual delay, htn, hld presented with ams Acute metabolic encephalopathy EEG negative for seizure, does not fully rule, continue Keppra, plan for outpatient 24-48hr eeg MRI negative for acute stroke continue aspirin statin sinus bradycardia ? cause of above holding aricept, will change klonipin to xanax as xanax less likely to cause sharon cardio eval Alzheimer's dementia discontinued Aricept due to sinus bradycardia Diabetes Insulin sliding scale DVT prophylaxis with Lovenox Full Code reason for continued hospitalization: sharon Quality Stroke Does the patient have a stroke diagnosis?: No VTE Prior VTE?: No VTE Risk Level:: Medical - moderate - high VTE Device Contraindication: Treatment Not Indicated VTE Drug Contraindication: N/A - Med Ordered
[2024-03-21 11:45] LABS: Glucose, Whole Blood 170 mg/dL (60-115)
[2024-03-21] MEDS: Insulin Lispro 100 UNIT/ML 3 ML VIAL SUBCUT ×2 (12:34→18:01)
[2024-03-21] MEDS: Tobramycin Sulfate 0.3% Sol Op 5 ML BTL 1 DROP EYE-BOTH ×3 (14:08→22:13)
[2024-03-21 17:58] LABS: Glucose, Whole Blood 170 mg/dL (60-115)
[2024-03-21] MEDS: traZODone HCL 25 MG HALFTAB 75 MG PO (20:04)
[2024-03-21] MEDS: Atorvastatin Calcium 80 MG TABLET PO (20:04)
[2024-03-21] MEDS: ALPRAZolam 0.25 MG TABLET 0.125 MG PO (20:04)
[2024-03-22 00:08] LABS: Glucose, Whole Blood 116 mg/dL (60-115)
[2024-03-22] MEDS: Tobramycin Sulfate 0.3% Sol Op 5 ML BTL 1 DROP EYE-BOTH ×6 (00:48→21:59)
[2024-03-22 04:00] VITALS: BP 131/63; PULSE 69; RESP 20; TEMP 36.1; O2SAT 94
[2024-03-22 05:43] LABS: Glucose, Whole Blood 123 mg/dL (60-115)
[2024-03-22 08:00] VITALS: BP 140/58; PULSE 43; RESP 14; TEMP 36.6; O2SAT 100
[2024-03-22] MEDS: ALPRAZolam 0.25 MG TABLET 0.125 MG PO ×2 (09:17→21:58)
[2024-03-22] MEDS: Brexpiprazole 1 MG TABLET PO (09:17)
[2024-03-22] MEDS: FLUoxetine HCl 20 MG CAPSULE PO (09:17)
[2024-03-22] MEDS: lisinopriL 10 MG TABLET PO (09:18)
[2024-03-22] MEDS: Aspirin 81 MG TAB.CHEW PO (09:20)
[2024-03-22] MEDS: levETIRAcetam in NaCl (iso-os) 500 MG/100 ML PIGGYBACK 400 MG IV ×2 (09:21→21:56)
[2024-03-22] MEDS: Enoxaparin Sodium 40 MG/0.4 ML SYRINGE SUBCUT (09:23)
--- NOTE | 2024-03-22 09:23 | HO.PM.IMPN ---
Subjective Subjective Date of Service: 03/22/24 Interval History: Per family patient was even better than her baseline Physical Exam Vital Signs: Vital Signs: Last Vital Signs Temp 98 F 03/22/24 08:00 Pulse 43 L 03/22/24 08:00 Resp 14 03/22/24 08:00 BP 140/58 H 03/22/24 08:00 Pulse Ox 100 03/22/24 08:00 O2 Del Method Room Air 03/22/24 08:00 BMI result Body Mass Index 23.4 continues to be more alert, following simple instructions, Objective Data Active Medications Acetaminophen (Acetaminophen 325 Mg Tablet) 650 mg PO Q6H PRN PRN Reason: Pain, Mild (Pain Scale 1-3), fever or headache Alprazolam (Alprazolam 0.25 Mg Tablet) 0.125 mg PO BID [facility] Last Admin: 03/21/24 20:04 Dose: 0.125 mg Documented By: ANDI Aspirin (Aspirin 81 Mg Tab.Chew) 81 mg PO DAILY [facility] Last Admin: 03/21/24 08:28 Dose: 81 mg Documented By: EMMA Atorvastatin Calcium (Atorvastatin Calcium 80 Mg Tablet) 80 mg PO BEDTIME [facility] Last Admin: 03/21/24 20:04 Dose: 80 mg Documented By: ANDI Brexpiprazole (Brexpiprazole 1 Mg Tablet) 1 mg PO DAILY [facility] Last Admin: 03/21/24 08:28 Dose: 1 mg Documented By: EMMA Calcium Carbonate (Calcium Carbonate 750 Mg Tab.Chew) 750 mg PO Q4H PRN PRN Reason: Heartburn Enoxaparin Sodium (Enoxaparin Sodium 40 Mg/0.4 Ml Syringe) 40 mg SUBCUT Q24H [facility] Last Admin: 03/21/24 08:27 Dose: 40 mg Documented By: EMMA Fluoxetine HCl (Fluoxetine Hcl 20 Mg Capsule) 20 mg PO DAILY [facility] Last Admin: 03/21/24 08:28 Dose: 20 mg Documented By: EMMA Glucose (Glucose Gel 15 Gm Gel..Gram.) 15 gm PO Q15M PRN; Protocol PRN Reason: per Hypoglycemia Standing Ord. Guaifenesin (Guaifenesin 200 Mg/10 Ml 10 Ml Liquid) 10 ml PO DAILY PRN PRN Reason: Cough Levetiracetam (Keppra) 500 mg in 100 mls @ 400 mls/hr IV Q12H [facility] Last Infusion: 03/21/24 20:20 Dose: Infused Documented By: ANDI Dextrose (D10) 250 mls @ 750 mls/hr IV Q15M PRN; Protocol PRN Reason: per Hypoglycemia Standing Ord. Insulin Human Lispro (Insulin Lispro 100 Unit/Ml 3 Ml Vial) 0 unit SUBCUT Q6H [facility]; Protocol Last Admin: 03/22/24 07:15 Dose: Not Given Documented By: EMMA Non-Admin Reason: No Insulin Coverage Lisinopril (Lisinopril 10 Mg Tablet) 10 mg PO DAILY [facility]; Protocol Last Admin: 03/21/24 08:28 Dose: 10 mg Documented By: EMMA Lorazepam (Lorazepam 2 Mg/Ml Vial) 1 mg IVPUSH ONCE PRN PRN Reason: mri Magnesium Hydroxide (Milk Of Magnesia 30 Ml Oral.Susp) 30 ml PO DAILY PRN PRN Reason: Constipation Melatonin (Melatonin 3 Mg Tablet) 6 mg PO BEDTIME PRN PRN Reason: Insomnia Ondansetron HCl (Ondansetron Hcl 4 Mg/2 Ml Vial) 4 mg IVPUSH Q8H PRN PRN Reason: Nausea and Vomiting Sodium Chloride (0.9 % Sodium Chloride Flush 3 Ml Syringe) 3 ml IVFLUSH QSHIFT [facility] Last Admin: 03/21/24 22:13 Dose: 3 ml Documented By: ANDI Tobramycin Sulfate (Tobramycin Sulfate 0.3% Radha Op 5 Ml Btl) 1 drop EYE-BOTH Q4H [facility] Last Admin: 03/22/24 05:39 Dose: 1 drop Documented By: ANDI Trazodone HCl (Trazodone Hcl 25 Mg Halftab) 75 mg PO BEDTIME [facility] Last Admin: 03/21/24 20:04 Dose: 75 mg Documented By: ANDI Labs 03/20/24 06:21 03/20/24 06:21 Labs: Laboratory Results - last 24 hr 03/21/24 03/21/24 03/22/24 11:39 17:51 00:02 POC Glucose 170 H 170 H 116 H 03/22/24 05:39 POC Glucose 123 H Assessment and Plan (1) Abnormal behavior: Status: Acute Plan 64F PMH advance early onset alzheimers dementia, dm, mood disorder, intellectual delay, htn, hld presented with ams Acute metabolic encephalopathy EEG negative for seizure, does not fully rule out, continue Keppra, plan for outpatient 24-48hr eeg MRI negative for acute stroke continue aspirin statin sinus bradycardia ? cause of above holding aricept, changed klonipin to xanax as xanax less likely to cause sharon cardio eval Alzheimer's dementia discontinued Aricept due to sinus bradycardia Diabetes Insulin sliding scale DVT prophylaxis with Lovenox Full Code reason for continued hospitalization: sharon Quality Stroke Does the patient have a stroke diagnosis?: No VTE Prior VTE?: No VTE Risk Level:: Medical - moderate - high VTE Device Contraindication: Treatment Not Indicated VTE Drug Contraindication: N/A - Med Ordered
[2024-03-22] MEDS: 0.9 % Sodium Chloride Flush 3 ML SYRINGE IVFLUSH ×3 (09:25→21:59)
--- NOTE | 2024-03-22 10:48 | PM.CNCAR ---
History of Present Illness History of Present Illness Date of Service: 03/22/24 Requesting physician: Reilly Swift Consult reason: other (Sinus bradycardia) Chief complaint: ?Seizure Narrative: I was consulted to see Perla in cardiology consultation today for sinus bradycardia. Patient has been admitted with altered mental status and abnormal behavior. Patient has prior history of hypothyroidism, hypertension, early onset dementia with behavioral issues, obesity, diabetes with mental slowness. Patient was referred here with above. Was on admission having sinus bradycardia with PACs. Has been put on cardiac telemetry for unclear reasons although patient noted to continued to have sinus bradycardia. The no reported symptoms. Patient's psychoactive medications have been adjusted as per the family actually mentally she is doing a lot better and more alert. She has remained hemodynamically stable. There has been no reported syncopal episodes. Patient is mostly bed-bound currently. No TSH was checked so far. Cardiology consult was sought because of bradycardia. She was currently not on any known rate lowering medication although he is on lot of psychoactive medications. Review of Systems Review of Systems: Yes Unobtainable due to mental status PMFSH Past Medical History Medical History Hypercalcemia 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 Obesity due to excess calories Class 2 obesity with body mass index (BMI) of 37.0 to 37.9 in adult Mood disorder Memory loss Abnormal behavior Proteinuria Type 2 diabetes mellitus with other diabetic kidney complication Diabetes type 2, uncontrolled Urinary incontinence Microalbuminuria GERD (gastroesophageal reflux disease) Dyslipidemia Essential hypertension Mentally challenged Diabetes mellitus Family History Family History Father CVD (cardiovascular disease) Mother Hypertension Brother Healthy adult Surgical History Surgical History History of hysterectomy Social History Social History Household Members: Caregiver Housing: Assisted Living Facility Do you presently have visiting nurse or other home services: Yes Unable to assess alcohol history related to: Unknown Alcohol intake: never Comment: [facility] staff in room Patient Tobacco Use Status: Never used Tobacco e-Cigarette/Vaping Use: Never Used Second Hand Smoke Exposure: No service: No Current occupational status: disabled Cognitive needs: Yes Hearing needs: No Vision needs: No Meds Allergies Allergy/AdvReac Type Severity Reaction Status Date / Time risperidone [From Risperdal] Allergy Agitated Verified 03/18/24 22:23 lactose AdvReac Severe Diarrhea Verified 03/18/24 22:23 Active Medications: Current Medications Acetaminophen (Acetaminophen 325 Mg Tablet) 650 mg PO Q6H PRN PRN Reason: Pain, Mild (Pain Scale 1-3), fever or headache Alprazolam (Alprazolam 0.25 Mg Tablet) 0.125 mg PO BID [facility] Last Admin: 03/22/24 09:17 Dose: 0.125 mg Aspirin (Aspirin 81 Mg Tab.Chew) 81 mg PO DAILY [facility] Last Admin: 03/22/24 09:20 Dose: 81 mg Atorvastatin Calcium (Atorvastatin Calcium 80 Mg Tablet) 80 mg PO BEDTIME [facility] Last Admin: 03/21/24 20:04 Dose: 80 mg Brexpiprazole (Brexpiprazole 1 Mg Tablet) 1 mg PO DAILY [facility] Last Admin: 03/22/24 09:17 Dose: 1 mg Calcium Carbonate (Calcium Carbonate 750 Mg Tab.Chew) 750 mg PO Q4H PRN PRN Reason: Heartburn Enoxaparin Sodium (Enoxaparin Sodium 40 Mg/0.4 Ml Syringe) 40 mg SUBCUT Q24H [facility] Last Admin: 03/22/24 09:23 Dose: 40 mg Fluoxetine HCl (Fluoxetine Hcl 20 Mg Capsule) 20 mg PO DAILY [facility] Last Admin: 03/22/24 09:17 Dose: 20 mg Glucose (Glucose Gel 15 Gm Gel..Gram.) 15 gm PO Q15M PRN; Protocol PRN Reason: per Hypoglycemia Standing Ord. Guaifenesin (Guaifenesin 200 Mg/10 Ml 10 Ml Liquid) 10 ml PO DAILY PRN PRN Reason: Cough Levetiracetam (Keppra) 500 mg in 100 mls @ 400 mls/hr IV Q12H [facility] Last Infusion: 03/22/24 10:29 Dose: Infused Dextrose (D10) 250 mls @ 750 mls/hr IV Q15M PRN; Protocol PRN Reason: per Hypoglycemia Standing Ord. Insulin Human Lispro (Insulin Lispro 100 Unit/Ml 3 Ml Vial) 0 unit SUBCUT Q6H [facility]; Protocol Last Admin: 03/22/24 07:15 Dose: Not Given Lisinopril (Lisinopril 10 Mg Tablet) 10 mg PO DAILY [facility]; Protocol Last Admin: 03/22/24 09:18 Dose: 10 mg Lorazepam (Lorazepam 2 Mg/Ml Vial) 1 mg IVPUSH ONCE PRN PRN Reason: mri Magnesium Hydroxide (Milk Of Magnesia 30 Ml Oral.Susp) 30 ml PO DAILY PRN PRN Reason: Constipation Melatonin (Melatonin 3 Mg Tablet) 6 mg PO BEDTIME PRN PRN Reason: Insomnia Ondansetron HCl (Ondansetron Hcl 4 Mg/2 Ml Vial) 4 mg IVPUSH Q8H PRN PRN Reason: Nausea and Vomiting Sodium Chloride (0.9 % Sodium Chloride Flush 3 Ml Syringe) 3 ml IVFLUSH QSHIFT [facility] Last Admin: 03/22/24 09:25 Dose: 3 ml Tobramycin Sulfate (Tobramycin Sulfate 0.3% Radha Op 5 Ml Btl) 1 drop EYE-BOTH Q4H [facility] Last Admin: 03/22/24 09:53 Dose: 1 drop Home Medications ?Medication ?Instructions ?Recorded ?Confirmed ?Last Taken ?Type donepezil 23 mg tablet 23 mg PO BEDTIME 10/24/23 03/19/24 Unknown History trazodone 150 mg tablet 75 mg PO BEDTIME 10/24/23 03/19/24 Unknown History aspirin 81 mg chewable tablet 1 tab PO DAILY 03/19/24 03/19/24 Unknown History brexpiprazole 0.5 mg tablet 0.5 mg PO DAILY 03/19/24 03/19/24 Unknown History (Rexulti) brexpiprazole 1 mg tablet (Rexulti) 1 mg PO DAILY 03/19/24 03/19/24 Unknown History clonazepam 0.5 mg tablet 0.5 mg PO BID 03/19/24 03/19/24 Unknown History clonazepam 1 mg tablet (Klonopin) 1 mg PO DAILY PRN anxiety 03/19/24 03/19/24 Unknown History guaifenesin 100 mg/5 mL oral liquid 200 mg PO DAILY PRN Cough 03/19/24 03/19/24 Unknown History semaglutide 14 mg tablet (Rybelsus) 14 mg PO DAILY 03/19/24 03/19/24 Unknown History Physical Exam Vital Signs: Vital Signs: Last Vital Signs Temp 98 F 03/22/24 08:00 Pulse 43 L 03/22/24 08:00 Resp 14 03/22/24 08:00 BP 140/58 H 03/22/24 08:00 Pulse Ox 100 03/22/24 08:00 O2 Del Method Room Air 03/22/24 08:00 BMI result Body Mass Index 23.4 Const: General: cooperative, alert and awake Nutritional Appearance: thin Orientation/consciousness: patient oriented x3 HEENT: Head: Yes normocephalic and Yes atraumatic Neck: Neck: Yes trachea midline, Yes supple and Yes no JVD Resp: Effort & Inspection: decreased respiratory effort Auscultation: clear to auscultation bilaterally Cardio: Jugular venous distension: no JVD Rate: regular rate Rhythm: regular rhythm Heart sounds: S1 normal heart sound present, S2 normal heart sound present, no click, no gallops and Murmur heart sound present systolic early GI: Auscultation: normal bowel sounds Skin: General skin exam: no rashes or lesions noted Neuro: General: patient oriented x3 and no focal motor deficits Extrem: General: Yes no clubbing, cyanosis or edema Objective Labs and Meds 03/20/24 06:21 03/20/24 06:21 Lab results: Laboratory Results - last 24 hr 03/21/24 03/21/24 03/22/24 11:39 17:51 00:02 POC Glucose 170 H 170 H 116 H 03/22/24 05:39 POC Glucose 123 H EKG shows sinus bradycardia with right bundle-branch block. Left anterior fascicular block is not noted, probably rate related Assessment and Plan (1) Sinus bradycardia: Status: Acute Asymptomatic sinus bradycardia in this middle-aged female with advanced cognitive dysfunction dementia. Family, her brother and her mother who are guardians for her were at bedside. Discuss asymptomatic nature of sinus bradycardia and no interventions such as pacing required at this point time unless she has symptoms related to it including syncope or altered mental status with obtundation. Or blood pressure changes. Sinus bradycardia could be related to sinoatrial node dysfunction but more likely related to her medications especially psychoactive medication and possibly hypothyroidism. Please check TSH. I would also consider holding trazodone which is reported to cause sinus bradycardia and cross check with pharmacist if any of the other medicines can potentially cause sinus bradycardia and discontinue it. Avoid rate lowering medication in the future. Plan discussed with the family members they understand that she does not require pacemaker and are not sure whether they will consider putting a pacemaker although they are guardians and not healthcare proxy. Will sign of the case. Thank you for allowing me to partake in his care Procedures Date of Service Date of Service: 03/22/24
[2024-03-22 11:26] LABS: Glucose, Whole Blood 138 mg/dL (60-115)
[2024-03-22 12:00] VITALS: BP 130/66; PULSE 44; RESP 12; TEMP 36.8; O2SAT 96
[2024-03-22 13:03] LABS: TSH reflex Free T4 2.67 uIU/mL (0.32-4.0)
[2024-03-22 16:00] VITALS: BP 136/65; PULSE 66; RESP 12; TEMP 37.2; O2SAT 97
[2024-03-22 18:25] LABS: Glucose, Whole Blood 129 mg/dL (60-115)
[2024-03-22 19:00] VITALS: BP 133/63; PULSE 46; RESP 15; TEMP 36.4; O2SAT 95
[2024-03-22] MEDS: Atorvastatin Calcium 80 MG TABLET PO (21:57)
[2024-03-22 23:09] VITALS: BP 144/64; PULSE 43; RESP 16; TEMP 36.8; O2SAT 96
[2024-03-22 23:41] LABS: Glucose, Whole Blood 131 mg/dL (60-115)
[2024-03-23] MEDS: Tobramycin Sulfate 0.3% Sol Op 5 ML BTL 1 DROP EYE-BOTH ×6 (03:03→22:02)
[2024-03-23 03:19] VITALS: BP 159/70; PULSE 55; RESP 18; TEMP 36.1; O2SAT 95
[2024-03-23 06:32] LABS: Glucose, Whole Blood 118 mg/dL (60-115)
[2024-03-23] MEDS: Milk of Magnesia 30 ML ORAL.SUSP PO (06:48)
[2024-03-23 07:34] VITALS: BP 149/68; PULSE 45; RESP 16; TEMP 36.7; O2SAT 96
[2024-03-23] MEDS: Enoxaparin Sodium 40 MG/0.4 ML SYRINGE SUBCUT (08:06)
[2024-03-23] MEDS: Aspirin 81 MG TAB.CHEW PO (08:06)
[2024-03-23] MEDS: levETIRAcetam in NaCl (iso-os) 500 MG/100 ML PIGGYBACK 400 MG IV ×2 (08:06→20:23)
[2024-03-23] MEDS: FLUoxetine HCl 20 MG CAPSULE PO (08:06)
[2024-03-23] MEDS: Acetaminophen 325 MG TABLET 650 MG PO (08:06)
[2024-03-23] MEDS: ALPRAZolam 0.25 MG TABLET 0.125 MG PO ×2 (08:06→20:26)
[2024-03-23] MEDS: Brexpiprazole 1 MG TABLET PO (08:06)
[2024-03-23] MEDS: 0.9 % Sodium Chloride Flush 3 ML SYRINGE IVFLUSH ×2 (08:08→16:06)
[2024-03-23] MEDS: lisinopriL 10 MG TABLET PO (08:11)
[2024-03-23] MEDS: polyethylene glycoL 3350 17 GM POWD.PACK PO (08:50)
--- NOTE | 2024-03-23 09:32 | P.PNIM_ITS ---
Subjective Subjective Date of Service: 03/23/24 Interval History: Per family patient even better than her baseline cotninues to be bradycardic to low 30s at night, but does increase to 80s when agitated Physical Exam 2 Vital Signs: Vital Signs: Last Vital Signs Temp 98.1 F 03/23/24 07:34 Pulse 45 L 03/23/24 07:34 Resp 16 03/23/24 07:34 BP 149/68 H 03/23/24 07:34 Pulse Ox 96 03/23/24 07:34 O2 Del Method Room Air 03/23/24 07:34 BMI result Body Mass Index 23.4 Const: General: cooperative, alert and awake Nutritional Appearance: thin Orientation/consciousness: patient oriented x3 HEENT: Head: Yes normocephalic and Yes atraumatic Neck: Neck: Yes trachea midline, Yes supple and Yes no JVD Resp: Effort & Inspection: decreased respiratory effort Auscultation: clear to auscultation bilaterally Cardio: Jugular venous distension: no JVD Rate: regular rate Rhythm: r egular rhythm Heart sounds: S1 normal heart sound present, S2 normal heart sound present, no click, no gallops and Murmur heart sound present systolic early GI: Auscultation: normal bowel sounds Skin: General skin exam: no rashes or lesions noted Neuro: General: patient oriented x3 and no focal motor deficits Extrem: General: Yes no clubbing, cyanosis or edema Objective Data Active Medications Acetaminophen (Acetaminophen 325 Mg Tablet) 650 mg PO Q6H PRN PRN Reason: Pain, Mild (Pain Scale 1-3), fever or headache Last Admin: 03/23/24 08:06 Dose: 650 mg Documented By: RASHID Alprazolam (Alprazolam 0.25 Mg Tablet) 0.125 mg PO BID [facility] Last Admin: 03/23/24 08:06 Dose: 0.125 mg Documented By: RASHID Aspirin (Aspirin 81 Mg Tab.Chew) 81 mg PO DAILY [facility] Last Admin: 03/23/24 08:06 Dose: 81 mg Documented By: RASHID Atorvastatin Calcium (Atorvastatin Calcium 80 Mg Tablet) 80 mg PO BEDTIME [facility] Last Admin: 03/22/24 21:57 Dose: 80 mg Documented By: JOELLE Brexpiprazole (Brexpiprazole 1 Mg Tablet) 1 mg PO DAILY [facility] Last Admin: 03/23/24 08:06 Dose: 1 mg Documented By: RASHID Calcium Carbonate (Calcium Carbonate 750 Mg Tab.Chew) 750 mg PO Q4H PRN PRN Reason: Heartburn Enoxaparin Sodium (Enoxaparin Sodium 40 Mg/0.4 Ml Syringe) 40 mg SUBCUT Q24H [facility] Last Admin: 03/23/24 08:06 Dose: 40 mg Documented By: RASHID Fluoxetine HCl (Fluoxetine Hcl 20 Mg Capsule) 20 mg PO DAILY [facility] Last Admin: 03/23/24 08:06 Dose: 20 mg Documented By: RASHID Glucose (Glucose Gel 15 Gm Gel..Gram.) 15 gm PO Q15M PRN; Protocol PRN Reason: per Hypoglycemia Standing Ord. Guaifenesin (Guaifenesin 200 Mg/10 Ml 10 Ml Liquid) 10 ml PO DAILY PRN PRN Reason: Cough Levetiracetam (Keppra) 500 mg in 100 mls @ 400 mls/hr IV Q12H [facility] Last Infusion: 03/23/24 08:49 Dose: Infused Documented By: RASHID Dextrose (D10) 250 mls @ 750 mls/hr IV Q15M PRN; Protocol PRN Reason: per Hypoglycemia Standing Ord. Insulin Human Lispro (Insulin Lispro 100 Unit/Ml 3 Ml Vial) 0 unit SUBCUT Q6H [facility]; Protocol Last Admin: 03/23/24 06:29 Dose: Not Given Documented By: JOELLE Non-Admin Reason: POC 118 Lisinopril (Lisinopril 10 Mg Tablet) 10 mg PO DAILY [facility]; Protocol Last Admin: 03/23/24 08:11 Dose: 10 mg Documented By: RASHID Lorazepam (Lorazepam 2 Mg/Ml Vial) 1 mg IVPUSH ONCE PRN PRN Reason: mri Magnesium Hydroxide (Milk Of Magnesia 30 Ml Oral.Susp) 30 ml PO DAILY PRN PRN Reason: Constipation Last Admin: 03/23/24 06:48 Dose: 30 ml Documented By: JOELLE Melatonin (Melatonin 3 Mg Tablet) 6 mg PO BEDTIME PRN PRN Reason: Insomnia Ondansetron HCl (Ondansetron Hcl 4 Mg/2 Ml Vial) 4 mg IVPUSH Q8H PRN PRN Reason: Nausea and Vomiting Sodium Chloride (0.9 % Sodium Chloride Flush 3 Ml Syringe) 3 ml IVFLUSH QSHIFT [facility] Last Admin: 03/23/24 08:08 Dose: 3 ml Documented By: RASHID Tobramycin Sulfate (Tobramycin Sulfate 0.3% Radha Op 5 Ml Btl) 1 drop EYE-BOTH Q4H [facility] Last Admin: 03/23/24 08:38 Dose: 1 drop Documented By: RASHID Labs 03/20/24 06:21 03/20/24 06:21 Labs: Laboratory Results - last 24 hr 03/22/24 03/22/24 03/22/24 11:21 11:53 18:21 POC Glucose 138 H 129 H TSH 2.67 03/22/24 03/23/24 23:32 06:19 POC Glucose 131 H 118 H TSH Assessment and Plan (1) Abnormal behavior: Status: Acute Plan 64F PMH advance early onset alzheimers dementia, dm, mood disorder, intellectual delay, htn, hld presented with ams Acute metabolic encephalopathy EEG negative for seizure, does not fully rule out, continue Kekaralra, plan for outpatient 24-48hr eeg MRI negative for acute stroke continue aspirin statin sinus bradycardia ? cause of above holding aricept, changed klonipin to xanax as xanax less likely to cause sharon, holding trazodone cardio appreciated Alzheimer's dementia discontinued Aricept due to sinus bradycardia Diabetes Insulin sliding scale DVT prophylaxis with Lovenox Full Code reason for continued hospitalization: sharon Quality Stroke Does the patient have a stroke diagnosis?: No VTE Prior VTE?: No VTE Risk Level:: Medical - moderate - high VTE Device Contraindication: Treatment Not Indicated VTE Drug Contraindication: N/A - Med Ordered
--- NOTE | 2024-03-23 11:10 | MHC.SLORD ---
Speech Language Pathology Order Status: Pt sleeping this morning. PROGRAMS ASSISTANT consulted with RN prior to entering pt room and with staff from pt residence, who had just arrived. RN reported pt tolerated meds crushed in puree, NDD2 diet with thin liquids without concerns. RN noted pt often yells; staff from residence reports this is pt baseline communication, and that they became concerned when pt wasn't yelling as usual. PROGRAMS ASSISTANT to follow up.
[2024-03-23 11:32] VITALS: BP 132/60; PULSE 47; RESP 17; TEMP 36.5; O2SAT 96
[2024-03-23 11:38] LABS: Glucose, Whole Blood 178 mg/dL (60-115)
--- NOTE | 2024-03-23 11:42 | MHC.CLN ---
F/U PT WITH INCREASED NUTRITION RISK R/T PRESSURE INJURY PO INTAKE 50-100% DIET RX: 1800DM GRD M/S-APPROPRIATE PT RECEIVING ENSURE MAX BID TO PROMOTE WOUND HEALING SUPP PROVIDES 300KCALS, 60G PROTEIN MONITOR PO INTAKE AND ENCOURAGE SUPPLEMENTS
[2024-03-23] MEDS: Insulin Lispro 100 UNIT/ML 3 ML VIAL SUBCUT ×2 (12:04→18:33)
--- NOTE | 2024-03-23 14:35 | MHC.CM.PN ---
EMR reviewed and per MD rounds, pt is not medically cleared for discharge due to management of sinus sharon.
--- NOTE | 2024-03-23 15:09 | MHC.SL.SWA ---
Speech Pathologist Impression: Mild to moderate oral phase dysphagia, adequate pharyngeal phase of swallow Risk of Aspiration Due to: Reduced Cognition Dysphasia Diet Status: Liquid Consistency and Strategies for Safe Swallow: Liquid Intake Recommendation: Thin Liquid Intake Strategies: Small Sips No Straws Solid Food Consistency: Dietary Recommendations: Grnd/Mech Altered (NDD2) Additional Modifications to Solid Foods: Patient presents with risk of aspiration or choking secondary to behavioral issues related to eating: Patient if not assisted/directly supervised will eat and drink too rapidly; Patient does not initiate chewing and attempts to swallow bolus whole; Patient is known to pocket food in cheeks. Recommend reported baseline diet of Ground/Mechanical (NDD2, equivalent to minced and moist ), thin liquids (monitor for individual sips by administering by spoon, controlled cup, or straw pinch), pills crushed in apple sauce. Patient requires one to one feeding and close supervision during meals due to behavioral concerns. Alternate liquids and solids. PRINTING SHOP SUPERVISOR to f/u 1x to monitor tolerance. Oral Medication Intake: Crushed with Puree Please contact the pharmacy regarding appropriate crushable or liquid drug formulations that are available whenever modified delivery is recommended. Compensatory Strategies and Precautions to be Taken for Safe Swallow: Sitting Upright (90 deg) Small Bites and Sips Alternate Liquids/Solids Rate of Ingestion Change Oral Check Avoid Specific Foods Supervision While Eating and Drinking for Safe Swallow: Total Assistance (1:1) Foods to Avoid: Difficult to chew or larger pieces of food. Patient is lactose intolerant Swallowing Recommended Treatments: Compens. Strategy Educat. Recommendation for Speech: Inpatient Speech Therapy Comment: 03/23 Pt sitting upright in bed when PRINTING SHOP SUPERVISOR returned in the afternoon, family at bedside, staff from [facility] feeding pt. Pt tolerated mechanically altered/soft consistencies with adequate oropharyngeal coordination. Mild tongue fronting observed during oral prep phase of swallow, with pt observably smiling and making sounds with her lips to show her interest in the meal. Staff from pt residence noted this is what pt will do when she is eating. Oral prep phase dyscoordinated but within functional limits. Anterior to posterior transit of bolus WNL. Pharyngeal phase of swallow unremarkable, with efficient timing and coordination for all PO instances. Pt sipped thins from straw with adequate respiratory coordination and completion of swallow. No overt s/s of aspiration with meal, residence staff using excellent safety precautions, as established at residence per her report. PRINTING SHOP SUPERVISOR provided education to family and residence staff regarding pt functional swallow, airway protection and recc diet/safety strategies. All in agreement. RN in room providing summary of pt hospital course, family verbalized understanding and agreed with POC. PRINTING SHOP SUPERVISOR to follow up as indicated. Frequency/Duration: Date Range for Service Req: Timeline to reassess: Women'S Studies Professor Clinican/Clinical Fellow: No Supervisory Statement: I have reviewed and agree with the student/clinical fellow's documentation: N/A Speech Language Pathologist: Elissa He M.S., CCC-PRINTING SHOP SUPERVISOR
[2024-03-23 16:00] VITALS: BP 146/65; PULSE 50; RESP 18; TEMP 36.8; O2SAT 96
[2024-03-23 17:34] LABS: Glucose, Whole Blood 176 mg/dL (60-115)
[2024-03-23 20:00] VITALS: BP 159/59; PULSE 57; RESP 19; TEMP 36.9; O2SAT 95
[2024-03-23] MEDS: Atorvastatin Calcium 80 MG TABLET PO (20:26)
[2024-03-23 23:38] VITALS: BP 171/55; PULSE 64; TEMP 36.8; O2SAT 97
[2024-03-24 00:35] LABS: Glucose, Whole Blood 103 mg/dL (60-115)
[2024-03-24] MEDS: 0.9 % Sodium Chloride Flush 3 ML SYRINGE IVFLUSH ×4 (01:00→20:30)
[2024-03-24] MEDS: Tobramycin Sulfate 0.3% Sol Op 5 ML BTL 1 DROP EYE-BOTH ×6 (02:55→20:29)
[2024-03-24 03:40] VITALS: BP 147/63; PULSE 50; RESP 19; TEMP 36.3; O2SAT 96
[2024-03-24 06:31] LABS: Glucose, Whole Blood 118 mg/dL (60-115)
[2024-03-24 08:00] VITALS: BP 143/64; PULSE 42; RESP 16; TEMP 36.7; O2SAT 94
[2024-03-24] MEDS: Aspirin 81 MG TAB.CHEW PO (09:00)
[2024-03-24] MEDS: ALPRAZolam 0.25 MG TABLET 0.125 MG PO ×2 (09:00→20:19)
[2024-03-24] MEDS: lisinopriL 10 MG TABLET PO (09:00)
[2024-03-24] MEDS: FLUoxetine HCl 20 MG CAPSULE PO (09:00)
[2024-03-24] MEDS: Brexpiprazole 1 MG TABLET PO (09:00)
[2024-03-24] MEDS: levETIRAcetam in NaCl (iso-os) 500 MG/100 ML PIGGYBACK 400 MG IV (09:01)
[2024-03-24] MEDS: Enoxaparin Sodium 40 MG/0.4 ML SYRINGE SUBCUT (09:01)
--- NOTE | 2024-03-24 09:54 | P.PNIM_ITS ---
Subjective Subjective Date of Service: 03/24/24 Interval History: Per family patient even better than her baseline cotninues to be bradycardic to low 30s at night, but does increase to 80s when agitated Physical Exam 2 Vital Signs: Vital Signs: Last Vital Signs Temp 98.0 F 03/24/24 08:00 Pulse 42 L 03/24/24 08:00 Resp 16 03/24/24 08:00 BP 143/64 H 03/24/24 08:00 Pulse Ox 94 03/24/24 08:00 O2 Del Method Room Air 03/24/24 08:00 BMI result Body Mass Index 23.4 Const: General: cooperative, alert and awake Nutritional Appearance: thin Orientation/consciousness: patient oriented x3 HEENT: Head: Yes normocephalic and Yes atraumatic Neck: Neck: Yes trachea midline, Yes supple and Yes no JVD Resp: Effort & Inspection: decreased respiratory effort Auscultation: clear to auscultation bilaterally Cardio: Jugular venous distension: no JVD Rate: regular rate Rhythm: r egular rhythm Heart sounds: S1 normal heart sound present, S2 normal heart sound present, no click, no gallops and Murmur heart sound present systolic early GI: Auscultation: normal bowel sounds Skin: General skin exam: no rashes or lesions noted Neuro: General: patient oriented x3 and no focal motor deficits Extrem: General: Yes no clubbing, cyanosis or edema Objective Data Active Medications Acetaminophen (Acetaminophen 325 Mg Tablet) 650 mg PO Q6H PRN PRN Reason: Pain, Mild (Pain Scale 1-3), fever or headache Last Admin: 03/23/24 08:06 Dose: 650 mg Documented By: RASHID Alprazolam (Alprazolam 0.25 Mg Tablet) 0.125 mg PO BID [facility] Last Admin: 03/24/24 09:00 Dose: 0.125 mg Documented By: CHELLE Aspirin (Aspirin 81 Mg Tab.Chew) 81 mg PO DAILY [facility] Last Admin: 03/24/24 09:00 Dose: 81 mg Documented By: CHELLE Atorvastatin Calcium (Atorvastatin Calcium 80 Mg Tablet) 80 mg PO BEDTIME [facility] Last Admin: 03/23/24 20:26 Dose: 80 mg Documented By: ANGELITA Brexpiprazole (Brexpiprazole 1 Mg Tablet) 1 mg PO DAILY [facility] Last Admin: 03/24/24 09:00 Dose: 1 mg Documented By: CHELLE Calcium Carbonate (Calcium Carbonate 750 Mg Tab.Chew) 750 mg PO Q4H PRN PRN Reason: Heartburn Enoxaparin Sodium (Enoxaparin Sodium 40 Mg/0.4 Ml Syringe) 40 mg SUBCUT Q24H [facility] Last Admin: 03/24/24 09:01 Dose: 40 mg Documented By: CHELLE Fluoxetine HCl (Fluoxetine Hcl 20 Mg Capsule) 20 mg PO DAILY [facility] Last Admin: 03/24/24 09:00 Dose: 20 mg Documented By: CHELLE Glucose (Glucose Gel 15 Gm Gel..Gram.) 15 gm PO Q15M PRN; Protocol PRN Reason: per Hypoglycemia Standing Ord. Guaifenesin (Guaifenesin 200 Mg/10 Ml 10 Ml Liquid) 10 ml PO DAILY PRN PRN Reason: Cough Levetiracetam (Keppra) 500 mg in 100 mls @ 400 mls/hr IV Q12H [facility] Last Infusion: 03/24/24 09:32 Dose: Infused Documented By: CHELLE Dextrose (D10) 250 mls @ 750 mls/hr IV Q15M PRN; Protocol PRN Reason: per Hypoglycemia Standing Ord. Insulin Human Lispro (Insulin Lispro 100 Unit/Ml 3 Ml Vial) 0 unit SUBCUT Q6H [facility]; Protocol Last Admin: 03/24/24 06:29 Dose: Not Given Documented By: ANGELITA Non-Admin Reason: No Insulin Coverage Lisinopril (Lisinopril 10 Mg Tablet) 10 mg PO DAILY [facility]; Protocol Last Admin: 03/24/24 09:00 Dose: 10 mg Documented By: CHELLE Magnesium Hydroxide (Milk Of Magnesia 30 Ml Oral.Susp) 30 ml PO DAILY PRN PRN Reason: Constipation Last Admin: 03/23/24 06:48 Dose: 30 ml Documented By: JOELLE Melatonin (Melatonin 3 Mg Tablet) 6 mg PO BEDTIME PRN PRN Reason: Insomnia Ondansetron HCl (Ondansetron Hcl 4 Mg/2 Ml Vial) 4 mg IVPUSH Q8H PRN PRN Reason: Nausea and Vomiting Sodium Chloride (0.9 % Sodium Chloride Flush 3 Ml Syringe) 3 ml IVFLUSH QSHIFT [facility] Last Admin: 03/24/24 09:01 Dose: 3 ml Documented By: CHELLE Tobramycin Sulfate (Tobramycin Sulfate 0.3% Radha Op 5 Ml Btl) 1 drop EYE-BOTH Q4H [facility] Last Admin: 03/24/24 09:04 Dose: 1 drop Documented By: CHELLE Labs 03/20/24 06:21 03/20/24 06:21 Labs: Laboratory Results - last 24 hr 03/23/24 03/23/24 03/24/24 11:35 17:29 00:31 POC Glucose 178 H 176 H 103 03/24/24 06:28 POC Glucose 118 H Assessment and Plan (1) Abnormal behavior: Status: Acute Plan 64F PMH advance early onset alzheimers dementia, dm, mood disorder, intellectual delay, htn, hld presented with ams Acute metabolic encephalopathy EEG negative for seizure, does not fully rule out, continue Keppra, plan for outpatient 24-48hr eeg MRI negative for acute stroke continue aspirin statin sinus bradycardia holding aricept, changed klonipin to xanax as xanax less likely to cause sharon, holding trazodone cardio appreciated - no indication for pacer Alzheimer's dementia discontinued Aricept due to sinus bradycardia Diabetes Insulin sliding scale DVT prophylaxis with Lovenox Full Code reason for continued hospitalization: fpc requested additional 24hrs to monitor bradycardia Quality Stroke Does the patient have a stroke diagnosis?: No VTE Prior VTE?: No VTE Risk Level:: Medical - moderate - high VTE Device Contraindication: Treatment Not Indicated VTE Drug Contraindication: N/A - Med Ordered
[2024-03-24 11:56] VITALS: BP 140/63; PULSE 46; RESP 18; TEMP 37.2; O2SAT 95
[2024-03-24 12:05] LABS: Glucose, Whole Blood 186 mg/dL (60-115)
[2024-03-24] MEDS: Insulin Lispro 100 UNIT/ML 3 ML VIAL SUBCUT ×2 (12:30→18:04)
--- NOTE | 2024-03-24 14:14 | MHC.SL.DTX ---
Dysphagia Diet modifications: Last documented Solid diet consistencies: Grnd/Mech Altered (NDD2) Last documented Liquid consistency: Thin Changes made to current diet?: No: No changes at this time Liquid Consistency and Strategies: Liquid Intake Recommendation: Thin Compensatory Strategies for Safe Swallow: Small Sips No Straws Compensatory Strategies for Safe Swallow(b): Sitting Upright (90 deg) Small Bites and Sips Alternate Liquids/Solids Rate of Ingestion Change Oral Check Avoid Specific Foods Solid Food Consistency: Dietary Recommendations: Grnd/Mech Altered (NDD2) Additional Modifications to Solids: Patient presents with risk of aspiration or choking secondary to behavioral issues related to eating: Patient if not assisted/directly supervised will eat and drink too rapidly; Patient does not initiate chewing and attempts to swallow bolus whole; Patient is known to pocket food in cheeks. Recommend reported baseline diet of Ground/Mechanical (NDD2, equivalent to minced and moist ), thin liquids (monitor for individual sips by administering by spoon, controlled cup, or straw pinch), pills crushed in apple sauce. Patient requires one to one feeding and close supervision during meals due to behavioral concerns. Alternate liquids and solids. ACCOUNTS RECEIVABLE BOOKKEEPER to f/u 1x to monitor tolerance. Oral Medication Intake: Crushed with Puree Strategies and Precautions to be Taken for Safe Swallow: Sitting Upright (90 deg) Small Bites and Sips Alternate Liquids/Solids Rate of Ingestion Change Oral Check Avoid Specific Foods Supervision While Eating and/Drinking: Total Assistance (1:1) Foods to Avoid: Difficult to chew or larger pieces of food. Patient is lactose intolerant Swallowing Recommended Treatments: Compens. Strategy Educat. Prognosis for Improvement: Good Recommendation for Speech: Inpatient Speech Therapy Comment: Patient presents with risk of aspiration or choking secondary to behavioral issues related to eating: Patient if not assisted/directly supervised will eat and drink too rapidly; Patient does not initiate chewing and attempts to swallow bolus whole; Patient is known to pocket food in cheeks. Recommend reported baseline diet of Ground/Mechanical (NDD2, equivalent to minced and moist ), thin liquids, pills crushed in apple sauce. Patient requires one to one feeding and close supervision during meals due to behavioral concerns. Alternate liquids and solids. , RD notified of recommendation by secure text, RN in person. ACCOUNTS RECEIVABLE BOOKKEEPER will follow up 1-2 X to assure diet texture is tolerated. Additional Comments: Patient is on a minced and moist diet at baseline. Hx includes intellectual disability, early onset Alzheimer's dementia, patient is mostly nonverbal. Patient is a [facility]. Per worker she is anticipating D/C home with services today or tomorrow. Treatment: Pt being fed by worker. She tolerated 100% of her tray with no overt s/s of aspiration. Per worker this is her diet that she receives at home. ACCOUNTS RECEIVABLE BOOKKEEPER asks if they would like any further accommodates to which she declined. No further ACCOUNTS RECEIVABLE BOOKKEEPER intervention required as she has met her functional baseline. ACCOUNTS RECEIVABLE BOOKKEEPER recommend [facility] Altered Solids and Thin Liquids with 1:1 assistance feeding. Bowling Pin Setters Installer Clinican/Clinical Fellow: No Supervisory Statement: I have reviewed and agree with the student/clinical fellow's documentation: N/A Speech Language Pathologist: Garett Sams M.A., [facility]-ACCOUNTS RECEIVABLE BOOKKEEPER
[2024-03-24 14:40] LABS: Glucose, Whole Blood 144 mg/dL (60-115)
[2024-03-24 16:00] VITALS: BP 108/52; PULSE 44; RESP 18; TEMP 36.4; O2SAT 97
[2024-03-24 18:00] LABS: Glucose, Whole Blood 192 mg/dL (60-115)
[2024-03-24] MEDS: Milk of Magnesia 30 ML ORAL.SUSP PO (18:09)
[2024-03-24 19:43] VITALS: BP 120/58; PULSE 80; RESP 18; TEMP 36; O2SAT 96
[2024-03-24] MEDS: Atorvastatin Calcium 80 MG TABLET PO (20:18)
[2024-03-24] MEDS: levETIRAcetam 500 MG TABLET PO (20:18)
[2024-03-24 20:58] LABS: Glucose, Whole Blood 145 mg/dL (60-115)
[2024-03-25] VITALS: BP 106/55; PULSE 50; RESP 18; TEMP 35.7; O2SAT 93
[2024-03-25 00:41] LABS: Glucose, Whole Blood 105 mg/dL (60-115)
[2024-03-25] MEDS: Tobramycin Sulfate 0.3% Sol Op 5 ML BTL 1 DROP EYE-BOTH ×4 (02:57→12:59)
[2024-03-25 03:25] VITALS: BP 117/60; PULSE 45; RESP 18; TEMP 36.5; O2SAT 96
[2024-03-25 06:08] LABS: Glucose, Whole Blood 115 mg/dL (60-115)
[2024-03-25 07:00] LABS: Hematocrit 29.3 % (37.0-47.0); Hemoglobin 9.6 g/dl (12.0-16.0); Mean Corpuscular HGB Conc 32.8 g/dl (31.0-35.0); Mean Corpuscular Hemoglobin 29.1 pg (27.0-33.0); Mean Corpuscular Volume 88.8 fL (80.0-98.0); Mean Platelet Volume 8.7 fL (9.4-12.3); Platelet Count 197 X10*3/uL (160-400); White Blood Count 5.4 X10*3/uL (4.8-10.8)
[2024-03-25 07:18] LABS: Anion Gap 12 (12-20); Blood Urea Nitrogen 22 mg/dL (9-16); Carbon Dioxide 24 mmol/L (22-29); Chloride 104 mmol/L (96-108); Creatinine Clr Calc Pharmacy 73.9; Estimated Glomerular Filt Rate > 60; Glucose Fasting 124 mg/dL (60-99); Potassium 5.1 mmol/L (3.3-5.1); Sodium 135 mmol/L (135-145)
[2024-03-25 08:00] VITALS: BP 119/59; PULSE 46; RESP 18; TEMP 36.9; O2SAT 98
[2024-03-25] MEDS: Aspirin 81 MG TAB.CHEW PO (08:13)
[2024-03-25] MEDS: FLUoxetine HCl 20 MG CAPSULE PO (08:13)
[2024-03-25] MEDS: lisinopriL 10 MG TABLET PO (08:13)
[2024-03-25] MEDS: ALPRAZolam 0.25 MG TABLET 0.125 MG PO (08:13)
[2024-03-25] MEDS: Brexpiprazole 1 MG TABLET PO (08:13)
[2024-03-25] MEDS: levETIRAcetam 500 MG TABLET PO (08:13)
[2024-03-25] MEDS: 0.9 % Sodium Chloride Flush 3 ML SYRINGE IVFLUSH (08:13)
[2024-03-25] MEDS: Enoxaparin Sodium 40 MG/0.4 ML SYRINGE SUBCUT (08:13)
--- NOTE | 2024-03-25 11:00 | MHC.CLN ---
F/U PT WITH INCREASED NUTRITION RISK R/T PRESSURE INJURY PO INTAKE 75% DIET RX: 1800DM GRD M/S-APPROPRIATE PT RECEIVING ENSURE MAX BID TO PROMOTE WOUND HEALING SUPP PROVIDES 300KCALS, 60G PROTEIN WITH 100% ACCEPTANCE MONITOR PO INTAKE AND ENCOURAGE SUPPLEMENTS
--- NOTE | 2024-03-25 11:42 | P.DS_ITS ---
DS: Providers Provider Date of Service: 03/25/24 Date of admission: 03/19/24 09:21 Date of discharge: 03/25/24 Primary care physician: Hannah Stacy MD Consults: 03/19/24 00:07 Consult to Neurology Routine Consulting Provider: [facility] Reason for consultation: ?seizure 03/20/24 12:34 Consult to Psychiatry Routine Consulting Provider: [facility] Psych Covering Reason for consultation: family requesting med review... ams 03/21/24 09:12 Consult to Cardiology Routine Consulting Provider: [facility] Reason for consultation: sinus sharon Has provider been notified: Yes DS: Diagnosis Discharge Diagnosis (1) Abnormal behavior: Status: Resolved (2) Sinus bradycardia: Status: Acute (3) Seizure: Status: Acute DS: Summary Hospital Course Hospital Course: Admission note HPI This is a 64-year-old female with pertinent history of early-onset Alzheimer's dementia with behavioral disturbance, bac-nzpdyzk-xzbmsuyox diabetes mellitus, mood disorder, intellectual disability, hypertension, mixed hyperlipidemia who was brought to the emergency department for evaluation of a possible seizure and right gaze paralysis. Unable to obtain history from the patient. Patient is minimally verbal at baseline and occasionally answers with 1 word responses. Intermittently follows command. At the time of my evaluation, patient is awake but not responding to verbal stimulus and not following commands. As per EMS, upon arrival care home was doing CPR but patient had a pulse. Patient was sitting in chair when she was noticed to have jerking movement of extremities. Staff also noted that her face changed color and they began CPR. Right gaze pa ralysis was noted by EMS and ER provider which was transient. Patient was initially drowsy after the episode. Unable to obtain review of systems. Patient was seen in the ER 1 day prior to presentation when she had a fall in the shower which was unwitnessed. Hospital course The patient was evaluated for these problems: # Acute metabolic encephalopathy which was evaluated by images, blood work and neurology consultation. EEG negative for seizure at time of doing it but does not fully rule out as neurologist recommended to continue Keppra, plan for outpatient 24-48hr EEG in clinic as she needs follow up with Neurology. MRI negative for acute stroke. To continue aspirin statin. # sinus bradycardia Evaluated by cardiology team who did not feel the need of pacemaker. recommending holding aricept, Trazodone and Actos. Aslo changed klonipin to xanax as xanax less likely to cause bradycardia. No evidence of heart block noticed. Heart rate remained betweens late 40s to 70s. # Alzheimer's dementia discontinued Aricept due to sinus bradycardia. Discharge plan obtain 24-48hr eeg, follow up with neurology stopped trazodone, aricept, klonipin, actos started xanax, keppra. medications to be given crushed and with soft foods. Time Attestation Discharge Coordination Time (in mins): 46 Quality: Safe Use of Opioids Does Pt have an Active Cancer Diagnosis on the Problem List?: No Quality: Stroke Does the patient have a stroke diagnosis?: No Physical Exam Vital Signs: Vital Signs: Last Vital Signs Temp 98.5 F 03/25/24 08:00 Pulse 46 L 03/25/24 08:00 Resp 18 03/25/24 08:00 BP 119/59 L 03/25/24 08:00 Pulse Ox 98 03/25/24 08:00 O2 Del Method Room Air 03/25/24 08:00 BMI result Body Mass Index 23.4 Const: Other: Constitutional : interactive, not in distress Cardiovascular : no JVP, no lower extremity edema Respiratory : bilateral chest movement, not in resp distress Gastrointestinal: soft, lax, Non tender Skin : Warm, Dry Neurological : Alert & disoriented , No focal deficit DS: Data Data Completed and Pending Labs on day of discharge: Laboratory Results - last 24 hr 03/18/24 03/24/24 03/24/24 21:25 12:01 17:55 WBC RBC Hgb Hct MCV MCH MCHC RDW Plt Count MPV Absolute Nucleated RBC Nucleated RBC % (auto) Sodium Potassium Chloride Carbon Dioxide Anion Gap BUN Creatinine Estim Creat Clear Calc Estimated GFR POC Glucose 144 H 186 H 192 H Fasting Glucose Calcium 03/24/24 03/25/24 03/25/24 19:16 00:29 06:04 WBC RBC Hgb Hct MCV MCH MCHC RDW Plt Count MPV Absolute Nucleated RBC Nucleated RBC % (auto) Sodium Potassium Chloride Carbon Dioxide Anion Gap BUN Creatinine Estim Creat Clear Calc Estimated GFR POC Glucose 145 H 105 115 Fasting Glucose Calcium 03/25/24 06:36 WBC 5.4 RBC 3.30 L Hgb 9.6 L Hct 29.3 L MCV 88.8 MCH 29.1 MCHC 32.8 RDW 17.0 H Plt Count 197 MPV 8.7 L Absolute Nucleated RBC 0.000 Nucleated RBC % (auto) 0.0 Sodium 135 Potassium 5.1 D Chloride 104 Carbon Dioxide 24 Anion Gap 12 BUN 22 H Creatinine 0.71 Estim Creat Clear Calc 73.9 Estimated GFR > 60 POC Glucose Fasting Glucose 124 H Calcium 10.0 Imaging MRI - head: Radiologist's impression: ITS Impressions Head CT 03/18/24 21:25 IMPRESSION: 1. No evidence of acute intracranial hemorrhage or edematous territorial infarction. 2. Mild underlying microangiopathy. Electronically signed by: Abel Werner DO 03/18/2024 09:55 PM EST RP Head/Neck CTA 03/18/24 21:34 IMPRESSION: 1. No evidence of acute intracranial hemorrhage or edematous territorial infarction. Mild underlying microangiopathy and generalized cerebral volume loss. Chronic lacunar infarct of the right lentiform nucleus. 2. CTA of the head and neck without proximal occlusion. 3. High-grade atherosclerotic stenosis of the proximal left subclavian artery. 4. High-grade irregular stenosis of the entire M1 segment of the right MCA. Focal severe stenosis of the distal M1 segment of the left MCA. Maintained but decreased opacification of the M2 and distal branches of the right MCA compared to the contralateral side. 5. 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 This critical result was discussed with Dr. Spain at 23:15 on 03/18/2024 and it was ascertained that the content and urgency of the report was understood at the time of direct communication. Electronically signed by: Abel Werner DO 03/18/2024 11:25 PM EST RP Brain MRI 03/19/24 14:45 IMPRESSION: 1. No acute intracranial abnormalities. 2. Chronic microangiopathy and global cerebral atrophy. Electronically signed by: Nancy Sumner MD 03/19/2024 03:26 PM EST RP Discharge Plan Discharge Anticipated Discharge Date/Time: 03/25/24 11:49 Patient Disposition: Xfer Other Discharge Diagnosis: ?seizure, sinus bradycardia Referrals: Laureen Glass MD [Physician] - 1 Week Hannah Rowley MD [Primary Care Provider] - 1 Week Discharge Medications: New levetiracetam 500 mg Tablet 500 mg PO BID Qty: 180 0RF alprazolam 0.25 mg Tablet 0.125 mg PO BID Qty: 180 0RF Continued fluoxetine 20 mg capsule 20 mg PO DAILY Qty: 90 1RF (DME) adult overnight diapers See Rx Instructions .Route .MEDSUPPLY Qty: 120 0RF Rx Instructions: As directed (DME) FreeStyle Lite Strips Strip See Rx Instructions .MEDSUPPLY Qty: 100 2RF Rx Instructions: 2 x day (DME) lancets [OneTouch UltraSoft 2 Lancet] 30 gauge misc See Rx Instructions .Route Qty: 100 2RF Rx Instructions: Use 1 lancet once a day (DME) lancing device [[employer] Lancing Device] Misc See Rx Instructions .Route Qty: 1 5RF Rx Instructions: s directed tests 4 X/day due to poor glycemic control (DME) walker Misc See Rx Instructions .Route Qty: 1 0RF Rx Instructions: As directed (DME) adult diapers briefs X-large See Rx Instructions .Route .MEDSUPPLY Qty: 240 11RF Rx Instructions: Use 8 briefs per day (DME) wipes See Rx Instructions .Route .MEDSUPPLY Qty: 300 11RF Rx Instructions: As directed (DME) hospital bed Kit See Rx Instructions .Route Qty: 1 0RF Rx Instructions: As directed (DME) recliner lift chair See Rx Instructions .Route .MEDSUPPLY Qty: 1 0RF Rx Instructions: As directed (DME) Shower Chair Misc See Rx Instructions .Route Qty: 1 0RF Rx Instructions: As directed acetaminophen 500 mg/15 mL liquid 500 mg PO BID 30 Days Qty: 474 1RF Rx Instructions: 500 mg of acetaminophen twice daily for body aches or pains. atorvastatin 80 mg tablet 80 mg PO BEDTIME 90 Days Qty: 90 0RF Rx Instructions: crushed and mix with food lisinopril 10 mg tablet 10 mg PO DAILY 90 Days Qty: 90 0RF Rx Instructions: crush and mix with food aspirin 81 mg tablet,chewable 1 tab PO DAILY Rexulti 1 mg tablet 1 mg PO DAILY Rybelsus 14 mg tablet 14 mg PO DAILY guaifenesin 100 mg/5 mL Liquid 200 mg PO DAILY PRN (Reason: Cough) Rexulti 0.5 mg tablet 0.5 mg PO DAILY (DME) wheelchair See Rx Instructions .Route .MEDSUPPLY Qty: 1 0RF Rx Instructions: As directed metformin 1,000 mg tablet 1,000 mg PO BID 90 Days Qty: 180 3RF Rx Instructions: crush and mix with food (DME) blood-glucose meter [[employer] Autocode Meter] Kit See Rx Instructions .Route Qty: 1 0RF Rx Instructions: As directed (DME) lancets [Safety Lancets] 28 gauge misc See Rx Instructions .Route Qty: 100 6RF Rx Instructions: Use 1 lancet twice a day Discontinued pioglitazone 45 mg tablet 45 mg PO DAILY 90 Days Qty: 90 0RF Rx Instructions: crush and mix with food clonazepam 0.5 mg tablet 0.5 mg PO BID clonazepam [Klonopin] 1 mg tablet 1 mg PO DAILY PRN (Reason: anxiety) donepezil 23 mg tablet 23 mg PO BEDTIME trazodone 150 mg tablet 75 mg PO BEDTIME Discharge Orders: Discharge Order (Routine); Ordered 03/25/24 Ordered By: Kizzy Mcdowell Diet: mechanical soft, thins Activity on Discharge: As tolerated Stand Alone Forms: Patient Portal Discharge page Print Language: Greenlandic Care Plan Goals: manage ams Health Concerns: possible seizure, sinus bradycardia Plan of Treatment: obtain 24-48hr eeg, follow up with neurology stopped trazodone, aricept, klonipin, actos started xanax, keppra. medications to be given crushed and with soft foods. If resident has a seizure, stay calm, protect them from injury by removing weston rby hazards, and gently guide them to the floor if needed. Do not restrain them or put anything in their mouth. After the seizure stops, place them on their side to keep their airway clear and stay with them until fully alert; call emergency services if it lasts more than 5 minutes or if they are injured. if EMS not required, contact neurology to set up close follow up. Assessment: see above Patient Instructions: Recurrent Seizures in Adults (DC)
[2024-03-25 12:00] VITALS: BP 106/52; PULSE 46; RESP 18; TEMP 37.2; O2SAT 96
[2024-03-25 12:52] LABS: Glucose, Whole Blood 253 mg/dL (60-115)
[2024-03-25] MEDS: Insulin Lispro 100 UNIT/ML 3 ML VIAL SUBCUT (12:59)
--- NOTE | 2024-03-25 13:59 | MHC.CM.PN ---
Pt has been medically cleared for DC, she went home today via BLS to her longterm and she will resume her 24 hr care.
== END 2024-03-25 14:04 | disposition other institution (70) | DRG 100 ==
LOC: HO.ED 03-19 00:04 → HO.EDOVER 03-19 00:12 → HO.IMC 03-19 17:37
PROVIDERS: Internal Medicine; Admitting Provider Student in an Organized Health Care Education/Training Program; Emergency Provider Emergency Medicine Emergency Medical Services; PCP Internal Medicine; Visit Provider Student in an Organized Health Care Education/Training Program
DX: R56.9 Unspecified convulsions (principal); G93.41 Metabolic encephalopathy; G93.49 Other encephalopathy; F02.818 Dementia in other diseases classified elsewhere, unspecified severity, with other behavioral disturbance; R00.1 Bradycardia, unspecified; G30.0 Alzheimer's disease with early onset; E11.9 Type 2 diabetes mellitus without complications; I10 Essential (primary) hypertension; E78.2 Mixed hyperlipidemia; L89.156 Pressure-induced deep tissue damage of sacral region; Z79.82 Long term (current) use of aspirin; Z79.84 Long term (current) use of oral hypoglycemic drugs; Z79.899 Other long term (current) drug therapy
CPT/HCPCS: 0241U; 36415; 70450; 70496; 70498; 70551; 71045; 72125; 72170; 80048; 80061; 80076; 81003; 82550; 82947; 83605; 83690; 83735; 84443; 84484; 85025; 85027; 85610; 85730; 92526; 92610; 93005; 95816; 99222; 99285; J1650; J1953; Q9967

== ENCOUNTER → 2024-03-18 21:24 | Outpatient (BNV) | payer MEDICARE, MEDICAID, SELFPAY | PROVIDERS: Admitting Provider Student in an Organized Health Care Education/Training Program; Emergency Provider Emergency Medicine Emergency Medical Services; PCP Internal Medicine; Visit Provider Internal Medicine Cardiovascular Disease | DX: R00.1 Bradycardia, unspecified (principal) | CPT/HCPCS: 93010 ==

== ENCOUNTER → 2024-03-19 00:07 | Outpatient (BNV) | payer MEDICARE, MEDICAID, SELFPAY | PROVIDERS: Admitting Provider Student in an Organized Health Care Education/Training Program; Emergency Provider Emergency Medicine Emergency Medical Services; PCP Internal Medicine; Visit Provider Student in an Organized Health Care Education/Training Program | DX: R46.89 Other symptoms and signs involving appearance and behavior (principal); R00.1 Bradycardia, unspecified; R56.9 Unspecified convulsions | CPT/HCPCS: 99223; 99232; 99239; 99499 ==

== ENCOUNTER → 2024-03-19 09:21 | Outpatient (BNV) | payer MEDICARE, MEDICAID, SELFPAY | PROVIDERS: Admitting Provider Student in an Organized Health Care Education/Training Program; Emergency Provider Emergency Medicine Emergency Medical Services; PCP Internal Medicine; Visit Provider Internal Medicine Cardiovascular Disease | DX: R00.1 Bradycardia, unspecified (principal) | CPT/HCPCS: 99222 ==

== ENCOUNTER → 2024-03-19 09:21 | Outpatient (BNV) | payer MEDICARE, MEDICAID, SELFPAY | PROVIDERS: Admitting Provider Student in an Organized Health Care Education/Training Program; Emergency Provider Emergency Medicine Emergency Medical Services; PCP Internal Medicine; Visit Provider Registered Nurse | DX: G30.0 Alzheimer's disease with early onset (principal); F02.818 Dementia in other diseases classified elsewhere, unspecified severity, with other behavioral disturbance; Z79.899 Other long term (current) drug therapy | CPT/HCPCS: 99232 ==

== ENCOUNTER → 2024-03-19 09:21 | Outpatient (BNV) | payer MEDICARE, MEDICAID, SELFPAY | PROVIDERS: Admitting Provider Student in an Organized Health Care Education/Training Program; Emergency Provider Emergency Medicine Emergency Medical Services; PCP Internal Medicine; Visit Provider Psychiatry & Neurology Neurology | DX: R41.82 Altered mental status, unspecified (principal) | CPT/HCPCS: 99222 ==

== ENCOUNTER 2024-03-31 14:55 | Outpatient (AMB) | payer MEDICARE, MEDICAID, SELFPAY ==
--- NOTE | 2024-03-31 15:08 | MHC.PC.OV ---
Vital Signs 03/31/24 15:14 Height 5 ft 5 in BMI Reason not done Patient refused/unable BP 110/68 Blood Pressure Location Rt brachial Position Sitting Intake Visit Reasons: follow up Customer Pricing Manager Required: No Accompanied by: staff Allergies risperidone [From Risperdal] Allergy (Verified 03/31/24 15:40) Agitated lactose Adverse Reaction (Severe, Verified 03/31/24 15:40) Diarrhea Medication List - Last Reconciled 03/31/24 by Hannah Stacy MD acetaminophen 500 mg (15 mL) PO BID 30 days [adult diapers briefs Use 8 briefs per day] [adult overnight diapers As directed] alprazolam 0.125 mg (1/2 x 0.25 mg) PO BID aspirin 1 tab PO DAILY atorvastatin 80 mg PO BEDTIME 90 days blood sugar diagnostic (FreeStyle Lite Strips) 2 x day blood-glucose meter ([employer] Autocode Meter kit) As directed brexpiprazole (Rexulti) 1 mg PO DAILY brexpiprazole (Rexulti) 0.5 mg PO DAILY fluoxetine 20 mg PO DAILY guaifenesin 200 mg PO DAILY PRN hospital bed As directed lancets ([employer] UltraSoft 2 Lancet) Use 1 lancet once a day lancets (Safety Lancets) Use 1 lancet twice a day lancing device ([employer] Lancing Device) s directed tests 4 X/day due to poor glycemic control levetiracetam 500 mg PO BID lisinopril 10 mg PO DAILY 90 days metformin 1,000 mg PO BID 90 days [recliner lift chair As directed] semaglutide (Rybelsus) 14 mg PO DAILY Shower Chair As directed walker As directed [wheelchair As directed] [wipes As directed] Tobacco use date assessed: 10/24/23 Dental Screening Dental Screen Date: 10/24/23 HPI HPI Comments History of Present Illness Details This is a 64-year-old female that is mentally challenged and has diabetes mellitus type 2, hypertension, dyslipidemia, Alzheimer's disease and now seizures that comes today accompanied by staff [facility] in [facility] as hospital discharge follow-up with discharge date 03/24/2024 due to new onset seizures. Patient was sitting in shower chair to receive a shower and sales service supervisor left her for 5 seconds and came back she was nonresponsive. She was started with Keppra and has Neurology follow-up. A1c within goal. Blood pressure stable. LDL within goal. Alzheimer's disease is follow by Neurology with no significant change. She also has lost a lot of weight and has a mass on left hip joint and an x-ray will be ordered. [facility] Medical History (Updated 03/31/24 @ 15:58 by Hannah Stacy MD) Hypercalcemia 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 Obesity due to excess calories Class 2 obesity with body mass index (BMI) of 37.0 to 37.9 in adult Mood disorder Memory loss Abnormal behavior Proteinuria Type 2 diabetes mellitus with other diabetic kidney complication Diabetes type 2, uncontrolled Urinary incontinence Microalbuminuria GERD (gastroesophageal reflux disease) Dyslipidemia Essential hypertension Mentally challenged Diabetes mellitus Surgical History History of hysterectomy Family History Father CVD (cardiovascular disease) Mother Hypertension Brother Healthy adult Social History Household Members: Caregiver Housing: Assisted Living Facility Do you presently have visiting nurse or other home services: Yes Unable to assess alcohol history related to: Unknown Alcohol intake: never Comment: caregiver from [facility] at bedside Patient Tobacco Use Status: Never used Tobacco e-Cigarette/Vaping Use: Never Used Second Hand Smoke Exposure: No service: No Current occupational status: disabled Current occupational exposures/hazards: No Cognitive needs: Yes Hearing needs: No Vision needs: No Questionnaire Thrive Questionnaire Date Thrive assessed: 03/19/24 TEX-7 AMB Questionnaire TEX-7 Date TEX - 7 assessed: 06/26/23 Source: Developed by Drs. Zaki Saucedo, Penelope Vegas, Brendan Vasquez and colleagues, with an educational sintia from [employer]. Review of Systems Const All systems reviewed & are unremarkable except as noted in HPI and below Card Denies chest pain at rest, Denies chest pain with activity, Denies edema, Denies irregular heart rhythm, Denies claudication, Denies dyspnea, Denies dyspnea on exertion, Denies orthopnea, Denies paroxysmal nocturnal dyspnea and Denies slow heart rate Resp Denies cough, Denies dyspnea and Denies dyspnea on exertion GI Denies abdominal pain, Denies change in bowel habits, Denies excessive flatus, Denies nausea and Denies vomiting Physical exam (Primary Care) Vital Signs: Last Vital Signs BP 110/68 03/31/24 15:14 Tobacco/Smoking Status: Tobacco use Status Tobacco use date assessed 10/24/23 03/31/24 15:13 Patient Tobacco Use Status Never used Tobacco 03/31/24 15:13 e-Cigarette/Vaping Use Never Used 03/31/24 15:13 Thrive Assessment: Date of Thrive Assessment Date Thrive assessed 03/19/24 03/31/24 15:13 Const Limitations: wheelchair Resp Effort & Inspection: normal respiratory effort Auscultation: clear to auscultation bilaterally Cardio Jugular venous distension: no JVD Rate: regular rate Rhythm: regular rhythm Heart sounds: S1 normal heart sound present and S2 normal heart sound present Neuro Other: Nonverbal Extrem Other: mass of left hip joint Results AMB Hemoglobin A1c AMB Hemoglobin A1c 5.9 % Last Edit by DEAN Coleman on 03/31/24 15:34 Results Reviewed Results Reviewed: Laboratory Last Values Hgb A1c (Clinic) 5.9 % (4.0-6.0) 03/31/24 15:32 Coding Level of Care Code Est Pt Level 4 (27144) Complex EM visit Add On G2211 Diagnoses Seizure R56.9 Mass of joint of left hip M25.852 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 G30.0; F02.81 Type 2 diabetes mellitus with other diabetic kidney complication E11.29 Essential hypertension I10 Mentally challenged F79 Dyslipidemia E78.5 Time Spent (min) 25 Assessment & Plan Assessment & Plan (1) Seizure: Code(s): R56.9 - Unspecified convulsions Category: Medical Plan: Continue Keppra. Follow-up with Neurology. (2) Mass of joint of left hip: Code(s): M25.852 - Other specified joint disorders, left hip Category: Medical Plan: X-ray ordered. (3) 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: Code(s): G30.0 - Alzheimer's disease with early onset; F02.81 - Dementia in other diseases classified elsewhere, unspecified severity, with behavioral disturbance Category: Medical Plan: Continue support and the use of wheelchair as needed. (4) Type 2 diabetes mellitus with other diabetic kidney complication: Code(s): E11.29 - Type 2 diabetes mellitus with other diabetic kidney complication Category: Medical Plan: Continue rybelsus. A1c goal is equal or less than 7%. (5) Essential hypertension: Code(s): I10 - Essential (primary) hypertension Category: Medical Plan: Continue lisinopril. Blood pressure goal is equal or less than 130/80 (6) Mentally challenged: Code(s): F79 - Unspecified intellectual disabilities Category: Medical Plan: Continue care 19/11. (7) Dyslipidemia: Code(s): E78.5 - Hyperlipidemia, unspecified Category: Medical Plan: Continue statins. LDL goal is less than 70. Orders: Orders AMB Hemoglobin A1c 03/31/24 E11.29 - Type 2 diabetes mellitus with other diabetic kidney complication XR hip LT min 2V 03/31/24 M25.852 - Other specified joint disorders, left hip Referrals Neurology Referral R56.9 - Unspecified convulsions
[2024-03-31 15:14] VITALS: BP 110/68
== END 2024-03-31 16:10 | disposition home or self-care (01) ==
PROVIDERS: PCP Internal Medicine; Visit Provider Internal Medicine
DX: E11.29 Type 2 diabetes mellitus with other diabetic kidney complication (principal); R56.9 Unspecified convulsions; G30.0 Alzheimer's disease with early onset; F02.818 Dementia in other diseases classified elsewhere, unspecified severity, with other behavioral disturbance; M25.852 Other specified joint disorders, left hip; I10 Essential (primary) hypertension; F79 Unspecified intellectual disabilities; E78.5 Hyperlipidemia, unspecified

== ENCOUNTER 2024-03-31 14:55 | Outpatient (REF) | payer MEDICARE, MEDICAID, SELFPAY ==
--- NOTE | ~2024-03-31 | XR_ITS ---
EXAMINATION: XR HIP, LEFT CLINICAL INFORMATION: Left hip pain. COMPARISON: Pelvic radiograph dated 03/17/2024. TECHNIQUE: Two views of the left hip. FINDINGS: No acute fracture or dislocation. No joint space narrowing. Small lateral acetabular marginal osteophytes, unchanged. No concerning lytic or blastic osseous lesion. Atherosclerotic calcifications. XR/XR hip LT min 2V IMPRESSION: Mild left hip osteoarthritis, unchanged. Electronically signed by: Bc Levin MD 04/01/2024 10:08 AM KENIA
== END 2024-03-31 14:56 | disposition home or self-care (01) ==
LOC: HO.XRAY 14:55
PROVIDERS: PCP Internal Medicine; Visit Provider Internal Medicine
DX: M25.852 Other specified joint disorders, left hip (principal); Z13.1 Encounter for screening for diabetes mellitus
CPT/HCPCS: 73502; 83036; 99212

== ENCOUNTER 2024-04-06 14:49 | Outpatient (AMB) | payer MEDICARE, MEDICAID, SELFPAY ==
--- NOTE | 2024-04-06 15:12 | MHC.OFFVIS ---
Intake Visit Reasons: Follow up Intake Note: Patient presents for follow up . hospitalized 03/18 for ? seizures. Allergies risperidone [From Risperdal] Allergy (Verified 04/06/24 15:13) Agitated lactose Adverse Reaction (Severe, Verified 04/06/24 15:13) Diarrhea HPI Comments Details: 64y/o female with advanced dementia, developmental delay comes for new onset seizures.she is accompanied by Becky Parent Aide and Catalina . she was admitted on 03/18/2024 for an episode of unresponsiveness. she was sitting in a recliner - unresponsive with tonic posture and some leg movements . She had an episode of vomiting in the ER. In the ER she had Right gaze paresis , unresponsive. she had a fall from her shower chair 1 day prior but no loss of consciousness.Her EEG did not show significant abnormality. she was seen by Dr. Glass , stroke was ruled out she was started on keppra 500mg bid . No episodes since then. History from initial visit- she is currently at [facility] - a residential Home . Her education program specialist David accompanied her today . She came to residential home form her own house - she was taken care by her mother but when her mother fell sick she was transferred . she can follow simple commands sometimes, she needs help with all her ADLs. she can walk but sometimes refuses to walk. she can speak normally when she wants to. she also becomes anxious to get out of the house and does not like appointments. Her main concerns today are her screaming . she is also physically aggressive towards staff, throws stuff at the staff etc. Her sleep is erratic and she can be awake all night Her mother and brother have a combined guardianship . Risperdal - was d/savanna recently - as the family complained that she was drooling she is still drooling [facility] Medical History Hypercalcemia 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 Obesity due to excess calories Class 2 obesity with body mass index (BMI) of 37.0 to 37.9 in adult Mood disorder Memory loss Abnormal behavior Proteinuria Type 2 diabetes mellitus with other diabetic kidney complication Diabetes type 2, uncontrolled Urinary incontinence Microalbuminuria GERD (gastroesophageal reflux disease) Dyslipidemia Essential hypertension Mentally challenged Diabetes mellitus Surgical History History of hysterectomy Family History Father CVD (cardiovascular disease) Mother Hypertension Brother Healthy adult Social History Household Members: Caregiver Housing: Assisted Living Facility Do you presently have visiting nurse or other home services: Yes Unable to assess alcohol history related to: Unknown Alcohol intake: never Comment: caregiver from [facility] at bedside Patient Tobacco Use Status: Never used Tobacco e-Cigarette/Vaping Use: Never Used Second Hand Smoke Exposure: No service: No Current occupational status: disabled Current occupational exposures/hazards: No Cognitive needs: Yes Hearing needs: No Vision needs: No Physical Exam Const General: anxious Nutritional Appearance: average body habitus Limitations: wheelchair Neuro Other: Makes eye contact Moves all extremities follows simple commands Unable to do reflexes patient screams and wants to leave the room Quality Reporting (2019) Adult ([facility] 138/06/20/68) Smoking risk assessment performed?: Yes Patient Tobacco Use Status: Never used Tobacco Assessment & Plan Assessment & Plan (1) 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: Code(s): G30.0 - Alzheimer's disease with early onset; F02.81 - Dementia in other diseases classified elsewhere, unspecified severity, with behavioral disturbance Category: Medical (2) Abnormal behavior: Comment: screaming . aggressive behavior towards staff Code(s): R46.89 - Other symptoms and signs involving appearance and behavior Category: Medical (3) Seizure: Code(s): R56.9 - Unspecified convulsions Category: Medical Plan Continue keppra 500mg bid F/u psychiatry for further management Coding Level of Care Code Est Pt Level 4 (51476) Diagnoses 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 G30.0; F02.81 Abnormal behavior R46.89 Seizure R56.9
== END 2024-04-06 15:37 | disposition home or self-care (01) ==
PROVIDERS: PCP Internal Medicine; Visit Provider Psychiatry & Neurology Neurology
DX: G30.0 Alzheimer's disease with early onset (principal); F02.C11 Dementia in other diseases classified elsewhere, severe, with agitation; R56.9 Unspecified convulsions
CPT/HCPCS: 99214

== ENCOUNTER → 2024-04-06 14:49 | Outpatient (BNVA) | payer MEDICARE, MEDICAID, SELFPAY | PROVIDERS: PCP Internal Medicine; Visit Provider Psychiatry & Neurology Neurology | DX: G30.0 Alzheimer's disease with early onset (principal); F02.818 Dementia in other diseases classified elsewhere, unspecified severity, with other behavioral disturbance; R56.9 Unspecified convulsions | CPT/HCPCS: 99212 ==

== ENCOUNTER 2024-06-10 11:58 | Outpatient (REF) | payer MEDICARE, MEDICAID, SELFPAY ==
[2024-06-10 12:45] LABS: Appearance Urine Turbid; Color Urine Yellow; Glucose Urine UA Negative (Negative); Leukocyte Esterase Urine Large (3+) (Negative); Nitrite Urine Positive (Negative); PH 6.5 (5.0-9.0); UMIC TRIGGER UACC YES; Urine Blood Moderate (2+) (Negative); Urine Ketones Negative (Negative); Urine Protein 30 (1+) mg/dL (Neg-Trace)
[2024-06-10 13:23] LABS: Bacteria Urine 4+ (None Seen); RBC Urine >20 /HPF (0-2); UACC Culture Trigger YES; WBC Urine >50 /HPF (0-5)
--- OUTSIDE RECORDS SUMMARY | 2024-06-10 13:45 | XMS_ITS | Clinical Summary ---
Author Organization [facility] Facility Address [address] [place] [address] Care Team Providers Care Code Enforcement Inspector Name Role Phone Hannah Rowley MD Primary Care Provider [phone] Social History Tobacco Use Types Packs/Day Years Used Date Smoking Tobacco: Never Assessed Comments Unknown Sex and Gender Information Value Date Recorded Sex Assigned at Not on file Legal Sex Female 8:38 AM EDT Gender Identity Not on file Sexual Orientation Not on file Plan of Treatment Health Maintenance Due Date Last Done Comments Breast Cancer Screening 1960 Colorectal Cancer Screening: Annual FOBT 2011 Colorectal Cancer Screening: Colonoscopy 2011 Colorectal Cancer Screening: Sigmoidoscopy 2011 Influenza Vaccine (#1) 2023 Hepatitis B Vaccine Aged Out No longe r eligible based on patient's age to complete this topic Pneumococcal Vaccine: Pediat rics (0 to 5 Years) and At-Risk Patients (6 to 64 Years) Aged Out No longer eligible b ased on patient's age to complete this topic Insurance [place] Care Teams Code Enforcement Inspector Relationship Specialty Start Date End Date Hannah Rowley MD [address] [place], [place] PCP - General Internal Medicine 02/22/22
== END 2024-06-10 11:59 | disposition home or self-care (01) ==
LOC: HO.LNP 11:58
PROVIDERS: Visit Provider Internal Medicine
DX: N39.41 Urge incontinence (principal)
CPT/HCPCS: 81001; 81003; 87086; 87088; 87186

== ENCOUNTER 2024-06-11 17:21 | Outpatient (AMB) | payer MEDICARE, MEDICAID, SELFPAY ==
--- NOTE | 2024-06-11 17:25 | AM.OFFVISMDC ---
Intake Vital Signs 06/11/24 17:27 BMI Reason not done Patient refused/unable BP 136/78 Blood Pressure Location Rt brachial Position Sitting Intake Visit Reasons: AWV Lead Performance Support Analyst Required: No Accompanied by: brother/staff Allergies risperidone [From Risperdal] Allergy (Verified 06/11/24 17:33) Agitated lactose Adverse Reaction (Severe, Verified 06/11/24 17:33) Diarrhea Medication List - Last Reconciled 06/11/24 by Hannah Stacy MD acetaminophen ER 650 mg PO Q12H 30 days [adult diapers briefs Use 8 briefs per day] [adult overnight diapers As directed] alprazolam 0.125 mg (1/2 x 0.25 mg) PO BID aspirin 1 tab PO DAILY atorvastatin 80 mg PO BEDTIME 90 days blood sugar diagnostic (FreeStyle Lite Strips) 2 x day blood sugar diagnostic (ScaleOut Softwarey No Coding strips) Use 1 strip twice a day blood-glucose meter (Kingspan Wind Autocode Meter kit) As directed blood-glucose meter (Kingspan Wind Autocode Meter kit) As directed brexpiprazole (Rexulti) 1 mg PO DAILY brexpiprazole (Rexulti) 0.5 mg PO DAILY 90 days fluoxetine 20 mg PO DAILY guaifenesin 200 mg PO DAILY PRN hospital bed As directed lancets (Medical Image Mining LaboratoriesTouch UltraSoft 2 Lancet) Use 1 lancet once a day lancets (Prodigy Lancets) Use 1 lancet twice a day lancets (Safety Lancets) Use 1 lancet twice a day lancing device (Kingspan Wind Lancing Device) s directed tests 4 X/day due to poor glycemic control levetiracetam 500 mg PO BID lisinopril 10 mg PO DAILY 90 days metformin 1,000 mg PO BID 90 days nitrofurantoin macrocrystal 100 mg PO BID 7 days [recliner lift chair As directed] semaglutide (Rybelsus) 14 mg PO QAM 30 days Shower Chair As directed walker As directed [wheelchair As directed] [wipes As directed] HPI HPI Comments History of Present Illness Details This is a 64-year-old female with diabetes mellitus type 2, seizures, mood disorder, early-onset Alzheimer's dementia and developmental delay that comes accompanied by 2 staff members and brother for her Medicare wellness exam. She is in a wheelchair due to not wanting to walk. A1c within goal. Dementia follow by Neurology. Ppp handed to guardian of patient which is her brother. [place] of care reviewed. DNR, molst and healthcare proxy forms were filled and completed today at this office visit. Not able to do mini-mental status exam due to patient being nonverbal. [facility] Medical History (Updated 06/12/24 @ 17:31 by Hannah Stacy MD) Hypercalcemia 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 Obesity due to excess calories Class 2 obesity with body mass index (BMI) of 37.0 to 37.9 in adult Mood disorder Memory loss Abnormal behavior Proteinuria Type 2 diabetes mellitus with other diabetic kidney complication Diabetes type 2, uncontrolled Urinary incontinence Microalbuminuria GERD (gastroesophageal reflux disease) Dyslipidemia Essential hypertension Mentally challenged Diabetes mellitus Surgical History History of hysterectomy Family History (Updated 06/11/24 @ 17:53 by Hannah Stacy MD) Father CVD (cardiovascular disease) Mother Hypertension CKD (chronic kidney disease) CHF (congestive heart failure) Brother Healthy adult Social History Household Members: Caregiver Housing: Assisted Living Facility Do you presently have visiting nurse or other home services: Yes Unable to assess alcohol history related to: Unknown Alcohol intake: never Comment: caregiver from [facility] at bedside Patient Tobacco Use Status: Never used Tobacco e-Cigarette/Vaping Use: Never Used Second Hand Smoke Exposure: No service: No Current occupational status: disabled Current occupational exposures/hazards: No Cognitive needs: Yes Hearing needs: No Vision needs: No Questionnaire Medicare Wellness Checkup What gender do you identify with?: female During the past 4 weeks, how much have you been bothered by emotional problems such as feeling anxious, depressed, irritable, sad or downhearted, and blue?: moderately During the past 4 weeks, has your physical & emotional health limited your social activities with family, friends, neighbors, or groups?: not at all During the past 4 weeks, how much bodily pain have you generally had?: no pain During the past 4 weeks, was someone available to help you if you needed & wanted help?: yes, as much as I wanted During the past 4 weeks, what was the hardest physical activity you could do for at least 2 minutes?: very light Can you get to places out of walking distance without help? (For eg., can you travel alone on buses, taxis or drive your car?): No Can you go shopping for groceries or clothes without someone's help?: No Can you prepare your own meals?: No Can you do your housework without help?: No Because of any health problems, do you need the help of another person with your personal care needs such as eating, bathing, dressing or getting around the house?: Yes Can you handle your own money without help?: No During the past 4 weeks, how would you rate your health in general?: fair During the past 4 weeks how have things been going for you?: pretty well Are you having difficulties driving your car?: not applicable, I don't use a car Do you always fasten your seat belt when you are in a car?: yes, usually During past 4 weeks, have you been bothered by the following: never: Falling or dizzy when standing up, Sexual problems?, Trouble eating well?, Teeth or denture problems? and Tiredness or fatigue? and always: Problems using the telephone? Have you fallen 2 or more times in the past year?: No Are you afraid of falling?: No Are you a smoker?: no During the past 4 weeks, how many drinks of wine, beer, or other alcoholic beverages did you have?: no alcohol at all Do you exercise for about 20 minutes 3 or more times a week?: no, I usually do not exercise this much Have you been given information to help with the following?: no: Hazards in your house that might hurt you? and no: Keeping track of your medications? How often do you have trouble taking medicines the way you have been told to take them?: I always take medicine as prescribed How confident are you that you can control & manage most of your health problems?: very confident What is your race?: White Activity of Daily Living Bathing - sponge bath, tub bath or shower: receives help in bathing more than one body part (or not bathed) Dressing - getting clothes from closets & drawers, including inner/outer garments & fasteners.: receives help getting clothes or getting dressed, or stays undressed Toileting - going to the 'toilet room' for urine/bowel elimination & cleaning self/arranging clothes: does not go to room termed toilet for elimination process Transfer: moves in & out of bed or chair with help Continence: has occasional 'accidents' Feeding: receives help feeding or is partly/completely fed by tubes/intravenous Total Score: 4 Information obtained from: informant Using telephone: dependent Traveling: dependent Shopping: dependent Preparing meals: dependent Housework: dependent Taking medicine: dependent Managing money: dependent PHQ-9 Over the last 2 weeks, how often have you been bothered by any of the following problems? 1. Little interest or pleasure in doing things: not at all 2. Feeling down, depressed, or hopeless: not at all 3. Trouble falling or staying asleep, or sleeping too much: not at all 4. Feeling tired or having little energy: not at all 5. Poor appetite or overeating: not at all 6. Feeling bad about yourself - or that you are a failure or have let yourself or your family down: not at all 7. Trouble concentrating on things, such as reading the newspaper or watching television: not at all 8. Moving or speaking so slowly that other people could have noticed. Or the opposite - being so fidgety or restless that you have been moving around a lot more than usual: not at all 9. Thoughts that you would be better off or of hurting yourself in some way: not at all Total score: 0 Depression Screening Interpretation: Negative Depression Screening Done: Yes 81923 - PHQ-9 Billing: Yes Source: Developed by Drs. Zaki Saucedo, Penelope Vegas, Brendan Vasquez and colleagues, with an educational sintia from [employer]. AUDIT C Alcohol Use Questionnaire (AUDIT-C) 1. How often do you have a drink containing alcohol?: Never Total Score: 0 Score Reviewed/Action Taken: No TEX-7 AMB Questionnaire TEX-7 Date TEX - 7 assessed: 06/11/24 Feeling nervous, anxious, or on edge: 1 = Several days Not being able to stop or control worryin = Not at all Worrying too much about different things: 0 = Not at all Trouble relaxin = Not at all Being so restless that it is hard to sit still: 0 = Not at all Becoming easily annoyed or irritable: 0 = Not at all Feeling afraid as if something awful might happen: 0 = Not at all Total TEX-7 score (0-4 normal; 5-9 mild; 10-14 moderate; 15-21 severe): 1 Source: Developed by Drs. Zaki Saucedo, Penelope Vegas, Brendan Vasquez and colleagues, with an educational sintia from [employer]. TEX-7 Assessment Billing ETX-7 Assessment Tool: TEX-7 Assessment 24116 Thrive Questionnaire Date Thrive assessed: 06/11/24 I am a: Parent/Caregiver What is your living situation today?: I have a steady place to live Within the past 12 months, did the food you bought not last and you didn't have the money to get more?: Never true Within the past 12 months, did you worry whether your food would run out before you got money to buy more?: Never true Do you have trouble paying for medicines?: No Do you have trouble getting transportation to medical appointments?: No Do you have trouble paying your heating and electricity bill?: No Do you have trouble taking care of your child, family member or friend?: No Do you have trouble with day-to-day activities such as bathing, preparing meals, shopping, managing finances, etc.?: No Are you currently unemployed and looking for a job?: No Are you interested in more education?: No Please select the resources that you would like help with: None Currently or been in a relationship where the following occur: No concerns reported THRIVE Score: 0 Review of Systems Const All systems reviewed & are unremarkable except as noted in HPI and below Card Denies chest pain at rest, Denies chest pain with activity, Denies edema, Denies irregular heart rhythm, Denies claudication, Denies dyspnea, Denies dyspnea on exertion, Denies orthopnea, Denies paroxysmal nocturnal dyspnea and Denies slow heart rate Resp Denies cough, Denies dyspnea and Denies dyspnea on exertion GI Denies abdominal pain, Denies change in bowel habits, Denies excessive flatus, Denies nausea and Denies vomiting Neuro Denies behavioral changes and Denies lack of coordination Psych Denies behavioral changes Physical Exam Vital Signs: Last Vital Signs BP 136/78 06/11/24 17:27 Const Limitations: wheelchair Resp Effort & Inspection: normal respiratory effort Auscultation: clear to auscultation bilaterally Cardio Jugular venous distension: no JVD Rate: regular rate Rhythm: regular rhythm Heart sounds: S1 normal heart sound present and S2 normal heart sound present Assessment & Plan Assessment & Plan (1) Encounter for Medicare annual wellness exam: Code(s): Z00.00 - Encounter for general adult medical examination without abnormal findings (2) Seizure: Code(s): R56.9 - Unspecified convulsions (3) 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: Code(s): G30.0 - Alzheimer's disease with early onset; F02.81 - Dementia in other diseases classified elsewhere, unspecified severity, with behavioral disturbance (4) Mood disorder: Code(s): F39 - Unspecified mood [affective] disorder (5) Diabetes mellitus: Code(s): E11.9 - Type 2 diabetes mellitus without complications Qualifiers: Diabetes mellitus type: type 2 Diabetes mellitus mcc insulin use: without stretcher leveler operator use Diabetes mellitus complication status: with kidney complications Diabetes mellitus complication detail: with microalbuminuria Qualified Code(s): E11.29 - Type 2 diabetes mellitus with other diabetic kidney complication; R80.9 - Proteinuria, unspecified Plan Repeat in a year. Continue current meds. Follow-up with psychiatry and Neurology. Orders: Orders Complete Blood Count Auto Diff 06/11/24 D64.9 - Anemia, unspecified IRON PROFILE 06/11/24 D64.9 - Anemia, unspecified Lipid Panel 06/11/24 E78.5 - Hyperlipidemia, unspecified Comprehensive [place]. Panel Fast 06/11/24 R56.9 - Unspecified convulsions Medications: New ciprofloxacin HCl (Cipro) crush and mix with foods 250 mg PO BID 6 tabs 0RF 3 days Discontinued nitrofurantoin macrocrystal must administer with a meal/food Discontinued Reason: Patient Completed Course 100 mg PO BID 7 days 14 caps 0RF On Hold atorvastatin Hold Comment: Doctor's Order 80 mg PO BEDTIME 90 days 90 tabs 0RF E78.5 - Hyperlipidemia, unspecified Quality Reporting (2019) Adult ([facility] 138/2/22/69) Smoking risk assessment performed?: Yes Patient Tobacco Use Status: Never used Tobacco Depression/Bipolar (159/160/161/177) PHQ-9: Total score: 0 Coding Level of Care Code Medicare First (G0438) Diagnoses Encounter for Medicare annual wellness exam Z00.00 Seizure R56.9 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 G30.0; F02.81 Mood disorder F39 Type 2 diabetes mellitus with microalbuminuria, without long-term current use of insulin E11.29; R80.9 Diabetes mellitus type: type 2 Diabetes mellitus stretcher leveler operator insulin use: without stretcher leveler operator use Diabetes mellitus complication status: with kidney complications Diabetes mellitus complication detail: with microalbuminuria CPT Codes Advance Care Planning - Time spent: 1-15 minutes, on File ([id number]) Additional Codes TEX-7 Assessment Billing - TEX-7 Assessment Tool: TEX-7 Assessment 79501 ([id number]) PHQ-9 - 53396 - PHQ-9 Billing: Yes ([id number]) Time Spent (min) 35 Advance Care Planning Advance Care Planning discussion: Completed/Scanned Date of discussion: 06/11/24 Who was present: Brother, patient, 2 staff members and me. Forms completed: Health Care Proxy, MOLST and Comfort care/DNR Time spent: 1-15 minutes, on File Actual minutes spent: 5
[2024-06-11 17:27] VITALS: BP 136/78
--- OUTSIDE RECORDS SUMMARY | 2024-06-11 17:27 | XMS_ITS | Clinical Summary ---
Author Organization [facility] Facility Address [address] [place] [address] Care Team Providers Care Plastic Parts Designer Name Role Phone Hannah Rowley MD Primary Care Provider [phone] Social History Tobacco Use Types Packs/Day Years [...] [place] Care Teams Plastic Parts Designer Relationship Specialty Start Date End Date Hannah Rowley MD [address] [place], [place] PCP - General Internal Medicine 02/22/22
== END 2024-06-11 18:10 | disposition home or self-care (01) ==
LOC: HO.HMCH 17:21
PROVIDERS: PCP Internal Medicine; Visit Provider Internal Medicine
DX: Z00.00 Encounter for general adult medical examination without abnormal findings (principal); R56.9 Unspecified convulsions; G30.0 Alzheimer's disease with early onset; F39 Unspecified mood [affective] disorder; E11.29 Type 2 diabetes mellitus with other diabetic kidney complication; F02.81 Dementia in other diseases classified elsewhere, unspecified severity, with behavioral disturbance; R80.9 Proteinuria, unspecified

== ENCOUNTER → 2024-06-11 17:21 | Outpatient (BNVA) | payer MEDICARE, MEDICAID, SELFPAY | PROVIDERS: PCP Internal Medicine; Visit Provider Internal Medicine | DX: Z00.00 Encounter for general adult medical examination without abnormal findings (principal); R56.9 Unspecified convulsions; F39 Unspecified mood [affective] disorder; E11.29 Type 2 diabetes mellitus with other diabetic kidney complication; R80.9 Proteinuria, unspecified; G30.0 Alzheimer's disease with early onset; F02.818 Dementia in other diseases classified elsewhere, unspecified severity, with other behavioral disturbance | CPT/HCPCS: 96127 ==

== ENCOUNTER 2024-07-31 08:34 | Outpatient (REF) | payer MEDICARE, MEDICAID, SELFPAY ==
[2024-07-31 08:47] LABS: MANUAL DIFF FLAG NO
--- OUTSIDE RECORDS SUMMARY | 2024-07-31 09:04 | XMS_ITS | Clinical Summary ---
Author Organization [facility] Facility Address [address] [place] [address] Care Team Providers Care Astro Technician Name Role Phone Hannah Rowley MD Primary Care Provider [phone] Social History Tobacco Use Types Packs/Day Years [...] Colorectal Cancer Screening: Sigmoidoscopy 2011 Influenza Vaccine (Season Ended) 2024 Hepatitis B Vaccine Aged Out No longe r eligible based on patient's age to complete this topic Pneumococcal Vaccine: Pediat rics (0 to 5 Years) and At-Risk Patients (6 to 64 Years) Aged Out No longer eligible b ased on patient's age to complete this topic Insurance [place] Care Teams Astro Technician Relationship Specialty Start Date End Date Hannah Rowley MD [address] [place], [place] PCP - General Internal Medicine 02/22/22
[2024-07-31 09:39] LABS: Eosinophils Absolute Auto 0.1 X10*3/uL (0.0-0.4); Eosinophils Percent Auto 1.9 % (0-4); Hematocrit 37.8 % (37.0-47.0); Hemoglobin 12.2 g/dl (12.0-16.0); Imm Gran Abs Auto 0.02 X10*3/uL (0.00-0.03); Imm Gran Pct Auto 0.5 % (0.0-0.4); Lymphocytes Absolute Auto 1.2 X10*3/uL (1.2-4.9); Mean Corpuscular HGB Conc 32.3 g/dl (31.0-35.0); Mean Corpuscular Hemoglobin 28.8 pg (27.0-33.0); Mean Corpuscular Volume 89.2 fL (80.0-98.0); Mean Platelet Volume 9.5 fL (9.4-12.3); Monocytes Absolute Auto 0.3 X10*3/uL (0.1-1.2); Neutrophils Absolute Auto 2.5 x10*3/uL (2.0-8.3); Neutrophils Percent Auto 59.6 % (45-73); Platelet Count 153 X10*3/uL (160-400); Red Blood Count 4.24 X10*6/uL (4.20-5.50); Red Cell Distribution Width 15.4 % (11.0-16.0); White Blood Count 4.1 X10*3/uL (4.8-10.8)
[2024-07-31 11:25] LABS: Alanine Aminotransferase 26 U/L (0-31); Albumin Level 4.4 g/dL (3.5-5.0); Alkaline Phosphatase 85 U/L (39-117); Anion Gap 11 (12-20); Aspartate Amino Transferase 24 U/L (5-31); Bilirubin Total 1.1 mg/dL (0.0-1.0); Blood Urea Nitrogen 20 mg/dL (9-16); Calcium 10.8 mg/dL (8.4-10.2); Carbon Dioxide 27 mmol/L (22-29); Chloride 109 mmol/L (96-108); Cholesterol 114 mg/dL (<200); Estimated Glomerular Filt Rate > 60; Glucose Fasting 129 mg/dL (60-99); HDL Cholesterol 43 mg/dL (>40); Iron 64 mcg/dL (30-160); LDL Cholesterol Calculated 58 mg/dL (<100); Magnesium 1.7 mg/dL (1.6-2.6); Percent Iron Saturation 17 % (15-50); Potassium 4.3 mmol/L (3.3-5.1); Sodium 143 mmol/L (135-145); Total Iron Binding Capacity 371 mcg/dL (228-428); Total Protein 7.4 g/dL (6.5-8.0); Triglycerides 68 mg/dL (<150); Unsaturated Iron Binding 307 ug/dL
== END 2024-07-31 08:35 | disposition home or self-care (01) ==
LOC: HO.LAB 08:34
PROVIDERS: PCP Internal Medicine; Visit Provider Internal Medicine
DX: E11.9 Type 2 diabetes mellitus without complications (principal); D64.9 Anemia, unspecified; E78.5 Hyperlipidemia, unspecified; E83.42 Hypomagnesemia
CPT/HCPCS: 36415; 80053; 80061; 83540; 83735; 85025

== ENCOUNTER 2024-08-13 15:03 | Outpatient (AMB) | payer MEDICARE, MEDICAID, SELFPAY ==
[2024-08-13 15:15] VITALS: BP 112/80; BMI 22.7
--- NOTE | 2024-08-13 15:15 | MHC.PC.OV ---
Vital Signs 08/13/24 15:15 Height 5 ft 5 in Weight 136 lb 3.931 oz BMI 22.7 BP 112/80 Blood Pressure Location Rt brachial Position Sitting Intake Visit Reasons: Med review Etl Analyst Required: No Accompanied by: staff Allergies risperidone [From Risperdal] Allergy (Verified 08/13/24 15:26) Agitated lactose Adverse Reaction (Severe, Verified 08/13/24 15:26) Diarrhea Medication List - Last Reconciled 08/13/24 by Hannah Stacy MD [1 person assist As directed] acetaminophen ER 650 mg PO Q12H 30 days [adult diapers briefs Use 8 briefs per day] [adult overnight diapers As directed] alprazolam 0.125 mg (1/2 x 0.25 mg) PO BID aspirin 1 tab PO DAILY atorvastatin 80 mg PO BEDTIME 90 days blood sugar diagnostic (FreeStyle Lite Strips) 2 x day blood sugar diagnostic (Prodigy No Coding strips) Use 1 strip twice a day blood-glucose meter (Moki.tv Autocode Meter kit) As directed blood-glucose meter (Moki.tv Autocode Meter kit) As directed brexpiprazole (Rexulti) 1 mg PO DAILY brexpiprazole (Rexulti) 0.5 mg PO DAILY 90 days fluoxetine 20 mg PO DAILY guaifenesin 200 mg PO DAILY PRN hospital bed As directed lancets (SiO2 FactoryTouch UltraSoft 2 Lancet) Use 1 lancet once a day lancets (Prodigy Lancets) Use 1 lancet twice a day lancets (Safety Lancets) Use 1 lancet twice a day lancing device (Moki.tv Lancing Device) s directed tests 4 X/day due to poor glycemic control levetiracetam 500 mg PO BID lisinopril 10 mg PO DAILY 90 days metformin 1,000 mg PO BID 90 days [recliner lift chair As directed] semaglutide (Rybelsus) 14 mg PO QAM 30 days sennosides (senna) 8.6 mg PO BEDTIME PRN 30 days Shower Chair As directed walker As directed [wheelchair As directed] [wipes As directed] Tobacco use date assessed: 08/13/24 Dental Screening Dental Screen Date: 08/13/24 Did you have a dental visit in the last 12 months?: No Did you have a dental problem in the last 6 months where you did not have access to dental care?: No Was dental information given to patient?: Patient has dentist HPI HPI Comments History of Present Illness Details The patient is a 64-year-old female presenting for a follow-up of her diabetes management and an assessment of her overall health. She is a resident in a fci due to mental challenges and is accompanied by staff for appointments. Her medical history includes type 2 diabetes mellitus, which is currently well-controlled with Rybelsus, as evidenced by an HbA1c of 5.9. She also has controlled dyslipidemia with an LDL level of 58, adjusted with statin therapy. Despite hip osteoarthritis, she has been ambulatory with the assistance of a walker and has experienced a noted increase in mobility. She has mild hypercalcemia noted in recent lab workups. Her psychiatric history includes depression, which is managed with fluoxetine, and anxiety, for which she is treated with benzodiazepines. She is monitored by psychiatric services. Her essential hypertension is maintained within normal limits with lisinopril. She also has a history of epilepsy, currently managed with Keppra, and she experiences intermittent constipation managed with medications as needed. She is mentally challenged and is accompanied by nursing staff. Needs one-person assist only. She also has early-onset Alzheimer's disease which has not significantly changed. [facility] Medical History Hypercalcemia 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 Obesity due to excess calories Class 2 obesity with body mass index (BMI) of 37.0 to 37.9 in adult Mood disorder Memory loss Abnormal behavior Proteinuria Type 2 diabetes mellitus with other diabetic kidney complication Diabetes type 2, uncontrolled Urinary incontinence Microalbuminuria GERD (gastroesophageal reflux disease) Dyslipidemia Essential hypertension Mentally challenged Diabetes mellitus Surgical History History of hysterectomy Family History Father CVD (cardiovascular disease) Mother Hypertension CKD (chronic kidney disease) CHF (congestive heart failure) Brother Healthy adult Social History Household Members: Caregiver Housing: Assisted Living Facility Do you presently have visiting nurse or other home services: Yes Unable to assess alcohol history related to: Unknown Alcohol intake: never Comment: caregiver from [facility] at bedside Patient Tobacco Use Status: Never used Tobacco e-Cigarette/Vaping Use: Never Used Second Hand Smoke Exposure: No service: No Current occupational status: disabled Current occupational exposures/hazards: No Cognitive needs: Yes Hearing needs: No Vision needs: No Questionnaire Thrive Questionnaire Date Thrive assessed: 06/11/24 TEX-7 AMB Questionnaire TEX-7 Date TEX - 7 assessed: 06/11/24 Source: Developed by Drs. Zaki Saucedo, Penelope Vegas, Brendan Vasquez and colleagues, with an educational sintia from [employer]. Review of Systems Const All systems reviewed & are unremarkable except as noted in HPI and below Card Denies chest pain at rest, Denies chest pain with activity, Denies edema, Denies irregular heart rhythm, Denies claudication, Denies dyspnea, Denies dyspnea on exertion, Denies orthopnea, Denies paroxysmal nocturnal dyspnea and Denies slow heart rate Resp Denies cough, Denies dyspnea and Denies dyspnea on exertion GI Denies abdominal pain, Denies change in bowel habits, Denies excessive flatus, Denies nausea and Denies vomiting Denies urinary incontinence, Denies urinary hesitancy and Denies urinary urgency Musc Denies atrophy, Denies deformity and Denies limited range of motion Skin/Breast Denies bleeding lesions, Denies changing lesions and Denies rash Physical exam (Primary Care) Vital Signs: Last Vital Signs BP 112/80 08/13/24 15:15 BMI result Body Mass Index 22.7 Tobacco/Smoking Status: Tobacco use Status Tobacco use date assessed 08/13/24 08/13/24 15:21 Patient Tobacco Use Status Never used Tobacco 08/13/24 15:18 e-Cigarette/Vaping Use Never Used 08/13/24 15:18 Thrive Assessment: Date of Thrive Assessment Date Thrive assessed 06/11/24 08/13/24 15:18 Const Limitations: ambulation with walker Resp Effort & Inspection: normal respiratory effort Auscultation: clear to auscultation bilaterally Cardio Jugular venous distension: no JVD Rate: regular rate Rhythm: regular rhythm Heart sounds: S1 normal heart sound present and S2 normal heart sound present Extrem General: Yes full ROM Results AMB Hemoglobin A1c AMB Hemoglobin A1c 5.9 % Last Edit by DEAN Coleman on 08/13/24 15:35 Results Reviewed Results Reviewed: Laboratory Last Values Hgb A1c (Clinic) 5.9 % (4.0-6.0) 08/13/24 15:34 Coding Level of Care Code Est Pt Level 4 (59314) Complex EM visit Add On G2211 Diagnoses Seizure R56.9 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 G30.0; F02.81 Mood disorder F39 Type 2 diabetes mellitus with microalbuminuria, without long-term current use of insulin E11.29; R80.9 Diabetes mellitus type: type 2 Diabetes mellitus superintendent container terminal insulin use: without residential use Diabetes mellitus complication status: with kidney complications Diabetes mellitus complication detail: with microalbuminuria Essential hypertension I10 Dyslipidemia E78.5 Time Spent (min) 22 Assessment & Plan Assessment & Plan (1) Seizure: Code(s): R56.9 - Unspecified convulsions Category: Medical (2) 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: Code(s): G30.0 - Alzheimer's disease with early onset; F02.81 - Dementia in other diseases classified elsewhere, unspecified severity, with behavioral disturbance Category: Medical (3) Mood disorder: Code(s): F39 - Unspecified mood [affective] disorder Category: Medical (4) Diabetes mellitus: Code(s): E11.9 - Type 2 diabetes mellitus without complications Category: Medical Qualifiers: Diabetes mellitus type: type 2 Diabetes mellitus superintendent container terminal insulin use: without superintendent container terminal use Diabetes mellitus complication status: with kidney complications Diabetes mellitus complication detail: with microalbuminuria Qualified Code(s): E11.29 - Type 2 diabetes mellitus with other diabetic kidney complication; R80.9 - Proteinuria, unspecified (5) Essential hypertension: Code(s): I10 - Essential (primary) hypertension Category: Medical (6) Dyslipidemia: Code(s): E78.5 - Hyperlipidemia, unspecified Category: Medical Plan The patient's diabetes, hypertension, depression, anxiety, and epilepsy are well-controlled under current management plans, requiring no medication adjustments at this time. Her dyslipidemia continues to be effectively managed with statins. The patient will maintain her use of a walker to assist with mobility due to hip osteoarthritis. Monitoring for mild hypercalcemia is indicated, but no immediate actions are needed. Follow-up is advised for any changes in her health status or symptoms. Patient was informed and verbally consented to the use of an ambient scribe for clinic note documentation during this visit. I discussed with the patient and accompanying staff that her diabetes management is currently effective with an HbA1c of 5.9, and we will continue monitoring her blood sugar levels in the coming months. The use of statins is appropriately controlling her dyslipidemia, with an LDL level within goal. No changes are necessary for her hypertension treatment as her condition is stable with lisinopril. I explained the ongoing treatment for her depression and anxiety under psychiatric supervision and true to its control. We reviewed seizure management with Amber, affirming it is well-suited for her epileptic condition. We will keep an eye on the mild hypercalcemia without current intervention. Orders: Orders AMB Hemoglobin A1c Today E11.29 - Type 2 diabetes mellitus with other diabetic kidney complication, R80.9 - Proteinuria, unspecified Medications: Refilled semaglutide (Rybelsus) 14 mg PO QAM 30 tabs 11RF 30 days Patient Instructions: - Continue taking all prescribed medications as directed. - Use a walker for mobility support. - Inform staff to monitor blood sugar levels as per schedule. - Alert staff or call healthcare provider if experiencing new symptoms or changes in health. - Regular staff-supported follow-up visits recommended to evaluate any changes in condition.
--- OUTSIDE RECORDS SUMMARY | 2024-08-13 17:50 | XMS_ITS | Clinical Summary ---
Author Organization [facility] Facility Address [address] [place] [address] Care Team Providers Care Guidance Director Name Role Phone Hannah Rowley MD Primary Care Provider [phone] Social History Tobacco Use Types Packs/Day Years [...] Colonoscopy 2011 Colorectal Cancer Screening: Sigmoidoscopy 2011 Pneumococcal Vaccine: 50+ Ye ars (1 of - PCV) 2012 Influenza Vaccine (Season Ended) 2024 Hepatitis B Vaccine Aged Out No longe r eligible based on patient's age to complete this topic Insurance Medicare Medicaid [place] Medicare [place] Care Teams Guidance Director Relationship Specialty Start Date End Date Hannah Rowley MD [address] [place] [address] PCP - General Internal Medicine 02/22/22
== END 2024-08-13 15:37 | disposition home or self-care (01) ==
LOC: HO.HMCH 15:04
PROVIDERS: PCP Internal Medicine; Visit Provider Internal Medicine
DX: R56.9 Unspecified convulsions (principal); G30.0 Alzheimer's disease with early onset; F39 Unspecified mood [affective] disorder; E11.29 Type 2 diabetes mellitus with other diabetic kidney complication; F02.81 Dementia in other diseases classified elsewhere, unspecified severity, with behavioral disturbance; R80.9 Proteinuria, unspecified; I10 Essential (primary) hypertension; E78.5 Hyperlipidemia, unspecified

== ENCOUNTER → 2024-08-13 15:03 | Outpatient (BNVA) | payer MEDICARE, MEDICAID, SELFPAY | PROVIDERS: PCP Internal Medicine; Visit Provider Internal Medicine | DX: R56.9 Unspecified convulsions (principal); G30.0 Alzheimer's disease with early onset; F02.818 Dementia in other diseases classified elsewhere, unspecified severity, with other behavioral disturbance; E11.29 Type 2 diabetes mellitus with other diabetic kidney complication; R80.9 Proteinuria, unspecified; I10 Essential (primary) hypertension; E78.5 Hyperlipidemia, unspecified | CPT/HCPCS: 83036; 99212 ==

== ENCOUNTER 2024-10-07 14:34 | Outpatient (REF) | payer MEDICARE, MEDICAID, SELFPAY ==
[2024-10-07 14:39] LABS: Appearance Urine Clear; Color Urine Yellow; Glucose Urine UA Negative (Negative); Leukocyte Esterase Urine Small (1+) (Negative); Nitrite Urine Negative (Negative); PH 6.5 (5.0-9.0); UMIC TRIGGER UACC YES; Urine Blood Negative (Negative); Urine Ketones Negative (Negative); Urine Protein Negative (Neg-Trace)
[2024-10-07 14:48] LABS: Bacteria Urine None Seen (None Seen); Hyaline Casts Urine 0-2 /LPF (0-2); RBC Urine 0-2 /HPF (0-2); Squamous Epithelial Cell Urine 0-2 /HPF (0-2); UACC Culture Trigger YES; WBC Urine 0-5 /HPF (0-5)
[2024-10-07 15:29] LABS: Creatinine Urine 28.27 mg/dL; Microalbum/Creatinine Ratio Ur 21.2 ug/mg cr (<30)
--- OUTSIDE RECORDS SUMMARY | 2024-10-07 16:44 | XMS_ITS | Clinical Summary ---
Author Organization [facility] Facility Address [address] [place] [address] Care Team Providers Care Television Repairer Name Role Phone Hannah Rowley MD Primary Care Provider [phone] Social History Tobacco Use Types Packs/Day Years [...] Medicaid [place] Medicare Medicaid [place] Care Teams Television Repairer Relationship Specialty Start Date End Date Hannah Rowley MD [address] [place] [address] PCP - General Internal Medicine 02/22/22
== END 2024-10-07 14:35 | disposition home or self-care (01) ==
LOC: HO.LNP 14:34
PROVIDERS: Visit Provider Internal Medicine
DX: E11.9 Type 2 diabetes mellitus without complications (principal); N39.41 Urge incontinence
CPT/HCPCS: 81001; 82043; 82570; 87086

== ENCOUNTER 2024-10-12 16:52 | Outpatient (AMB) | payer MEDICARE, MEDICAID, SELFPAY ==
--- NOTE | 2024-10-12 16:55 | A.OFFPC_ITS ---
Vital Signs 10/12/24 16:55 BMI Reason not done Patient refused/unable Comment Unable to take bp patient was yelling. Intake Visit Reasons: dm Intake Note: Patient here for a follow up DM Meat Cutter Apprentice Required: No Accompanied by: Staff Allergies risperidone [From Risperdal] Allergy (Verified 10/12/24 16:59) Agitated lactose Adverse Reaction (Severe, Verified 10/12/24 16:59) Diarrhea Medication List - Last Reconciled 10/12/24 by Hannah Stacy MD [1 person assist As directed] acetaminophen ER 650 mg PO Q12H 30 days [adult diapers briefs Use 8 briefs per day] [adult overnight diapers As directed] alprazolam 0.125 mg (1/2 x 0.25 mg) PO BID aspirin 1 tab PO DAILY atorvastatin 80 mg PO BEDTIME 90 days blood sugar diagnostic (FreeStyle Lite Strips) 2 x day blood sugar diagnostic (Prodigy No Coding strips) Use 1 strip twice a day blood-glucose meter (Blood cell Storage Autocode Meter kit) As directed blood-glucose meter (Blood cell Storage Autocode Meter kit) As directed brexpiprazole (Rexulti) 1 mg PO DAILY brexpiprazole (Rexulti) 0.5 mg PO DAILY 90 days disposable gloves As directed-large size disposable gloves As directed- medium size fluoxetine 20 mg PO DAILY guaifenesin 200 mg PO DAILY PRN hospital bed As directed lancets (OneTouch UltraSoft 2 Lancet) Use 1 lancet once a day lancets (Prodigy Lancets) Use 1 lancet twice a day lancets (Safety Lancets) Use 1 lancet twice a day lancing device (ProdJack in the Boxy Lancing Device) s directed tests 4 X/day due to poor glycemic control levetiracetam 500 mg PO BID lisinopril 10 mg PO DAILY 90 days metformin 1,000 mg PO BID 90 days [Prevail Overnight pads As directed] [recliner lift chair As directed] semaglutide (Rybelsus) 14 mg PO QAM 30 days sennosides (senna) 8.6 mg PO BEDTIME PRN 30 days Shower Chair As directed walker As directed [wheelchair As directed] [wipes As directed] Tobacco use date assessed: 08/13/24 Dental Screening Dental Screen Date: 08/13/24 HPI HPI Comments History of Present Illness0 Details The patient is a 64-year-old female presenting with a follow-up on a cut on the left foot. The cut was treated at urgent care with antibiotics and is now drying up. The patient has a history of developmental delay and dementia, which complicates her overall management. She also has diabetes mellitus, with her last recorded HbA1c in July being 5.9%, indicating good control. The patient has onychomycosis in the affected foot, which may complicate healing of the cut. She also has a history of hypercalcemia, which will be monitored with repeat testing. Her medication regimen includes fluoxetine, lisinopril for hypertension, and Keppra for seizure management. She is also on metformin and Rybelsus for diabetes management. The patient is currently in a wheelchair, which may affect her mobility and overall health status. [facility] Medical History Hypercalcemia 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 Obesity due to excess calories Class 2 obesity with body mass index (BMI) of 37.0 to 37.9 in adult Mood disorder Memory loss Abnormal behavior Proteinuria Type 2 diabetes mellitus with other diabetic kidney complication Diabetes type 2, uncontrolled Urinary incontinence Microalbuminuria GERD (gastroesophageal reflux disease) Dyslipidemia Essential hypertension Mentally challenged Diabetes mellitus Surgical History History of hysterectomy Family History Father CVD (cardiovascular disease) Mother Hypertension CKD (chronic kidney disease) CHF (congestive heart failure) Brother Healthy adult Social History Household Members: Caregiver Housing: Assisted Living Facility Do you presently have visiting nurse or other home services: Yes Unable to assess alcohol history related to: Unknown Alcohol intake: never Comment: caregiver from [facility] at bedside Patient Tobacco Use Status: Never used Tobacco e-Cigarette/Vaping Use: Never Used Second Hand Smoke Exposure: No service: No Current occupational status: disabled Current occupational exposures/hazards: No Cognitive needs: Yes Hearing needs: No Vision needs: No Questionnaire Thrive Questionnaire Date Thrive assessed: 06/11/24 I am a: Patient What is your living situation today?: I have a steady place to live THRIVE Score: 0 TEX-7 AMB Questionnaire TEX-7 Date TEX - 7 assessed: 06/11/24 Source: Developed by Drs. Zaki Saucedo, Penelope Vegas, Brendan Vasquez and colleagues, with an educational sintia from [employer]. Review of Systems Const All systems reviewed & are unremarkable except as noted in HPI and below Card Denies chest pain at rest, Denies chest pain with activity, Denies edema, Denies irregular heart rhythm, Denies claudication, Denies dyspnea, Denies dyspnea on exertion, Denies orthopnea, Denies paroxysmal nocturnal dyspnea and Denies slow heart rate Resp Denies cough, Denies dyspnea and Denies dyspnea on exertion Musc Denies abnormal gait, Denies atrophy, Denies deformity and Denies limited range of motion Skin/Breast Denies bleeding lesions, Denies changing lesions and Denies rash Neuro Denies abnormal gait and Denies lack of coordination Physical exam (Primary Care) Tobacco/Smoking Status: Tobacco use Status Tobacco use date assessed 08/13/24 10/12/24 16:57 Patient Tobacco Use Status Never used Tobacco 10/12/24 16:57 e-Cigarette/Vaping Use Never Used 10/12/24 16:57 Thrive Assessment: Date of Thrive Assessment Date Thrive assessed 06/11/24 10/12/24 16:57 Const General: anxious and combative Resp Effort & Inspection: normal respiratory effort Auscultation: clear to auscultation bilaterally Cardio Jugular venous distension: no JVD Rate: regular rate Rhythm: regular rhythm Heart sounds: S1 normal heart sound present and S2 normal heart sound present Coding Level of Care Code Est Pt Level 4 (32178) Complex EM visit Add On G2211 Diagnoses Seizure R56.9 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 G30.0; F02.81 Type 2 diabetes mellitus with microalbuminuria, without long-term current use of insulin E11.29; R80.9 Diabetes mellitus type: type 2 Diabetes mellitus senior care insulin use: without senior care use Diabetes mellitus complication status: with kidney complications Diabetes mellitus complication detail: with microalbuminuria Essential hypertension I10 Dyslipidemia E78.5 Time Spent (min) 22 Assessment & Plan Assessment & Plan (1) Seizure: Code(s): R56.9 - Unspecified convulsions Category: Medical (2) 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: Code(s): G30.0 - Alzheimer's disease with early onset; F02.81 - Dementia in other diseases classified elsewhere, unspecified severity, with behavioral disturbance Category: Medical (3) Diabetes mellitus: Code(s): E11.9 - Type 2 diabetes mellitus without complications Category: Medical Qualifiers: Diabetes mellitus type: type 2 Diabetes mellitus senior care insulin use: without medical terminologist use Diabetes mellitus complication status: with kidney complications Diabetes mellitus complication detail: with microalbuminuria Qualified Code(s): E11.29 - Type 2 diabetes mellitus with other diabetic kidney complication; R80.9 - Proteinuria, unspecified (4) Essential hypertension: Code(s): I10 - Essential (primary) hypertension Category: Medical (5) Dyslipidemia: Code(s): E78.5 - Hyperlipidemia, unspecified Category: Medical Plan The patient will continue with her current medication regimen, including fluoxetine, lisinopril, Keppra, metformin, and Rybelsus. Blood work will be conducted at the next office visit to monitor her hypercalcemia and other relevant parameters. The cut on the left foot will be monitored for healing, considering the presence of onychomycosis. The patient's diabetes management appears to be effective, as indicated by her HbA1c level. Efforts will be made to manage her anxiety to facilitate future blood pressure measurements. Orders: Orders Microalbumin, Random (w Creat) Today R80.9 - Proteinuria, unspecified Comprehensive [place]. Panel Fast Today F02.81 - Dementia in other diseases classified elsewhere, unspecified severity, with behavioral disturbance, G30.0 - Alzheimer's disease with early onset Parathyroid Hormone Intact Today E83.52 - Hypercalcemia Phosphorus Today E83.52 - Hypercalcemia Lipid Panel Today E78.5 - Hyperlipidemia, unspecified Vitamin D 25-OH Total Today E55.9 - Vitamin D deficiency, unspecified, E83.52 - Hypercalcemia Calcium, Ionized Today E83.52 - Hypercalcemia
--- OUTSIDE RECORDS SUMMARY | 2024-10-12 18:04 | XMS_ITS | Clinical Summary ---
Author Organization [facility] Facility Address [address] [place] [address] Care Team Providers Care Redipper Name Role Phone Hannah Rowley MD Primary Care Provider [phone] Social History Tobacco Use Types Packs/Day Years [...] Medicaid [place] Medicare Medicaid [place] Care Teams Redipper Relationship Specialty Start Date End Date Hannah Rowley MD [address] [place] [address] PCP - General Internal Medicine 02/22/22
== END 2024-10-12 17:10 | disposition home or self-care (01) ==
LOC: HO.HMCH 16:53
PROVIDERS: PCP Internal Medicine; Visit Provider Internal Medicine
DX: E11.29 Type 2 diabetes mellitus with other diabetic kidney complication (principal); R56.9 Unspecified convulsions; G30.0 Alzheimer's disease with early onset; F02.818 Dementia in other diseases classified elsewhere, unspecified severity, with other behavioral disturbance; R80.9 Proteinuria, unspecified; I10 Essential (primary) hypertension; E78.5 Hyperlipidemia, unspecified

== ENCOUNTER → 2024-10-12 16:52 | Outpatient (BNVA) | payer MEDICARE, MEDICAID, SELFPAY | PROVIDERS: PCP Internal Medicine; Visit Provider Internal Medicine | DX: E11.29 Type 2 diabetes mellitus with other diabetic kidney complication (principal); R80.9 Proteinuria, unspecified; R56.9 Unspecified convulsions; G30.0 Alzheimer's disease with early onset; F02.818 Dementia in other diseases classified elsewhere, unspecified severity, with other behavioral disturbance; I10 Essential (primary) hypertension; E78.5 Hyperlipidemia, unspecified | CPT/HCPCS: 99212 ==

== ENCOUNTER 2024-11-17 14:05 | Outpatient (REF) | payer MEDICARE, MEDICAID, SELFPAY ==
[2024-11-17 14:32] LABS: Appearance Urine Clear; Glucose Urine UA Negative (Negative); PH 6.0 (5.0-9.0); Specific Gravity - Urine 1.015 (1.005-1.025); UMIC TRIGGER UACC YES
[2024-11-17 14:46] LABS: UACC Culture Trigger YES
[2024-11-17 15:08] LABS: Microalbum/Creatinine Ratio Ur 25.9 ug/mg cr (<30)
--- OUTSIDE RECORDS SUMMARY | 2024-11-17 15:24 | XMS_ITS | Clinical Summary ---
Author Organization [facility] Facility Address [address] [place] [address] Care Team Providers Care Shake Table Operator Name Role Phone Hannah Rowley MD Primary Care Provider [phone] Social History Tobacco Use Types Packs/Day Years [...] Pneumococcal Vaccine: 50+ Ye ars (1 of 1 - PCV) 2012 Influenza Vaccine (#1) 2024 Hepatitis B Vaccine Aged Out No longe r eligible based on patient's age to complete this topic Insurance Medicare Medicaid [place] Medicare [place] Care Teams Shake Table Operator Relationship Specialty Start Date End Date Hannah Rowley MD [address] [place] [address] PCP - General Internal Medicine 02/22/22
--- OUTSIDE RECORDS SUMMARY | 2024-11-17 15:24 | XMS_ITS | Clinical Summary ---
Author Organization [facility] Address [address] [place], [place] [id number] Phone Care Team Providers Care Business Services Sales Representative Name Role Phone Hannah Rowley MD Primary Care Provid er Allergies No known active allergies Medications melatonin 3 mg TbER 3 Active aspirin 81 MG EC tablet 3 Active atorvastatin (LIPITOR) 80 MG tablet 3 Active PRODIGY NO CODING Strp strips 3 Active FREESTYLE LITE METER meter kit 2 (two) times a day. 3 Active cholecalciferol (VITAMIN D3) 2,000 unit capsule 3 Active FLUoxetine (PROZAC) 20 MG capsule 3 Active ezetimibe (ZETIA) 10 mg tablet 3 Active PRODIGY TWIST TOP LANCET 28 gauge Misc 3 Active lisinopril (PRINIVIL,ZESTR IL) 10 MG tablet 3 Active loperamide (IMODIUM) 2 mg capsule TAKE 1 CAPSULE BY MOUTH TWICE A DAY NEEDED FOR LOOSE STOOL 3 Active LORazepam (ATIVAN) 1 MG tablet 3 Active metFORMIN (GLUCOPHAGE) 1000 MG tablet 3 Active ofloxacin (OCUFLOX) 0.3 % ophthalmic solution INSTILL 1 DROP INTO AFFECTED EYE(S) BY OPHTHALMIC ROUTE 4 TIMES PER DAY X 7 DAYS 3 Active omeprazole (PRILOSEC) 20 MG capsule 3 Active pioglitazone (ACTOS) 45 MG tablet 3 Active risperiDONE (RISPERDAL) 0.5 MG tablet 3 Active RYBELSUS 14 mg tablet 3 Active traZODone (DESYREL) 50 MG tablet 3 Active Social History Tobacco Use Types Packs/Day Years Used Date Smoking Tobacco: Never Assessed Education Answer Date Recorded Are you interested in more education? Not on karely e 11/30/2022 Are you concerned about learning? Not on file 11/30/2022 No 11/30/2022 No 11/30/2022 Digital Access Answer Date Recorded No 11/30/2022 No 11/30/2022 Reliable internet access at home? Not on file 11/30/2022 Device with a working camera? Not on file Comments Unknown Sex and Gender Information Value Date Recorded Sex Assigned at Not on file Legal Sex Female 2:51 PM EDT Gender Identity Not on file Sexual Orientation Not on file Last Filed Vital Signs Vital Sign Reading Time Taken Comments Blood Pressure 148/80 11/30/2022 4:26 PM EDT Pulse 82 11/30/2022 4:26 PM EDT Temperature 36.4 C (97.6 F) 11/30/2022 4:26 PM EDT Respiratory Rate 20 11/30/2022 4:26 PM EDT Oxygen Saturation 95% 11/30/2022 4:26 PM EDT Inhaled Oxygen Concentration - - Weight - - Height - - Body Mass Index - - Plan of Treatment Health Maintenance Due Date Last Done Comments Adult Td,Tdap Booster 1962 CREATININE LEVEL 1962 LIPID PANEL 1962 POTASSIUM LEVEL 1962 DEPRESSION SCREENING 1974 SMOKING Hx and SMOKELESS TOB ACCO SCREENING 1975 HEPATITIS C SCREENING 1980 HIV ONE-TIME SCREENING (18-6 5 YEARS) 1980 PAP SMEAR 1983 MAMMOGRAM 2002 COLOGUARD 2007 COLONOSCOPY 2007 COLORECTAL CANCER SCREENING 2007 FIT TEST 2007 FOBT 2007 SIGMOIDOSCOPY 2007 VIRTUAL COLONOSCOPY 2007 PNEUMOCOCCAL VACCINES (50+ y ears) (1 of 1 - PCV) 2012 ZOSTER VACCINES (1 of 2) 2012 COVID-19 VACCINE (2023-2 5 season) 2023 RSV VACCINE (1 - 1-dose 75+ series) 2037 HEPATITIS A VACCINES Aged Out No long er eligible based on patient's age to complete this topic HIB VACCINES Aged Out No longer eligi ble based on patient's age to complete this topic MENINGOCOCCAL VACCINES (ACWY) Aged Out No longer eligible based on patient's age to complete this topic MENINGOCOCCAL VACCINES (B) Aged Out N o longer eligible based on patient's age to complete this topic Medical Devices Not on file Insurance MEDICARE PART A & B [facility] MEDICARE PART A & [place] [facility] [place] [facility] B [facility] Care Teams Business Services Sales Representative Relationship Specialty Start Date End Date Hannah Rowley MD [address] [place] [address] PCP - General Internal Medicine 11/30/22 Additional Source Comments The information contained in this document represents components of the legal health record. It is not the complete legal health record.[facility]
== END 2024-11-17 14:06 | disposition home or self-care (01) ==
LOC: HO.LNP 14:05
PROVIDERS: Visit Provider Internal Medicine
DX: R80.9 Proteinuria, unspecified (principal); R39.9 Unspecified symptoms and signs involving the genitourinary system
CPT/HCPCS: 81001; 82043; 82570; 87086

== ENCOUNTER 2024-11-24 15:09 | Outpatient (AMB) | payer MEDICARE, MEDICAID, SELFPAY ==
[2024-11-24 15:13] VITALS: BP 126/74; PULSE 67; O2SAT 98
--- NOTE | 2024-11-24 15:13 | MHC.OFFVIS ---
Vital Signs 11/24/24 15:13 Height 5 ft 5 in BMI Reason not done Patient refused/unable BP 126/74 Blood Pressure Location Rt brachial Position Sitting Pulse 67 Pulse Source Pulse Oximeter Pulse Oximetry (%) 98 Oxygen Delivery Method Room Air Intake Visit Reasons: f/u appt Legal Records Manager Required: No Production Miner: Production Miner Present Accompanied by: Fatemeh from [facility] Allergies risperidone (From Risperdal) Allergy (Verified 10/12/24 16:59) Agitated lactose Adverse Reaction (Severe, Verified 10/12/24 16:59) Diarrhea HPI Comments Details: 64y/o female with advanced dementia, developmental delay comes for new onset seizures.she is accompanied by Fatemeh- toll collector supervisor. no seizures since last visit. History from last visit-she was admitted on 03/18/2024 for an episode of unresponsiveness. she was sitting in a recliner - unresponsive with tonic posture and some leg movements . She had an episode of vomiting in the ER. In the ER she had Right gaze paresis , unresponsive. she had a fall from her shower chair 1 day prior but no loss of consciousness.Her EEG did not show significant abnormality. she was seen by Dr. Glass , stroke was ruled out she was started on keppra 500mg bid . No episodes since then. History from initial visit- she is currently at [facility] - a residential Home . Her skill training program coordinator David martino h She came to residential home form her own house - she was taken care by her mother but when her mother fell sick she was transferred . she can follow simple commands sometimes, she needs help with all her ADLs. she can walk but sometimes refuses to walk. she can speak normally when she wants to. she also becomes anxious to get out of the house and does not like appointments. Her main concerns today are her screaming . she is also physically aggressive towards staff, throws stuff at the staff etc. Her sleep is erratic and she can be awake all night Her mother and brother have a combined guardianship . 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 Obesity due to excess calories Class 2 obesity with body mass index (BMI) of 37.0 to 37.9 in adult Mood disorder Memory loss Abnormal behavior Proteinuria Type 2 diabetes mellitus with other diabetic kidney complication Diabetes type 2, uncontrolled Urinary incontinence Microalbuminuria GERD (gastroesophageal reflux disease) Dyslipidemia Essential hypertension Mentally challenged Diabetes mellitus Surgical History History of hysterectomy Family History Father CVD (cardiovascular disease) Mother Hypertension CKD (chronic kidney disease) CHF (congestive heart failure) Brother Healthy adult Social History Household Members: Caregiver Housing: Assisted Living Facility Do you presently have visiting nurse or other home services: Yes Unable to assess alcohol history related to: Unknown Alcohol intake: never Comment: caregiver from [facility] at bedside Patient Tobacco Use Status: Never used Tobacco e-Cigarette/Vaping Use: Never Used Second Hand Smoke Exposure: No service: No Current occupational status: disabled Current occupational exposures/hazards: No Cognitive needs: Yes Hearing needs: No Vision needs: No Physical Exam Vital Signs: Last Vital Signs Pulse 67 11/24/24 15:13 BP 126/74 11/24/24 15:13 Pulse Ox 98 11/24/24 15:13 Oxygen Delivery Method Room Air 11/24/24 15:13 Const General: anxious Nutritional Appearance: average body habitus Limitations: wheelchair Neuro Other: Makes eye contact Moves all extremities follows simple commands Unable to do reflexes patient screams and wants to leave the room Assessment & Plan Assessment & Plan (1) 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: Code(s): G30.0 - Alzheimer's disease with early onset; F02.81 - Dementia in other diseases classified elsewhere, unspecified severity, with behavioral disturbance Category: Medical (2) Abnormal behavior: Comment: screaming . aggressive behavior towards staff Code(s): R46.89 - Other symptoms and signs involving appearance and behavior Category: Medical (3) Seizure: Code(s): R56.9 - Unspecified convulsions Category: Medical Plan Continue keppra 500mg bid F/u psychiatry or PCP for further management Coding Level of Care Code Est Pt Level 4 (06928) Diagnoses 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 G30.0; F02.81 Abnormal behavior R46.89 Seizure R56.9
--- OUTSIDE RECORDS SUMMARY | 2024-11-24 16:03 | XMS_ITS | Clinical Summary ---
Author Organization [facility] Facility Address [address] [place] [address] Care Team Providers Care Slab Grinder Name Role Phone Hannah Rowley MD Primary Care Provider Social History Tobacco Use Types Packs/Day Years [...] Medicaid [place] Care Teams Slab Grinder Relationship Specialty Start Date End Date Hannah Rowley MD [address] [place] [address] PCP - General Internal Medicine 02/22/22
--- OUTSIDE RECORDS SUMMARY | 2024-11-24 16:03 | XMS_ITS | Clinical Summary ---
Author Organization [facility] Address [address] [place], [place] [id number] Phone Care Team Providers Care Sound Technician Supervisor Name Role Phone Hannah Rowley MD Primary [...] file Insurance MEDICARE PART A & B [facility] MEDICARE PART A & B [place] [facility] PART [facility] [place] [facility] A & B [facility] Care Teams Sound Technician Supervisor Relationship Specialty Start Date End Date Hannah Rowley MD [address] [place] [address] PCP - General Internal Medicine 11/30/22 Additional Source Comments The information contained in this document represents components of the legal health record. It is not the complete legal health record.[facility]
== END 2024-11-24 15:47 | disposition home or self-care (01) ==
LOC: HO.HSMS 15:11
PROVIDERS: PCP Internal Medicine; Visit Provider Psychiatry & Neurology Neurology
DX: G30.0 Alzheimer's disease with early onset (principal); F02.811 Dementia in other diseases classified elsewhere, unspecified severity, with agitation; R46.89 Other symptoms and signs involving appearance and behavior; R56.9 Unspecified convulsions
CPT/HCPCS: 99214

== ENCOUNTER → 2024-11-24 15:09 | Outpatient (BNVA) | payer MEDICARE, MEDICAID, SELFPAY | PROVIDERS: PCP Internal Medicine; Visit Provider Psychiatry & Neurology Neurology | DX: G30.0 Alzheimer's disease with early onset (principal); F02.818 Dementia in other diseases classified elsewhere, unspecified severity, with other behavioral disturbance; R46.89 Other symptoms and signs involving appearance and behavior; R56.9 Unspecified convulsions; Z79.899 Other long term (current) drug therapy | CPT/HCPCS: 99212 ==

== ENCOUNTER 2024-12-01 15:35 | Outpatient (AMB) | payer MEDICARE, MEDICAID, SELFPAY ==
[2024-12-01 15:38] VITALS: BP 116/74
--- NOTE | 2024-12-01 15:38 | MHC.PC.OV ---
Vital Signs 12/01/24 15:38 Height 5 ft 5 in BMI Reason not done Patient refused/unable BP 116/74 Blood Pressure Location Lt brachial Position Sitting Pulse Source Pulse Oximeter Oxygen Delivery Method Room Air Intake Visit Reasons: Rash behind neck Skin Drier Required: No Accompanied by: Self / Same As Patient Allergies risperidone (From Risperdal) Allergy (Verified 12/01/24 15:59) Agitated lactose Adverse Reaction (Severe, Verified 12/01/24 15:59) Diarrhea Medication List - Last Reconciled 12/01/24 by Narciso Regan MD [1 person assist As directed] acetaminophen ER 650 mg PO Q12H 30 days [adult diapers briefs Use 8 briefs per day] [adult overnight diapers As directed] alprazolam 0.125 mg (1/2 x 0.25 mg) PO BID aspirin 1 tab PO DAILY atorvastatin 80 mg PO BEDTIME 90 days brexpiprazole (Rexulti) 1 mg PO DAILY brexpiprazole (Rexulti) 0.5 mg PO DAILY 90 days disposable gloves As directed-large size disposable gloves As directed- medium size fluoxetine 20 mg PO DAILY fluvoxamine 25 mg PO DAILY fluvoxamine 50 mg PO BEDTIME guaifenesin 200 mg PO DAILY PRN hospital bed As directed levetiracetam 500 mg PO BID lisinopril 10 mg PO DAILY 90 days metformin 1,000 mg PO BID 90 days [Prevail Overnight pads As directed] [recliner lift chair As directed] semaglutide (Rybelsus) 14 mg PO QAM 30 days sennosides (senna) 8.6 mg PO BEDTIME PRN 30 days sennosides (senna) mg PO DAILY Shower Chair As directed walker As directed [wheelchair As directed] [wipes As directed] Tobacco use date assessed: 12/01/24 Dental Screening Dental Screen Date: 12/01/24 HPI Rash behind neck HPI Details Patient is brought in for evaluation of a rash on the left side of her neck that was first noticed by staff at her retirement Staff thinks that the rash has been present for a few days but has not noticed patient scratching or picking at it Patient has multiple disabilities and cognitive handicaps, including Alzheimer's dementia and seizure disorder so is not able to provide any helpful information Staff thinks that the rash may be related to the heat during the summer (heat rash) and would like to get some prescription to help clear this up before it gets out of hand No other acute issues are noted at this time [facility] Medical History Hypercalcemia 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 Obesity due to excess calories Class 2 obesity with body mass index (BMI) of 37.0 to 37.9 in adult Mood disorder Memory loss Abnormal behavior Proteinuria Type 2 diabetes mellitus with other diabetic kidney complication Diabetes type 2, uncontrolled Urinary incontinence Microalbuminuria GERD (gastroesophageal reflux disease) Dyslipidemia Essential hypertension Mentally challenged Diabetes mellitus Surgical History History of hysterectomy Family History Father CVD (cardiovascular disease) Mother Hypertension CKD (chronic kidney disease) CHF (congestive heart failure) Brother Healthy adult Social History Household Members: Caregiver Housing: Assisted Living Facility Do you presently have visiting nurse or other home services: Yes Unable to assess alcohol history related to: Unknown Alcohol intake: never Comment: caregiver from [facility] at bedside Patient Tobacco Use Status: Never used Tobacco e-Cigarette/Vaping Use: Never Used Second Hand Smoke Exposure: No service: No Current occupational status: disabled Current occupational exposures/hazards: No Cognitive needs: Yes Hearing needs: No Vision needs: No Questionnaire PHQ-9 Over the last 2 weeks, how often have you been bothered by any of the following problems? 1. Little interest or pleasure in doing things: not at all 2. Feeling down, depressed, or hopeless: not at all 3. Trouble falling or staying asleep, or sleeping too much: not at all 4. Feeling tired or having little energy: not at all 5. Poor appetite or overeating: not at all 6. Feeling bad about yourself - or that you are a failure or have let yourself or your family down: not at all 7. Trouble concentrating on things, such as reading the newspaper or watching television: not at all 8. Moving or speaking so slowly that other people could have noticed. Or the opposite - being so fidgety or restless that you have been moving around a lot more than usual: not at all 9. Thoughts that you would be better off or of hurting yourself in some way: not at all Total score: 0 Depression Screening Interpretation: Negative Depression Screening Done: Yes 13225 - PHQ-9 Billing: Yes Source: Developed by Drs. Zaki Saucedo, Penelope Vegas, Brendan Vasquez and colleagues, with an educational sintia from [employer] Thrive Questionnaire Date Thrive assessed: 10/05/24 I am a: Patient What is your living situation today?: I have a steady place to live Within the past 12 months, did the food you bought not last and you didn't have the money to get more?: Never true Within the past 12 months, did you worry whether your food would run out before you got money to buy more?: Never true Do you have trouble paying for medicines?: No Do you have trouble getting transportation to medical appointments?: No Do you have trouble paying your heating and electricity bill?: No Do you have trouble taking care of your child, family member or friend?: No Do you have trouble with day-to-day activities such as bathing, preparing meals, shopping, managing finances, etc.?: No Are you currently unemployed and looking for a job?: No Are you interested in more education?: No Please select the resources that you would like help with: None Currently or been in a relationship where the following occur: No concerns reported THRIVE Score: 0 AUDIT C Alcohol Use Questionnaire (AUDIT-C) 1. How often do you have a drink containing alcohol?: Never 3. How often do you have six or more drinks on one occasion?: Never Total Score: 0 Score Reviewed/Action Taken: Yes TEX-7 AMB Questionnaire TEX-7 Date TEX - 7 assessed: 12/01/24 Feeling nervous, anxious, or on edge: 0 = Not at all Not being able to stop or control worryin = Not at all Worrying too much about different things: 0 = Not at all Trouble relaxin = Not at all Being so restless that it is hard to sit still: 0 = Not at all Becoming easily annoyed or irritable: 0 = Not at all Feeling afraid as if something awful might happen: 0 = Not at all Total TEX-7 score (0-4 normal; 5-9 mild; 10-14 moderate; 15-21 severe): 0 Source: Developed by Drs. Zaki Saucedo, Penelope Vegas, Brendan Vasquez and colleagues, with an educational sintia from [employer]. Review of Systems Const Details: Information is obtained mostly through retirement staff as patient has significant cognitive disabilities and is unable to provide any information on her own Unobtainable due to mental status Denies chills, Denies fever(s) and Denies headache(s) ENT Denies dysphagia, Denies headache(s), Denies nasal congestion, Denies neck pain and Denies sore throat Card Denies chest pain, Denies palpitations and Denies dyspnea Resp Denies chest congestion, Denies cough and Denies dyspnea GI Denies abdominal pain, Denies constipation, Denies dysphagia, Denies heartburn, Denies diarrhea, Denies nausea and Denies vomiting Reports urinary incontinence Musc Denies neck pain Skin/Breast Reports rash (on the left side of the neck - see HPI) Neuro Reports confusion and Denies headache(s) Psych Reports confusion Endo Denies palpitations Physical exam (Primary Care) Vital Signs: Last Vital Signs BP 116/74 12/01/24 15:38 Oxygen Delivery Method Room Air 12/01/24 15:38 Tobacco/Smoking Status: Tobacco use Status Tobacco use date assessed 12/01/24 12/01/24 15:53 Patient Tobacco Use Status Never used Tobacco 12/01/24 15:53 e-Cigarette/Vaping Use Never Used 12/01/24 15:53 PHQ-9: PHQ-9 Score PHQ-9: Total score 0 12/01/24 15:53 Depression Screening Interpretation: Negative Thrive Assessment: Date of Thrive Assessment Date Thrive assessed 10/05/24 12/01/24 15:53 Currently or been in a relationship where the following occur: No concerns reported Const General: comfortable, no acute distress and confusion Orientation/consciousness: confusion HENMT Head: Yes normocephalic Resp Auscultation: clear to auscultation bilaterally Cardio Rate: regular rate Rhythm: regular rhythm Heart sounds: no murmurs Skin Other: (+) patchy erythematous papular rash on the left side of the neck and proximal left shoulder area Neuro General: confusion Coding Level of Care Code Est Pt Level 3 (29764) Diagnoses Rash R21 Additional Codes PHQ-9 - 05737 - PHQ-9 Billing: Yes ([id number]) Assessment & Plan Assessment & Plan (1) Rash: Code(s): R21 - Rash and other nonspecific skin eruption Category: Medical Plan: Advised retirement staff with patient today that the left neck rash that patient currently has may either be miliaria or (early) candidal rash, both of which respond well to topical drying agents (powder) Will go ahead and start patient empirically on Nystatin powder [id number] units/gm to apply to the rash topically TID x 10 days, then PRN Plan Follow up with PCP as scheduled in a couple of weeks Medications: New nystatin 1 appl topical TID 60 grams 3RF 10 days
--- OUTSIDE RECORDS SUMMARY | 2024-12-01 15:59 | XMS_ITS | Clinical Summary ---
Author Organization [facility] Facility Address [address] [place] [address] Care Team Providers Care Marketing Administrative Assistant Name Role Phone Hannah Rowley MD Primary Care Provider [phone] Social History Tobacco Use Types Packs/Day Years [...] Medicaid [place] Care Teams Marketing Administrative Assistant Relationship Specialty Start Date End Date Hannah Rowley MD [address] [place] [address] PCP - General Internal Medicine 02/22/22
--- OUTSIDE RECORDS SUMMARY | 2024-12-01 15:59 | XMS_ITS | Clinical Summary ---
Author Organization [facility] Address [address], [place] [phone] Phone Care Team Providers Care Adding Machine Operator Name Role Phone Hannah Rowley MD [...] file Insurance MEDICARE PART A & B Member Subscriber Plan / Payer ( fective 1982-) Name:Perla Torres Member ID:[id number] Relation to Subscriber:Self Name:Perla Torres Subscriber ID:[id number] Payer ID:[id number] Group ID:Not on file Type:Medicare Address: [facility] [employer] [facility] [address] [place] [id number] [facility] MEDICARE PART A & B [place] A & [facility]IC[facility] [place] [facility] A & [facility] B Member Subscriber Plan / Payer (Ef fective 1982-Present) Name:Perla Torres Member ID:[id number] Relation to Subscriber:Self Name:Perla Torres Subscriber ID:[id number] Payer ID:[id number] Group ID:Not on file Type:Medicare Address: [facility] [employer] [email or web address] [address] [place] [address] [facility] Care Teams Adding Machine Operator Relationship Specialty Start Date End Date Hannah Rowley MD [address] [place] [address] PCP - General Internal Medicine 11/30/22 Additional Source Comments The information contained in this document represents components of the legal health record. It is not the complete legal health record.[facility]
== END 2024-12-01 16:07 | disposition home or self-care (01) ==
LOC: HO.HMCH 15:36
PROVIDERS: PCP Internal Medicine; Visit Provider Internal Medicine
DX: R21 Rash and other nonspecific skin eruption (principal)

== ENCOUNTER → 2024-12-01 15:35 | Outpatient (BNVA) | payer MEDICARE, MEDICAID, SELFPAY | PROVIDERS: PCP Internal Medicine; Visit Provider Internal Medicine | DX: R21 Rash and other nonspecific skin eruption (principal) | CPT/HCPCS: 96127; 99212 ==

== ENCOUNTER 2025-02-09 09:00 | Outpatient (REF) | payer MEDICARE, MEDICAID, SELFPAY ==
[2025-02-09 11:16] LABS: Appearance Urine Clear; Glucose Urine UA Negative (Negative); PH 5.5 (5.0-9.0); Specific Gravity - Urine 1.015 (1.005-1.025); UMIC TRIGGER UACC YES
[2025-02-09 11:22] LABS: UACC Culture Trigger YES
--- OUTSIDE RECORDS SUMMARY | 2025-02-09 13:26 | XMS_ITS | Clinical Summary ---
Author Organization [facility] Address [address] [place], [place] [id number] Phone Care Team Providers Care Manager Of Regulatory Affairs Name Role Phone Hannah Rowley MD Primary [...] 2012 ZOSTER VACCINES (1 of 2) 2012 INFLUENZA VACCINE (#1) 2024 COVID-19 VACCINE ( - 2024-2 6 season) 2024 RSV VACCINE (1 - 1-dose 75+ series) [...] & B [facility] MEDICARE PART A & B [place] [facility] PART A & [facility] [place] MEDICARE PART A & [address] [place], [place] [address]HEALTH MEDICARE PART A & B [facility] Care Teams Manager Of Regulatory Affairs Relationship Specialty Start Date End Date Hannah Rowley MD [address] [place] [address] PCP - General Internal Medicine 11/30/22 Additional Source Comments The information contained in this document represents components of the legal health record. It is not the complete legal health record.[facility]
== END 2025-02-09 09:01 | disposition home or self-care (01) ==
LOC: HO.LNP 09:00
PROVIDERS: Visit Provider Internal Medicine
DX: N39.41 Urge incontinence (principal)
CPT/HCPCS: 81001; 87086

== ENCOUNTER 2025-02-11 13:03 | Outpatient (AMB) | payer MEDICARE, MEDICAID, SELFPAY ==
[2025-02-11 13:12] VITALS: BMI 28.0
--- NOTE | 2025-02-11 13:12 | A.OFFVIS_ITS ---
Vital Signs 02/11/25 13:12 Height 5 ft 5 in Weight 168 lb BMI 28.0 Intake Visit Reasons: Type 2 Diabetes, Proteinuria Intake Note: Perla is a 64 year old female who presents to the office today for a new patient visit referred by her PCP Dr. Leonard for type II diabetes. Pt is non verbal was unable to get much information from software developer consultant Allergies risperidone (From Risperdal) Allergy (Verified 02/11/25 13:29) Agitated lactose Adverse Reaction (Severe, Verified 02/11/25 13:29) Diarrhea Medication List - Last Reconciled 02/11/25 by Aundrea Mcintyre DPM [1 person assist As directed] acetaminophen ER 650 mg PO Q12H 30 days [adult diapers briefs Use 8 briefs per day] [adult overnight diapers As directed] alprazolam 0.125 mg (1/2 x 0.25 mg) PO BID aspirin 1 tab PO DAILY atorvastatin 80 mg PO BEDTIME 90 days brexpiprazole (Rexulti) 1 mg PO DAILY brexpiprazole (Rexulti) 0.5 mg PO DAILY 90 days dextromethorphan-guaifenesin 5-100 mg/5 mL (Robitussin Cough-Chest Congestion DM) 10 mL PO Q4-8H PRN 30 days disposable gloves As directed-large size disposable gloves As directed- medium size fluoxetine 20 mg PO DAILY fluvoxamine 25 mg PO DAILY fluvoxamine 50 mg PO BEDTIME guaifenesin 200 mg PO DAILY PRN hospital bed As directed levetiracetam 500 mg PO BID lisinopril 10 mg PO DAILY 90 days metformin 1,000 mg PO BID 90 days nystatin 1 appl topical TID 10 days [Prevail Overnight pads As directed] [recliner lift chair As directed] semaglutide (Rybelsus) 14 mg PO QAM 30 days sennosides (senna) 8.6 mg PO BEDTIME PRN 30 days sennosides (senna) mg PO DAILY Shower Chair As directed walker As directed [wheelchair As directed] [wipes As directed] HPI Comments Details: The patient is a 64-year-old female with a past medical history as seen below presenting with discomfort due to bilateral toenails that are noted to be thickened, dystrophic, and elongated. Patient is nonverbal and is currently nonweightbearing in a wheelchair. Patient was accompanied by a software developer consultant. Unable to obtain a thorough history and perform aspects of the assessment due to nonverbal status. Patient unable to tend to her feet due to current medical con ditions. [facility] Medical History Hypercalcemia 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 Obesity due to excess calories Class 2 obesity with body mass index (BMI) of 37.0 to 37.9 in adult Mood disorder Memory loss Abnormal behavior Proteinuria Type 2 diabetes mellitus with other diabetic kidney complication Diabetes type 2, uncontrolled Urinary incontinence Microalbuminuria GERD (gastroesophageal reflux disease) Dyslipidemia Essential hypertension Mentally challenged Diabetes mellitus Surgical History History of hysterectomy Family History Father CVD (cardiovascular disease) Mother Hypertension CKD (chronic kidney disease) CHF (congestive heart failure) Brother Healthy adult Social History Household Members: Caregiver Housing: Assisted Living Facility Do you presently have visiting nurse or other home services: Yes Alcohol intake: never Comment: caregiver from [facility] at bedside Patient Tobacco Use Status: Never used Tobacco e-Cigarette/Vaping Use: Never Used Second Hand Smoke Exposure: No service: No Current occupational status: disabled Current occupational exposures/hazards: No Cognitive needs: Yes Hearing needs: No Vision needs: No Review of Systems Const Details: - Musculoskeletal: Thickened, discolored, dystrophic, and elongated toenails x10 All systems reviewed & are unremarkable except as noted in HPI and below Physical Exam Vital Signs: BMI result Body Mass Index 28.0 Extrem Other: B/L LE Focused Physical Exam: Derm: Thickened, discolored, dystrophic, and elongated toenails x10. No open lesions, abrasions, or wounds noted. No ecchymosis or discoloration noted. No clinical signs of infection. Vasc: DP/PT pulses palpable. CFT < 3 secs. Temp gradient warm to cool. No edema noted. Mild varicosities noted. Pedal hair absent. Neuro: Unable to assess. MSK: Unable to assess. Patient is currently in a wheelchair. Office Procedures AMB Debridement/Avulsion Podia Details: Debrided toenails x10 using a sterile nail nipper with no incidence. 53004-Tvbpolfelwr of Nail 6+ Procedure code (CPT) selection complete Results Reviewed Results Reviewed: Laboratory Tests 08/13/24 15:34 Hgb A1c (Clinic) 5.9 Assessment & Plan Assessment & Plan (1) Diabetes mellitus: Code(s): E11.9 - Type 2 diabetes mellitus without complications Category: Medical Qualifiers: Diabetes mellitus type: type 2 Diabetes mellitus chcf insulin use: without chcf use Diabetes mellitus complication status: with kidney complications Diabetes mellitus complication detail: with microalbuminuria Qualified Code(s): E11.29 - Type 2 diabetes mellitus with other diabetic kidney complication; R80.9 - Proteinuria, unspecified (2) Mentally challenged: Code(s): F79 - Unspecified intellectual disabilities Category: Medical (3) 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: Code(s): G30.0 - Alzheimer's disease with early onset; F02.81 - Dementia in other diseases classified elsewhere, unspecified severity, with behavioral disturbance Category: Medical (4) Tinea unguium: Code(s): B35.1 - Tinea unguium Category: Medical (5) Nail dystrophy: Code(s): L60.3 - Nail dystrophy Category: Medical (6) Nail disorder: Code(s): L60.9 - Nail disorder, unspecified Category: Medical Plan Patient was informed and verbally consented to the use of an ambient scribe for clinic note documentation during this visit. I discussed with the patient/software developer consultant the importance of regular toenail trimming to prevent discomfort and potential complications from nails pressing against skin causing ingrowns or wounds. We agreed to continue a schedule of trimming every nine weeks. - Debrided toenails x10. - Patient is to avoid ill-fitting shoes and is to wear shoe gear with a wide toe box. - Avoid barefoot walking. RTC in 9 weeks for routine nail care. Orders: Orders AMB Debridement/Avulsion Podiatry Today B35.1 - Tinea unguium, E11.29 - Type 2 diabetes mellitus with other diabetic kidney complication, F02.81 - Dementia in other diseases classified elsewhere, unspecified severity, with behavioral disturbance, F79 - Unspecified intellectual disabilities, G30.0 - Alzheimer's disease with early onset, L60.3 - Nail dystrophy, L60.9 - Nail disorder, unspecified, R80.9 - Proteinuria, unspecified Coding Level of Care Code New Pt Level 3 (88733) Diagnoses Type 2 diabetes mellitus with microalbuminuria, without long-term current use of insulin E11.29; R80.9 Diabetes mellitus type: type 2 Diabetes mellitus chcf insulin use: without supervisor intermediates use Diabetes mellitus complication status: with kidney complications Diabetes mellitus complication detail: with microalbuminuria Mentally challenged F79 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 G30.0; F02.81 Tinea unguium B35.1 Nail dystrophy L60.3 Nail disorder L60.9 CPT Codes Skin Debridement - CPT: 24980-Gdnhpuwrjja of Nail 6+ ([id number]) Time Spent (min) 40
--- OUTSIDE RECORDS SUMMARY | 2025-02-11 16:18 | XMS_ITS | Clinical Summary ---
Author Organization [facility] Address [address] [place], [place] [id number] Phone Care Team Providers Care Motor Vehicle Parts Interpreter Name Role Phone Hannah Rowley MD Primary [...] file Insurance MEDICARE PART A & B [facility] MEDICARE PART A & B [place] [facility] PART [facility] [place] MEDICARE PART A & [address] [place] [address]HEALTH MEDICARE PART A & B [facility] Care Teams Motor Vehicle Parts Interpreter Relationship Specialty Start Date End Date Hannah Rowley MD [address] [place] [address] PCP - General Internal Medicine 11/30/22 Additional Source Comments The information contained in this document represents components of the legal health record. It is not the complete legal health record.[facility]
--- OUTSIDE RECORDS SUMMARY | 2025-02-11 16:18 | XMS_ITS | Clinical Summary ---
Author Organization [facility] Facility Address [address] [place] [address] Care Team Providers Care Drafting Supervisor Name Role Phone Hannah Rowley MD Primary Care Provider [phone] Social History Tobacco Use Types Packs/Day Years [...] [place] Care Teams Drafting Supervisor Relationship Specialty Start Date End Date Hannah Rowley MD [address] [place] [address] PCP - General Internal Medicine 02/22/22
== END 2025-02-11 13:29 | disposition home or self-care (01) ==
PROVIDERS: PCP Internal Medicine; Visit Provider Student in an Organized Health Care Education/Training Program
DX: E11.29 Type 2 diabetes mellitus with other diabetic kidney complication (principal); R80.9 Proteinuria, unspecified; F79 Unspecified intellectual disabilities; G30.0 Alzheimer's disease with early onset; F02.81 Dementia in other diseases classified elsewhere, unspecified severity, with behavioral disturbance; B35.1 Tinea unguium; L60.3 Nail dystrophy; L60.9 Nail disorder, unspecified
CPT/HCPCS: 11721; 99203

== ENCOUNTER → 2025-02-11 13:03 | Outpatient (BNVA) | payer MEDICARE, MEDICAID, SELFPAY | PROVIDERS: PCP Internal Medicine; Visit Provider Student in an Organized Health Care Education/Training Program | DX: L60.3 Nail dystrophy (principal); L60.9 Nail disorder, unspecified; B35.1 Tinea unguium; F79 Unspecified intellectual disabilities; G30.0 Alzheimer's disease with early onset; F02.818 Dementia in other diseases classified elsewhere, unspecified severity, with other behavioral disturbance; E11.29 Type 2 diabetes mellitus with other diabetic kidney complication; R80.9 Proteinuria, unspecified | CPT/HCPCS: 11721; 99202 ==

== ENCOUNTER 2025-04-14 13:17 | Outpatient (AMB) | payer MEDICARE, MEDICAID, SELFPAY ==
--- NOTE | 2025-04-14 13:26 | MHC.OFFVIS ---
Vital Signs 04/14/25 13:27 Height 5 ft 5 in Weight 168 lb BMI 28.0 Intake Visit Reasons: routine nail care Intake Note: Perla is a 65 year old female who presents today for her routine nail care/trimming. Patient folder machine reports everything is going well however she notices a red ring on the plantar aspect of both of her feet. Allergies risperidone (From Risperdal) Allergy (Verified 04/14/25 13:27) Agitated lactose Adverse Reaction (Severe, Verified 04/14/25 13:27) Diarrhea HPI Comments Details: The patient is a 65 year old female presenting to the office for a follow-up for routine foot care. Her caregiver reports that her toenails have grown very long, causing discomfort to the toes. The caregiver also notes that the patient's feet are washed and she always wears fresh socks. The caregiver denies any new pedal injuries or concerns. [facility] Medical History (Updated 04/06/25 @ 13:20 by Hannah Stacy MD) Nail disorder Nail dystrophy Tinea unguium Hypercalcemia 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 Obesity due to excess calories Class 2 obesity with body mass index (BMI) of 37.0 to 37.9 in adult Mood disorder Memory loss Abnormal behavior Proteinuria Type 2 diabetes mellitus with other diabetic kidney complication Diabetes type 2, uncontrolled Urinary incontinence Microalbuminuria GERD (gastroesophageal reflux disease) Dyslipidemia Essential hypertension Mentally challenged Diabetes mellitus Surgical History History of hysterectomy Family History Father CVD (cardiovascular disease) Mother Hypertension CKD (chronic kidney disease) CHF (congestive heart failure) Brother Healthy adult Social History Household Members: Caregiver Housing: Assisted Living Facility Do you presently have visiting nurse or other home services: Yes Alcohol intake: never Comment: caregiver from [facility] at bedside Patient Tobacco Use Status: Never used Tobacco e-Cigarette/Vaping Use: Never Used Second Hand Smoke Exposure: No service: No Current occupational status: disabled Current occupational exposures/hazards: No Cognitive needs: Yes Hearing needs: No Vision needs: No Review of Systems Const Details: - Musculoskeletal: Thickened, discolored, dystrophic, and elongated toenails x10 All systems reviewed & are unremarkable except as noted in HPI and below Physical Exam Vital Signs: BMI result Body Mass Index 28.0 Extrem Other: B/L LE Focused Physical Exam: Derm: Thickened, discolored, dystrophic, and elongated toenails x10. No open lesions, abrasions, or wounds noted. No ecchymosis or discoloration noted. No clinical signs of infection. Vasc: DP/PT pulses palpable. CFT < 3 secs. Temp gradient warm to cool. No edema noted. Mild varicosities noted. Pedal hair absent. Neuro: Unable to assess. MSK: Unable to assess. Patient is currently in a wheelchair. Office Procedures AMB Debridement/Avulsion Podia Details: Debrided toenails x10 using sterile nail nippers without any incidents. 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 insulin use: without petroleum terminal plant operator use Diabetes mellitus complication status: with kidney complications Diabetes mellitus complication detail: with microalbuminuria Qualified Code(s): E11.29 - Type 2 diabetes mellitus with other diabetic kidney complication; R80.9 - Proteinuria, unspecified (2) Mentally challenged: Code(s): F79 - Unspecified intellectual disabilities Category: Medical (3) 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: Code(s): G30.0 - Alzheimer's disease with early onset; F02.81 - Dementia in other diseases classified elsewhere, unspecified severity, with behavioral disturbance Category: Medical (4) Tinea unguium: Code(s): B35.1 - Tinea unguium Category: Medical (5) Nail dystrophy: Code(s): L60.3 - Nail dystrophy Category: Medical (6) Nail disorder: Code(s): L60.9 - Nail disorder, unspecified Category: Medical Plan Patient was informed and verbally consented to the use of an ambient scribe for clinic note documentation during this visit. I recommended continued routine nail care every 9 weeks and discussed the treatment plan with patient's caregiver. - Debrided toenails x10. - Recommend wearing supportive shoe gear. - Advised continued routine nail care every 9 weeks. RTC in 9 weeks. Coding Level of Care Code Est Pt Level 3 (71567) Diagnoses Type 2 diabetes mellitus with microalbuminuria, without long-term current use of insulin E11.29; R80.9 Diabetes mellitus type: type 2 Diabetes mellitus care home insulin use: without petroleum terminal plant operator use Diabetes mellitus complication status: with kidney complications Diabetes mellitus complication detail: with microalbuminuria Mentally challenged F79 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 G30.0; F02.81 Tinea unguium B35.1 Nail dystrophy L60.3 Nail disorder L60.9 CPT Codes Skin Debridement - CPT: 13293-Wautkbvosoh of Nail 6+ ([id number]) Time Spent (min) 30 Comment 10 mins for the procedure
[2025-04-14 13:27] VITALS: BMI 28.0
--- OUTSIDE RECORDS SUMMARY | 2025-04-14 17:27 | XMS_ITS | Clinical Summary ---
Author Organization [facility] Address [address] [place], [place] [id number] Phone Care Team Providers Care Machine Adjuster Leader Case Trim Name Role Phone aHnnah Rowley MD Primary Care Provid er Allergies [...] file Insurance MEDICARE PART A & B [facility] MEDICARE PART A & [place] [facility] [facility] [place] MEDICARE PART A & [address] [place], [place] [address]HEALTH MEDICARE PART A & B [facility] Care Teams Machine Adjuster Leader Case Trim Relationship Specialty Start Date End Date Hannah Rowley MD [address] [place] [address] PCP - General Internal Medicine 11/30/22 Additional Source Comments The information contained in this document represents components of the legal health record. It is not the complete legal health record.[facility]
== END 2025-04-14 13:42 | disposition home or self-care (01) ==
LOC: HO.HPODS 13:17
PROVIDERS: PCP Internal Medicine; Visit Provider Student in an Organized Health Care Education/Training Program
DX: E11.29 Type 2 diabetes mellitus with other diabetic kidney complication (principal); R80.9 Proteinuria, unspecified; F79 Unspecified intellectual disabilities; G30.0 Alzheimer's disease with early onset; F02.81 Dementia in other diseases classified elsewhere, unspecified severity, with behavioral disturbance; B35.1 Tinea unguium; L60.3 Nail dystrophy
CPT/HCPCS: 11721; G9226